=== PATIENT | male | born 1950 | race Caucasian/White ===

== ENCOUNTER 2017-03-22 15:28 | Emergency (ER) | payer OTHER ==
[~2017-03-22] VITALS: Ht 175.3 cm; Wt 140.0 kg
[~2017-03-22 15:28] MED LIST: ACET-1487 PO; ASPCH81X PO; ASPITAB71 PO; CLC100 PO; CRG125 PO; FAMO1TAB47 PO; GLC/500 PO; GLYB2.5T7 PO; INSUINJ14 SC; INSUINJ4 SQ; LPT10 PO; LSN5 PO; LSX40 PO; MECL1TAB42 PO; OXYC-643 PO; SALI0.6510 NAE; TRAM-10 PO; WARF-246 PO; WARF5TAB90 PO
[2017-03-22 15:32] VITALS: TEMP 37.1; Ht 175.3 cm; Wt 140.0 kg
--- NOTE | 2017-03-22 15:47 | EMERGENCY ROOM VISIT NOTE ---
History Report prepared by Jocelyn: Joesph Queen Under the Supervision of: Dr. Daniel Suazo D.O. First contact with patient: 15:36 Chief Complaint: FLANK PAIN Stated Complaint: PAIN ON RIGHT SIDE History of Present Illness The patient is a 67 year old male who presents to the Emergency Room with complaints of persistent right-sided back pain that started 2 weeks ago. He states that he currently has blood clots in his legs, and was seen at [facility] today, and was told to come here to get a CT scan. The patient says that laying down makes the pain better, and nothing makes it worse. He adds that he has been nauseous. He says that the pain is not worsened with eating or exertion. The patient denies any chest pain or abdominal pain. He notes that he is taking Warfarin, and his levels were last checked of last week, and it was 2.5. He says that he has a history of blood clots in his lungs. The patient has a noted history of hypertension and diabetes. He states that he does not smoke cigarettes or drink alcohol. Source of History: patient Onset: 2 weeks ago Position: back (right sided) Quality: other (told to get CT scan here) Timing: other (persistent) Modifying Factors (Relieving): other (laying down) Associated Symptoms: + nausea, No chest pain, No abdominal pain Review of Systems See HPI for pertinent positives & negatives. A total of 10 systems reviewed and were otherwise negative. Past Medical & Surgical Medical Problems: (1) Amputation Thumb (2) Cardiomegaly (3) Heartburn (4) Osteoarthros Nos-Unspec Family History Cancer Diabetes mellitus Heart disease Hypertension Social History Smoking Status: Former Smoker Alcohol Use: none Marital Status: Housing Status: lives with significant other Occupation Status: employed Current/Historical Medications Scheduled Aspirin (Aspirin Chewable), 81 MG PO DAILY Atorvastatin (Atorvastatin Calcium), 10 MG PO DAILY Carvedilol (Carvedilol), 25 MG PO BID Famotidine (Famotidine), 20 MG PO BID Furosemide (Furosemide), 40 MG PO DAILY Glyburide (Diabeta), 2.5 MG PO BID Insulin Isophan/Regular (Novolin 70/30), 40 UNITS SC BID Lisinopril (Lisinopril), 2.5 MG PO DAILY Metformin Hcl (Glucophage), 500 MG PO BIDM Warfarin Sodium (Warfarin Sodium), 2.5 MG PO MWF Warfarin Sodium (Coumadin), 5 MG PO 4XWK Scheduled PRN Aspirin Effervescent (Rita-Living[place]), 2 TABS PO for GI Upset Docusate Sodium (Docusate Sodium), 1 CAP PO BID PRN for Constipation Meclizine Hcl (Meclizine Hcl), 25 MG PO TID PRN for Dizziness Oxycodone/Acetaminophen 5MG/325MG (Oxycodone/Acetaminophen 5MG/325MG), 1-2 TABS PO Q4-6HRS PRN for Pain Saline ([place] Nasal [place]), 2 SPRAYS SHANNAN DAILY PRN for Nasal Congestion Tramadol (Ultram), 50-100 MG PO Q4H PRN for Pain Allergies Coded Allergies: Simvastatin (Verified Allergy, Mild, 03/22/17) Rosuvastatin (Unverified Allergy, Unknown, Pt unsure, 03/22/17) Physical Exam Vital Signs Date Time Temp Pulse Resp B/P (MAP) Pulse Ox O2 Delivery O2 Flow Rate FiO2 03/22/17 17:34 77 20 138/88 97 03/22/17 16:28 85 03/22/17 15:32 37.1 88 22 131/73 93 Room Air Physical Exam GENERAL: Patient is awake, alert, and in no acute distress. Patient is resting comfortably and showing no signs of anxiety EYES: The conjunctivae are clear. The pupils are round and reactive. EARS, NOSE, MOUTH AND THROAT: The nose is without any evidence of any deformity. Mucous membranes are moist tongue is midline NECK: The neck is nontender and supple. RESPIRATORY: Normal respiratory effort is noted there is no evidence of wheezing rhonchi or rales CARDIOVASCULAR: Regular rate and rhythm noted there no murmurs rubs or gallops normal S1 normal S2 GASTROINTESTINAL: The abdomen is mildly distended but soft. No tenderness, guarding, or rigidity appreciated. BACK: Right CVA tenderness to percussion and tenderness over the lower right posterior rib cage. No midline tenderness. Range of motion intact. MUSCULOSKELETAL/EXTREMITIES: There is no evidence of gross deformity full range of motion is noted in the hips and shoulders SKIN: Pedal edema bilaterally. NEUROLOGIC: Patient is awake alert and oriented x3. Medical Decision & Procedures ER Provider Diagnostic Interpretation: Radiology results as stated below per my review and radiologist interpretation: CHEST ONE VIEW PORTABLE CLINICAL HISTORY: Abdominal pain. COMPARISON STUDY: Chest CT August 30, 2014. FINDINGS: There are median sternotomy wires. Moderate cardiomegaly is unchanged. There is no evidence of pulmonary edema. No consolidation is identified. No pneumothorax or pleural effusion is noted. No lucency is identified under the hemidiaphragms to suggest pneumoperitoneum on this exam. IMPRESSION: No acute cardiopulmonary findings. Electronically signed by: Lance Trujillo M.D. 03/22/2017 4:05 PM Dictated Date/Time: 03/22/2017 4:[address] ANGIOGRAPHY OF THE CHEST, PULMONARY EMBOLUS PROTOCOL CLINICAL HISTORY: Right sided chest pain. COMPARISON STUDY: Chest CT August 30, 2014 and chest radiograph performed earlier today. TECHNIQUE: Following IV administration of 89 mL of Optiray-320, helical axial images of the chest were obtained utilizing the pulmonary embolus protocol. Maximal intensity projections and sagittal and coronal reformats were viewed on an independent 3D workstation. IV contrast was administered without complication. A dose lowering technique was utilized adhering to the principles of ALARA. CT DOSE: 725.27 mGy.cm FINDINGS: No central or lobar pulmonary emboli are identified. The segmental and subsegmental pulmonary arteries within the lower lobes are suboptimally assessed due to respiratory motion. The heart is moderately enlarged. There is no pericardial effusion. Median sternotomy wires are noted. Mild dilatation of the ascending aorta, measuring approximately 4.5 x 4 cm at the level the main pulmonary artery is unchanged. There is no thoracic aortic dissection. No consolidation to suggest pneumonia is present. Lungs are suboptimally assessed due to respiratory motion. There is no pneumothorax or pleural effusion. Central airways are patent. No suspicious osseous lesions are present. Probable fatty infiltration of the liver is noted. There is a small hiatal hernia. IMPRESSION: 1. No pulmonary emboli identified although segmental and subsegmental pulmonary arteries within the lower lobes suboptimally assessed due to respiratory motion. 2. No acute intrathoracic findings. 3. Stable cardiomegaly and mild dilatation of the ascending aorta. No thoracic aortic dissection. Electronically signed by: Lance Trujillo M.D. 03/22/2017 5:11 PM Dictated Date/Time: 03/22/2017 5:02 PM Laboratory Results 03/22/17 16:09 Red Blood Count 5.19, Mean Corpuscular Volume 87.7, Mean Corpuscular Hemoglobin 30.3, Mean Corpuscular Hemoglobin Concent 34.5, Mean Platelet Volume 10.2, Neutrophils (%) (Auto) 63.4, Lymphocytes (%) (Auto) 24.4, Monocytes (%) (Auto) 9.4, Eosinophils (%) (Auto) 1.6, Basophils (%) (Auto) 0.4, Neutrophils # (Auto) 6.99, Lymphocytes # (Auto) 2.69, Monocytes # (Auto) 1.04, Eosinophils # (Auto) 0.18, Basophils # (Auto) 0.04 03/22/17 16:09 Test 03/22/17 15:52 03/22/17 16:09 03/22/17 16:14 03/22/17 16:18 Urine Color YELLOW Urine Appearance CLEAR (CLEAR) Urine pH 6.0 (4.5-7.5) Urine Specific [place] 1.018 (1.000-1.030) Urine Protein NEG (NEG) Urine Glucose (UA) NEG (NEG) Urine Ketones NEG (NEG) Urine Occult Blood 1+ (NEG) Urine Nitrite NEG (NEG) Urine Bilirubin NEG (NEG) Urine Urobilinogen NEG (NEG) Urine Leukocyte Esterase NEG (NEG) Urine WBC (Auto) 0 /hpf (0-5) Urine RBC (Auto) 5-10 /hpf (0-4) Urine Hyaline Casts (Auto) 0 /lpf (0-5) Urine Epithelial Cells (Auto) 5-10 /lpf (0-5) Urine Bacteria (Auto) NEG (NEG) White Blood Count 11.03 K/uL (4.8-10.8) Red Blood Count 5.19 M/uL (4.7-6.1) Hemoglobin 15.7 g/dL (14.0-18.0) Hematocrit 45.5 % (42-52) Mean Corpuscular Volume 87.7 fL (80-100) Mean Corpuscular Hemoglobin 30.3 pg (25-34) Mean Corpuscular Hemoglobin Concent 34.5 g/dl (32-36) Platelet Count 309 K/uL (130-400) Mean Platelet Volume 10.2 fL (7.4-10.4) Neutrophils (%) (Auto) 63.4 % Lymphocytes (%) (Auto) 24.4 % Monocytes (%) (Auto) 9.4 % Eosinophils (%) (Auto) 1.6 % Basophils (%) (Auto) 0.4 % Neutrophils # (Auto) 6.99 K/uL (1.4-6.5) Lymphocytes # (Auto) 2.69 K/uL (1.2-3.4) Monocytes # (Auto) 1.04 K/uL (0.11-0.59) Eosinophils # (Auto) 0.18 K/uL (0-0.5) Basophils # (Auto) 0.04 K/uL (0-0.2) RDW Standard Deviation 42.3 fL (36.4-46.3) RDW Coefficient of Variation 13.2 % (11.5-14.5) Immature Granulocyte % (Auto) 0.8 % Immature Granulocyte # (Auto) 0.09 K/uL (0.00-0.02) Prothrombin Time 26.3 SECONDS (9.0-12.0) Prothromb Time International Ratio 2.6 (0.9-1.1) Activated Partial Thromboplast Time 37.4 SECONDS (21.0-31.0) Partial Thromboplastin Ratio 1.4 Est Creatinine Clear Calc Drug Dose 99.6 ml/min Estimated GFR () 87.9 Estimated GFR (Non- 75.9 BUN/Creatinine Ratio 17.0 (10-20) Calcium Level 8.8 mg/dl (8.5-10.1) Total Bilirubin 0.4 mg/dl (0.2-1) Direct Bilirubin < 0.1 mg/dl (0-0.2) Aspartate Amino Transf (AST/SGOT) 32 U/L (15-37) Alanine Aminotransferase (ALT/SGPT) 43 U/L (12-78) Alkaline Phosphatase 114 U/L (45-117) Total Creatine Kinase 270 U/L (39-308) Creatine Kinase MB 5.0 ng/ml (0.5-3.6) Creatine Kinase MB Ratio 1.9 (0-3.0) Troponin I < 0.015 ng/ml (0-0.045) Total Protein 7.1 gm/dl (6.4-8.2) Albumin 3.7 gm/dl (3.4-5.0) Lipase 121 U/L (73-393) Bedside D-Dimer 129 ng/mlFEU (0-450) Bedside Troponin I < 0.030 ng/ml (0-0.045) Bedside Hemoglobin 14.6 g/dl (14.0-18.0) Bedside Hematocrit 43 % (42-52) Bedside Sodium 140 mEq/L (135-144) Bedside Potassium 3.9 mEq/L (3.3-5.0) Bedside Chloride 96 mEq/L (101-112) Bedside Total CO2 32 mEq/l (24-31) Anion Gap 17.0 mmol/L (16-25) Bedside Blood Urea Nitrogen 18 mg/dl (7-18) Bedside Creatinine 1.1 mg/dl (0.6-1.3) Bedside Glucose (other) 157 mg/dl (70-99) Bedside Ionized Calcium (Missy) 1.14 mmol/l (1.12-1.32) Laboratory results per my review. ECG Indication: nausea Rate (beats per minute): 83 Rhythm: normal sinus Findings: Q waves (Inferior), T-wave inversion (high lateral) Change: no significant change (from 09/01/14) ED Course 1541: The patient was evaluated in room A9B. A complete history and physical examination were performed. 1718: Upon reevaluation, the patient is resting comfortably. I discussed the results and treatment plan with him. He verbalized agreement of the treatment plan. He was discharged home. Medical Decision Differential diagnosis: Etiologies such as musculoskeletal, disc herniation, fracture, aortic disease, metastatic disease, cord compression, discitis, infection, renal colic, gastrointestinal, acute exacerbation of chronic back pain, sciatica, cauda equina, as well as others were entertained. Nursing notes reviewed. The patient is a 67-year-old male who presented to the emergency department for right flank pain. The patient had reproducible right flank pain is also over the lower rib cage. He has a history for his Coumadin. His primary emergency department for CT chest shortness of pulmonary embolism the patient did not as follows other problems such as the stone patient only wanted a CT the chest. I obtain other laboratory radiographic studies as well as a cardiac workup. I discussed his laboratory radiographic studies with him. He did not wish to have any medication for pain while he was in the emergency department. Encouraged to rest and avoid any strenuous activity. He was encouraged to follow-up with his family doctor for reevaluation but return to the emergency department immediately if symptoms change worsen Medication Reconcilliation Current Medication List: was personally reviewed by me Blood Pressure Screening Patient's blood pressure: Elevated blood pressure Blood pressure disposition: Elevated BP felt to be situational Impression Primary Impression: Right-sided back pain Scribe Attestation The scribe's documentation has been prepared under my direction and personally reviewed by me in its entirety. I confirm that the note above accurately reflects all work, treatment, procedures, and medical decision making performed by me. Departure Information Dispostion Home / Self-Care Referrals Jennie Mckoy D.O. (PCP) Forms HOME CARE DOCUMENTATION FORM, IMPORTANT VISIT INFORMATION Patient Instructions Lumbar Pain Causes, [facility] Additional Instructions Continue all medications as prescribed. Rest and avoid any strenuous activity. Return the emergency department immediately if symptoms change worsen that he arises. Follow-up with your family doctor soon as possible. Problem Qualifiers Primary Impression: Right-sided back pain Back pain location: low back pain Chronicity: acute Sciatica presence: unspecified whether sciatica present Qualified Codes: M54.5 - Low back pain
--- NOTE | 2017-03-22 16:06 | DIAGNOSTIC IMAGING REPORT ---
CHEST ONE VIEW PORTABLE CLINICAL HISTORY: Abdominal pain. COMPARISON STUDY: Chest CT August 30, 2014. FINDINGS: There are median sternotomy wires. Moderate cardiomegaly is unchanged. There is no evidence of pulmonary edema. No consolidation is identified. No pneumothorax or pleural effusion is noted. No lucency is identified under the hemidiaphragms to suggest pneumoperitoneum on this exam. IMPRESSION: No acute cardiopulmonary findings. Electronically signed by: Lance Trujillo M.D. 03/22/2017 4:05 PM Dictated Date/Time: 03/22/2017 4:04 PM
[2017-03-22 16:10] LABS: URINE APPEARANCE CLEAR (CLEAR); URINE BILIRUBIN NEG (NEG); URINE COLOR YELLOW; URINE NITRITE NEG (NEG); URINE SPECIFIC GRAVITY 1.018 (1.000-1.030); UROBILINOGEN NEG (NEG)
[2017-03-22 16:14] LABS: MANUAL MICROSCOPIC REQUIRED? NO; REVIEW REQ? NO
[2017-03-22 16:19] LABS: BASO % 0.4 %; BASO ABS # 0.04 K/uL (0-0.2); COMPLETE YES; EOS % 1.6 %; HEMATOCRIT 45.5 % (42-52); IG% 0.8 %; LYMPH % 24.4 %; LYMPH ABS # 2.69 K/uL (1.2-3.4); MEAN CELL VOLUME 87.7 fL (80-100); MEAN CORPUSCULAR HEMOGLOBIN 30.3 pg (25-34); MEAN CORPUSCULAR HGB CONC 34.5 g/dl (32-36); MEAN PLATELET VOLUME 10.2 fL (7.4-10.4); MONO % 9.4 %; NEUT % 63.4 %; PLATELET COUNT 309 K/uL (130-400); RED BLOOD COUNT 5.19 M/uL (4.7-6.1); WHITE BLOOD COUNT 11.03 K/uL (4.8-10.8)
[2017-03-22 16:28] LABS: INR 2.6 (0.9-1.1); PARTIAL THROMBOPLASTIN RATIO 1.4; PROTHROMBIN TIME (PATIENT) 26.3 SECONDS (9.0-12.0)
[2017-03-22 16:34] LABS: POINT OF CARE TROPONIN I < 0.030 ng/ml (0-0.045)
[2017-03-22 16:35] LABS: ISTAT CREATININE 1.1 mg/dl (0.6-1.3); ISTAT HEMOGLOBIN 14.6 g/dl (14.0-18.0); ISTAT IONIZED CALCIUM 1.14 mmol/l (1.12-1.32)
[2017-03-22 16:49] LABS: ALT/SGPT 43 U/L (12-78); BLOOD UREA NITROGEN 18 mg/dl (7-18); CALCIUM 8.8 mg/dl (8.5-10.1); CARBON DIOXIDE 32 mmol/L (21-32); CHLORIDE 99 mmol/L (98-107); CREATININE 1.03 mg/dl (0.60-1.40); GLUCOSE 152 mg/dl (70-99); SODIUM 138 mmol/L (136-145)
[2017-03-22] MEDS ORDERED: INSU70IN2 SC (16:51)
[2017-03-22 16:54] LABS: ALKALINE PHOSPHATASE 114 U/L (45-117); AST/SGOT 32 U/L (15-37); CKMB/CK RATIO 1.9 (0-3.0)
[2017-03-22] MEDS ORDERED: OPTIRAY 320 IV PRN (17:00)
--- NOTE | 2017-03-22 17:12 | DIAGNOSTIC IMAGING REPORT ---
CT ANGIOGRAPHY OF THE CHEST, PULMONARY EMBOLUS PROTOCOL CLINICAL HISTORY: Right sided chest pain. COMPARISON STUDY: Chest CT August 30, 2014 and chest radiograph performed earlier today. TECHNIQUE: Following IV administration of 89 mL of Optiray-320, helical axial images of the chest were obtained utilizing the pulmonary embolus protocol. Maximal intensity projections and sagittal and coronal reformats were viewed on an independent 3D workstation. IV contrast was administered without complication. A dose lowering technique was utilized adhering to the principles of ALARA. CT DOSE: 725.27 mGy.cm FINDINGS: No central or lobar pulmonary emboli are identified. The segmental and subsegmental pulmonary arteries within the lower lobes are suboptimally assessed due to respiratory motion. The heart is moderately enlarged. There is no pericardial effusion. Median sternotomy wires are noted. Mild dilatation of the ascending aorta, measuring approximately 4.5 x 4 cm at the level the main pulmonary artery is unchanged. There is no thoracic aortic dissection. No consolidation to suggest pneumonia is present. Lungs are suboptimally assessed due to respiratory motion. There is no pneumothorax or pleural effusion. Central airways are patent. No suspicious osseous lesions are present. Probable fatty infiltration of the liver is noted. There is a small hiatal hernia. IMPRESSION: 1. No pulmonary emboli identified although segmental and subsegmental pulmonary arteries within the lower lobes suboptimally assessed due to respiratory motion. 2. No acute intrathoracic findings. 3. Stable cardiomegaly and mild dilatation of the ascending aorta. No thoracic aortic dissection. Electronically signed by: Lance Trujillo M.D. 03/22/2017 5:11 PM Dictated Date/Time: 03/22/2017 5:02 PM
[2017-03-22 17:34] VITALS: BP 138/88; PULSE 77; O2SAT 97
== END 2017-03-22 17:20 | disposition home or self-care (01) ==
LOC: C.EDB 15:28 → C.EDA 17:20
DX: M54.5 Low back pain (principal); I10 Essential (primary) hypertension; E11.9 Type 2 diabetes mellitus without complications; M19.90 Unspecified osteoarthritis, unspecified site; Z86.711 Personal history of pulmonary embolism; Z87.891 Personal history of nicotine dependence; Z83.3 Family history of diabetes mellitus; Z82.49 Family history of ischemic heart disease and other diseases of the circulatory system; Z79.01 Long term (current) use of anticoagulants; Z79.4 Long term (current) use of insulin; Z79.82 Long term (current) use of aspirin; Z79.84 Long term (current) use of oral hypoglycemic drugs; Z79.899 Other long term (current) drug therapy

== ENCOUNTER 2023-08-03 15:18 | Inpatient (IN) ==
--- NOTE | 2023-08-03 15:30 | ED Triage Note ---
Date of Service August 03, 2023 Provider in Triage Author: Bree Freeman History of Present Illness This patient was briefly evaluated while in triage. An abbreviated physical exam was performed. This patient is a 73-year-old Male who presents to the ED for evaluation of chest pain and mid back pain. Reports had CT done and stated his gallbladder is infected and needed to come here for evaluation. Physical Exam CONSTITUTIONAL: in no acute pain or distress, resting comfortably SKIN: pink, warm, dry CARDIAC: regular rate and rhythm RESPIRATORY: in no respiratory distress, lungs clear to auscultation ABDOMEN: epigastric TTP MSK: 5/5 strength throughout NEURO: no neuro deficits, alert and oriented x 3 Initial orders for labs and / or imaging were placed and patient was placed in the waiting area until a bed is available. Please see further documentation for the full ED course.
[2023-08-03 16:18] LABS: Basophils # (auto) 0.05 K/uL (0.00-0.20); Basophils % (auto) 0.3 %; Eosinophils # (auto) 0.04 K/uL (0.00-0.50); Eosinophils % (auto) 0.2 %; Hematocrit (blood only) 44.8 % (42.0-52.0); Immature Granulocytes # (auto) 0.14 K/uL (0.01-0.20); Immature Granulocytes % (auto) 0.8 %; Lymphocytes # (auto) 1.91 K/uL (1.20-3.40); Lymphocytes % (auto) 10.8 %; Mean Corpuscular Hgb Conc 33.5 g/dL (32.0-36.0); Mean Corpuscular Volume 86.7 fL (80.0-100.0); Mean Platelet Volume 10.7 fL (9.4-12.4); Monocytes # (auto) 1.67 K/uL (0.11-0.59); Monocytes % (auto) 9.4 %; Neutrophils # (auto) 13.93 K/uL (1.40-6.50); Neutrophils % (auto) 78.5 %; Platelet Count 305 K/uL (130-400); RDW Standard Deviation 41.1 fL (36.4-46.3); Red Blood Count 5.17 M/uL (4.70-6.10); White Blood Count 17.74 K/ul (4.8-10.8)
[2023-08-03 16:23] LABS: Albumin Level 3.6 gm/dl (3.4-5.0); BUN Creatinine Ratio 11.1 (10-20); Bilirubin,Total 1.1 mg/dl (0.2-1.0); Calcium 9.2 mg/dl (8.6-10.3); Est GFR (African American) 108.8 ml/min; Est GFR (Non-African American) 93.9 ml/min; Globulin 3.5 gm/dl (2.5-4.0); Potassium 3.7 mmol/L (3.5-5.1); Total Protein 7.1 gm/dl (6.0-8.3)
[2023-08-03 16:29] LABS: Troponin I High Sensitivity 13.6 pg/ml (0-20)
--- NOTE | 2023-08-03 16:59 | Emergency Department Note ---
ED Provider Note History of Present Illness Chief Complaint: Referred by Doctor Stated Complaint: GALL STONES Time Seen by Provider: 08/03/23 16:44 This patient is a 73-year-old male who presents to the emergency department for evaluation of an abnormal CT scan. Patient reports that he developed some pains in his lower chest/upper abdomen 3 days ago. The pain was pretty severe the next day but yesterday felt a bit better. He noticed his pain was worse after eating. Pain did radiate into the back. He woke up today feeling much better and denies any pain at this time. He had an appointment with his PCP today, they ordered a CT and then called him and told him to come to the ER. Outside records reviewed, patient was seen through [facility] and had a CT scan which showed acute calculus cholecystitis and choledocholithiasis with mild dilation of the CBD. Home Medications Medication Instructions Recorded Confirmed Type acetaminophen 325 mg tablet 650 mg PO Q6H PRN Pain 10/20/18 08/03/23 History apixaban 5 mg tablet (Eliquis) 5 mg PO BID 10/20/18 08/03/23 History aspirin-sod bicarb-citric acid 325 1 tab PO DAILY PRN Abdominal 10/20/18 08/03/23 History mg-1,916 mg-1,000 mg efferves tab Discomfort (Rita-Mira Original) atorvastatin 80 mg tablet 80 mg PO QAM 10/20/18 08/03/23 History docusate sodium 100 mg capsule 100 mg PO BID PRN Constipation 10/20/18 08/03/23 History insulin NPH-regular 70-30 U-100 75 unit subcut BID 10/20/18 08/03/23 History insulin 100 unit/mL subcutaneous pen (Novolin 70-30 FlexPen U-100 Insulin) tramadol 50 mg tablet 50 mg PO Q8H PRN Pain 10/20/18 08/03/23 History aspirin 81 mg tablet,delayed 81 mg PO QAM 04/09/20 08/03/23 History release ezetimibe 10 mg tablet 10 mg PO QAM 03/20/22 08/03/23 History fluticasone furoate 100 1 inh inhalation QAM PRN Wheezing 03/20/22 08/03/23 History mcg/actuation blister powder for inhalation (Arnuity Ellipta) furosemide 40 mg tablet 40 mg PO QAM 03/20/22 08/03/23 History isosorbide mononitrate 30 mg 30 mg PO QAM 03/20/22 08/03/23 History tablet,extended release 24 hr metformin 500 mg tablet,extended 500 mg PO BID 03/20/22 08/03/23 History release 24 hr metoprolol succinate 50 mg 75 mg PO QPM 03/20/22 08/03/23 History tablet,extended release 24 hr metoprolol succinate 50 mg 100 mg PO QAM 03/20/22 08/03/23 History tablet,extended release 24 hr nitroglycerin 0.4 mg sublingual 0.4 mg sublingual UD PRN Chest Pain 03/20/22 08/03/23 History tablet semaglutide 2 mg/dose (8 mg/3 mL) 2 mg subcut WK 08/03/23 08/03/23 History subcutaneous pen injector (Ozempic) Allergies Allergy/AdvReac Type Severity Reaction Status Date / Time rosuvastatin Allergy Mild Cramping Verified 08/03/23 18:23 of the Muscles simvastatin Allergy Mild Cramping Verified 08/03/23 18:23 of the Muscles Past Med/Surg History Medical History (Updated 08/04/23 @ 13:17 by NICOLÁS Heaton) CAD (coronary artery disease) Pulmonary hypertension Ischemic cardiomyopathy Per cardio records. EF 50-54% on 11/01/19 echo. Pain of left leg LLE. Per cardiology, 07/2018 duplex showed chronic-appearing nonocclusive thrombus in L popliteal vein. SOB (shortness of breath) on exertion Irregular heartbeat HX-F/U GAL GRACIE Osteoarthritis Kidney stones Diabetes mellitus, type 2 Vertigo Depression Anxiety Transient ischemic attack (TIA) 15 YRS AGO Migraine Pulmonary embolism Post-op s/p CABG with DVT in 2014, then again 08/2018 despite warfarin therapy. Myocardial Infarction NSTEMI 2014. Cath --> CABG x 3 (GREGORY-LAD, SVG-Dx, SVG-OM) 08/16/14. Deep vein thrombosis "still have it"?? started 5+ years ago-> is currently on blood thinners. has no problems Hyperlipidemia Hypertension Sleep apnea CPAP HS and PRN with naps Surgical History History of ERCP History of amputation partial right thumb amputation S/P hardware removal left leg (unable to remove screws) History of open reduction and internal fixation (ORIF) procedure Left leg (1999 & 2003) d/t a trauma Nausea and vomiting after administration of anesthetic agent hx Hx of cataract surgery bilateral History of shoulder surgery right History of arthroscopy KNEES History of colonoscopy Hx of heart bypass surgery 2015 CABG x 3. History of cardiac cath NO STENTS, 2015. Family History Mother Diabetes mellitus, type 2 Mother Cancer Father Cancer Other No family history of adverse response to anesthesia Social History Smoking Status: Never smoker Second Hand Exposure: No; Do You Dip or Chew Tobacco: No; Hx Alcohol Use: No Hx Substance Use: No Preferred Language: Occitan Communication Ability: Effective Certified Welding Inspector Required: No Beliefs That Will Affect Care: None Current Living Situation: Spouse Feels Safe at Home: Yes Assistive Devices: Cane, CPAP and Scooter/Electric Scooter Physical Exam Vital Signs Vital Signs - 24 hr 08/03/23 15:18 08/03/23 17:17 08/03/23 17:17 Temperature 37.0 C Temperature Source Temporal Artery Scan Pulse Rate 100 H 86 Pulse Rate [Apical] 96 H Pulse Rate from SpO2 Sensor Pulse Rhythm Regular Pulse Rhythm [Apical] Regular Pulse Strength [Apical] Respiratory Rate 18 20 20 Respiratory Effort / Characteristics Non-Labored Spontaneous Respiratory Depth Normal Respiratory Pattern Regular Blood Pressure 156/79 H Blood Pressure [Right Arm] 168/99 H Blood Pressure Mean 104 Blood Pressure Mean [Right Arm] 122 Pulse Oximetry 94 93 93 Oxygen Delivery Method Nasal Cannula Room Air Room Air Sepsis Recent Fever Within 48 Hours No Sepsis New/Unexplained Change in Mental Status N/A Sepsis Action Taken by Nursing No Action Required 08/03/23 17:18 08/03/23 17:20 08/03/23 17:24 Temperature Temperature Source Pulse Rate 96 H 91 H 96 H Pulse Rate [Apical] Pulse Rate from SpO2 Sensor 87 92 H Pulse Rhythm Pulse Rhythm [Apical] Pulse Strength [Apical] Respiratory Rate 26 H 16 Respiratory Effort / Characteristics Respiratory Depth Respiratory Pattern Blood Pressure Blood Pressure [Right Arm] Blood Pressure Mean Blood Pressure Mean [Right Arm] Pulse Oximetry 93 92 Oxygen Delivery Method Sepsis Recent Fever Within 48 Hours Sepsis New/Unexplained Change in Mental Status Sepsis Action Taken by Nursing 08/03/23 17:30 08/03/23 17:32 08/03/23 17:32 Temperature Temperature Source Pulse Rate 99 H 88 Pulse Rate [Apical] Pulse Rate from SpO2 Sensor 102 H 90 Pulse Rhythm Pulse Rhythm [Apical] Pulse Strength [Apical] Respiratory Rate 26 H 12 Respiratory Effort / Characteristics Respiratory Depth Respiratory Pattern Blood Pressure 157/83 H Blood Pressure [Right Arm] Blood Pressure Mean 99 Blood Pressure Mean [Right Arm] Pulse Oximetry 92 94 Oxygen Delivery Method Sepsis Recent Fever Within 48 Hours Sepsis New/Unexplained Change in Mental Status Sepsis Action Taken by Nursing 08/03/23 17:40 08/03/23 17:50 08/03/23 18:00 Temperature Temperature Source Pulse Rate 91 H 92 H 90 Pulse Rate [Apical] Pulse Rate from SpO2 Sensor 91 H 85 89 Pulse Rhythm Pulse Rhythm [Apical] Pulse Strength [Apical] Respiratory Rate 15 11 L 24 Respiratory Effort / Characteristics Respiratory Depth Respiratory Pattern Blood Pressure Blood Pressure [Right Arm] Blood Pressure Mean Blood Pressure Mean [Right Arm] Pulse Oximetry 93 93 91 Oxygen Delivery Method Sepsis Recent Fever Within 48 Hours Sepsis New/Unexplained Change in Mental Status Sepsis Action Taken by Nursing 08/03/23 18:01 08/03/23 18:01 08/03/23 18:10 Temperature Temperature Source Pulse Rate 91 H 90 Pulse Rate [Apical] Pulse Rate from SpO2 Sensor 91 H 88 Pulse Rhythm Pulse Rhythm [Apical] Pulse Strength [Apical] Respiratory Rate 28 H 23 Respiratory Effort / Characteristics Respiratory Depth Respiratory Pattern Blood Pressure 148/83 H Blood Pressure [Right Arm] Blood Pressure Mean 100 Blood Pressure Mean [Right Arm] Pulse Oximetry 93 92 Oxygen Delivery Method Sepsis Recent Fever Within 48 Hours Sepsis New/Unexplained Change in Mental Status Sepsis Action Taken by Nursing 08/03/23 18:20 08/03/23 18:30 08/03/23 18:40 Temperature Temperature Source Pulse Rate 92 H 94 H 86 Pulse Rate [Apical] Pulse Rate from SpO2 Sensor 90 89 Pulse Rhythm Pulse Rhythm [Apical] Pulse Strength [Apical] Respiratory Rate 30 H 18 17 Respiratory Effort / Characteristics Respiratory Depth Respiratory Pattern Blood Pressure Blood Pressure [Right Arm] Blood Pressure Mean Blood Pressure Mean [Right Arm] Pulse Oximetry 92 94 Oxygen Delivery Method Sepsis Recent Fever Within 48 Hours Sepsis New/Unexplained Change in Mental Status Sepsis Action Taken by Nursing 08/03/23 18:58 04/23/24 19:00 08/03/23 19:00 Temperature Temperature Source Pulse Rate 96 H 83 Pulse Rate [Apical] 87 Pulse Rate from SpO2 Sensor Pulse Rhythm Pulse Rhythm [Apical] Regular Pulse Strength [Apical] Normal Respiratory Rate 14 20 22 Respiratory Effort / Characteristics Non-Labored Spontaneous Respiratory Depth Normal Respiratory Pattern Regular Blood Pressure Blood Pressure [Right Arm] Blood Pressure Mean Blood Pressure Mean [Right Arm] Pulse Oximetry 98 Oxygen Delivery Method Room Air Sepsis Recent Fever Within 48 Hours Sepsis New/Unexplained Change in Mental Status Sepsis Action Taken by Nursing 08/03/23 19:10 08/03/23 19:20 Temperature Temperature Source Pulse Rate 92 H 91 H Pulse Rate [Apical] Pulse Rate from SpO2 Sensor Pulse Rhythm Pulse Rhythm [Apical] Pulse Strength [Apical] Respiratory Rate 34 H 12 Respiratory Effort / Characteristics Respiratory Depth Respiratory Pattern Blood Pressure Blood Pressure [Right Arm] Blood Pressure Mean Blood Pressure Mean [Right Arm] Pulse Oximetry Oxygen Delivery Method Sepsis Recent Fever Within 48 Hours Sepsis New/Unexplained Change in Mental Status Sepsis Action Taken by Nursing VITALS: Vitals are noted on the nurse's note and reviewed by myself. GENERAL: This is a 73-year-old male, in no acute distress, well-developed well- nourished. SKIN: The skin was without rashes. EYES: Pupils equal round and reactive to light and accommodation. No scleral icterus. MOUTH: Mucous membranes moist. HEART: Regular rate and rhythm without murmurs gallops or rubs. LUNGS: Clear to auscultation bilaterally without wheezes, rales or rhonchi. ABDOMEN: Positive bowel sounds x 4. Soft, nontender to palpation. No guarding or rebound tenderness. NEURO: Patient was alert and oriented to person place and time. Course Administered Medications Hydromorphone HCl (Hydromorphone Inj 0.5 Mg/0.5 Ml Syr) 0.25 mg IV Q6H PRN PRN Reason: Severe Pain (Scale 7, 8, 9,10) Stop: 08/17/23 20:45 Last Admin: 08/04/23 11:54 Dose: 0.25 mg Documented By: LRB Heparin Sodium/Dextrose (Heparin Sodium/Dextrose) 25,000 units in 500 mls @ 32 mls/hr IV .[id number] [facility]; Protocol Stop: 09/02/23 19:44 Last Titration: 08/04/23 19:00 Dose: 1,600 units/hr, 32 mls/hr Documented By: TAWNY Co-signed By: ELLIOTT Titration: 08/04/23 12:23 Dose: 1,600 units/hr, 32 mls/hr Documented By: ELLIOTT Co-signed By: ROMI Admin: 08/04/23 11:54 Dose: 1,600 units/hr, 32 mls/hr Documented By: ELLIOTT Co-signed By: ROMI Titration: 08/04/23 11:54 Dose: Infused Documented By: ELLIOTT Co-signed By: ROMI Titration: 08/04/23 05:13 Dose: 1,600 units/hr, 32 mls/hr Documented By: JAZMYNE Co-signed By: JORGE A Titration: 08/04/23 04:11 Dose: 0 units/hr, 0 mls/hr Documented By: JAZMYNE Co-signed By: JORGE A Admin: 08/03/23 19:56 Dose: 1,800 units/hr, 36 mls/hr Documented By: ALFREDA Co-signed By: KATHERINE Piperacillin Sod/Tazobactam (Sod 4.5 gm/ Dextrose) 100 mls @ 25 mls/hr IV Q8H JOHNIE; Protocol Stop: 08/13/23 22:59 Last Infusion: 08/04/23 19:37 Dose: Infused Documented By: Admin: 08/04/23 15:37 Dose: 25 mls/hr Documented By: Infusion: 08/04/23 11:44 Dose: Infused Documented By: Admin: 08/04/23 08:11 Dose: 25 mls/hr Documented By: Infusion: 08/04/23 02:56 Dose: Infused Documented By: Admin: 08/03/23 22:36 Dose: 25 mls/hr Documented By: ALFREDA Acetaminophen (Ofirmev) 1,000 mg in 100 mls @ 400 mls/hr IV Q8H PRN PRN Reason: Pain or Fever Stop: 08/06/23 20:45 Last Infusion: 08/04/23 16:23 Dose: Infused Documented By: Admin: 08/04/23 15:37 Dose: 400 mls/hr Documented By: Infusion: 08/04/23 08:05 Dose: Infused Documented By: Admin: 08/04/23 07:50 Dose: 400 mls/hr Documented By: Infusion: 08/03/23 21:52 Dose: Infused Documented By: Admin: 08/03/23 21:31 Dose: 400 mls/hr Documented By: ALFREDA Insulin Aspart (Insulin Aspart Per Unit Charge) 0 units SC Q6 JOHNIE Stop: 09/03/23 00:00 Last Admin: 08/04/23 17:11 Dose: Not Given Documented By: Admin: 08/04/23 12:52 Dose: 2 units Documented By: ELLIOTT Co-signed By: ROMI Admin: 08/04/23 06:06 Dose: 4 units Documented By: JAZMYNE Co-signed By: JORGE A Admin: 08/04/23 00:10 Dose: Not Given Documented By: JASKARAN Insulin Glargine (Lantus Per Unit Charge) 0 units SC HS JOHNIE; Protocol Stop: 09/03/23 20:59 Last Admin: 08/04/23 21:03 Dose: 10 units Documented By: TAWNY Co-signed By: [id number] Metoprolol Succinate (Metoprolol Succ 50mg Ext Rel Tab) 100 mg PO QAM JOHNIE Stop: 09/03/23 08:59 Last Admin: 08/04/23 08:12 Dose: 100 mg Documented By: RICHARD Metoprolol Succinate (Metoprolol Succ 25mg Ext Rel Tab) 75 mg PO QPM [facility] Stop: 09/02/23 20:59 Last Admin: 08/04/23 21:01 Dose: 75 mg Documented By: Admin: 08/03/23 21:20 Dose: 75 mg Documented By: ALFREDA Discontinued Medications Bisacodyl (Bisacodyl 5 Mg Tabec) 5 mg PO NOW ONE Stop: 08/03/23 19:29 Last Admin: 08/03/23 19:55 Dose: 5 mg Documented By: ALFREDA Furosemide (Furosemide Inj 20 Mg/2 Ml Vial) 20 mg IV ONE ONE Stop: 08/04/23 11:18 Last Admin: 08/04/23 11:57 Dose: 20 mg Documented By: ELLIOTT Piperacillin Sod/Tazobactam Sod (Zosyn) 4.5 gm in 100 mls @ 200 mls/hr IV NOW ONE Stop: 08/03/23 17:58 Last Infusion: 08/03/23 18:16 Dose: Infused Documented By: Admin: 08/03/23 17:44 Dose: 200 mls/hr Documented By: ALFREDA Sodium Chloride (Nss) 500 mls @ 80 mls/hr IV .[id number] JOHNIE Stop: 08/04/23 05:14 Last Admin: 08/04/23 00:02 Dose: Not Given Documented By: JASKARAN Potassium Chloride/Sodium Chloride (Normal Saline W/20 Meq Kcl) 20 meq in 1,000 mls @ 80 mls/hr IV .[id number] ONE; Protocol Stop: 08/04/23 12:27 Last Infusion: 08/04/23 12:39 Dose: Infused Documented By: Admin: 08/04/23 00:08 Dose: 80 mls/hr Documented By: JASKARAN Insulin Glargine (Lantus Per Unit Charge) 20 units SC DAILY JOHNIE Stop: 09/03/23 08:59 Last Admin: 08/04/23 10:18 Dose: Not Given Documented By: RICHARD Morphine Sulfate (Morphine Sulfate 2 Mg/Ml Carp) Confirm Administered Dose 2 mg .ROUTE .STK-MED ONE Stop: 08/04/23 14:34 Last Admin: 08/04/23 14:40 Dose: 2 mg Documented By: MILTON Potassium Chloride (Potassium Chloride Crtab 20 Meq Tabcr) 40 meq PO NOW STA Stop: 08/03/23 23:40 Last Admin: 08/04/23 00:07 Dose: 40 meq Documented By: JASKARAN Medical Decision Making Differential Diagnosis Appendicitis, testicular torsion, infections, diverticulitis, UTI, obstruction, mesenteric ischemia, aortic pathology, inflammatory bowel disease, renal colic, PUD, pancreatitis, biliary pathology, hernia, volvulus, constipation, as well as other pathologies. Laboratory Data Attestation: I reviewed the patient's lab results. 08/04/23 02:05 08/04/23 02:05 Lab Results 08/03/23 08/03/23 08/03/23 Range/Units 15:34 15:39 17:15 WBC 17.74 H (4.8-10.8) K/ul RBC 5.17 (4.70-6.10) M/uL Hgb 15.0 (14.0-18.0) g/dl Hct 44.8 (42.0-52.0) % MCV 86.7 (80.0-100.0) fL MCH 29.0 (25.0-34.0) pg MCHC 33.5 (32.0-36.0) g/dL RDW Std Deviation 41.1 (36.4-46.3) fL RDW Coeff of Sara 13.0 (11.5-14.5) % Plt Count 305 (130-400) K/uL MPV 10.7 (9.4-12.4) fL Immature Gran % (Auto) 0.8 % Neut % (Auto) 78.5 % Lymph % (Auto) 10.8 % [place] % (Auto) 9.4 % Eos % (Auto) 0.2 % Baso % (Auto) 0.3 % Neut # (Auto) 13.93 H (1.40-6.50) K/uL Lymph # (Auto) 1.91 (1.20-3.40) K/uL [place] # (Auto) 1.67 H (0.11-0.59) K/uL Eos # (Auto) 0.04 (0.00-0.50) K/uL Baso # (Auto) 0.05 (0.00-0.20) K/uL Immature Gran # (Auto) 0.14 (0.01-0.20) K/uL APTT 34 H (21-31) Seconds PTT Ratio 1.2 Sodium 133 L (136-145) mmol/L Potassium 3.7 (3.5-5.1) mmol/L Chloride 97 L (98-107) mmol/L Carbon Dioxide 29 (21-32) mmol/L Anion Gap 7 (3-11) BUN 8 (6-23) mg/dl Creatinine 0.72 (0.6-1.4) mg/dl Est Cr Clr Drug Dosing 132.0 ml/min Est GFR ( Amer) 108.8 ml/min Est GFR (Non-Af Amer) 93.9 ml/min BUN/Creatinine Ratio 11.1 (10-20) Glucose 159 H (70-99(Fasting)) mg/dl Calcium 9.2 (8.6-10.3) mg/dl Magnesium 1.5 L (1.7-2.4) mg/dl Total Bilirubin 1.1 H (0.2-1.0) mg/dl Direct Bilirubin 0.2 (0-0.2) mg/dl AST 11 L (13-39) U/L ALT 17 (7-52) U/L Alkaline Phosphatase 75 (34-104) U/L Troponin I High Sens 13.6 (0-20) pg/ml Total Protein 7.1 (6.0-8.3) gm/dl Albumin 3.6 (3.4-5.0) gm/dl Globulin 3.5 (2.5-4.0) gm/dl Albumin/Globulin Ratio 1.0 (0.9-2) Lipase 5 L (11-82) U/L TSH 0.732 (0.300-4.500) uIu/ml Urine Color Yellow Urine Appearance Clear (Clear) Urine pH 8.0 H (4.5-7.5) Ur Specific [place] 1.008 (1.000-1.030) Urine Protein 1+ H (Negative) Urine Glucose (UA) Negative (Negative) Urine Ketones Negative (Negative) Urine Blood Trace H (Negative) Urine Nitrite Negative (Negative) Urine Bilirubin Negative (Negative) Urine Urobilinogen Negative (Negative) Ur Leukocyte Esterase Negative (Negative) Urine WBC (Auto) 0-5 (0-5) /hpf Urine RBC (Auto) 0-2 (0-2) /hpf U Hyaline Cast (Auto) 0-2 (0-2) /lpf U Epithel Cells (Auto) 0-2 (0-2) /hpf Urine Bacteria (Auto) None Seen (None Seen) Imaging Data Attestation: I personally reviewed and interpreted this imaging study as follows: Radiologist's Impression: Gallbladder Ultrasound 08/03/23 15:30 ABDOMINAL ULTRASOUND, RIGHT UPPER QUADRANT HISTORY: Acute right upper quadrant abdominal pain r/o cholecystitis. COMPARISON: 08/13/2014 FINDINGS: Exam secondary to patient body habitus. Pancreas: The pancreas is obscured by bowel gas. Liver: Increased echogenicity measuring 20 cm in length. No hepatic mass or marginal nodularity. Gallbladder: Cholelithiasis with gallbladder sludge. The gallbladder wall is thickened at 7 mm. Trace pericholecystic fluid. Sonographic Monreal's sign was reported as positive. CBD: 7 mm Right kidney: No hydronephrosis. 4.9 cm complex septated cyst in the mid inferior pole right kidney, previously 3.7 cm. IMPRESSION: 1. Cholelithiasis with findings of acute cholecystitis. 2. Borderline dilation of the common bile duct. Correlate with serum bilirubin. 3. Hepatomegaly with hepatic steatosis. 4. Mildly increased size of the complex right renal cyst now measuring 4.9 cm. ACT 112: Negative or not required by law. Electronically signed by: Duglas Rodriguez M.D. 08/03/2023 5:02 PM ECG Data Attestation: I personally reviewed and interpreted this ECG as follows: Indication: + abdominal pain Rate (beats per minute): 95 Rhythm: + sinus rhythm ECG Intervals/blocks: + First degree AV block MDM Narrative This patient is a 73-year-old male who presents to the emergency department for evaluation of an abnormal CT scan. Patient had abdominal pain which has now resolved but was found to have cholecystitis on outpatient CT. He has no complaints at this time. Denies any fevers. He does have a leukocytosis of 17,000. Right upper quadrant ultrasound shows cholelithiasis and acute cholecystitis. There is borderline dilatation of the common bile duct, however bilirubin is not elevated at 1.1 and remainder of LFTs are within normal limits. Patient was given a dose of Zosyn. Initially discussed the case with Dr. Lees from GI, who did not feel that the patient needed an emergent ERCP and it would be reasonable to keep him here. Case was then discussed with Dr. Richey from general surgery who agreed it was reasonable to keep the patient here and will consult for cholecystectomy. He did recommend medical admission due to patient's complex medical history and use of anticoagulants. [facility], who agreed to evaluate the patient for further care. Impression Cholecystitis Discharge Plan Visit Data Chief Complaint: Referred by Doctor Stated Complaint: GALL STONES ED Provider: kAi Ordaz ED Midlevel Provider: Maddison Cardenas Discharge Problem: Cholecystitis Patient Disposition: Admitted As Inpatient Discharge Instructions Interventions: ED Discharge Assessment Last Done: 08/03/23 20:47 Addendum August 04, 2023 22:11 HPI: The patient is a 73-year-old gentleman who presents to the emergency department for evaluation of abdominal pain with outpatient [facility] CT today describing evidence of cholecystitis as well as choledocholithiasis subsequently referred to the emergency department by his PCP office. Patient reports that his upper abdominal pain began several days ago and was worse after eating. He reports pain did radiate to his back. Patient reports his pain improved today and denies any pain upon presentation. A/P: WBC 17.7 K with neutrophil predominance though no left shift, nonspecific. H/H and platelets within normal limits. Chemistry without metabolic acidosis. Total bilirubin 1.1 with direct bilirubin 0.2, within normal limits. AST, ALT and alk phos are nonelevated. High-sensitivity troponin 13.6 within normal limits. Lipase is not elevated. TSH within normal limits. UA without evidence of infection. Gallbladder ultrasound was obtained and demonstrates cholelithiasis with findings suggestive of cholecystitis with thickened gallbladder wall and trace pericholecystic fluid with sonographic Monreal sign reported. Borderline dilation of the CBD is described measuring 7 mm. IV Zosyn administered. TAYA Cardenas reviewed case with GI on-call, Dr. Lees as well as general surgery on-call, Dr. Richey. Appreciate consultation and recommendations. It was felt that the patient did not require emergent ERCP at this time and patient could be admitted to our facility for further management. [facility] management and specialty consultation. Further management per admitting team. I was consulted by the Advanced Practice Provider and was substantively involved in the patient's visit.This includes aspects of the HPI, MDM, diagnostic interpretations, and disposition/plan. I discussed the case with the TAYA and agree with the findings and plan as documented in TAYA Cardenas's note.
--- NOTE | 2023-08-03 17:03 | Ultrasound Report ---
ABDOMINAL ULTRASOUND, RIGHT UPPER QUADRANT HISTORY: Acute right upper quadrant abdominal pain r/o cholecystitis. COMPARISON: 08/13/2014 FINDINGS: Exam secondary to patient body habitus. Pancreas: The pancreas is obscured by bowel gas. Liver: Increased echogenicity measuring 20 cm in length. No hepatic mass or marginal nodularity. Gallbladder: Cholelithiasis with gallbladder sludge. The gallbladder wall is thickened at 7 mm. Trace pericholecystic fluid. Sonographic Monreal's sign was reported as positive. CBD: 7 mm Right kidney: No hydronephrosis. 4.9 cm complex septated cyst in the mid inferior pole right kidney, previously 3.7 cm. IMPRESSION: 1. Cholelithiasis with findings of acute cholecystitis. 2. Borderline dilation of the common bile duct. Correlate with serum bilirubin. 3. Hepatomegaly with hepatic steatosis. 4. Mildly increased size of the complex right renal cyst now measuring 4.9 cm. ACT 112: Negative or not required by law. Electronically signed by: Duglas Rodriguez M.D. 08/03/2023 5:02 PM
[2023-08-03 17:07] LABS: Bilirubin Direct 0.2 mg/dl (0-0.2)
[2023-08-03] MEDS: PIPERACILLIN/TAZOBACTAM 4.5 GM/100 ML BAG IV ONE (17:44)
[2023-08-03 18:35] LABS: Appearance Urine Clear (Clear); Bacteria Urine Automated None Seen (None Seen); Bilirubin Urine Negative (Negative); Blood Urine Trace (Negative); Cast Urine Automated 0-2 /lpf (0-2); Color Urine Yellow; Epithelial Cell Urine Auto 0-2 /hpf (0-2); Glucose Urine UA Negative (Negative); Ketones Urine Negative (Negative); Leukocyte Esterase Urine Negative (Negative); Nitrite Urine Negative (Negative); Protein Urine 1+ (Negative); RBC Urine Automated 0-2 /hpf (0-2); Specific Gravity Urine 1.008 (1.000-1.030); Urobilinogen Urine Negative (Negative); WBC Urine Automated 0-5 /hpf (0-5)
--- NOTE | 2023-08-03 18:41 | History & Physical Report ---
Date of Service August 03, 2023 Assessment & Plan (1) Cholecystitis: Plan: This is a 73yo M with a PMH of DM II, CAD s/p CABG, history of ischemic cardiomyopathy, COPD, GABY on CPAP, history of restrictive lung disease, history of PE and DVT on Eliquis, dyslipidemia, hypertension, CESAR, mood disorder and other medical problems listed below who presents from home with worsening abdominal pain x 3 days and was found to have cholecystitis. VSS WBC 17k Gallbladder ux with cholelithiasis with findings of acute cholecystitis, borderline dilation of the common bile duct. Correlate with serum bilirubin, hepatomegaly with hepatic steatosis ED provider discussed with Dr. Richey of gen surg and Dr. Lees of GI who feel patient is appropriate to stay in house as appears stable, non-toxic, tbili 1.1 so emergent need for ERCP unlikely Continue Zosyn started in ED NPO except for necessary meds for now Repeat CMP in AM, surgery to re-eval and further discuss possible OR with patient Multiple comorbidities of morbid obesity, CAD, h/o PE on anticoag and general deconditioning noted when considering patient for surgery Routine cards consult for clearance Echo October 2022 with LV EF 55-59%, moderate sized apical, septal, and anteroseptal wall motion abnormality with mild hypokinesis to hypokinesis of the segments, grade 1 diastolic dysfunction, the aortic root and proximal ascending aorta are mildly enlarged (4.3/4.4 cm) but no significant change from previous (2) Deep vein thrombosis: (3) Pulmonary embolism: Plan: Recurrent, indefinite anticoagulation recommended by heme/onc, per outpatient notes Hold Eliquis as a possible surgical candidate and continue anticoagulation with IV heparin for now (4) Diabetes mellitus, type 2: Plan: A1c 8.2 in July 2023 Hold home agents Basal/bolus insulin while in-patient Glycemic consult placed given NPO status BSG Q6H (5) CAD (coronary artery disease): (6) Hypertension: Plan: CABG at [facility] approx 5 years ago Continue Toprol with hold parameters (7) Hyperlipidemia: Plan: Resume Zetia, statin as diet advanced (8) Morbid obesity with BMI of 45.0-49.9, adult: Plan: Continue counseling on lifestyle modifications during admission (9) Sleep apnea: Plan: CPAP HS DVT Ppx: SCDs in setting of possible OR Code status: FULL PCP: Ean Dispo: Admitted to [facility] tele Patient seen in collaboration with Dr. Roblero. Please see addendum. I spent a total of 75 minutes coordinating, documenting, and providing care for this patient excluding time spent in the performance of separately billed services. History of Present Illness Chief Complaint: abd pain Primary Care Provider: Jennie Mckoy DO This is a 73yo M with a PMH of DM II, CAD s/p CABG, history of ischemic cardiomyopathy, COPD, GABY on CPAP, history of restrictive lung disease, history of PE and DVT on Eliquis, dyslipidemia, hypertension, CESAR, mood disorder and other medical problems listed below who presents from home with worsening abdominal pain x 3 days. Developed pain in upper abdomen on Wednesday evening and continued in Wednesday, felt worse since eating some chicken. Describes as sharp and radiating from RUQ to right back. + Nausea but no vomiting. Decreased appetite since then as well as constipation when he typically goes 2-3x/day. Saw PCP this morning and they did a CT which showed findings consistent with acute cholecystitis with presence of gall stones. Also notes dilatation of CBD 1.8cm. No fever, chills, lightheadedness, CP, has chronic SOB, dysuria. Allergies Allergy/AdvReac Type Severity Reaction Status Date / Time rosuvastatin Allergy Mild Cramping Verified 08/03/23 18:23 of the Muscles simvastatin Allergy Mild Cramping Verified 08/03/23 18:23 of the Muscles Home Medications Medication Instructions Recorded Confirmed Type acetaminophen 325 mg tablet 650 mg PO Q6H PRN Pain 10/20/18 08/03/23 History apixaban 5 mg tablet (Eliquis) 5 mg PO BID 10/20/18 08/03/23 History aspirin-sod bicarb-citric acid 325 1 tab PO DAILY PRN Abdominal 10/20/18 08/03/23 History mg-1,916 mg-1,000 mg efferves tab Discomfort (Rita-[place] Original) atorvastatin 80 mg tablet 80 mg PO QAM 10/20/18 08/03/23 History docusate sodium 100 mg capsule 100 mg PO BID PRN Constipation 10/20/18 08/03/23 History insulin NPH-regular 70-30 U-100 75 unit subcut BID 10/20/18 08/03/23 History insulin 100 unit/mL subcutaneous pen (Novolin 70-30 FlexPen U-100 Insulin) tramadol 50 mg tablet 50 mg PO Q8H PRN Pain 10/20/18 08/03/23 History aspirin 81 mg tablet,delayed 81 mg PO QAM 04/09/20 08/03/23 History release ezetimibe 10 mg tablet 10 mg PO QAM 03/20/22 08/03/23 History fluticasone furoate 100 1 inh inhalation QAM PRN Wheezing 03/20/22 08/03/23 History mcg/actuation blister powder for inhalation (Arnuity Ellipta) furosemide 40 mg tablet 40 mg PO QAM 03/20/22 08/03/23 History isosorbide mononitrate 30 mg 30 mg PO QAM 03/20/22 08/03/23 History tablet,extended release 24 hr metformin 500 mg tablet,extended 500 mg PO BID 03/20/22 08/03/23 History release 24 hr metoprolol succinate 50 mg 75 mg PO QPM 03/20/22 08/03/23 History tablet,extended release 24 hr metoprolol succinate 50 mg 100 mg PO QAM 03/20/22 08/03/23 History tablet,extended release 24 hr nitroglycerin 0.4 mg sublingual 0.4 mg sublingual UD PRN Chest Pain 03/20/22 08/03/23 History tablet semaglutide 2 mg/dose (8 mg/3 mL) 2 mg subcut WK 08/03/23 08/03/23 History subcutaneous pen injector (Ozempic) Past Med/Surg History Medical History CAD (coronary artery disease) Pulmonary hypertension Ischemic cardiomyopathy Per cardio records. EF 50-54% on 11/01/19 echo. Pain of left leg LLE. Per cardiology, 07/2018 duplex showed chronic-appearing nonocclusive thrombus in L popliteal vein. SOB (shortness of breath) on exertion Irregular heartbeat HX-F/U GAL GRACIE Osteoarthritis Kidney stones Diabetes mellitus, type 2 On insulin and PO meds. A1C 9.7% 01/2020. Vertigo Depression Anxiety Transient ischemic attack (TIA) 15 YRS AGO Migraine Pulmonary embolism Post-op s/p CABG with DVT in 2014, then again 08/2018 despite warfarin therapy. Myocardial Infarction NSTEMI 2015. Cath --> CABG x 3 (GREGORY-LAD, SVG-Dx, SVG-OM) 08/16/14. Deep vein thrombosis "still have it"?? started 5+ years ago-> is currently on blood thinners. has no problems Hyperlipidemia Hypertension Sleep apnea CPAP HS and PRN with naps Surgical History History of ERCP History of amputation partial right thumb amputation S/P hardware removal left leg (unable to remove screws) History of open reduction and internal fixation (ORIF) procedure Left leg (1999 & 2003) d/t a trauma Nausea and vomiting after administration of anesthetic agent hx Hx of cataract surgery bilateral History of shoulder surgery right History of arthroscopy KNEES History of colonoscopy Hx of heart bypass surgery 2015 CABG x 3. History of cardiac cath NO STENTS, 2014. 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 Physical Exam Physical Exam: Please see Dr. Roblero' addendum for physical exam. Results & Data Results & Data Vital Signs (Past 12 Hours) Vital Signs Temp Pulse Pulse Resp BP BP Pulse Ox 08/03/23 17:40 91 H 15 93 08/03/23 17:32 88 12 94 08/03/23 17:32 157/83 H 08/03/23 17:30 99 H 26 H 92 08/03/23 17:24 96 H 08/03/23 17:20 91 H 16 92 08/03/23 17:18 96 H 26 H 93 08/03/23 17:17 86 20 93 08/03/23 17:17 96 H 20 168/99 H 93 08/03/23 15:18 37.0 C 100 H 18 156/79 H 94 O2 Del Method 08/03/23 17:40 08/03/23 17:32 08/03/23 17:32 08/03/23 17:30 08/03/23 17:24 08/03/23 17:20 08/03/23 17:18 08/03/23 17:17 Room Air 08/03/23 17:17 Room Air 08/03/23 15:18 Nasal Cannula Laboratory Results Short CBC 08/03/23 Range/Units 15:34 WBC 17.74 H (4.8-10.8) K/ul Hgb 15.0 (14.0-18.0) g/dl Hct 44.8 (42.0-52.0) % Plt Count 305 (130-400) K/uL BMP 08/03/23 15:34 Sodium 133 L Potassium 3.7 Chloride 97 L Carbon Dioxide 29 BUN 8 Creatinine 0.72 Glucose 159 H Calcium 9.2 Liver Function 08/03/23 Range/Units 15:34 Total Bilirubin 1.1 H (0.2-1.0) mg/dl Direct Bilirubin 0.2 (0-0.2) mg/dl AST 11 L (13-39) U/L ALT 17 (7-52) U/L Alkaline Phosphatase 75 (34-104) U/L Albumin 3.6 (3.4-5.0) gm/dl Diagnostic Findings Gallbladder Ultrasound 08/03/23 15:30 ABDOMINAL ULTRASOUND, RIGHT UPPER QUADRANT HISTORY: Acute right upper quadrant abdominal pain r/o cholecystitis. COMPARISON: 08/13/2014 FINDINGS: Exam secondary to patient body habitus. Pancreas: The pancreas is obscured by bowel gas. Liver: Increased echogenicity measuring 20 cm in length. No hepatic mass or marginal nodularity. Gallbladder: Cholelithiasis with gallbladder sludge. The gallbladder wall is thickened at 7 mm. Trace pericholecystic fluid. Sonographic Monreal's sign was reported as positive. CBD: 7 mm Right kidney: No hydronephrosis. 4.9 cm complex septated cyst in the mid inferior pole right kidney, previously 3.7 cm. IMPRESSION: 1. Cholelithiasis with findings of acute cholecystitis. 2. Borderline dilation of the common bile duct. Correlate with serum bilirubin. 3. Hepatomegaly with hepatic steatosis. 4. Mildly increased size of the complex right renal cyst now measuring 4.9 cm. ACT 112: Negative or not required by law. Electronically signed by: Duglas Rodriguez M.D. 08/03/2023 5:02 PM ECG Additional Comments: EKG reviewed- SR with first degree block Supervising Physician Co-Signing Physician Notes I have seen and discussed the case with the collaborating advanced practitioner. I agree with the above H&P. I have reviewed and confirmed the patients medical history, the findings on physical examination, and the patients diagnosis and treatment plan with Camacho NESBITT and agree with the information documented. In short, Mr. Pérez is a 73 year old gentleman with history of DM, DVT/PT on eliquis, CAD s/p CABG, GABY and morbid obesity who is admitted for management of cholecystitis. Patient on eliquis for recurrent left DVT and PE. Patient reviewed by surgery who felt he did not require transfer. GENERAL APPEARANCE: AxOx4, generally well-appearing male, no acute distress. HEENT: NC, AT. MMM. EOMI, clear conjunctiva, oropharynx clear. NECK: Supple without lymphadenopathy. No stiffness or restricted ROM. HEART: tachycardic LUNGS: CTAB, difficult to appreciate 2/2 habitus ABDOMEN: Soft, nontender, nondistended with good bowel sounds heard. BACK: No CVAT, no obvious deformity. EXTREMITIES: Without cyanosis, clubbing or edema. NEUROLOGICAL: Grossly nonfocal. Alert and oriented, moving all 4 extremities. CN not formally tested but appear grossly intact. Skin: Warm and dry without any rash. : #Cholecystitis -Hold eliquis, start heparin at this time given recurrent dvt/pe -IVF -Zosyn, NPO Cards clearance Rest of plan as above I have reviewed the advanced practitioner's documentation, and I agree with, and take responsibility for the plan of care I spent a total of 35 minutes coordinating, documenting, and providing care for this patient excluding time spent in the performance of separately billed services. All of the aforementioned completed outside of collaborating with the assigned advanced practitioner for a full treatment plan.
[2023-08-03] MEDS ORDERED: PHARMACY GLYCEMIC MGMT CONSULT PRN (19:21)
[2023-08-03] MEDS ORDERED: DEXTROSE 50% 50 ML SYRINGE IV PRN (19:21)
[2023-08-03] MEDS ORDERED: GLUCAGON FOR INJ 1 MG VIAL SQ PRN (19:21)
[2023-08-03] MEDS ORDERED: GLUCOSE 40% GEL 15 GM TUBE PO PRN (19:21)
[2023-08-03] MEDS ORDERED: CARBOHYDRATES FOR HYPOGLYCEMIA PO PRN (19:21)
[2023-08-03] MEDS ORDERED: GLUCOSE 10 TAB/TUBE PO PRN (19:21)
[2023-08-03] MEDS ORDERED: Heparin IV Adult Wt-Based Standard *NO* INITIAL Bolus Protocol IV STA (19:22)
--- NOTE | 2023-08-03 19:31 | Surgery Consultation ---
Date of Consultation August 03, 2023 Assessment & Plan (1) Cholecystitis: The patient is being admitted on the hospitalist service. From a surgery perspective we recommend proceeding as follows: Provide analgesics Provide antiemetics Provide IV fluid for hydration Initiate antibioticshe has had Zosyn initiated in the emergency department which should continue The patient is noted to have slightly elevated bilirubin and a borderline dilatation of his common bile duct. Would therefore recommend repeating LFTs in the morning. If there is any worsening of his LFTs consideration may be given to performing an MRCP. Patient does take Eliquis for history of DVT. Would recommend holding this me dication if clinically feasible. He did take his most recent dose this morning which was 08/03/2023. Prior to entertaining any surgical intervention would be preferable for the patient to be off this medication for 2 to 3 days. The medical service has consulted cardiology for preoperative evaluation in light of the patient's significant cardiac history. We will wait their recommendations. Would recommend making the patient n.p.o. after midnight empirically but if no surgery is planned consideration be given to allowing him to have a diet. At the present time the patient is afebrile and hemodynamically stable and nontoxic-appearing. Additional recommendations to be forthcoming based on repeat labs performed in the morning as well as patient's clinical course as it unfolds History of Present Illness Reason for Consultation: Cholecystitis History of Present Illness This a 73-year-old male who presented to the emergency department secondary to abdominal pain. Patient says that his abdominal pain began approximately 3 days ago and was primarily located in a bandlike fashion across his upper abdomen. He notes that since his pain is mostly in the right upper quadrant with some radiation to his right back. He did have nausea without vomiting but denies any fevers, shakes, or chills. He does not report any modifying factors to the pain but does note that the pain seemed to have been precipitated by eating a Posta meal with hot peppers. I did ask the patient if he has been experiencing any postprandial pain over the past several months which he denies. He notes that he has never had any abdominal surgeries in the past. It is noteworthy to mention that the patient does have a history of diabetes for which he takes insulin and oral agents. He also notes he has had a history of coronary artery bypass grafting approximately 5 years ago at [facility] in [place], [place]. He follows locally with Gal Nunez of [facility] cardiology. Patient says that he did have a stress test approximately 1 year ago and to the best of his knowledge there were no concerning findings on this study. I did ask the patient's if he is able to negotiate steps and inclines but he does admit he is not very active but reports that this is secondary to arthritis of his knees. He therefore does not do steps, inclines, or hills. He does note some edema of his left lower extremity but feels that this is related to a previous DVT. He does note some worsening shortness of breath since his presenting symptomatology as noted above began. He denies any weight gain. He denies any chest pain. The patient's most recent echocardiogram available for my review was from 12/16/2021. The study showed the patient had an ejection fraction of 55 to 59%. There is no significant aortic stenosis aortic regurgitation. There is no significant mitral regurgitation or mitral stenosis. As noted above the patient does have a history of a DVT for which he takes Eliquis. He took his most recent dose the morning of 08/03/2023. Since arrival to the emergency department the patient has had labs and imaging which I independent reviewed. He did have a gallbladder ultrasound which showed the patient had cholelithiasis with gallbladder sludge. The gallbladder wall was thickened to 7 mm and there was trace pericholecystic fluid noted. These findings were felt to represent acute cholecystitis. There is borderline dilatation of the common bile duct. Labs include a CBC her white blood cell count was elevated 17.7. Hemoglobin and hematocrit as well as platelet count were normal. Chemistry profile showed sodium is 133 with a normal potassium. BUN and creatinine were both within normal range. LFTs included total bilirubin which was slightly elevated at 1.1. His direct bilirubin was normal. There is no elevation of his transaminases or alkaline phosphatase. His lipase was also not elevated. Urinalysis was not indicative of infection. An EKG showed sinus rhythm. There did not appear to be any changes indicative of acute ischemia. At the time of my interview he was resting comfortably in bed and he was in no distress. Allergies Allergy/AdvReac Type Severity Reaction Status Date / Time rosuvastatin Allergy Mild Cramping Verified 08/03/23 18:23 of the Muscles simvastatin Allergy Mild Cramping Verified 08/03/23 18:23 of the Muscles Home Medications Medication Instructions Recorded Confirmed Type acetaminophen 325 mg tablet 650 mg PO Q6H PRN Pain 10/20/18 08/03/23 History apixaban 5 mg tablet (Eliquis) 5 mg PO BID 10/20/18 08/03/23 History aspirin-sod bicarb-citric acid 325 1 tab PO DAILY PRN Abdominal 10/20/18 08/03/23 History mg-1,916 mg-1,000 mg efferves tab Discomfort (Rita-[place] Original) atorvastatin 80 mg tablet 80 mg PO QAM 10/20/18 08/03/23 History docusate sodium 100 mg capsule 100 mg PO BID PRN Constipation 10/20/18 08/03/23 History insulin NPH-regular 70-30 U-100 75 unit subcut BID 10/20/18 08/03/23 History insulin 100 unit/mL subcutaneous pen (Novolin 70-30 FlexPen U-100 Insulin) tramadol 50 mg tablet 50 mg PO Q8H PRN Pain 10/20/18 08/03/23 History aspirin 81 mg tablet,delayed 81 mg PO QAM 04/09/20 08/03/23 History release ezetimibe 10 mg tablet 10 mg PO QAM 03/20/22 08/03/23 History fluticasone furoate 100 1 inh inhalation QAM PRN Wheezing 03/20/22 08/03/23 History mcg/actuation blister powder for inhalation (Arnuity Ellipta) furosemide 40 mg tablet 40 mg PO QAM 03/20/22 08/03/23 History isosorbide mononitrate 30 mg 30 mg PO QAM 03/20/22 08/03/23 History tablet,extended release 24 hr metformin 500 mg tablet,extended 500 mg PO BID 03/20/22 08/03/23 History release 24 hr metoprolol succinate 50 mg 75 mg PO QPM 03/20/22 08/03/23 History tablet,extended release 24 hr metoprolol succinate 50 mg 100 mg PO QAM 03/20/22 08/03/23 History tablet,extended release 24 hr nitroglycerin 0.4 mg sublingual 0.4 mg sublingual UD PRN Chest Pain 03/20/22 08/03/23 History tablet semaglutide 2 mg/dose (8 mg/3 mL) 2 mg subcut WK 08/03/23 08/03/23 History subcutaneous pen injector (Ozempic) Patient History Medical History (Updated 08/04/23 @ 07:[address]) CAD (coronary artery disease) Pulmonary hypertension Ischemic cardiomyopathy Per cardio records. EF 50-54% on 11/01/19 echo. Pain of left leg LLE. Per cardiology, 07/2018 duplex showed chronic-appearing nonocclusive thrombus in L popliteal vein. SOB (shortness of breath) on exertion Irregular heartbeat HX-F/U GAL GRACIE Osteoarthritis Kidney stones Diabetes mellitus, type 2 Vertigo Depression Anxiety Transient ischemic attack (TIA) 15 YRS AGO Migraine Pulmonary embolism Post-op s/p CABG with DVT in 2014, then again 08/2018 despite warfarin therapy. Myocardial Infarction NSTEMI 2014. Cath --> CABG x 3 (GREGORY-LAD, SVG-Dx, SVG-OM) 08/16/14. Deep vein thrombosis "still have it"?? started 5+ years ago-> is currently on blood thinners. has no problems Hyperlipidemia Hypertension Sleep apnea CPAP HS and PRN with naps Surgical History History of ERCP History of amputation partial right thumb amputation S/P hardware removal left leg (unable to remove screws) History of open reduction and internal fixation (ORIF) procedure Left leg (1999 & 2003) d/t a trauma Nausea and vomiting after administration of anesthetic agent hx Hx of cataract surgery bilateral History of shoulder surgery right History of arthroscopy KNEES History of colonoscopy Hx of heart bypass surgery 2015 CABG x 3. History of cardiac cath NO STENTS, 2014. 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 Required: No Beliefs That Will Affect Care: None Current Living Situation: Spouse Feels Safe at Home: Yes Safety Concerns: Feels Safe At This Time Assistive Devices: BiPap Review of Systems Constitutional: no fever and no chills Ear, Nose, Mouth, Throat: no hearing loss Respiratory: + dyspnea Cardiovascular: no chest pain Gastrointestinal: as per Subjective / HPI Genitourinary: no dysuria Musculoskeletal: + back pain (Radiating from his abdomen) Integumentary: no rash Neurologic: no localized weakness Physical Exam 2 Constitutional: WD/WN, vitals as above Eyes: + anicteric sclerae ENMT: Ears: no hearing impairment and no external ear abnormality Mouth: no oropharynx abnormality Neck: trachea midline Respiratory: normal respiratory effort; no respiratory distress and no labored breathing Cardiovascular: Rate/Rhythm: regular rate and regular rhythm Gastrointestinal (Abdomen): Abdomen is rotund and soft. It is nondistended. There is no rebound tenderness or guarding or other signs of peritonitis. Patient did have minor pain with palpation in the right upper quadrant. Musculoskeletal: No calf tenderness. There are no nonhealing foot wounds. His feet are warm and nonmottled. Skin: no rashes Neurologic: moves all extremities; not confused Psychiatric: A+Ox3, euthymic affect Results & Data Vital Signs (Past 12 Hours) Vital Signs Temp Pulse Pulse Resp BP BP Pulse Ox 08/03/23 19:00 87 20 98 08/03/23 17:40 91 H 15 93 08/03/23 17:32 88 12 94 08/03/23 17:32 157/83 H 08/03/23 17:30 99 H 26 H 92 08/03/23 17:24 96 H 08/03/23 17:20 91 H 16 92 08/03/23 17:18 96 H 26 H 93 08/03/23 17:17 86 20 93 08/03/23 17:17 96 H 20 168/99 H 93 08/03/23 15:18 37.0 C 100 H 18 156/79 H 94 O2 Del Method 08/03/23 19:00 Room Air 08/03/23 17:40 08/03/23 17:32 08/03/23 17:32 08/03/23 17:30 08/03/23 17:24 08/03/23 17:20 08/03/23 17:18 08/03/23 17:17 Room Air 08/03/23 17:17 Room Air 08/03/23 15:18 Nasal Cannula PG Care Time/CCT Total # of Minutes Spent Total Time Spent with Patient: Total time spent is greater than 50% in coordination of care (as documented) at patient's floor/unit and/or counseling patient: Coding Level of Care Code 57710 INT INP/OBS CARE MIN Diagnoses Cholecystitis K81.9
[2023-08-03] MEDS: bisacodyL 5 MG TABEC PO ONE (19:55)
[2023-08-03] MEDS: HEPARIN SODIUM/DEXTROSE 25,000 UNITS/500 ML BAG IV SCH (19:56)
[2023-08-03] MEDS ORDERED: FLUTICASONE FUROATE 100MCG 14 PUFFS/INHALER INH PRN (20:46)
[2023-08-03 21:05] LABS: Partial Thromboplastin Ratio 1.2; Partial Thromboplastin Time 34 Seconds (21-31)
[2023-08-03] MEDS: METOPROLOL SUCC 25MG EXT REL TAB PO SCH (21:20)
[2023-08-03] MEDS: ACETAMINOPHEN 1,000 MG/100 ML VIAL IV PRN (21:31)
[2023-08-03] MEDS: PIPERACILLIN/TAZOBACTAM 4.5 GM in DEXTROSE 5% MINI-B 100 ML IV SCH (22:36)
[2023-08-03] MEDS ORDERED: SODIUM CHLORIDE 0.9% 1,000 ML IV SCH (23:00)
--- NOTE | 2023-08-03 23:39 | Communication Note ---
Date of Service: August 03, 2023 Notified by monitoring tech of A-fib on the monitor. AP A-fib New onset on review of records. TTE in a.m.
[2023-08-04] MEDS: SODIUM CHLORIDE 0.9% 500 ML IV SCH (00:02)
[2023-08-04 00:07] LABS: Magnesium 1.5 mg/dl (1.7-2.4)
[2023-08-04] MEDS: POTASSIUM CHLORIDE CRTAB 20 MEQ TABCR PO STA (00:07)
[2023-08-04] MEDS: NSS + 20MEQ KCL 20 MEQ/1,000 ML BAG IV ONE (00:08)
[2023-08-04] MEDS: INSULIN ASPART PER UNIT CHARGE SC SCH (00:10)
[2023-08-04 00:23] LABS: Thyroid Stimulating Hormone 0.732 uIu/ml (0.300-4.500)
[2023-08-04 02:28] LABS: Hematocrit (blood only) 45.7 % (42.0-52.0); Hemoglobin 15.6 g/dl (14.0-18.0); Mean Corpuscular Hemoglobin 29.7 pg (25.0-34.0); Mean Corpuscular Hgb Conc 34.1 g/dL (32.0-36.0); Mean Corpuscular Volume 86.9 fL (80.0-100.0); Mean Platelet Volume 10.2 fL (9.4-12.4); Platelet Count 298 K/uL (130-400); RDW Coefficient of Variation 13.2 % (11.5-14.5); RDW Standard Deviation 42.5 fL (36.4-46.3); Red Blood Count 5.26 M/uL (4.70-6.10); White Blood Count 13.63 K/ul (4.8-10.8)
[2023-08-04 02:39] LABS: Albumin Level 3.4 gm/dl (3.4-5.0); BUN Creatinine Ratio 11.3 (10-20); Bilirubin,Total 0.9 mg/dl (0.2-1.0); Calcium 8.9 mg/dl (8.6-10.3); Creatinine Clr Calc Pharmacy 118.8 ml/min; Est GFR (African American) 104.2 ml/min; Est GFR (Non-African American) 89.9 ml/min; Globulin 3.3 gm/dl (2.5-4.0); Potassium 3.7 mmol/L (3.5-5.1); Total Protein 6.7 gm/dl (6.0-8.3)
[2023-08-04 04:07] LABS: ANTI-Xa, UFH(UnfractionatedHep 0.82 IU/ml (0.3-0.7)
[2023-08-04 07:06] LABS: Estimated Average Glucose 192 mg/dl; Hemoglobin A1C 8.3 % (4.5-5.6)
[2023-08-04] MEDS: METOPROLOL SUCC 50MG EXT REL TAB PO SCH (08:12)
--- OUTSIDE RECORDS SUMMARY | 2023-08-04 09:15 | External Medical Summary ---
Author Name Unknown Address Unknown Organization K01:[facility] [place] - [address] [place] [id number] Laboratory Report Ordering Provider Test Date Status DEIRDRE RAO 08/03/2023 09:26:04 Final Normal: <30 mg/g creatinine< br/>High: 30-300 mg/g creatinine
Very High: >300 mg/g creatinine
Nephrotic: >2200 mg/g creatinine Observation Date Value Abnormality Reference (Units ) Status Albumin, Urine 08/03/2023 09:26:04 2.91 (mg/dL) Final Creatinine, Urine 08/03/2023 09:26:04 31 (mg/dL) Final Albumin/Creatinine [Mass Ratio] in Urine 08/03/2023 09:26:04 94 Above high normal <30 (mg/g Creat) Final Performing Location [facility] [place] - [address] [place] [id number]
--- OUTSIDE RECORDS SUMMARY | 2023-08-04 09:15 | External Medical Summary | Summary of Care ---
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 1 Tablet by mouth every 8 hours as needed for Pain, Moderate. 60 Tablet 0 Isosorbide Mononitrate ER 30 MG Oral Tablet Extended Release 24 Hour (Imdur) Take 1 Tablet by mouthin the morning. Indications: Angina Pectoris, heart/blood pressure. 90 Tablet 3 Respiratory Therapy Supplies Device Use as directed. AutoPAP 10-15 cm at bedtime daily [facility] Reflect w/Device Kit Use as directed . Test Blood sugar up to 3 times daily 1 Kit 0 FreeStyle Renetta 2 [place] Device Use as directed. Supplied by [facility] 1 Each 0 FreeStyle Renetta 2 Sensor Use as directed. Change every 14 days. Supplied by [facility] Delica Lancets 33G Use 2 times a day 200 Each 1 [facility] In Vitro Strip (Glucose Blood) Use 2 times a day 200 Strip 1 Insulin Pen Needle 31G X 8 MM Use as directed. Use three times a day with insulin pen 300 Each 3 Silver sulfADIAZINE 1 % External Cream (Silvadene) Apply topically to affected area daily. Apply toleft forearm twice a marvel (Patient not taking: Reported on 04/28/2023) 50 g 1 Insulin Syringe-Needle U-100 30G X 1/2" 1 ML Use as directed. Inject 70 units with Breakfast and 70units with Evening Meals. E11.9 200 Each 3 No current facility-administered medications for this visit. Past Medical History: Diagnosis Date Benign neoplasm of colon 02/25/09 adenomatous/repeat colonoscopyi n 5 yrs Chronic pharyngitis DM type 2, goal A1c below 7 10/23/2011 Dyslipidemia, goal to be determined 1996 Esophageal reflux Hemorrhoids History of pulmonary embolism 2017 HTN, goal below 140/80 1989 Major depressive disorder, single episode, unspecified 06/18/2020 Obesity, BMI not known OBSTRUCTIVE SLEEP APNEA 03/12/2011 Osteoarthrosis bhavna, left knee, left shoulder Pulmonary arterial hypertension (HCC) Pulmonary embolism (HCC) S/P CABG x 3 08/22/2014 Sleep apnea, obstructive Past Surgical History: Procedure Laterality Date CABG, ARTERIAL, SINGLE N/A 08/16/2014 08/16/2014CORONARY ARTERY BYPASS GRAFT USING ARTERY 1 GRAFT performed by Matt Saavdera MD at [facility] CABG, ARTERY-VEIN, TWO 08/16/2014 08/16/2014 CORONARY ARTERY BYPASS GRAFT ARTERIAL AND VENOUS 2 GRAFTS performed by Matt Saavedra MD at [facility] COLONOSCOPY THRU STOMA, W/BIOPSY 02/25/2009 adenomatous/repeat colonoscopyi n 5 yrs COLONOSCOPY, DIAGNOSTIC (RECTUM) N/A 12/13/2015 adeno polyp, 5 yr recall, COLONOSCOPY FLEXIBLE PROXIMAL DIAGNOSTIC performed by Makayla Wilkinson OR [facility] COLONOSCOPY, DIAGNOSTIC (RECTUM) N/A 03/26/2022 moderate diverticulosis/hemorrhoids/recall 5 years/Colonoscopy/[place] EGD, FLEXIBLE,W/ENDOSCOPIC US 04/26/2020 gallstones, gastritis, hiatal hernia / [facility] EGD, W/ENDOSCOPIC US N/A 03/25/2020 ESOPHAGOGASTRODUODENOSCOPY (EGD), FLEXIBLE, TRANSORAL, ENDOSCOPIC ULTRASOUND performed by Samina Nix DO at ENDOSCOPY [facility] ENDO,VIDEO ASSIST HARVEST LINDA Right 08/16/2014 ENDOSCOPY VIDEO ASSISTED HARVEST VEIN performed by Matt Saavedra MD at [facility] ERCP, DIAGNOSTIC, SPECIMEN COLLECTION N/A 03/25/2020 ENDOSCOPIC RETROGRADE CHOLANGIOPANCREATOGRAPHY (ERCP) DIAGNOSTIC performed by Samina Nix DO at ENDOSCOPY [facility] FRACTURE NOS Left 04/12/1999 left lower leg- fx both bones INFORMATION Left 04/12/2001 replace plate, left fibula- roeshot KNEE ARTHROSCOPY, DIAGNOSTIC 04/12/1996 Knee Arthroscopy SHOULDER SUBQ TUMOR REMOVAL, UNDER 3 CM Left 12/11/2015 EXCISION SOFT TISSUE TUMOR SHOULDER SUBCUTANEOUS performed by Aram Pedroza MD at OR [facility] TMT FEM FX PROSTH REPL Right 04/12/1969 Femur FX Open Fixatn Prox End/Neck Review of patient's allergies indicates: Allergen Reactions Crestor [Rosuvastatin Calcium] Lisinopril Hyperkalemia Simvastatin zocor (muscle cramps) Family History Problem Relation Age of Onset Cancer Mother uterine Diabetes Mother Depression Mother Coronary Artery disease Father CABG age 65 Cancer Father throat and lung Heart attack Father 65 No Known Problems Sister Other (PVD) Sister Arthritis Brother pain pump Hypertension Other Mental Disorder Grandmother (Maternal) depression Stroke Other Heart attack Brother 50 No Known Problems Brother (Half) Family Status Relation Status Mo at age 62 CA ovary Fa [place], CABG, smoker, cancer throat Sis Alive Sis Alive Bro Alive DM, [place] Jarek Alive Jarek Alive Son Alive Other (Not Specified) MGMA (Not Specified) Other (Not Specified) Bro HBRO Alive Social History Tobacco Use Smoking status: Former Current packs/day: 0.00 Average packs/day: 1 pack/day for 20.0 years (20.0 ttl pk-yrs) Types: Cigarettes Start date: 04/12/1956 Quit date: 04/12/1976 Years since quittin.3 Passive exposure: Past Smokeless tobacco: Never Substance Use Topics Alcohol use: No Alcohol/week: 0.0 standard drinks of alcohol Vaping/E-Cigarette Use Vaping/E-Cigarette Use Never User Vaping/E-Cigarette Substances Vaping/E-Cigarette Devices REVIEW OF SYSTEMS: Review of Systems Constitutional: Negative for chills, fatigue, fever and unexpected weight change. Respiratory: Positive for shortness of breath. Negative for cough, chest tightness and wheezing. Cardiovascular: Negative for chest pain, palpitations and leg swelling. Gastrointestinal: Positive for abdominal pain and constipation. Negative for diarrhea, nausea and vomiting. Musculoskeletal: Negative for arthralgias, gait problem and joint swelling. Skin: Negative for color change, pallor and rash. OBJECTIVE: BP 130/68 (BP Site: Left Arm, BP Position: Sitting, BP Cuff Size: Large) | Pulse 87 | Temp 37.6 C(99.7 F) (Tympanic) | Resp 16 | Ht 1.753 m (5' 9.02") | Wt (!) 143.7 kg (316 lb 12.8 oz) | SpO2 93% | BMI 46.76 kg/m | BSA 2.65 m PHYSICAL EXAM: Physical Exam Constitutional: General: He is not in acute distress. Appearance: He is well-developed. Cardiovascular: Rate and Rhythm: Normal rate and regular rhythm. Heart sounds: Normal heart sounds. No murmur heard. No friction rub. No gallop. Pulmonary: Effort: Pulmonary effort is normal. No respiratory distress. Breath sounds: Normal breath sounds. No wheezing or rales. Abdominal: General: Bowel sounds are normal. There is distension. Palpations: Abdomen is soft. Tenderness: There is abdominal tenderness (along upper abdomen). There is no guarding. Musculoskeletal: General: No tenderness or deformity. Normal range of motion. Skin: General: Skin is warm and dry. Coloration: Skin is not pale. Findings: No erythema or rash. Neurological: Mental Status: He is alert and oriented to person, place, and time. ASSESSMENT/PLAN: (R10.13) Abdominal pain, epigastric (primary encounter diagnosis) (R14.0) Abdominal distension Plan: COMPREHENSIVE METABOLIC PANEL, CBC WITH WBC DIFFERENTIAL, CT ABD/PELVIS WO IV/ORAL CONTRAST Pt with history of gallstones. Abdomen very distended. No BM in 4 days. He is diffusely tender. Labstudies now. Stat CT. Had some hematuria on POC. (R30.0) Dysuria Plan: URINALYSIS, POINT OF CARE (ENTER/EDIT), CULTURE, URINE, QUANTITATIVE UA with blood and protein. Check culture. (I50.32) Chronic diastolic CHF (congestive heart failure) ([facility]) (Z95.1) S/P CABG x 3 Plan: Isosorbide Mononitrate ER 30 MG Oral Tablet Extended Release 24 Hour (Imdur) Refill sent. Pt strongly advised to be compliant with his medications. (E11.9) Type 2 diabetes mellitus with hemoglobin A1c goal of less than 7.0% ([facility]) Plan: HEMOGLOBIN A1C Pt will complete A1C. (E11.42) Diabetic polyneuropathy associated with type 2 diabetes mellitus ([facility]) Plan: DIABETES FOOT EXAM, ALBUMIN / CREATININE RATIO, URINE See nursing note. Follow-up: as scheduled, await results Total time today including reviewing chart before the visit, pertinent labs, imaging reports, face to face time, and documentation time was 30 minutes. Jennie Mckoy DO documented in this encounter Nursing Notes * Yuni Rodriguez LPN - 08/03/2023 9:07 AM EDT Patient here for acute visit. Reports starting Wednesday night, he ate spaghetti, developed acid reflux. Started with pain in lower chest and radiating to lower back. Taking tramadol and tylenol. States also constipated. States he is not urinating like he used to. States it thomas when he urinates. States lower chest/upper abdominal pain has calmed down some today. States he knows he has gallstones. Drinking peppermint tea with some relief. States some shortness of breath. States he doesn't thinkit is his heart. States he is bloated, reports tenderness when touching upper abdomen. States he issweating a lot. States it started as acid reflux and has gotten worse. States pain in right side ofback. Did home COVID test which was negative. Temp today 99.7. Requesting refill on isosorbide - has been out of it for a couple of weeks. documented in this encounter Plan of Treatment Upcoming Encounters Date Type Department Care Team (Late st Contact Info) Description 08/03/2023 12:00 PM EDT Imaging Radiology [facility] [address] [facility] [place] [address] 10/29/2023 11:00 AM EDT Nurse Only Ancillary [address] [facility] [address] [facility], [place] [address] College, Nurse Annual Wellness Visit 65 [facility] [address] [facility] [address] 11/02/2023 9:00 AM EDT Office Visit Podiatry [address] [place] [address] Deven Weiner, DPM [address] [place], [place] [id number] Pending Results Name Type Priority Associated Diagnoses Date /Time HEMOGLOBIN A1C Lab Routine Type 2 diabetes mellitus with hemoglobin A1c goal of less than 7.0% (HCC) 08/03/2023 9:56 AM EDT COMPREHENSIVE METABOLIC PANEL Lab STAT Abdominal pain, epigastric Abdominal distension 08/03/2023 9:56 AM EDT CBC WITH WBC DIFFERENTIAL Lab Routine Abdominal pain, epigastric Abdominal distension 08/03/2023 9:56 AM EDT ALBUMIN / CREATININE RATIO, URINE Lab Routine Diabetic polyneuropathy associated with type 2 diabetes mellitus (HCC) 08/03/2023 9:26 AM EDT CULTURE, URINE, QUANTITATIVE Lab Routine Dysuria 08/03/2023 9:35 AM EDT CBC Lab Routine Abdominal pain, epigastric Abdominal distension 08/03/2023 9:56 AM EDT DIFFERENTIAL, AUTOMATED Lab Routine Abdominal pain, epigastric Abdominal distension 08/03/2023 9:56 AM EDT Scheduled Orders Name Type Priority Associated Diagnoses Order Schedule URINALYSIS, POINT OF CARE (ENTER/EDIT) Point of Care Testing Routine Dysuria Ordered: 08/03/2023 HEMOGLOBIN A1C Lab Routine Type 2 diabetes mellitus with hemoglobin A1c goal of less than 7.0% (HCC) Expected: 08/03/2023 (Approximate), Expires: 08/02/2024 COMPREHENSIVE METABOLIC PANEL Lab STAT Abdominal pain, epigastric Abdominal distension Expected: 08/03/2023 (Approximate), Expires: 08/02/2024 CBC WITH WBC DIFFERENTIAL Lab Routine Abdominal pain, epigastric Abdominal distension Expected: 08/03/2023 (Approximate), Expires: 08/02/2024 CT ABD/PELVIS WO IV/ORAL CONTRAST Medical Imaging STAT Abdominal pain, epigastric Abdominal distension Ordered: 08/03/2023 Scheduled Procedures Name Priority Associated Diagnoses Date/Ti me COLONOSCOPY FLEXIBLE PROXIMAL DIAGNOSTIC Recall History of colon polyps Health Maintenance Due Date Last Done Comments Alpha-1 Antitrypsin 01/25/1970 Albumin/Creatinine Ratio 05/04/2023 023, 07/10/2021, 05/02/2018, Additional history exists COVID-19 Vaccine (#1) 08/04/2023 Postpo roscoe from 01/25/1955 (Patient Declined After Education) HbA1c 08/12/2023 02/11/2023, 10/10, 05/04/2022, Additional history exists GFR 02/12/2024 02/11/2023, 10/0 06/2022, 10/26/2022, Additional history exists Diabetic Eye Exam 04/26/2024 04/26/2023, , 04/09/2021, Additional history exists Diabetic Foot Exam 08/02/2024 08/03/2023, 0 08/03/2022, 10/28/2021, Additional history exists O2 ASSESSMENT COMPLETED IN PAST YEAR FOR COPD 08/02/2024 08/03/2023 COLONOSCOPY-EVERY 5 YRS AGES 18-100 03/26/2027 03/26/2022, 03/26/2022, 12/13/2015, Additional history exists DTaP,Tdap,and Td Vaccines (4 - Td or Tdap) 08/22/2028 08/22/2018, 11/18/2014, 07/17/2008, Additional history exists AAA Screening Completed 03/01/2017 Pneumococcal Vaccine: 65+ Years Completed 05/02/2018, 2017, 12/25/2011 Zoster Vaccines Completed 01/20/2022, 10/28/2021 Influenza Vaccine (FLU shot) Completed 01/11/2023, 01/20/2022, 03/05/2021, Additional history exists GARDASIL-HPV IMMUNIZATION SERIES Aged Out No longer eligible based on patient's age to complete this topic Hepatitis B Aged Out No longer eligi ble based on patient's age to complete this topic MENINGOCOCCAL (MENACTRA/MENVEO) Aged Out No longer eligible based on patient's age to complete this topic documented as of this encounter Medical Devices Implanted Type Area Bank Consultant Device Identifier Shelf Expiration Date Model / Serial / Lot Sut Steel 6 [id number] - [id number] Implanted:Qty: 6 on 08/16/2014 by Matt Saavedra MD at OR [facility] N/A: Chest JNJ : [employer] 11/09/2018 [id number] / / [id number] Marker Coronary [facility] - [id number] Implanted:Qty: 1 on 08/16/2014 by Matt Saavedra MD at [facility] N/A: Aorta [employer] 06/09/2017 [facility] / / [id number] documented as of this encounter Procedures Procedure Name Priority Date/Time Associated Diagnosis Comments URINALYSIS, POINT OF CARE FRANCISCA 08/03/2023 9:27 AM EDT documented in this encounter Results * (ABNORMAL) URINALYSIS, POINT OF CARE (08/03/2023 9:27 AM EDT) Color, Urine Yellow Light Yellow, Yellow 08/03/2023 9:30 AM EDT [place] [address] Clarity, Urine Clear Clear 08/03/2023 9:30 AM EDT [place] [address] Glucose, Urine Negative Negative mg/dL 08/03/2023 9:30 AM EDT [place] [address] Bilirubin, Urine Negative Negative 08/03/2023 9:30 AM EDT [place] [address] Ketone, Urine Negative Negative mg/dL 08/03/2023 9:30 AM EDT [place] [address] Specific [place], Urine 1.015 1.003 - 1.030 08/03/2023 9:30 AM EDT [place] [address] Blood, Urine Trace-intact (A) Negative 08/03/2023 9:30 AM EDT [place] [address] pH, Urine 8.5(A) 5.0, 5.5, 6.0, 6.5, 7.0, 7.5 units 08/03/2023 9:30 AM EDT [place] [address] Protein, Urine Trace(A) Negative mg/dL 08/03/2023 9:30 AM EDT [place] [address] Urobilinogen, Urine 0.2 0.2, 1.0 mg/dL 08/03/2023 9:30 AM EDT [place] [address] Nitrite, Urine Negative Negative 08/03/2023 9:30 AM EDT [place] [address] Esterase, Urine Negative Negative 08/03/2023 9:30 AM EDT [place] [address] Urine 08/03/2023 9:27 AM EDT 08/03/2023 9:30 AM EDT Jennie Mckoy DO LAB POINT OF CARE TE ST DOCKED DEVICE UNSOLICITED RESULTS [facility] [address] [place] [address], [facility] documented in this encounter Visit Diagnoses Diagnosis Abdominal pain, epigastric- Primary Abdominal distension Flatulence, eructation, and gas pain Dysuria Chronic diastolic CHF (congestive heart failure) (HCC) Chronic diastolic heart failure S/P CABG x 3 Postsurgical aortocoronary bypass status Type 2 diabetes mellitus with hemoglobin A1c goal of less than 7.0% (HCC) Diabetic polyneuropathy associated with type 2 diabetes mellitus (HCC) documented in this encounter Advance Directives Latest Code Status on File Code Status Date Activated Date Inactivated Comments Full Code 08/16/2014 12:02 PM 08/22/2014 6:30 PM This order reflects the patients wishes and were consensually agreed upon. Code Status History Code Status Date Activated Date Inactivated Comments Full Code 08/14/2014 5:33 PM 08/16/2014 6:39 AM This or edwar reflects the patients wishes and were consensually agreed upon. Question Answer Comments Discussion of Advance Directives occurred with: Patient Does the patient have a Living Will? No Does the patient have Health Care Power of Keypunch Operator? No Care Teams Rat Poisoner Relationship Specialty Start Date End Date Jennie Mckoy DO [address] [facility] [address] P[facility] - General Family Medicine 01/11/23 documented as of this encounter
--- OUTSIDE RECORDS SUMMARY | 2023-08-04 09:15 | External Medical Summary ---
Author Name Unknown Address Unknown Organization : Laboratory Report Ordering Provider Test Date Status DEIRDRE RAO 08/03/2023 09:27:00 Final Observation Date Value Abnormality Reference (Units ) Status Color of Urine by Auto 08/03/2023 09:27:00 Yellow Light Yellow, Yellow Final Clarity, Urine 08/03/2023 09:27:00 Clear Clear Final Glucose [Mass/volume] in Urine by Automated test strip 08/03/2023 09:27:00 Negative Negative (mg/dL) Final Bilirubin.total [Presence] in Urine by Automated test strip 08/03/2023 09:27:00 Negative Negative Final Ketones [Mass/volume] in Urine by Automated test strip 08/03/2023 09:27:00 Negative Negative (mg/dL) Final Specific gravity, Urine 08/03/2023 09:27:00 1.015 1.003-1.030 Final Hemoglobin [Presence] in Urine by Automated test strip 08/03/2023 09:27:00 Trace-intact Abnormal Negative Final pH, Urine 08/03/2023 09:27:00 8.5 Abnormal 5.0, 5.5, 6.0, 6.5, 7.0, 7.5 (units) Final Protein [Mass/volume] in Urine by Automated test strip 08/03/2023 09:27:00 Trace Abnormal Negative (mg/dL) Final Urobilinogen, Urine 08/03/2023 09:27:00 0.2 0.2, 1.0 (mg/dL) Final Nitrite [Presence] in Urine by Automated test strip 08/03/2023 09:27:00 Negative Negative Final Leukocyte esterase [Presence] in Urine by Automated test strip 08/03/2023 09:27:00 Negative Negative Final Performing Location
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
--- OUTSIDE RECORDS SUMMARY | 2023-08-04 09:15 | External Medical Summary | Summary of Care ---
Author Name Unknown Organization [facility] Address [address] [place] [address] Phone [phone] Care Team Providers Care Examiner Rating Clerk Name Role Phone Jennie Gilmore DO Primary Care Provider Reason for Visit * Reason Onset Date Comments Medication Refill 06/23/2023 Encounter Details Date Type Department Care Team (Late st Contact Info) Description 06/23/2023 Refill Family Practice [address] [place] [address] [place] [phone] Jennie Gilmore DO [address] [place] [address] Primary osteoarthritis of both knees Allergies Active Allergy Reactions Criticality Noted Date Comments Rosuvastatin Calcium 09/13/2009 Lisinopril 05/07/2022 Hyperkalemia Simvastatin 01/08/2000 zocor (muscle cramps) documented as of this encounter (statuses as of 06/23/2023) Medications Medication Sig Dispensed Refills Start Date [...] 15 MINUTES 25 Tab 0 01/31/2020 Active Rita-[place] Heartburn 3401-5158 MG Oral Tablet Effervescent (Sodium Bicarbonate-Citric Acid)Indications:he artburn Take by mouth once . 0 Active CPAP every night at bedtime. 0 Active Respiratory Therapy Supplies Device Use as directed. AutoPAP 10-15 cm at bedtime daily 0 Active KonaWareTouch Verio Reflect w/Device Kit Use as directed [...] Hour (toPROL XL)Indications:Ariella nary artery disease involving [place] coronary artery of [place] heart with angina pectoris (HCC),Ischemic cardiomyopathy TAKE TWO TABLETS BY MOUTH EVERY MORNING AND TAKE ONE AND ONE-HALF TABLETS BY MOUTH EVERY EVENING 315 Tablet 4 09/01/2022 09/01/19 24 Active Furosemide 40 MG Oral Tablet [...] g 1 11/06/2022 Active FreeStyle Renetta 2 [place] Device Use as directed. Supplied by Epos 1 Each 0 12/22/2022 Active FreeStyle Renetta 2 Sensor Use as directed. Change every 14 days. Supplied by Epos 0 12/22/2022 Active OneTouch Delica Lancets 33G [...] :COPD, group B, by GOLD 2017 classification ([facility]) Inhale 1 Puff by mouth daily. 90 [...] with morning and evening meals. - from electro mechanical engineer 0 05/27/2023 Active Ozempic (2 MG/DOSE) 8 MG/3ML Subcutaneous Solution Pen-injector (Semaglutide (2 MG/DOSE)) Inject 2 mg once weekly under the skin - from electro mechanical engineer 0 05/27/2023 Active Atorvastatin Calcium 80 MG Oral Tablet (Lipitor)Indication s:Coronary artery disease involving [place] coronary artery of [place] heart without angina pectoris TAKE ONE TABLET [...] Pain, Moderate. 60 Tablet 0 06/23/2023 Active traMADol HCl 50 MG Oral Tablet (Ultram)Indications :Primary osteoarthritis of both knees Take 1 Tablet by mouth every 8 hours as needed for Pain, Moderate. 60 Tablet 0 11/02/2022 06/23/19 24 Discontinu ed(Refill) documented as of this encounter (statuses as of 06/23/2023) Active Problems Problem Noted Date Diagnosed Date COPD, group B, by GOLD 2017 classification 06/22 Overview: Per COPD GOLD Classification Diabetic polyneuropathy asso ciated with type 2 diabetes mellitus 05/04/2022 Aneurysm of ascending aorta without rupture 04/13 Atherosclerosis of coronary artery of [place] heart with stable angina pectoris 05/04/2022 Current [...] disorder) 06/27/2018 Coronary artery disease invo lving [place] coronary artery of [place] heart with angina pectoris 07/26/2017 Chronic deep [...] as of this encounter (statuses as of 06/23/2023) Resolved Problems Problem Noted Date Diagnosed Date Resolved Date Other pulmonary embolism wit hout acute cor pulmonale 05/04/2022 04/28/2023 Chronic obstructive pulmonary disease 05/04/2022 06/24/2022 Overview: Per COPD GOLD Classification Status post amputation of right thumb 05/02/2018 06/27/2018 Morbid obesity with body mas s index (BMI) of 50.0 to 59.9 in adult 07/26/2017 05/02/2018 Coronary artery disease invo lving [place] coronary artery of [place] heart without angina pectoris 07/26/2017 05/02/2018 Amputation [...] cuff syndrome 09/05/20102016 Obstructive sleep apnea 11/25/2009 12/0 04/2010 Overview: ICD-10 update of inactive term Obesity, [...] as of this encounter (statuses as of 06/23/2023) Immunizations Name Administration Dates Next Due Pneumococcal [...] on file documented as of this encounter Miscellaneous Notes * Telephone Encounter - Jennie Gilmore DO - 06/23/2023 12:25 PM EDTSigned Prescriptions: Disp Refills traMADol HCl 50 MG Oral Tablet (Ultram) 60 Tab*0 Sig: Take 1 Tablet by mouth every 8 hours as needed for Pain, Moderate. Authorizing Provider: JENNIE GILMORE * Telephone Encounter - Duglas Portillo [facility] - 06/23/2023 11:27 AM EDT Pending Prescriptions: Disp Refills traMADol HCl 50 MG Oral Tablet (Ultram) 60 Tab*0 Sig: Take 1 Tablet by mouth every 8 hours as needed for Pain, Moderate. * Telephone Encounter - Duglas Portillo [facility] - 06/23/2023 11:25 AM EDT I have reviewed the patients controlled substance dispensing history in the Prescription Drug Monitoring Program in compliance with the [facility] regulations before prescribing a controlled substance. PDMP checked on 06/23/2023. Pending Prescriptions: Disp Refills traMADol HCl 50 MG Oral Tablet (Ultram) 60 Tab*0 Sig: Take 1 Tablet by mouth every 8 hours as needed for Pain, Moderate. Last Visit: 04/28/2023 (in office), 04/29/2023 (telemedicine) Next Visit: 07/13/2023 Date medication was last filled: 02/04/2023 Date medication is due for refill: 02/23/2023 Pharmacy: [facility]-[address] Is this request for a controlled substance? Yes and Urine Drug Screen Not completed Toxicology results: No results found. However, due to the size of the patient record, not all encounters were searched.Please check Results Review for a complete set of results. Please approve if appropriate. Thanks, Duglas Portillo Pharm.D. Clinical Pharmacist [facility] ([facility])(Formerly Telepharmacy) [phone] 06/23/2023, 11:25 AM * Telephone Encounter - Giselle Angeles PHARM Tech - 06/23/2023 11:23 AM EDT Pt is out of rx. Did you pend patient's preferred pharmacy and medication before forwarding?yes Pharmacy[facility] [id number] [place] Pending Prescriptions: Disp Refills traMADol HCl 50 MG Oral Tablet (Ultram) 60 Tab*0 Sig: Take 1 Tablet by mouth every 8 hours as needed for Pain, Moderate. Last Visit: 04/28/2023 (in office), 04/29/2023 (telemedicine) Next Visit: 07/13/2023 If no future appointments scheduled, and last appointment is greater than a year ago, please schedule patient for a follow-up appointment Last date the medication was ordered: 11/02/2022 Is this request for a controlled substance?Yes, What was the last refill date 11/02/2022 w/ [id number] and dosage 50mg and Urine Drug Screen Not completed Urine Drug Screen:No results found. However, due to the size of the patient record, not all encounters were searched. Please check Results Review for a complete set of results. Patient Phone Numbers Labs: Lab Results Component Value Date/Time CREAT 0.8 02/11/2023 08:51 AM CREAT 1.0 03/22/2020 10:17 AM POTASSIUM 5.2 (H) 02/11/2023 08:51 AM POTASSIUM 4.9 03/22/2020 10:17 AM TSH 1.80 05/04/2022 09:41 AM TSH 1.06 12/06/2017 08:42 AM LDLCALC UNINTERPRETABLE RESULT 11/23/2018 08:27 AM LDLDIRECT 52 10/26/2022 11:42 AM LDLDIRECT 62 01/30/2020 08:31 AM LDLDIRECT 95 10/11/2019 09:10 AM ALT 37 10/26/2022 11:42 AM ALT 23 03/22/2020 10:17 AM HGBA1C 9.2 (H) 02/11/2023 08:51 AM HGBA1C 9.7 (H) 01/30/2020 08:31 AM documented in this encounter Plan of Treatment Upcoming Encounters Date Type Department Care Team (Late st Contact Info) Description 07/13/2023 11:00 AM EDT Office Visit Family Practice 65 [facility] [address] [place] [address] Jennie Gilmore, DO [address] [place] [address] 07/20/2023 2:30 PM EDT [facility] [address] [facility] [place] [phone] Nayeli Lorenz CRNP [address] [place] [address] 10/29/2023 11:00 AM EDT Nurse Only Ancillary [address] [address] College, Nurse Annual Wellness Visit [address] [address] 11/02/2023 9:00 AM EDT Office Visit Podiatry [address] [place] [address] Deven Weiner, DP [address] [place] [address] Scheduled Procedures Name Priority Associated Diagnoses Date/Ti me COLONOSCOPY FLEXIBLE PROXIMAL DIAGNOSTIC Recall History of colon polyps Health Maintenance Due Date Last Done Comments COVID-19 Vaccine (#1) 01/25/1955 Alpha-1 Antitrypsin 01/25/1970 Albumin/Creatinine Ratio 05/04/2023 023, 07/10/2021, 05/02/2018, Additional history exists Diabetic Foot Exam 08/04/2023 08/03/2022, 0 10/28/2021, 08/21/2020, Additional history exists HbA1c 08/12/2023 02/11/2023, 07/10/2022, 05/04/2022, Additional history exists GFR 02/12/2024 02/11/2023, 1006/2022, 10/26/2022, Additional history exists Diabetic Eye Exam [...] this encounter Medical Devices Implanted Type Area Corporate Tutor Device Identifier Shelf Expiration Date Model / Serial / Lot Sut Steel 6 [id number] - [id number] Implanted:Qty: 6 on 08/16/2014 by Matt Saavedra MD at OR [facility] N/A: Chest JNJ : [employer] 11/09/2018 M654G / / [id number] Marker Coronary [facility] - [id number] Implanted:Qty: 1 on 08/16/2014 by Matt Saavedra MD at OR [facility] N/A: Aorta [employer] 06/09/2017 [facility] / / [id number] documented as of this encounter Visit Diagnoses Diagnosis Primary osteoarthritis of both knees Primary localized osteoarthrosis, lower leg documented in [...] the patient have Health Care Power of Color Finisher? No Care Teams Examiner Rating Clerk Relationship Specialty Start Date End Date Jennie Gilmore DO [address] [place] [address] PCP - General Family Medicine 01/11/23 documented as of this encounter
--- OUTSIDE RECORDS SUMMARY | 2023-08-04 09:15 | External Medical Summary | Summary of Care ---
Author Name Unknown Organization [facility] Address [address] [place] [address] Phone [phone] Care Team Providers Care Laborer Stores Name Role Phone Jennie Mckoy DO Primary Care Provider [phone] Reason for Referral * Precert (Within 24 hrs (call dept; emergent)) - Pending Review Specialty Diagnoses / Procedures Referred By Breann t Referred To Contact Radiology Diagnoses Abdominal pain, epigastric Abdominal distension Procedures CT ABD/PELVIS WO IV/ORAL CONTRAST CT ABD/PELVIS WO IV/ORAL CONTRAST Jennie Mckoy DO [address] [place] [address] Referral ID Status Reason Start Date Expiration Date V isits Requested Visits Authorized [id number] Pending Review 08/03/2023 999 999 Reason for Visit * Reason Comments Acute Encounter Details Date Type Department Care Team (Latest Contact Info) Description 08/03/2023 9:00 AM EDT Office Visit Family Practice [address] [place] [address], [place] [address] [place] [address] Jennie Mckoy DO [address] [place] [address] Abdominal pain, epigastric*; Abdominal distension; Dysuria; Chronic [...] 15 MINUTES 25 Tab 0 01/31/2020 Active Rita-[place] Heartburn 3780-6897 MG Oral Tablet Effervescent (Sodium Bicarbonate-Citric Acid)Indications:he [...] Hour (toPROL XL)Indications:Ariella nary artery disease involving [place] coronary artery of [place] heart with angina pectoris (HCC),Ischemic cardiomyopathy TAKE [...] g 1 11/06/2022 Active FreeStyle Renetta 2 [place] Device Use as directed. Supplied by [employer] 1 Each 0 12/22/2022 Active FreeStyle Renetta 2 Sensor Use as directed. Change every 14 days. Supplied by [employer] 0 12/22/2022 Active OneTouch Delica Lancets 33G [...] with morning and evening meals. - from gang rider. Taking 75 units twice a day 0 05/27/2023 Active Ozempic (2 MG/DOSE) 8 MG/3ML Subcutaneous Solution Pen-injector (Semaglutide (2 MG/DOSE)) Inject 2 mg once weekly under the skin - from gang rider 0 05/27/2023 Active Atorvastatin Calcium 80 MG Oral Tablet (Lipitor)Indication s:Coronary artery disease involving [place] coronary artery of [place] heart without angina pectoris TAKE ONE TABLET [...] rupture 04/13 Atherosclerosis of coronary artery of [place] heart with stable angina pectoris 05/04/2022 Current [...] disorder) 06/27/2018 Coronary artery disease invo lving [place] coronary artery of [place] heart with angina pectoris 07/26/2017 Chronic deep [...] 07/26/2017 05/02/2018 Coronary artery disease invo lving [place] coronary artery of [place] heart without angina pectoris 07/26/2017 05/02/2018 Amputation [...] calluses yourself. Talk to your doctor or blueprinting machine operator (a doctor who specializes in foot care) [...] the area doesnt appear to be healing. [phone] [employer], [address] [place] [id number]. All rights reserved. This information is not [...] Chief Complaint Patient presents with Acute HPI: Brijesh Pérez Jr. is a 73 year old [...] [facility]) I82.532 Coronary artery disease involving [place] coronary artery of [place] heart with angina pectoris ([facility])I25.119 [...] HOSPITAL) I71.21 Atherosclerosis of coronary artery of [place] heart with stable angina pectoris ([facility] [...] DOSES IN 15 MINUTES 25 Tab 0 Rita-[place] Heartburn 3981-5449 MG Oral Tablet Effervescent (Sodium Bicarbonate-Citric Acid) [...] with morning and evening meals. - from gang rider. Taking 75 units twice a day Ozempic (2 MG/DOSE) 8 MG/3ML Subcutaneous Solution Pen-injector (Semaglutide (2 MG/DOSE)) Inject 2 mg once weekly under the skin - from gang rider Atorvastatin Calcium 80 MG Oral Tablet (Lipitor) [...] directed. AutoPAP 10-15 cm at bedtime daily [employer] Reflect w/Device Kit Use as directed . Test Blood sugar up to 3 times daily 1 Kit 0 FreeStyle Renetta 2 [place] Device Use as directed. Supplied by [employer] 1 Each 0 FreeStyle Renetta 2 Sensor Use as directed. Change every 14 days. Supplied by [employer] Delica Lancets 33G Use 2 times a day 200 Each 1 [employer] In Vitro Strip (Glucose Blood) Use 2 [...] USING ARTERY 1 GRAFT performed by Matt Saavedra MD at [facility] CABG, ARTERY-VEIN, TWO 08/16/2014 08/16/2014 CORONARY ARTERY BYPASS GRAFT ARTERIAL AND VENOUS 2 GRAFTS performed by Matt Saavedra MD at [facility] COLONOSCOPY THRU STOMA, W/BIOPSY 02/25/2009 adenomatous/repeat colonoscopyi n 5 yrs COLONOSCOPY, DIAGNOSTIC (RECTUM) N/A 12/13/2015 adeno polyp, 5 yr recall, COLONOSCOPY FLEXIBLE PROXIMAL DIAGNOSTIC performed by Makayla Wilkinson OR [facility] COLONOSCOPY, DIAGNOSTIC (RECTUM) N/A 03/26/2022 moderate diverticulosis/hemorrhoids/recall 5 years/Colonoscopy/CT EGD, FLEXIBLE,W/ENDOSCOPIC US 04/26/2020 gallstones, gastritis, hiatal hernia / [facility] EGD, W/ENDOSCOPIC US N/A 03/25/2020 ESOPHAGOGASTRODUODENOSCOPY (EGD), FLEXIBLE, TRANSORAL, ENDOSCOPIC ULTRASOUND performed by Samina Nix DO at ENDOSCOPY [facility] ENDO,VIDEO ASSIST HARVEST LINDA Right 08/16/2014 ENDOSCOPY VIDEO ASSISTED HARVEST VEIN performed by Matt Saavedra MD at [facility] ERCP, DIAGNOSTIC, SPECIMEN COLLECTION N/A 03/25/2020 ENDOSCOPIC RETROGRADE CHOLANGIOPANCREATOGRAPHY (ERCP) DIAGNOSTIC performed by Samina Nix DO at ENDOSCOPY [facility] FRACTURE NOS Left 04/12/1999 left lower leg- fx both bones INFORMATION Left 04/12/2001 replace plate, left fibula- roeshot KNEE ARTHROSCOPY, DIAGNOSTIC 04/12/1996 Knee Arthroscopy SHOULDER SUBQ TUMOR REMOVAL, UNDER 3 CM Left 12/11/2015 EXCISION SOFT TISSUE TUMOR SHOULDER SUBCUTANEOUS performed by Aram Pedroza MD at OR [facility] TMT FEM FX PROSTH REPL Right 04/12/1969 [...] Mo at age 64 CA ovary Fa PA, CABG, smoker, cancer throat Sis Alive Sis Alive Bro Alive DM, [place] Jarek Alive Jarek Alive Son Alive Other [...] Care Team (Late st Contact Info) Description 10/29/2023 11:00 AM EDT Nurse Only Ancillary 65 [facility] [address] [place] [address] College, Nurse Annual Wellness Visit 65 [facility] [address] [place] [address] 11/02/2023 9:00 AM EDT Office Visit Podiatry [address] [place] [phone] Deven Weiner, KIRSTIN [facility] [place] [address] Pending Results Name Type Priority Associated Diagnoses [...] of less than 7.0% ([facility]) Expected: 08/03/2023 (Approximate), Expires: 08/02/2024 COMPREHENSIVE METABOLIC [...] 05/04/2022, Additional history exists GFR 02/12/2024 02/11/2023, 06/2022, 10/26/2022, Additional history exists Diabetic Eye [...] this encounter Medical Devices Implanted Type Area Spudder Device Identifier Shelf Expiration Date Model / Serial / Lot Sut Steel 6 M654g - [id number] Implanted:Qty: 6 on 08/16/2014 by Matt Saavedra MD [place] [facility] N/A: Chest JNJ : [employer] 11/09/2018 M654G / / [id number] Marker Coronary [facility] - [id number] Implanted:Qty: 1 on 08/16/2014 by Matt Saavedra MD [place] [facility] N/A: Aorta [employer] 06/09/2017 [facility] / / [id number] documented as of this encounter Procedures Procedure Name Priority Date/Time Associated Diagnosis Comments URINALYSIS, POINT OF CARE FRANCISCA 08/03/2023 9:27 AM EDT documented in this encounter Results * (ABNORMAL) URINALYSIS, POINT OF CARE (08/03/2023 9:27 AM EDT) Color, Urine Yellow Light Yellow, Yellow 08/03/2023 9:30 AM EDT [place] [address] Clarity, Urine Clear Clear 08/03/2023 9:30 AM EDT [place] [address] Glucose, Urine Negative Negative mg/dL 08/03/2023 9:30 AM EDT [place] [address] Bilirubin, Urine Negative Negative 08/03/2023 9:30 AM EDT [place] [address] Ketone, Urine Negative Negative mg/dL 08/03/2023 9:30 AM EDT [place] [address] Specific [place], Urine 1.015 1.003 - 1.030 08/03/2023 9:30 AM EDT [place] [address] Blood, Urine Trace-intact (A) Negative 08/03/2023 9:30 AM EDT [place] [address] pH, Urine 8.5(A) 5.0, 5.5, 6.0, 6.5, 7.0, 7.5 units 08/03/2023 9:30 AM EDT [place] [address] Protein, Urine Trace(A) Negative mg/dL 08/03/2023 9:30 AM EDT [place] [address] Urobilinogen, Urine 0.2 0.2, 1.0 mg/dL 08/03/2023 9:30 AM EDT [place] [address] Nitrite, Urine Negative Negative 08/03/2023 9:30 AM EDT [place] [address] Esterase, Urine Negative Negative 08/03/2023 9:30 AM EDT [place] [address] Urine 08/03/2023 9:27 AM EDT 08/03/2023 9:30 AM EDT Jennie Mckoy DO LAB POINT OF CARE TE ST DOCKED DEVICE UNSOLICITED RESULTS [facility] [phone] [facility] [place] [address], [facility] documented in this encounter Visit Diagnoses [...] the patient have Health Care Power of Senior Actuarial Analyst? No Care Teams Laborer Stores Relationship Specialty Start Date End Date Jennie Mckoy DO [address] [facility] [address] PCP - General Family Medicine 01/11/23 documented as of this encounter
--- OUTSIDE RECORDS SUMMARY | 2023-08-04 09:15 | External Medical Summary ---
Author Name Unknown Address Unknown Organization [id number]:[facility] - [address] [facility] [place]. [place], [place] [address] Laboratory Report Ordering Provider Test Date Status DEIRDRE RAO 08/03/2023 09:56:58 Final Observation Date Value Abnormality Reference (Units ) Status HbA1C 08/03/2023 09:56:58 8.2 Above high normal 4. 0-5.6 (%) Final The use of HbA1c to monitor glycemic status is based on normal hemoglobin and HbA composition. This test should not be used in patients with abnormal hemoglobin that affects the half life of the red blood cell or the in vivo glycation rates. Glucose, estimated average 08/03/2023 09:56:58 189 Above high normal <126 (mg/dL) [place] Performing Location [facility] [address] [facility] [address]
--- OUTSIDE RECORDS SUMMARY | 2023-08-04 09:16 | External Medical Summary | Summary of Care ---
Author Name Unknown Organization [facility] Address [address] [place] [address] Phone [phone] Care Team Providers Care Steward/Stewardess Railroad Dining Car Name Role Phone Jennie Mckoy DO Primary Care Provider Encounter Details Date Type Department Care Team (Late st Contact Info) Description 06/10/2023 Orders Only Family Practice 65 [facility] [place] [address] [place] [phone] Jennie Mckoy DO [address] [place] [address] Allergies Active Allergy Reactions Criticality Noted Date Comments Rosuvastatin Calcium 09/13/2009 Lisinopril 05/07/2022 Hyperkalemia Simvastatin 01/08/2000 zocor (muscle cramps) documented as of this encounter (statuses as of 06/10/2023) Medications Medication Sig Dispensed Refills Start Date [...] 15 MINUTES 25 Tab 0 01/31/2020 Active Rita-[place] Heartburn 4914-2494 MG Oral Tablet Effervescent (Sodium Bicarbonate-Citric Acid)Indications:hea [...] Hour (toPROL XL)Indications:Coron [place] artery disease involving [place] coronary artery of [place] heart with angina pectoris (HCC),Ischemic cardiomyopathy TAKE [...] WEEK 135 Tablet 3 07/16/2022 4 Active traMADol HCl 50 MG Oral Tablet (Ultram)Indications: Primary osteoarthritis of both knees Take 1 Tablet by mouth every 8 hours as needed for Pain, Moderate. 60 Tablet 0 11/02/2022 Active Ipratropium-Albutero l 20-100 MCG/ACT Inhalation Aerosol Solution (Combivent Respimat) Inhale 2 Puffs by mouth every 6 hours with spacer. 4 g 1 11/06/2022 Active FreeStyle Renetta 2 [place] Device Use as directed. Supplied by [employer] 1 Each 0 12/22/2022 Active FreeStyle Renetta 2 Sensor Use as directed. Change every 14 days. Supplied by [employer] 0 12/22/2022 Active OneTouch Delica Lancets 33G [...] COPD, group B, by GOLD 2017 classification ([facility]) Inhale 1 Puff by mouth daily. 90 Each 3 02/11/2023 Active Insulin Pen Needle 31G X 8 MM Use as directed. Use three times a day with insulin pen 300 Each 3 02/23/2023 Active Ezetimibe 10 MG Oral Tablet (Zetia)Indications:D yslipidemia, goal LDL below 100 TAKE ONE TABLET BY MOUTH IN THE MORNING 90 Tablet 3 03/24/2023 4 Active Silver sulfADIAZINE 1 % External Cream [...] with morning and evening meals. - from bulk system operator 0 05/27/2023 Active Ozempic (2 MG/DOSE) 8 MG/3ML Subcutaneous Solution Pen-injector (Semaglutide (2 MG/DOSE)) Inject 2 mg once weekly under the skin - from bulk system operator 0 05/27/2023 Active Atorvastatin Calcium 80 MG Oral Tablet (Lipitor)Indications :Coronary artery disease involving [place] coronary artery of [place] heart without angina pectoris TAKE ONE TABLET [...] MEALS 200 Tablet 1 06/09/2023 5 Active documented as of this encounter (statuses as of 06/10/2023) Active Problems Problem Noted Date Diagnosed Date COPD, group B, by GOLD 2017 classification 06/22 Overview: Per COPD GOLD Classification Diabetic polyneuropathy asso ciated with type 2 diabetes mellitus 05/04/2022 Aneurysm of ascending aorta without rupture 04/13 Atherosclerosis of coronary artery of [place] heart with stable angina pectoris 05/04/2022 Current [...] disorder) 06/27/2018 Coronary artery disease invo lving [place] coronary artery of [place] heart with angina pectoris 07/26/2017 Chronic deep [...] as of this encounter (statuses as of 06/10/2023) Resolved Problems Problem Noted Date Diagnosed Date Resolved Date Other pulmonary embolism wit hout acute cor pulmonale 05/04/2022 04/28/2023 Chronic obstructive pulmonary disease 05/04/2022 06/24/2022 Overview: Per COPD GOLD Classification Status post amputation of right thumb 05/02/2018 06/27/2018 Morbid obesity with body mas s index (BMI) of 50.0 to 59.9 in adult 07/26/2017 05/02/2018 Coronary artery disease invo lving [place] coronary artery of [place] heart without angina pectoris 07/26/2017 05/02/2018 Amputation [...] Rotator cuff syndrome 09/05/20102016 Obstructive sleep apnea 11/25/200904/2010 Overview: ICD-10 update of inactive term Obesity, [...] as of this encounter (statuses as of 06/10/2023) Immunizations Name Administration Dates Next Due Pneumococcal [...] on file documented as of this encounter Plan of Treatment Upcoming Encounters Date Type Department Care Team (Late st Contact Info) Description 06/28/2023 3:40 PM EDT Office Visit Family Practice 65 [facility] [address] [place] [address] Jennie Mckoy DO [address] [place] [address] 07/20/2023 2:30 PM EDT [facility] 132 [facility] [place] [phone] Nayeli Lorenz CRNP [facility] [address] 10/29/2023 11:00 AM EDT Nurse Only Ancillary 65 [facility] 293 [place] [address] College, Nurse Annual Wellness Visit [address] [place] [address] 11/02/2023 9:00 AM EDT Office Visit Podiatry [address] [place] [address] Deven Weiner, DPM [address] [place] [address] Scheduled Procedures Name Priority Associated Diagnoses Date/Ti me COLONOSCOPY FLEXIBLE PROXIMAL DIAGNOSTIC Recall History of colon polyps Health Maintenance Due Date Last Done Comments COVID-19 Vaccine (#1) 01/25/1955 Alpha-1 Antitrypsin 01/25/1970 Albumin/Creatinine Ratio 05/04/2023 023, 07/10/2021, 05/02/2018, Additional history exists Diabetic Foot Exam 08/04/2023 08/03/2022, 0 10/28/2021, 08/21/2020, Additional history exists HbA1c 08/12/2023 02/11/2023, 071 10/2022, 05/04/2022, Additional history exists GFR 02/12/2024 02/11/2023, 10/0 06/2022, 10/26/2022, Additional history exists Depression Screening 04/28/2024 04/28/2023 O2 ASSESSMENT COMPLETED IN PAST YEAR FOR COPD 04/28/2024 04/28/2023 Diabetic Eye Exam 06/09/2024 04/26/2023, , 04/09/2021, Additional history exists COLONOSCOPY-EVERY 5 YRS AGES 18-100 03/26/2027 03/26/2022, [...] this encounter Medical Devices Implanted Type Area Container Crane Operator Device Identifier Shelf Expiration Date Model / Serial / Lot Sut Steel 6 [id number] - [id number] Implanted:Qty: 6 on 08/16/2014 by Matt Saavedra MD at OR [facility] [place] N/A: Chest JNJ : [employer] 11/09/2018 [id number] / / [id number] Marker Coronary [facility] - [id number] Implanted:Qty: 1 on 08/16/2014 by Matt Saavedra MD at OR [facility] [place] N/A: Aorta [employer] 06/09/2017 [facility] / / [id number] documented as of this encounter Procedures Procedure Name Priority Date/Time Associated Diagnosis Comments DIABETIC EYE EXAM Routine 04/26/2023 documented in this encounter Results * DIABETIC EYE EXAM (04/26/2023) 04/26/2023 History Per Patient OTHER OUTSIDE LAB (SEE SCANNED REPORT) documented in this encounter Advance Directives Latest [...] the patient have Health Care Power of Hand Iii Cutter? No Care Teams Steward/Stewardess Railroad Dining Car Relationship Specialty Start Date End Date Jennie Mckoy DO 293 [place] [address] PCP - General Family Medicine 01/11/23 documented as of this encounter
--- OUTSIDE RECORDS SUMMARY | 2023-08-04 09:16 | External Medical Summary | Summary of Care ---
Author Name Unknown Organization [facility] Address [address] [place] [address] Phone [phone] Care Team Providers Care Treasury Assistant Name Role Phone Jennie Gilmore DO Primary Care Provider [phone] Reason for Visit * Reason Comments Medication Refill Encounter Details Date Type Department Care Team (Late st Contact Info) Description 06/09/2023 Refill Family Practice 65 [facility] [place] [address] [place] [address] Jennie Gilmore DO [address] [place] [address] Type 2 diabetes mellitus with hyperglycemia, with long-term current use of insulin ([facility]); Type 2 diabetes mellitus with hemoglobin A1c goal of less than 7.0% ([facility]) Allergies Active Allergy Reactions Criticality Noted Date Comments Rosuvastatin Calcium 09/13/2009 Lisinopril 05/07/2022 Hyperkalemia Simvastatin 01/08/2000 zocor (muscle cramps) documented as of this encounter (statuses as of 06/09/2023) Medications Medication Sig Dispensed Refills Start Date [...] 15 MINUTES 25 Tab 0 01/31/2020 Active Rita-[place] Heartburn 4398-8912 MG Oral Tablet Effervescent (Sodium Bicarbonate-Citric Acid)Indications:he [...] Hour (toPROL XL)Indications:Ariella nary artery disease involving [place] coronary artery of [place] heart with angina pectoris (HCC),Ischemic cardiomyopathy TAKE [...] 135 Tablet 3 07/16/2022 08/15/19 24 Active traMADol HCl 50 MG Oral Tablet (Ultram)Indications :Primary osteoarthritis of both knees Take 1 Tablet by mouth every 8 hours as needed for Pain, Moderate. 60 Tablet 0 11/02/2022 Active Ipratropium-Albuter ol 20-100 MCG/ACT Inhalation Aerosol Solution (Combivent Respimat) Inhale 2 Puffs by mouth every 6 hours with spacer. 4 g 1 11/06/2022 Active FreeStyle Renetta 2 [place] Device Use as directed. Supplied by [employer] 1 Each 0 12/22/2022 Active FreeStyle Renetta 2 Sensor Use as directed. Change every 14 days. Supplied by [employer] 0 12/22/2022 Active OneTouch Delica Lancets 33G Use 2 times a day 200 Each 1 12/22/2022 Active OneTouch Verio In Vitro Strip (Glucose Blood) Use 2 times a day 200 Strip 1 12/22/2022 Active Apixaban 5 MG Oral Tablet (Eliquis)Indication s:Chronic deep vein thrombosis (DVT) of popliteal vein of left lower extremity ([facility]) Take 1 Tablet by mouth in the morning and 1 Tablet before bedtime. 200 Tablet 3 01/12/2023 Active Fluticasone Furoate 100 MCG/ACT Inhalation Aerosol Powder Breath Activated (ARNUITY ellipta)Indications :COPD, group B, by GOLD 2017 classification ([facility]) Inhale 1 Puff by mouth daily. 90 [...] with morning and evening meals. - from industrial electrician journeyman 0 05/27/2023 Active Ozempic (2 MG/DOSE) 8 MG/3ML Subcutaneous Solution Pen-injector (Semaglutide (2 MG/DOSE)) Inject 2 mg once weekly under the skin - from industrial electrician journeyman 0 05/27/2023 Active Atorvastatin Calcium 80 MG Oral Tablet (Lipitor)Indication s:Coronary artery disease involving [place] coronary artery of [place] heart without angina pectoris TAKE ONE TABLET [...] 200 Tablet 1 06/09/2023 06/08/19 25 Active metFORMIN HCl ER 500 MG Oral Tablet Extended Release 24 Hour (Glucophage XR)Indications:Type 2 diabetes mellitus with hyperglycemia, with long-term current use of insulin (HCC),Type 2 diabetes mellitus with hemoglobin A1c goal of less than 7.0% (HCC) TAKE ONE TABLET BY MOUTH TWICE A DAY WITH MORNING AND EVENING MEALS 200 Tablet 1 10/20/2022 06/09/19 24 Discontinu ed(Refill) documented as of this encounter (statuses as of 06/09/2023) Active Problems Problem Noted Date Diagnosed Date COPD, group B, by GOLD 2017 classification 06/22 Overview: Per COPD GOLD Classification Diabetic polyneuropathy asso ciated with type 2 diabetes mellitus 05/04/2022 Aneurysm of ascending aorta without rupture 04/13 Atherosclerosis of coronary artery of [place] heart with stable angina pectoris 05/04/2022 Current [...] disorder) 06/27/2018 Coronary artery disease invo lving [place] coronary artery of [place] heart with angina pectoris 07/26/2017 Chronic deep [...] as of this encounter (statuses as of 06/09/2023) Resolved Problems Problem Noted Date Diagnosed Date Resolved Date Other pulmonary embolism wit hout acute cor pulmonale 05/04/2022 04/28/2023 Chronic obstructive pulmonary disease 05/04/2022 06/24/2022 Overview: Per COPD GOLD Classification Status post amputation of right thumb 05/02/2018 06/27/2018 Morbid obesity with body mas s index (BMI) of 50.0 to 59.9 in adult 07/26/2017 05/02/2018 Coronary artery disease invo lving [place] coronary artery of [place] heart without angina pectoris 07/26/2017 05/02/2018 Amputation [...] as of this encounter (statuses as of 06/09/2023) Immunizations Name Administration Dates Next Due Pneumococcal [...] encounter Miscellaneous Notes * Telephone Encounter - Chantel Carrington [facility] - 06/09/2023 11:43 AM EST Signed Prescriptions: Disp Refills metFORMIN HCl ER 500 MG Oral Tablet Extend*200 Ta*1 Sig: TAKE ONE TABLET BY MOUTH TWICE A DAY WITH MORNING AND EVENING MEALSAuthorizing Provider: JENNIE GILMORE User: CHANTEL CARRINGTON documented in this encounter Plan of Treatment Upcoming Encounters Date Type Department Care Team (Late st Contact Info) Description 06/28/2023 3:40 PM EDT Office Visit Family Practice 65 [facility] [address] [place] [address] Jennie Gilmore DO [address] [place] [address] 07/20/2023 2:30 PM EDT Office Visit Sleep Disorders Ctr [facility] 132 [place] [phone] Nayeli Lorenz CRNP [address] [place] [address] 10/29/2023 11:00 AM EDT Nurse Only Ancillary [address] [address] College, Nurse Annual Wellness Visit [address] [address] 11/02/2023 9:00 AM EDT Office Visit Podiatry [address] [place] [address] Deven Weiner, DPM [address] [place], [place] [phone] Scheduled Procedures Name Priority Associated Diagnoses Date/Ti me COLONOSCOPY FLEXIBLE PROXIMAL DIAGNOSTIC Recall History of colon polyps Health Maintenance Due Date Last Done Comments COVID-19 Vaccine (#1) 01/25/1955 Alpha-1 Antitrypsin 01/25/1970 Albumin/Creatinine Ratio 05/04/2023 023, 07/10/2021, 05/02/2018, Additional history exists Diabetic Foot Exam 08/04/2023 08/03/2022, 0 10/28/2021, 08/21/2020, Additional history exists HbA1c 08/12/2023 02/11/2023, 10/10, 05/04/2022, Additional history exists GFR 02/12/2024 02/11/2023, 100 06/2022, 10/26/2022, Additional history exists Diabetic Eye Exam 04/26/2024 04/26/2023, , 02/20/2020, Additional history exists Depression Screening 04/28/2024 04/28/2023 [...] this encounter Medical Devices Implanted Type Area Repair Specialist Device Identifier Shelf Expiration Date Model / Serial / Lot Sut Steel 6 M654g - [id number] Implanted:Qty: 6 on 08/16/2014 by Matt Saavedra MD at OR [facility] [place] N/A: Chest JNJ : [employer] 11/09/2018 M654G / / [id number] Marker Coronary [facility] - [id number] Implanted:Qty: 1 on 08/16/2014 by Matt Saavedra MD at OR [facility] [place] N/A: Michael [employer] 06/09/2017 [facility] / / [id number] documented as of this encounter Visit Diagnoses Diagnosis Type 2 diabetes mellitus with hyperglycemia, with long-term current use of insulin (HCC) Type 2 diabetes mellitus with hemoglobin A1c goal of less than 7.0% (HCC) documented in this encounter Advance Directives [...] the patient have Health Care Power of Framing Machine Tender? No Care Teams Treasury Assistant Relationship Specialty Start Date End Date Jennie Gilmore DO 293 [facility] [place] [address] PCP - General Family Medicine 01/11/23 documented as of this encounter
--- OUTSIDE RECORDS SUMMARY | 2023-08-04 09:16 | External Medical Summary | Summary of Care ---
Author Name Unknown Organization [facility] Address [address] [place] [address] Phone [phone] Care Team Providers Care Inseam Leveler Name Role Phone Jennie Gilmore DO Primary Care Provider [phone] Reason for Visit * Reason Comments Medication Refill Encounter Details Date Type Department Care Team (Late st Contact Info) Description 05/28/2023 Refill Family Practice 65 [facility] [place] [address] [place] [address] Jennie Gilmore DO [address] [place] [address] Coronary artery disease involving [place] coronary artery of [place] heart without angina pectoris Allergies Active Allergy Reactions Criticality Noted Date Comments Rosuvastatin Calcium 09/13/2009 Lisinopril 05/07/2022 Hyperkalemia Simvastatin 01/08/2000 zocor (muscle cramps) documented as of this encounter (statuses as of 05/28/2023) Medications Medication Sig Dispensed Refills Start Date [...] 15 MINUTES 25 Tab 0 01/31/2020 Active Rita-[place] Heartburn 7106-6740 MG Oral Tablet Effervescent (Sodium Bicarbonate-Citric Acid)Indications:he [...] Hour (toPROL XL)Indications:Ariella nary artery disease involving [place] coronary artery of [place] heart with angina pectoris (HCC),Ischemic cardiomyopathy TAKE [...] 135 Tablet 3 07/16/2022 08/15/19 24 Active metFORMIN HCl ER 500 MG Oral Tablet Extended Release 24 Hour (Glucophage XR)Indications:Type 2 diabetes mellitus with hyperglycemia, with long-term current use of insulin (HCC),Type 2 diabetes mellitus with hemoglobin A1c goal of less than 7.0% (HCC) TAKE ONE TABLET BY MOUTH TWICE A DAY WITH MORNING AND EVENING MEALS 200 Tablet 1 10/20/2022 10/20/19 24 Active traMADol HCl 50 MG Oral Tablet (Ultram)Indications :Primary osteoarthritis of both knees Take 1 Tablet by mouth every 8 hours as needed for Pain, Moderate. 60 Tablet 0 11/02/2022 Active Ipratropium-Albuter ol 20-100 MCG/ACT Inhalation Aerosol Solution (Combivent Respimat) Inhale 2 Puffs by mouth every 6 hours with spacer. 4 g 1 11/06/2022 Active FreeStyle Renetta 2 [place] Device Use as directed. Supplied by [employer] 1 Each 0 12/22/2022 Active FreeStyle Renetta 2 Sensor Use as directed. Change every 14 days. Supplied by [employer] 0 12/22/2022 Active OneTouch Delica Lancets 33G [...] :COPD, group B, by GOLD 2017 classification ([facility]) Inhale 1 Puff by mouth daily. [...] with morning and evening meals. - from brake rider 0 05/27/2023 Active Ozempic (2 MG/DOSE) 8 MG/3ML Subcutaneous Solution Pen-injector (Semaglutide (2 MG/DOSE)) Inject 2 mg once weekly under the skin - from brake rider 0 05/27/2023 Active Atorvastatin Calcium 80 MG Oral Tablet (Lipitor)Indication s:Coronary artery disease involving [place] coronary artery of [place] heart without angina pectoris TAKE ONE TABLET BY MOUTH IN THE MORNING 90 Tablet 1 05/28/2023 05/27/19 25 Active Atorvastatin Calcium 80 MG Oral Tablet (Lipitor)Indication s:Coronary artery disease involving [place] coronary artery of [place] heart without angina pectoris TAKE ONE TABLET BY MOUTH IN THE MORNING 90 Tablet 1 10/20/2022 05/28/19 24 Discontinu ed(Refill) documented as of this encounter (statuses as of 05/28/2023) Active Problems Problem Noted Date Diagnosed Date COPD, group B, by GOLD 2017 classification 06/22 Overview: Per COPD GOLD Classification Diabetic polyneuropathy asso ciated with type 2 diabetes mellitus 05/04/2022 Aneurysm of ascending aorta without rupture 04/13 Atherosclerosis of coronary artery of [place] heart with stable angina pectoris 05/04/2022 Current [...] disorder) 06/27/2018 Coronary artery disease invo lving [place] coronary artery of [place] heart with angina pectoris 07/26/2017 Chronic deep [...] as of this encounter (statuses as of 05/28/2023) Resolved Problems Problem Noted Date Diagnosed Date Resolved Date Other pulmonary embolism wit hout acute cor pulmonale 05/04/2022 04/28/2023 Chronic obstructive pulmonary disease 05/04/2022 06/24/2022 Overview: Per COPD GOLD Classification Status post amputation of right thumb 05/02/2018 06/27/2018 Morbid obesity with body mas s index (BMI) of 50.0 to 59.9 in adult 07/26/2017 05/02/2018 Coronary artery disease invo lving [place] coronary artery of [place] heart without angina pectoris 07/26/2017 05/02/2018 Amputation [...] as of this encounter (statuses as of 05/28/2023) Immunizations Name Administration Dates Next Due Pneumococcal [...] Date Smoking Tobacco: Former Cigarettes 1 20 Q uit: 04/12/1976 Passive Smoke Exposure: Past Smokeless Tobacco: [...] encounter Miscellaneous Notes * Telephone Encounter - Jose Rafael Goodson RPh - 05/28/2023 9:37 AM ESTSigned Prescriptions: Disp Refills Atorvastatin Calcium 80 MG Oral Tablet (Li*90 Tab*1 Sig: TAKE ONE TABLET BY MOUTH IN THE MORNINGAuthorizing Provider: JENNIE GILMORE User: JOSE RAFAEL GOODSON NN documented in this encounter Plan of Treatment Upcoming Encounters Date Type Department Care Team (Late st Contact Info) Description 06/28/2023 3:40 PM EDT Office Visit Family Practice 65 [facility] [address] [place] [address] Jennie Gilmore, DO 293 [place] [address] 07/20/2023 2:30 PM EDT Office Visit Sleep Disorders Ctr [facility] 132 [facility] [place] [phone] Nayeli Lorenz CRNP 132 [place] [address] 10/29/2023 11:00 AM EDT Nurse Only Ancillary [address] [address] [place], Nurse Annual Wellness Visit [address] [address] 11/02/2023 9:00 AM EDT Office Visit Podiatry [address] [place] [address] Deven Weiner, [facility] [address] [place], [place] [id number] Scheduled Procedures Name Priority Associated Diagnoses Date/Ti [...] this encounter Medical Devices Implanted Type Area Signal Processing Engineer Device Identifier Shelf Expiration Date Model / Serial / Lot Sut Steel 6 M654g - [id number] Implanted:Qty: 6 on 08/16/2014 by Matt Saavedra MD at [place] [facility] [place] N/A: Chest JNJ : [employer] 11/09/2018 M654G / / [id number] Marker Coronary [facility] - [id number] Implanted:Qty: 1 on 08/16/2014 by Matt Saavedra MD at [place] [facility] [place] N/A: Aorta [employer] 06/09/2017 [facility] / / [id number] documented as of this encounter Visit Diagnoses Diagnosis Coronary artery disease involving [place] coronary artery of [place] heart without angina pectoris documented in this encounter Advance Directives Latest [...] the patient have Health Care Power of Superintendent Maintenance Airports? No Care Teams Inseam Leveler Relationship Specialty Start Date End Date Jennie Gilmore DO [address] [place] [address] PCP - General Family Medicine 01/11/23 documented as of this encounter
--- OUTSIDE RECORDS SUMMARY | 2023-08-04 09:17 | External Medical Summary | Summary of Care ---
Author Name Unknown Organization [facility] Address [address] [place] [address] Phone [phone] Care Team Providers Care Needle Leader Name Role Phone EanWaleskabilly Linda DO Primary Care Provider [phone] Reason for Visit * Reason Comments Dosage Adjustment Via Phone (anticoag Cl inic) Diabetes Follow-Up Encounter Details Date Type Department Care Team (Late st Contact Info) Description 04/29/2023 11:30 AM EST Telemedicine Family Practice [address] [address] College, Pharmacist [address] [address] Type 2 diabetes mellitus with hemoglobin A1c goal of less than 7.0% ([facility])* Allergies Active Allergy Reactions Criticality Noted Date Comments Rosuvastatin Calcium 09/13/2009 Lisinopril 05/07/2022 Hyperkalemia Simvastatin 01/08/2000 zocor (muscle cramps) documented as of this encounter (statuses as of 04/30/2023) Medications Medication Sig Dispensed Refills Start Date [...] 15 MINUTES 25 Tab 0 01/31/2020 Active Rita-[place] Heartburn 4477-2529 MG Oral Tablet Effervescent (Sodium Bicarbonate-Citric Acid)Indications:hea [...] Hour (toPROL XL)Indications:Coron george artery disease involving akiak coronary artery of [place]kiak heart with angina pectoris (HCC),Ischemic cardiomyopathy TAKE [...] WEEK 135 Tablet 3 07/16/2022 4 Active Atorvastatin Calcium 80 MG Oral Tablet (Lipitor)Indications :Coronary artery disease involving akiak coronary artery of akiak heart without angina pectoris TAKE ONE TABLET BY MOUTH IN THE MORNING 90 Tablet 1 10/20/2022 4 Active metFORMIN HCl ER 500 MG Oral Tablet Extended Release 24 Hour (Glucophage XR)Indications:Type 2 diabetes mellitus with hyperglycemia, with long-term current use of insulin (HCC),Type 2 diabetes mellitus with hemoglobin A1c goal of less than 7.0% ([facility]) TAKE ONE TABLET BY MOUTH TWICE A DAY WITH MORNING AND EVENING MEALS 200 Tablet 1 10/20/2022 4 Active traMADol HCl 50 MG Oral Tablet (Ultram)Indications: Primary osteoarthritis of both knees Take 1 Tablet by mouth every 8 hours as needed for Pain, Moderate. 60 Tablet 0 11/02/2022 Active Ipratropium-Albutero l 20-100 MCG/ACT Inhalation Aerosol Solution (Combivent Respimat) Inhale 2 Puffs by mouth every 6 hours with spacer. 4 g 1 11/06/2022 Active FreeStyle Renetta 2 [place] Device Use as directed. Supplied by [employer] 1 Each 0 12/22/2022 Active FreeStyle Renetta 2 Sensor Use as directed. Change every 14 days. Supplied by [employer] 0 12/22/2022 Active OneTouch Delica Lancets 33G Use 2 times a day 200 Each 1 12/22/2022 Active OneTouch Verio In Vitro Strip (Glucose Blood) Use 2 times a day 200 Strip 1 12/22/2022 Active Apixaban 5 MG Oral Tablet (Eliquis)Indications :Chronic deep vein thrombosis (DVT) of popliteal vein of left lower extremity ([facility]) Take 1 Tablet by mouth in the morning and 1 Tablet before bedtime. 200 Tablet 3 01/12/2023 Active Fluticasone Furoate 100 MCG/ACT Inhalation Aerosol Powder Breath Activated (ARNUITY ellipta)Indications: COPD, group B, by GOLD 2017 classification ([facility]) Inhale 1 Puff by mouth daily. 90 Each 3 02/11/2023 Active Ozempic (2 MG/DOSE) 8 MG/3ML Subcutaneous Solution Pen-injector (Semaglutide (2 MG/DOSE)) Inject 2 mg once weekly under the skin 9 mL 3 02/12/2023 Active Insulin Pen Needle 31G X 8 [...] Additional Information Patient not taking.Reported on 04/28/2023 NovoLIN 70/30 (70-30) 100 UNIT/ML Subcutaneous Suspension (Insulin NPH Isophane & Regular) Inject 70 Units under the skin 2 times a day with morning and evening meals. E11.9 140 mL 3 04/28/2023 Active Insulin Syringe-Needle U-100 30G X 1/2" 1 ML Use as directed. Inject 70 units with Breakfast and 70 units with Evening Meals. 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 05/04/2022 Current [...] disorder) 06/27/2018 Coronary artery disease invo lving akiak coronary artery of akiak heart with angina pectoris 07/26/2017 Chronic deep [...] as of this encounter (statuses as of 04/30/2023) Resolved Problems Problem Noted Date Diagnosed Date Resolved Date Other pulmonary embolism wit hout acute cor pulmonale 05/04/2022 04/28/2023 Chronic obstructive pulmonary disease 05/04/2022 06/24/2022 Overview: Per COPD GOLD Classification Status post amputation of right thumb 05/02/2018 06/27/2018 Morbid obesity with body mas s index (BMI) of 50.0 to 59.9 in adult 07/26/2017 05/02/2018 Coronary artery disease invo lving akiak coronary artery of akiak heart without angina pectoris 07/26/2017 05/02/2018 Amputation [...] cuff syndrome 09/05/20102016 Obstructive sleep apnea 11/25/2009 1204/2010 Overview: ICD-10 update of inactive term Obesity, [...] as of this encounter (statuses as of 04/30/2023) Immunizations Name Administration Dates Next Due Pneumococcal [...] on file documented as of this encounter Progress Notes * Narda Prescott RPh - 04/29/2023 11:27 AM EST Diabetes telephone follow - up 04/29/2023 Patient Phone Numbers [facility] [phone] - Reason for contacting patient: Following up on PCP visit yesterday. He didn't download his CGM and didn't answer when I called. Patient reported to PCP that he didn't think he's getting full dose of insulin w/ the pens bc it comes out of the pen afterward. Vials sent in yesterday to replace pens. Narda Blue RPh, Pharm D Clinical Pharmacist [facility] 04/29/2023, 11:28 AM documented in this encounter Plan of Treatment Upcoming Encounters Date Type Department Care Team (Late st Contact Info) Description 05/04/2023 1:15 PM EST Office Visit Podiatry [address] [place] [phone] Deven Weiner, DPM [address] [place] [address] 06/28/2023 3:40 PM EDT Office Visit Family Practice 65 [facility] [address] [place] [address] Jennie Mckoy DO [address] [place] [address] 07/20/2023 2:30 PM EDT Office Visit Sleep Disorders Ctr [facility] [address] [place] [phone] Nayeli Lorenz CRNP [address] [place] [address] 10/29/2023 11:00 AM EDT Nurse Only Ancillary [address] [address] College, Nurse Annual Wellness Visit [address] [address] Scheduled Procedures Name Priority Associated Diagnoses Date/Ti me COLONOSCOPY FLEXIBLE PROXIMAL DIAGNOSTIC Recall History of colon polyps Health Maintenance Due Date Last Done Comments COVID-19 Vaccine (#1) 01/25/1955 Alpha-1 Antitrypsin 01/25/1970 Hepatitis B (1 of 3 - Risk 3-dose series) 2012 Albumin/Creatinine Ratio 05/04/2023 023, 07/10/2021, 05/02/2018, Additional [...] COLONOSCOPY-EVERY 5 YRS AGES 18-100 03/26/2027 03/26/2022, 12/13/2015, 12/13/2015, Additional history exists DTaP,Tdap,and Td Vaccines [...] this encounter Medical Devices Implanted Type Area Medical Bill Processor Device Identifier Shelf Expiration Date Model / Serial / Lot Marker [id number] Implanted:Qty: 1 on 08/16/2014 by Matt Saavedra MD at OR [facility] N/A: Aorta [employer] 06/09/2017 [facility] / / [id number] documented as of this encounter Visit Diagnoses Diagnosis Type 2 diabetes mellitus with hemoglobin A1c goal of less than 7.0% ([facility])- Primary documented in this encounter Advance Directives Latest [...] the patient have Health Care Power of Immigration Paralegal? No Care Teams Needle Leader Relationship Specialty Start Date End Date Jennie Mckoy DO [address] [place] [address] PCP - General Family Medicine 01/11/23 documented as of this encounter
--- OUTSIDE RECORDS SUMMARY | 2023-08-04 09:17 | External Medical Summary | Summary of Care ---
Author Name Unknown Organization [facility] Address [address] [place] [address] Phone [phone] Care Team Providers Care Shredding Machine Operator Name Role Phone Jennie Mckoy DO Primary Care Provider Reason for Visit * Reason Onset Date Comments Appointment 04/28/2023 Pcp f/u - podiat ry - sleep med f/u Encounter Details Date Type Department Care Team (Late st Contact Info) Description 04/28/2023 Telephone Family Practice 65 [facility] [place] [address] [place] [address] Jennie Mckoy DO [address] [place] [address] Appointment (Pcp f/u - podiatry - sleep me... Allergies Active Allergy Reactions Criticality Noted Date Comments Rosuvastatin Calcium 09/13/2009 Lisinopril 05/07/2022 Hyperkalemia Simvastatin 01/08/2000 zocor (muscle cramps) documented as of this encounter (statuses as of 04/28/2023) Medications Medication Sig Dispensed Refills Start Date [...] 15 MINUTES 25 Tab 0 01/31/2020 Active Rita-[place] Heartburn 5696-2058 MG Oral Tablet Effervescent (Sodium Bicarbonate-Citric Acid)Indications:hea [...] Hour (toPROL XL)Indications:Coron george artery disease involving atka coronary artery of atka heart with angina pectoris (HCC),Ischemic cardiomyopathy TAKE [...] Oral Tablet (Lipitor)Indications :Coronary artery disease involving atka coronary artery of atka heart without angina pectoris TAKE ONE TABLET BY MOUTH IN THE MORNING 90 Tablet 1 10/20/2022 4 Active metFORMIN HCl ER 500 MG Oral Tablet Extended Release 24 Hour (Glucophage XR)Indications:Type 2 diabetes mellitus with hyperglycemia, with long-term current use of insulin ([facility]),Type 2 diabetes mellitus with hemoglobin A1c goal of less than 7.0% ([facility]) TAKE ONE TABLET BY MOUTH TWICE A [...] g 1 11/06/2022 Active FreeStyle Renetta 2 [place] Device Use as directed. Supplied by [employer] 1 Each 0 12/22/2022 Active FreeStyle Renetta 2 Sensor Use as directed. Change every 14 days. Supplied by [employer] 0 12/22/2022 Active OneTouch Delica Lancets 33G Use 2 times a day 200 Each 1 12/22/2022 Active OneTouch Verio In Vitro Strip (Glucose Blood) Use 2 times a day 200 Strip 1 12/22/2022 Active Apixaban 5 MG Oral Tablet (Eliquis)Indications :Chronic deep vein thrombosis (DVT) of popliteal vein of left lower extremity ([facility]) Take 1 Tablet by mouth in the morning and 1 Tablet before bedtime. 200 Tablet 3 01/12/2023 Active Fluticasone Furoate 100 MCG/ACT Inhalation Aerosol Powder Breath Activated (ARNUITY ellipta)Indications: COPD, group B, by GOLD 2017 classification ([facility]) Inhale 1 Puff by mouth daily. 90 [...] as of this encounter (statuses as of 04/28/2023) Active Problems Problem Noted Date Diagnosed Date COPD, group B, by GOLD 2017 classification 06/22 Overview: Per COPD GOLD Classification Diabetic polyneuropathy asso ciated with type 2 diabetes mellitus 05/04/2022 Aneurysm of ascending aorta without rupture 04/13 Atherosclerosis of coronary artery of atka heart with stable angina pectoris 05/04/2022 Current [...] disorder) 06/27/2018 Coronary artery disease invo lving atka coronary artery of atka heart with angina pectoris 07/26/2017 Chronic deep [...] as of this encounter (statuses as of 04/28/2023) Resolved Problems Problem Noted Date Diagnosed Date Resolved Date Other pulmonary embolism wit hout acute cor pulmonale 05/04/2022 04/28/2023 Chronic obstructive pulmonary disease 05/04/2022 06/24/2022 Overview: Per COPD GOLD Classification Status post amputation of right thumb 05/02/2018 06/27/2018 Morbid obesity with body mas s index (BMI) of 50.0 to 59.9 in adult 07/26/2017 05/02/2018 Coronary artery disease invo lving atka coronary artery of atka heart without angina pectoris 07/26/2017 05/02/2018 Amputation [...] as of this encounter (statuses as of 04/28/2023) Immunizations Name Administration Dates Next Due Pneumococcal [...] encounter Miscellaneous Notes * Telephone Encounter - Maria Dolores Morrissey OSA - 04/28/2023 12:54 PM EST Pt asked that we call him regarding his follow up appts LMOM to advise of below appts Podiatry - 1.23.24 arriving at 1:00 in [place] PCP f/u - 3.18.24 at 3:40 Sleep med - 4.9.24 at 2:15 at . If pt calls, please confirm appts are ok. documented in this encounter Plan of Treatment Upcoming Encounters Date Type Department Care Team (Late st Contact Info) Description 04/29/2023 11:30 AM EST Telemedicine Family Practice [address] [facility] [place] 293 [place] [address] College, Pharmacist [address] [address] 05/04/2023 1:15 PM EST Office Visit Podiatry [address] [place] [phone] Deven Weiner, DPAlexei [address] [place] [address] 06/28/2023 3:40 PM EDT Office Visit Family Practice [address] [phone] Jennie Mckoy DO [address] [place] [address] 07/20/2023 2:30 PM EDT Office Visit Sleep Disorders Ctr [facility] 132 [facility] [place] [phone] Nayeli Lorenz CRNP [address] [place] [address] 10/29/2023 11:00 AM EDT Nurse Only Ancillary [address] [address] College, Nurse Annual Wellness Visit [address] [address] Scheduled Procedures Name Priority Associated Diagnoses Date/Ti me COLONOSCOPY FLEXIBLE PROXIMAL DIAGNOSTIC Recall History of colon polyps Health Maintenance Due Date Last Done Comments Alpha-1 Antitrypsin 01/25/1970 Hepatitis B (1 of 3 - Risk 3-dose series) 2012 Diabetic Eye Exam 04/09/2022 04/09/2021, , 09/21/2018, Additional history exists COVID-19 Vaccine (#1) 04/29/2023 Postpo roscoe from [birth year]25/1957 (Patient Declined After Education) Albumin/Creatinine Ratio 05/04/2023 023, 07/10/2021, 05/02/2018, Additional [...] this encounter Medical Devices Implanted Type Area Mds Manager Device Identifier Shelf Expiration Date Model / Serial / Lot Marker Coronary [facility] - [id number] Implanted:Qty: 1 on 08/16/2014 by Matt Saavedra MD at [place] [facility] N/A: Aorta [employer] 06/09/2017 [facility] / / [id number] documented as of this encounter Advance Directives Latest Code Status [...] the patient have Health Care Power of Digital Imaging Technician? No Care Teams Shredding Machine Operator Relationship Specialty Start Date End Date Jennie Mckoy DO [address] [place] [address] PCP - General Family Medicine 01/11/23 documented as of this encounter
--- OUTSIDE RECORDS SUMMARY | 2023-08-04 09:17 | External Medical Summary | Summary of Care ---
Author Name Unknown Organization [facility] Address [address] [place] [address] Phone [phone] Care Team Providers Care Equipment Operation Instructor Name Role Phone EuniceJennie werner Primary Care Provider [phone] Reason for Visit * Reason Onset Date Comments Patient Assistance Program 05/27/2023 Encounter Details Date Type Department Care Team (Late st Contact Info) Description 05/27/2023 Telephone Family Practice 65 [facility] [address] [place] [phone] [employer], Pharmacist [address] [address] Patient Assistance Program Allergies Active Allergy Reactions Criticality Noted Date Comments Rosuvastatin Calcium 09/13/2009 Lisinopril 05/07/2022 Hyperkalemia Simvastatin 01/08/2000 zocor (muscle cramps) documented as of this encounter (statuses as of 05/27/2023) Medications Medication Sig Dispensed Refills Start Date [...] 15 MINUTES 25 Tab 0 01/31/2020 Active Rita-[place] Heartburn 9027-6517 MG Oral Tablet Effervescent (Sodium Bicarbonate-Citric Acid)Indications:he [...] Hour (toPROL XL)Indications:Ariella nary artery disease involving chicken [place] coronary artery of [place] heart with angina pectoris (HCC),Ischemic cardiomyopathy TAKE [...] 135 Tablet 3 07/16/2022 08/15/19 24 Active Atorvastatin Calcium 80 MG Oral Tablet (Lipitor)Indication s:Coronary artery disease involving chicken [place] coronary artery of [place] heart without angina pectoris TAKE ONE TABLET BY MOUTH IN THE MORNING 90 Tablet 1 10/20/2022 10/20/19 24 Active metFORMIN HCl ER 500 MG [...] g 1 11/06/2022 Active FreeStyle Renetta 2 [place] Device Use as directed. Supplied by [employer] 1 Each 0 12/22/2022 Active FreeStyle Renetta 2 Sensor Use as directed. Change every 14 days. Supplied by [employer] 0 12/22/2022 Active OneTouch Delica Lancets 33G Use 2 times a day 200 Each 1 12/22/2022 Active OneTouch Verio In Vitro Strip (Glucose Blood) Use 2 times a day 200 Strip 1 12/22/2022 Active Apixaban 5 MG Oral Tablet (Eliquis)Indication s:Chronic deep vein thrombosis (DVT) of popliteal vein of left lower extremity ([facility]) Take 1 Tablet by mouth in the morning and 1 Tablet before bedtime. 200 Tablet 3 01/12/2023 Active Fluticasone Furoate 100 MCG/ACT Inhalation Aerosol Powder Breath Activated (ARNUITY ellipta)Indications :COPD, group B, by GOLD 2017 classification ([facility]) Inhale 1 Puff by mouth daily. 90 [...] with morning and evening meals. - from commercial account officer 0 05/27/2023 Active Ozempic (2 MG/DOSE) 8 MG/3ML Subcutaneous Solution Pen-injector (Semaglutide (2 MG/DOSE)) Inject 2 mg once weekly under the skin - from commercial account officer 0 05/27/2023 Active Ozempic (2 MG/DOSE) 8 MG/3ML Subcutaneous Solution Pen-injector (Semaglutide (2 MG/DOSE)) Inject 2 mg once weekly under the skin 9 mL 3 02/12/2023 05/27/19 24 Discontinu ed(Refill) NovoLIN 70/30 (70-30) 100 UNIT/ML Subcutaneous Suspension (Insulin NPH Isophane & Regular) Inject 70 Units under the skin 2 times a day with morning and evening meals. E11.9 140 mL 3 04/28/2023 05/27/19 24 Discontinu ed(Refill) documented as of this encounter (statuses as of 05/27/2023) Active Problems Problem Noted Date Diagnosed Date COPD, group B, by GOLD 2017 classification 06/22 Overview: Per COPD GOLD Classification Diabetic polyneuropathy asso ciated with type 2 diabetes mellitus 05/04/2022 Aneurysm of ascending aorta without rupture 04/13 Atherosclerosis of coronary artery of [place] heart with stable angina pectoris 05/04/2022 Current [...] disorder) 06/27/2018 Coronary artery disease invo lving chicken [place] coronary artery of [place] heart with angina pectoris 07/26/2017 Chronic deep [...] as of this encounter (statuses as of 05/27/2023) Resolved Problems Problem Noted Date Diagnosed Date Resolved Date Other pulmonary embolism wit hout acute cor pulmonale 05/04/2022 04/28/2023 Chronic obstructive pulmonary disease 05/04/2022 06/24/2022 Overview: Per COPD GOLD Classification Status post amputation of right thumb 05/02/2018 06/27/2018 Morbid obesity with body mas s index (BMI) of 50.0 to 59.9 in adult 07/26/2017 05/02/2018 Coronary artery disease invo lving chicken [place] coronary artery of chicken [place] heart without angina pectoris 07/26/2017 05/02/2018 Amputation [...] as of this encounter (statuses as of 05/27/2023) Immunizations Name Administration Dates Next Due Pneumococcal [...] Notes * Telephone Encounter - Maria Dolores Norris OSA - 05/27/2023 2:43 PM EST Patient in the area, stopped and picked up his meds * Telephone Encounter - Narda Prescott, [facility] - 05/27/2023 1:49 PM EST Called and let patient know that his Novolin 70/30 and Ozempic are here in the clinic to pick pack worker. He reports he plans to come tomorrow to pick it up. Narda Akins, Pharm D, BCACP Clinical Pharmacist 65 [facility] - Medication Therapy Disease Management Clinic 05/27/2023, 1:52 PM Ph. [phone] Electronically signed by Narda Prescott [facility] at 05/27/2023 1:52 PM EST documented in this encounter Plan of Treatment Upcoming Encounters Date Type Department Care Team (Late st Contact Info) Description 06/28/2023 3:40 PM EDT Office Visit Family Practice [address] [phone] Jennie Mckoy, [address] [place] [address] 07/20/2023 2:30 PM EDT Office Visit Sleep Disorders Ctr [facility] [address] [place] [phone] Nayeli Lorenz CRNP [address] [place] [address] 10/29/2023 11:00 AM EDT Nurse Only Ancillary [address] [address] [employer], Nurse Annual Wellness Visit [address] [address] 11/02/2023 9:00 AM EDT Office Visit Podiatry [address] [place] [address] Deven Weiner, KIRSTIN [address] [place] [address] Scheduled Procedures Name Priority Associated [...] this encounter Medical Devices Implanted Type Area Sales And Merchandising Associate Device Identifier Shelf Expiration Date Model / Serial / Lot Marker Coronary [facility] - [id number] Implanted:Qty: 1 on 08/16/2014 by Matt Saavedra MD at OR [facility] N/A: Aorta [employer] 06/09/2017 [facility] / / [id number] documented as of this encounter Visit Diagnoses Diagnosis Type 2 diabetes mellitus with hemoglobin A1c goal of less than 7.0% ([facility])- Primary documented in this encounter Advance Directives [...] the patient have Health Care Power of Assistant Professor Of Criminal Justice? No Care Teams Equipment Operation Instructor Relationship Specialty Start Date End Date Jennie Mckoy DO [address] [place] [address] PCP - General Family Medicine 01/11/23 documented as of this encounter
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
--- OUTSIDE RECORDS SUMMARY | 2023-08-04 09:17 | External Medical Summary | Summary of Care ---
Author Name Unknown Organization [facility] Address [address] [place] [address] Phone [phone] Care Team Providers Care Final Cleaner Name Role Phone Jennie Mckoy DO Primary Care Provider Encounter Details Date Type Department Care Team (Late st Contact Info) Description 04/29/2023 Orders Only Family Practice 65 [facility] [place] [address] [place] [phone] Jennie Mckoy DO [address] [place] [address] Allergies Active Allergy Reactions Criticality Noted Date Comments Rosuvastatin Calcium 09/13/2009 Lisinopril 05/07/2022 Hyperkalemia Simvastatin 01/08/2000 zocor (muscle cramps) documented as of this encounter (statuses as of 04/29/2023) Medications Medication Sig Dispensed Refills Start Date [...] 15 MINUTES 25 Tab 0 01/31/2020 Active Rita-[place] Heartburn 7457-7433 MG Oral Tablet Effervescent (Sodium Bicarbonate-Citric Acid)Indications:hea [...] Hour (toPROL XL)Indications:Coron george artery disease involving chevak coronary artery of chevak heart with angina pectoris (HCC),Ischemic cardiomyopathy TAKE [...] Oral Tablet (Lipitor)Indications :Coronary artery disease involving chevak coronary artery of chevak heart without angina pectoris TAKE ONE TABLET [...] g 1 11/06/2022 Active FreeStyle Renetta 2 Centuria Device Use as directed. Supplied by Pivto 1 Each 0 12/22/2022 Active FreeStyle Renetta 2 Sensor Use as directed. Change every 14 days. Supplied by Pivto 0 12/22/2022 Active OneTouch Delica Lancets 33G [...] COPD, group B, by GOLD 2017 classification ([facility]) Inhale 1 Puff by mouth daily. [...] as of this encounter (statuses as of 04/29/2023) Active Problems Problem Noted Date Diagnosed Date COPD, group B, by GOLD 2017 classification 06/22 Overview: Per COPD GOLD Classification Diabetic polyneuropathy asso ciated with type 2 diabetes mellitus 05/04/2022 Aneurysm of ascending aorta without rupture 04/13 Atherosclerosis of coronary artery of chevak heart with stable angina pectoris 05/04/2022 Current [...] disorder) 06/27/2018 Coronary artery disease invo lving chevak coronary artery of chevak heart with angina pectoris 07/26/2017 Chronic deep [...] as of this encounter (statuses as of 04/29/2023) Resolved Problems Problem Noted Date Diagnosed Date Resolved Date Other pulmonary embolism wit hout acute cor pulmonale 05/04/2022 04/28/2023 Chronic obstructive pulmonary disease 05/04/2022 06/24/2022 Overview: Per COPD GOLD Classification Status post amputation of right thumb 05/02/2018 06/27/2018 Morbid obesity with body mas s index (BMI) of 50.0 to 59.9 in adult 07/26/2017 05/02/2018 Coronary artery disease invo lving chevak coronary artery of chevak heart without angina pectoris 07/26/2017 05/02/2018 Amputation [...] leg pain 08/30/2014 09/18/2016 NSTEMI (non-ST elevation nfaisa cardial infarction) 08/22/2014 2017 CAD (coronary artery [...] as of this encounter (statuses as of 04/29/2023) Immunizations Name Administration Dates Next Due Pneumococcal [...] 04/29/2023 11:30 AM EST Telemedicine Family Practice [address] [place] [phone] College, Pharmacist [address] [address] Arrived 05/04/2023 1:15 PM EST Office Visit Podiatry [address] [place] [phone] Deven Weiner, KIRSTIN [address] [place] [address] 06/28/2023 3:40 PM EDT Office Visit Family Practice [address] [place] [phone] Jennie Mckoy DO [address] [place] [address] 07/20/2023 2:30 PM EDT Office Visit [facility] Re[facility] Alejo [place] [address] [facility] [place] [phone] Nayeli Lorenz CRNP 132 [facility] [place] [address] 10/29/2023 11:00 AM EDT Nurse Only Ancillary 65 [facility] [place] [facility] [address] [facility], Nurse Annual Wellness Visit 65 [facility] 293 [place] [address] Scheduled Procedures Name Priority Associated Diagnoses Date/Ti me COLONOSCOPY FLEXIBLE PROXIMAL DIAGNOSTIC Recall History of colon polyps Health Maintenance Due Date Last Done Comments Alpha-1 Antitrypsin 01/25/1970 Hepatitis B (1 of 3 - Risk 3-dose series) 2012 COVID-19 Vaccine (#1) 04/29/2023 Postpo roscoe from 01/25/1957 (Patient Declined After Education) Albumin/Creatinine Ratio 05/04/2023 023, 07/10/2021, 05/02/2018, Additional history exists Diabetic Foot Exam 08/04/2023 08/03/2022, 0 10/28/2021, 08/21/2020, Additional history exists HbA1c 08/12/2023 02/11/2023, 10/10, 05/04/2022, Additional history exists GFR 02/12/2024 02/11/2023, 100 06/2022, 10/26/2022, Additional history exists Depression Screening 04/28/2024 04/28/2023 O2 ASSESSMENT COMPLETED IN PAST YEAR FOR COPD 04/28/2024 04/28/2023 Diabetic Eye Exam 04/29/2024 04/26/2023, , 02/20/2020, Additional history exists COLONOSCOPY-EVERY 5 YRS AGES [...] this encounter Medical Devices Implanted Type Area Mold Maker Plastic Molds Device Identifier Shelf Expiration Date Model / Serial / Lot Marker Coronary [facility] - [id number] Implanted:Qty: 1 on 08/16/2014 by Matt Saavedra MD [place] [facility] [place]/A: Aorta [employer] 06/09/[facility] / [id number] documented as of this encounter Procedures Procedure [...] the patient have Health Care Power of Analytical Laboratory Technician? No Care Teams Final Cleaner Relationship Specialty Start Date End Date Holencik, Jennie M, DO [address] [place] [facility] [place] [address] PCP - General Family Medicine 01/11/23 documented as of this encounter
--- OUTSIDE RECORDS SUMMARY | 2023-08-04 09:17 | External Medical Summary | Summary of Care ---
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 Name Role Phone Jennie Mckoy DO Primary Care Provider [phone] Reason for Referral * Evaluate & Treat - Unlimited Visits (Within 30 days (routine)) - Authorized Specialty Diagnoses / Procedures Referred By Breann garcia Referred To Contact Podiatry Diagnoses Diabetic polyneuropathy associated with type 2 diabetes mellitus (HCC) Type 2 diabetes mellitus with hemoglobin A1c goal of less than 7.0% (HCC) Toenail deformity Jennie Mckoy DO [address] [place] [address] Referral ID Status Reason Start Date Expiration Date Visits Requested Visits Authorized [id number] Authorized Specialty Services Required 04/28/[phone] Question Answer Referral Priority Within 30 days (routine) Where should this appointment be scheduled? [facility] Which condition are you referring this patient for? Diabetic foot care/pain Specific condition? Diabetic Nail trimming Medicare Patient? Yes Can Patient perform routine footcare without assistance? No Does patient have a chronic condition? Yes Has patient been seen in the past 6 months? Yes Date last seen for chronic condition: 04/28/2023 Who saw patient for chronic condition? Ean Reason for Visit * Reason Comments Follow Up Encounter Details Date Type Department Care Team (Latest Contact Info) Description 04/28/2023 9:00 AM EST Office Visit Family Practice [address], [place] [address] [place] [id number] Jennie Mckoy DO [address] [place] [address] COPD, group B, by GOLD 2017 classification ([facility])*; Type 2 diabetes mellitus with hemoglobin A1c goal of less than 7.0% ([facility]); Diabetic polyneuropathy associated with type 2 diabetes mellitus ([facility]); Toenail deformity; CESAR (generalized anxiety disorder); Current moderate episode of major depressive disorder without prior episode ([facility]); History of pulmonary embolus (PE); Chronic deep vein thrombosis (DVT) of popliteal vein of left lower extremity ([facility]); Coronary artery disease involving [place] coronary artery of [place] heart with angina pectoris ([facility]); Chronic diastolic CHF (congestive heart failure) ([facility]); Morbid obesity with body mass index (BMI) of 45.0 to 49.9 in adult ([facility]) Allergies Active Allergy Reactions Criticality Noted Date [...] 15 MINUTES 25 Tab 0 01/31/2020 Active Rita-[place] Heartburn 0845-2206 MG Oral Tablet Effervescent (Sodium Bicarbonate-Citric Acid)Indications:hea [...] Hour (toPROL XL)Indications:Coron [place] artery disease involving [place] coronary artery of [place] heart with angina pectoris (HCC),Ischemic cardiomyopathy TAKE [...] Oral Tablet (Lipitor)Indications :Coronary artery disease involving [place] coronary artery of [place] heart without angina pectoris TAKE ONE TABLET [...] g 1 11/06/2022 Active FreeStyle Renetta 2 Landers Device Use as directed. Supplied by [employer] 1 Each 0 12/22/2022 Active FreeStyle Renetta 2 Sensor Use as directed. Change every 14 days. Supplied by [employer] 0 12/22/2022 Active OneTouch Delica Lancets 33G Use 2 times a day 200 Each 1 12/22/2022 Active OneTouch Verio In Vitro Strip (Glucose Blood) Use 2 times a day 200 Strip 1 12/22/2022 Active Apixaban 5 MG Oral Tablet (Eliquis)Indications :Chronic deep vein thrombosis (DVT) of popliteal vein of left lower extremity ([facility]) Take 1 Tablet by mouth in the morning and 1 Tablet before bedtime. 200 Tablet 3 01/12/2023 Active Fluticasone Furoate 100 MCG/ACT Inhalation Aerosol Powder Breath Activated (ARNUITY ellipta)Indications: COPD, group B, by GOLD 2017 classification ([facility]) Inhale 1 Puff by mouth daily. 90 Each 3 02/11/2023 Active NovoLIN 70/30 FlexPen Relion (70-30) 100 UNIT/ML Suspension Pen-injector (Insulin NPH Isophane & Regular)Indications: Type 2 diabetes mellitus with hemoglobin A1c goal of less than 7.0% ([facility]) Inject 70 Units under the skin 2 times a day. 150 mL 3 02/11/2023 Active Ozempic (2 MG/DOSE) 8 [...] Additional Information Patient not taking.Reported on 04/28/2023 documented as of this encounter (statuses as of 04/28/2023) Active Problems Problem Noted Date Diagnosed Date COPD, group B, by GOLD 2017 classification 06/22 Overview: Per COPD GOLD Classification Diabetic polyneuropathy asso ciated with type 2 diabetes mellitus 05/04/2022 Aneurysm of ascending aorta without rupture 04/13 Atherosclerosis of coronary artery of [place] heart with stable angina pectoris 05/04/2022 Current [...] disorder) 06/27/2018 Coronary artery disease invo lving sel[place] coronary artery of [place] heart with angina pectoris 07/26/2017 Chronic deep [...] 07/26/2017 05/02/2018 Coronary artery disease invo lving [place] coronary artery of [place] heart without angina pectoris 07/26/2017 05/02/2018 Amputation [...] Passive Smoke Exposure: Past Smokeless Tobacco: Never Tobacco Cessation:Counseling Given: Yes Alcohol Use Standard Drinks/Week Comments No 0 [...] Sign Reading Time Taken Comments Blood Pressure 128/76 04/28/2023 9:10 AM EST Pulse 77 04/28/2023 9:10 AM EST Temperature 36.4 C (97.6 F) 04/28/2023 9:10 AM ES T Respiratory Rate 16 04/28/2023 9:10 AM EST Oxygen Saturation 92% 04/28/2023 9:10 AM EST Inhaled Oxygen Concentration - - Weight 145.1 kg (319 lb 14.4 oz) 04/28/2023 9:10 AM EST Height 175.3 cm (5' 9") 04/28/2023 9:10 AM EST Body Mass Index 47.24 04/28/2023 9:10 AM EST documented in this encounter Patient Instructions * Patient Instructions* Jennie Mckoy DO - 04/28/2023 9:33 AM EST -Fluticasone nasal spray documented in this encounter Progress Notes * Jennie Mckoy DO - 04/28/2023 9:02 AM EST SUBJECTIVE: Chief Complaint Patient presents with Follow Up HPI: Brijesh Pérez Jr. is a 73 year old male who presents today for regular return. Pt notes that he has not had filters with his CPAP. He states that he did not seem to have enough air coming through it. He states that this seemed to make it easier. He uses [facility]. Pt had cancelled appt with sleep medicine. Pt notes that he has been followed by podiatry previously. He notes that his nail on his toenail will grow out and irritate his other toes. He had seen Dr. Weiner previously. Referral placed. Pt states that he does not feel that the pens are working well for him. He states that he still hasinsulin dripping off the end when he is injecting it. He thinks that he did better with the vial. He notes that he does not like the pens. He notes that his sugars are in the 180-200 range. Pt notes that he sometimes has his shortness of breath. He is on lasix. He will use an extra when this occurs and feels that it is helpful. Pt notes that he has some congestion. He states that his had COVID. He was negative. He has some green mucous in the morning. It is thick. He notes he will cough some out. PHM: Patient Active Problem List Diagnosis Code HTN, goal below 140/90 I10 Gastroesophageal reflux disease without esophagitis K21.9 Dyslipidemia, goal LDL below 100 E78.5 Obstructive sleep apnea G47.33 Type 2 diabetes mellitus with hemoglobin A1c goal of less than 7.0% ([facility]) E11.9 S/P CABG x 3 Z95.1 History of myocardial infarction I25.2 Type 2 diabetes mellitus with hyperglycemia, with long-term current use of insulin ([facility]) E11.65, Z79.4 Chronic deep vein thrombosis (DVT) of popliteal vein of left lower extremity ([facility]) I82.532 Coronary artery disease involving [place] coronary artery of [place] heart with angina pectoris ([facility])I25.119 Morbid obesity with body mass index (BMI) of 45.0 to 49.9 in adult ([facility]) E66.01, Z68.42 History of amputation of right thumb Z89.011 Ischemic cardiomyopathy I25.5 CESAR (generalized anxiety disorder) F41.1 History of pulmonary embolus (PE) Z86.711 Aortic root dilatation ([facility]) I77.810 Hypertensive heart disease without congestive heart failure I11.9 Major depressive disorder, single episode, unspecified F32.9 Claustrophobia F40.240 Chronic diastolic CHF (congestive heart failure) ([facility]) I50.32 Restrictive lung disease J98.4 Current moderate episode of major depressive disorder without prior episode ([facility]) F32.1 Diabetic polyneuropathy associated with type 2 diabetes mellitus ([facility]) E11.42 Aneurysm of ascending aorta without rupture ([facility]) I71.21 Atherosclerosis of coronary artery of [place] heart with stable angina pectoris ([facility]) I25.118 COPD, group B, by GOLD 2017 classification ([facility]) J44.9 Current Outpatient Medications Medication Sig Dispense Refill aspirin 81 MG chewable tablet Take 1 Tablet by mouth in the morning. 60 Tab 0 Nitroglycerin 0.4 MG Sublingual Tablet Sublingual (NITROSTAT) DISSOLVE ONE TABLET UNDER THE TONGUE EVERY 5 MINUTES NEEDED FOR CHEST PAIN. DO NOT EXCEED A TOTAL OF 3 DOSES IN 15 MINUTES 25 Tab 0 Rita-[place] Heartburn 5663-5741 MG Oral Tablet Effervescent (Sodium Bicarbonate-Citric Acid) [...] ventolin based on formulary. 18 g 0 Isosorbide Mononitrate ER 30 MG Oral Tablet Extended Release 24 Hour (Imdur) Take 1 Tablet by mouthin the morning. Indications: Angina Pectoris, heart/blood pressure. 90 Tablet 3 Metoprolol Succinate ER 50 MG Oral Tablet Extended Release 24 Hour (toPROL XL) TAKE TWO TABLETS BY MOUTH EVERY MORNING AND TAKE ONE AND ONE-HALF TABLETS BY MOUTH EVERY EVENING 315 Tablet 4 Furosemide 40 MG Oral Tablet (Lasix) TAKE ONE TABLET BY MOUTH EVERY DAY PLUS AN ADDITIONAL TABLET TWO TO THREE DAYS PER WEEK 135 Tablet 3 Atorvastatin Calcium 80 MG Oral Tablet (Lipitor) TAKE ONE TABLET BY MOUTH IN THE MORNING 90 Tablet 1 metFORMIN HCl ER 500 MG Oral Tablet Extended Release 24 Hour (Glucophage XR) TAKE ONE TABLET BY MOUTH TWICE A DAY WITH MORNING AND EVENING MEALS 200 Tablet 1 Ipratropium-Albuterol 20-100 MCG/ACT Inhalation Aerosol Solution (Combivent Respimat) Inhale 2 Puffs by mouth every 6 hours with spacer. 4 g 1 Apixaban 5 MG Oral Tablet (Eliquis) Take 1 Tablet by mouth in the morning and 1 Tablet before bedtime. 200 Tablet 3 Fluticasone Furoate 100 MCG/ACT Inhalation Aerosol Powder Breath Activated (ARNUITY ellipta) Inhale1 Puff by mouth daily. 90 Each 3 NovoLIN 70/30 FlexPen Relion (70-30) 100 UNIT/ML Suspension Pen-injector (Insulin NPH Isophane & Regular) Inject 70 Units under the skin 2 times a day. 150 mL 3 Ozempic (2 MG/DOSE) 8 MG/3ML Subcutaneous Solution Pen-injector (Semaglutide (2 MG/DOSE)) Inject 2 mg once weekly under the skin 9 mL 3 Ezetimibe 10 MG Oral Tablet (Zetia) TAKE ONE TABLET BY MOUTH IN THE MORNING 90 Tablet 3 Respiratory Therapy Supplies Device Use as directed. AutoPAP 10-15 cm at bedtime daily [employer] Reflect w/Device Kit Use as directed . Test Blood sugar up to 3 times daily 1 Kit 0 traMADol HCl 50 MG Oral Tablet (Ultram) Take 1 Tablet by mouth every 8 hours as needed for Pain, Moderate. 60 Tablet 0 FreeStyle Renetta 2 Landers Device Use as directed. Supplied by [employer] 1 Each 0 FreeStyle Renetta 2 Sensor Use as directed. Change every 14 days. Supplied by [employer] Delica Lancets 33G Use 2 times a day 200 Each 1 [employer] In Vitro Strip (Glucose Blood) Use 2 times a day 200 Strip 1 Insulin Pen Needle 31G X 8 MM Use as directed. Use three times a day with insulin pen 300 Each 3 Silver sulfADIAZINE 1 % External Cream (Silvadene) Apply topically to affected area daily. Apply toleft forearm twice a marvel (Patient not taking: Reported on 04/28/2023) 50 g 1 No current facility-administered medications for this visit. [...] GRAFT performed by Matt Saavedra MD at [facility] CABG, ARTERY-VEIN, TWO 08/16/2014 08/16/2014 CORONARY ARTERY BYPASS GRAFT ARTERIAL AND VENOUS 2 GRAFTS performed by Matt Saavedra MD at OR [facility] COLONOSCOPY THRU STOMA, W/BIOPSY 02/25/2009 adenomatous/repeat colonoscopyi n 5 yrs COLONOSCOPY, DIAGNOSTIC (RECTUM) N/A 12/13/2015 adeno polyp, 5 yr recall, COLONOSCOPY FLEXIBLE PROXIMAL DIAGNOSTIC performed by Makayla Wilkinson OR [facility] COLONOSCOPY, DIAGNOSTIC (RECTUM) N/A 03/26/2022 moderate diverticulosis/hemorrhoids/recall 5 years/Colonoscopy/[place] EGD, FLEXIBLE,W/ENDOSCOPIC US 04/26/2020 gallstones, gastritis, hiatal hernia / [facility] EGD, W/ENDOSCOPIC US N/A 03/25/2020 ESOPHAGOGASTRODUODENOSCOPY (EGD), FLEXIBLE, TRANSORAL, ENDOSCOPIC ULTRASOUND performed by Samina Nix DO at ENDOSCOPY [facility] ENDO,VIDEO ASSIST HARVEST LINDA Right 08/16/2014 ENDOSCOPY VIDEO ASSISTED HARVEST VEIN performed by Matt Saavedra MD at [facility] ERCP, DIAGNOSTIC, SPECIMEN COLLECTION N/A 03/25/2020 ENDOSCOPIC RETROGRADE CHOLANGIOPANCREATOGRAPHY (ERCP) DIAGNOSTIC performed by Samina Nix DO at ENDOSCOPY [facility] FRACTURE NOS Left 04/12/1999 left lower leg- fx both bones INFORMATION Left 04/12/2001 replace plate, left fibula- roeshot KNEE ARTHROSCOPY, DIAGNOSTIC 04/12/1996 Knee Arthroscopy SHOULDER SUBQ TUMOR REMOVAL, UNDER 3 CM Left 12/11/2015 EXCISION SOFT TISSUE TUMOR SHOULDER SUBCUTANEOUS performed by Aram Pedroza MD at OR [facility] TMT FEM FX PROSTH REPL Right 04/12/1969 [...] Mo at age 64 CA ovary Fa AR, CABG, smoker, cancer throat Sis Alive Sis Alive Bro Alive DM, AR Jarek Alive Jarek Alive Son Alive Other (Not Specified) MGMA (Not Specified) Other (Not Specified) Bro HBRO Alive Social History Tobacco Use Smoking status: Former Packs/day: 1.00 Years: 20.00 Additional pack years: 0.00 Total pack years: 20.00 Types: Cigarettes Quit date: 04/12/1976 Years since quittin.0 Passive exposure: Past Smokeless tobacco: Never Substance Use Topics Alcohol use: No Alcohol/week: 0.0 standard drinks of alcohol Vaping/E-Cigarette Use Vaping/E-Cigarette Use Never User Vaping/E-Cigarette Substances Vaping/E-Cigarette Devices REVIEW OF SYSTEMS: Review of Systems Constitutional: Negative for chills, fatigue, fever and unexpected weight change. HENT: Positive for congestion. Respiratory: Negative for cough, chest tightness, shortness of breath and wheezing. Cardiovascular: Negative for chest pain, palpitations and leg swelling. Gastrointestinal: Negative for abdominal pain, constipation, diarrhea, nausea and vomiting. Musculoskeletal: Negative for arthralgias, gait problem and joint swelling. Skin: Negative for color change, pallor and rash. OBJECTIVE: BP 128/76 (BP Site: Left Arm, BP Position: Sitting, BP Cuff Size: Regular) | Pulse 77 | Temp 36.4 C (97.6 F) (Tympanic) | Resp 16 | Ht 1.753 m (5' 9") | Wt (!) 145.1 kg (319 lb 14.4 oz) | SpO2 92% | BMI 47.24 kg/m | BSA 2.66 m PHYSICAL EXAM: Physical Exam Constitutional: General: He is not in acute distress. Appearance: He is well-developed. HENT: Nose: Congestion present. No rhinorrhea. Cardiovascular: Rate and Rhythm: Normal rate and regular rhythm. Heart sounds: Normal heart sounds. No murmur heard. No friction rub. No gallop. Pulmonary: Effort: Pulmonary effort is normal. No respiratory distress. Breath sounds: Normal breath sounds. No wheezing or rales. Abdominal: General: Bowel sounds are normal. There is no distension. Palpations: Abdomen is soft. Tenderness: There is no abdominal tenderness. There is no guarding. Musculoskeletal: General: No tenderness or deformity. Normal range of motion. Skin: General: Skin is warm and dry. Coloration: Skin is not pale. Findings: No erythema or rash. Neurological: Mental Status: He is alert and oriented to person, place, and time. ASSESSMENT/PLAN: (J44.9) COPD, group B, by GOLD 2017 classification ([facility]) (primary encounter diagnosis) Plan: Pt feels that breathing is generally well controlled. Not always compliant with his medications. Extra lasix seems to help (E11.9) Type 2 diabetes mellitus with hemoglobin A1c goal of less than 7.0% ([facility]) (E11.42) Diabetic polyneuropathy associated with type 2 diabetes mellitus ([facility]) Plan: PODIATRY REFERRAL OP Pt would like to switch to vials again. He does not feel that he is doing well with the pens. He notes that sugars are elevated. Will discuss with Narda. (L60.8) Toenail deformity Plan: PODIATRY REFERRAL OP Pt will see podiatry for further evaluation. (F41.1) CESAR (generalized anxiety disorder) (F32.1) Current moderate episode of major depressive disorder without prior episode ([facility]) Plan: Not currently on medication. Feels that he can control things. Will continue to monitor. (Z86.711) History of pulmonary embolus (PE) (I82.532) Chronic deep vein thrombosis (DVT) of popliteal vein of left lower extremity ([facility]) Plan: pt on Eliquis. No recent issues. (I25.119) Coronary artery disease involving [place] coronary artery of [place] heart with angina pectoris ([facility]) (I50.32) Chronic diastolic CHF (congestive heart failure) ([facility]) Plan: Pt following with cardiology. Euvolemic today. Continue on furosemide with extra prn. (E66.01, Z68.42) Morbid obesity with body mass index (BMI) of 45.0 to 49.9 in adult ([facility]) Plan: Weight loss encouraged. Follow-up: 2 months Total time today including reviewing chart before the visit, pertinent labs, imaging reports, face to face time, and documentation time was 34 minutes. Jennie Mckoy DO documented in this encounter Nursing Notes * Yuni Rodriguez LPN - 04/28/2023 9:02 AM EST Patient here for routine follow up exam. Patent would like Novolin 70/30 script for vials. He will also need syringes. Had sleep study and hasn't heard results. States having problems with CPAP. Pt had eye exam at [facility] on 04/26/23. Reports issue with second toe on left foot. States he follows with podiatry Mikel Rutherford. States he will need another appointment and a referral. documented in this encounter Plan of Treatment Upcoming Encounters Date Type Department Care Team (Late st Contact Info) Description 04/29/2023 11:30 AM EST Telemedicine Family Practice [address] [phone] [place], Pharmacist [address] [address] 10/29/2023 11:00 AM EDT Nurse Only Ancillary [address] [address] [place], Nurse Annual Wellness Visit [address] [phone] Scheduled Procedures Name Priority Associated Diagnoses Date/Ti me COLONOSCOPY FLEXIBLE PROXIMAL DIAGNOSTIC Recall History of colon polyps Scheduled Referrals Name Type Priority Associated Diagnoses Orde r Schedule PODIATRY REFERRAL OP Referral Within 30 days (routine) Diabetic polyneuropathy associated with type 2 diabetes mellitus (HCC) Type 2 diabetes mellitus with hemoglobin A1c goal of less than 7.0% (HCC) Toenail deformity Ordered: 04/28/2023 Health Maintenance Due Date Last Done Comments [...] this encounter Medical Devices Implanted Type Area Yard Jockey Device Identifier Shelf Expiration Date Model / Serial / Lot Marker [facility] - [id number] Implanted:Qty: 1 on 08/16/2014 by Matt Saavedra MD at OR [facility] N/A: Aorta [employer] 06/09/2017 [facility] / / [id number] documented as of this encounter Visit Diagnoses Diagnosis COPD, group B, by GOLD 2017 classification ([facility])- Primary Type 2 diabetes mellitus with hemoglobin A1c goal of less than 7.0% ([facility]) Diabetic polyneuropathy associated with type 2 diabetes mellitus ([facility]) Toenail deformity Unspecified disease of nail CESAR (generalized anxiety disorder) Generalized anxiety disorder Current moderate episode of major depressive disorder without prior episode ([facility]) History of pulmonary embolus (PE) Personal history of pulmonary embolism Chronic deep vein thrombosis (DVT) of popliteal vein of left lower extremity ([facility]) Coronary artery disease involving [place] coronary artery of [place] heart with angina pectoris ([facility]) Chronic diastolic CHF (congestive heart failure) ([facility]) Chronic diastolic heart failure Morbid obesity with body mass index (BMI) of 45.0 to 49.9 in adult ([facility]) documented in this encounter Advance Directives Latest [...] the patient have Health Care Power of Grocery Clerk Selling? No Care Teams Wood Processing Worker Relationship Specialty Start Date End Date Jennie Mckoy DO [address] [place] [address] PCP - General Family Medicine 01/11/23 documented as of this encounter
--- OUTSIDE RECORDS SUMMARY | 2023-08-04 09:17 | External Medical Summary | Summary of Care ---
Author Name Unknown Organization [facility] Address [address] [place] [address] Phone [phone] Care Team Providers Care Electronics Assembler And Tester Name Role Phone Jennie Mckoy DO Primary Care Provider [phone] Reason for Visit * Reason Comments Nail problem trim * Evaluate & Treat - Unlimited Visits (Within 30 days (routine)) - Authorized Specialty Diagnoses / Procedures Referred By Contac t Referred To Contact Podiatry Diagnoses Diabetic polyneuropathy associated with type 2 diabetes mellitus (HCC) Type 2 diabetes mellitus with hemoglobin A1c goal of less than 7.0% (HCC) Toenail deformity Jennie Mckoy DO [address] [place] [address] Referral ID Status Reason Start Date Expiration Date Visits Requested Visits Authorized [id number] Authorized Specialty Services Required 04/28/2023 [id number] Encounter Details Date Type Department Care Team ([facility] st Contact Info) Description 05/04/2023 1:15 PM EST Office Visit Podiatry [address] [place] [address] Deven Weiner DPM [address] [place] [address] Diabetic polyneuropathy associated with type 2 diabetes mellitus (HCC)*; Onychomycosis; Hypertrophy of nail; Toenail deformity [L60.8] Allergies Active Allergy Reactions Criticality Noted Date Comments Rosuvastatin Calcium 09/13/2009 Lisinopril 05/07/2022 Hyperkalemia Simvastatin 01/08/2000 zocor (muscle cramps) documented as of this encounter (statuses as of 05/04/2023) Medications Medication Sig Dispensed Refills Start Date [...] 15 MINUTES 25 Tab 0 01/31/2020 Active Rita-Marianna Heartburn 6717-3005 MG Oral Tablet Effervescent (Sodium Bicarbonate-Citric Acid)Indications:hea [...] Hour (toPROL XL)Indications:Coron george artery disease involving nez perce coronary artery of nez perce heart with angina pectoris (HCC),Ischemic cardiomyopathy TAKE TWO TABLETS BY MOUTH EVERY MORNING AND TAKE ONE AND ONE-HALF TABLETS BY MOUTH EVERY EVENING 315 Tablet 4 09/01/2022 05/22/202 4 Active Furosemide 40 MG Oral Tablet (Lasix)Indications:C hest pain, unspecified type,HTN, goal below 140/90 TAKE ONE TABLET BY MOUTH EVERY DAY PLUS AN ADDITIONAL TABLET TWO TO THREE DAYS PER WEEK 135 Tablet 3 07/16/2022 4 Active Atorvastatin Calcium 80 MG Oral Tablet (Lipitor)Indications :Coronary artery disease involving nez perce coronary artery of nez perce heart without angina pectoris TAKE ONE TABLET BY MOUTH IN THE MORNING 90 Tablet 1 10/20/2022 4 Active metFORMIN HCl ER 500 MG Oral Tablet Extended Release 24 Hour (Glucophage XR)Indications:Type 2 diabetes mellitus with hyperglycemia, with long-term current use of insulin ([facility]),Type 2 diabetes mellitus with hemoglobin A1c goal of less than 7.0% ([facility]) TAKE ONE TABLET BY MOUTH TWICE A [...] g 1 11/06/2022 Active FreeStyle Renetta 2 Baring Device Use as directed. Supplied by [employer] 1 Each 0 12/22/2022 Active FreeStyle Renetta 2 Sensor Use as directed. Change every 14 days. Supplied by [employer] 0 12/22/2022 Active OneTouch Delica Lancets 33G Use 2 times a day 200 Each 1 12/22/2022 Active OneTouch Verio In Vitro Strip (Glucose Blood) Use 2 times a day 200 Strip 1 12/22/2022 Active Apixaban 5 MG Oral Tablet (Eliquis)Indications :Chronic deep vein thrombosis (DVT) of popliteal vein of left lower extremity ([facility]) Take 1 Tablet by mouth in the morning and 1 Tablet before bedtime. 200 Tablet 3 01/12/2023 Active Fluticasone Furoate 100 MCG/ACT Inhalation Aerosol Powder Breath Activated (ARNUITY ellipta)Indications: COPD, group B, by GOLD 2017 classification ([facility]) Inhale 1 Puff by mouth daily. [...] as of this encounter (statuses as of 05/04/2023) Active Problems Problem Noted Date Diagnosed Date COPD, group B, by GOLD 2017 classification 06/22 Overview: Per COPD GOLD Classification Diabetic polyneuropathy asso ciated with type 2 diabetes mellitus 05/04/2022 Aneurysm of ascending aorta without rupture 04/13 Atherosclerosis of coronary artery of nez perce heart with stable angina pectoris 05/04/2022 Current [...] disorder) 06/27/2018 Coronary artery disease invo lving nez perce coronary artery of nez perce heart with angina pectoris 07/26/2017 Chronic deep [...] as of this encounter (statuses as of 05/04/2023) Resolved Problems Problem Noted Date Diagnosed Date Resolved Date Other pulmonary embolism wit hout acute cor pulmonale 05/04/2022 04/28/2023 Chronic obstructive pulmonary disease 05/04/2022 06/24/2022 Overview: Per COPD GOLD Classification Status post amputation of right thumb 05/02/2018 06/27/2018 Morbid obesity with body mas s index (BMI) of 50.0 to 59.9 in adult 07/26/2017 05/02/2018 Coronary artery disease invo lving nez perce coronary artery of nez perce heart without angina pectoris 07/26/2017 05/02/2018 Amputation [...] as of this encounter (statuses as of 05/04/2023) Immunizations Name Administration Dates Next Due Pneumococcal [...] as of this encounter Progress Notes * Deven Weiner, KIRSTIN - 05/04/2023 1:03 PM EST Subjective: Patient presents in office today for diabetic nail care. HISTORY Past Medical History: Diagnosis Date Benign neoplasm [...] GRAFT performed by Matt Saavedra MD at [facility] CABG, ARTERY-VEIN, TWO 08/16/2014 08/16/2014 CORONARY ARTERY BYPASS GRAFT ARTERIAL AND VENOUS 2 GRAFTS performed by Matt Saavedra MD at [facility] COLONOSCOPY THRU STOMA, W/BIOPSY 02/25/2009 adenomatous/repeat colonoscopyi n 5 yrs COLONOSCOPY, DIAGNOSTIC (RECTUM) N/A 12/13/2015 adeno polyp, 5 yr recall, COLONOSCOPY FLEXIBLE PROXIMAL DIAGNOSTIC performed by Makayla Wilkinson OR [facility] COLONOSCOPY, DIAGNOSTIC (RECTUM) N/A 03/26/2022 moderate diverticulosis/hemorrhoids/recall 5 years/Colonoscopy/SC EGD, FLEXIBLE,W/ENDOSCOPIC US 04/26/2020 gallstones, gastritis, hiatal hernia / [facility] EGD, W/ENDOSCOPIC US N/A 03/25/2020 ESOPHAGOGASTRODUODENOSCOPY (EGD), FLEXIBLE, TRANSORAL, ENDOSCOPIC ULTRASOUND performed by Samina Nix DO at ENDOSCOPY [facility] ENDO,VIDEO ASSIST HARVEST LINDA Right 08/16/2014 ENDOSCOPY VIDEO ASSISTED HARVEST VEIN performed by Matt Saavedra MD at [facility] ERCP, DIAGNOSTIC, SPECIMEN COLLECTION N/A 03/25/2020 ENDOSCOPIC RETROGRADE CHOLANGIOPANCREATOGRAPHY (ERCP) DIAGNOSTIC performed by Samina Nix DO at ENDOSCOPY [facility] FRACTURE NOS Left 04/12/1999 left lower leg- fx both bones INFORMATION Left 04/12/2001 replace plate, left fibula- roeshot KNEE ARTHROSCOPY, DIAGNOSTIC 04/12/1996 Knee Arthroscopy SHOULDER SUBQ TUMOR REMOVAL, UNDER 3 CM Left 12/11/2015 EXCISION SOFT TISSUE TUMOR SHOULDER SUBCUTANEOUS performed by Aram Pedroza MD at OR [facility] TMT FEM FX PROSTH REPL Right 04/12/1969 Femur FX Open Fixatn Prox End/Neck Family History Problem Relation Age of Onset Cancer Mother uterine Diabetes Mother Depression Mother Coronary Artery disease Father CABG age 65 Cancer Father throat and lung Heart attack Father 65 No Known Problems Sister Other (PVD) Sister Arthritis Brother pain pump Hypertension Other Mental Disorder Grandmother (Maternal) depression Stroke Other Heart attack Brother 50 No Known Problems Brother (Half) Social History Socioeconomic History Marital status: Spouse name: Not on file Number of children: Not on file Years of education: Not on file Highest education level: Not on file Occupational History Occupation: disability 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 Tobacco Use Smoking status: Former Packs/day: 1.00 Years: 20.00 Additional pack years: 0.00 Total pack years: 20.00 Types: Cigarettes Quit date: 04/12/1976 Years since quittin.0 Passive exposure: Past Smokeless tobacco: Never Vaping Use Vaping Use: Never used Substance and Sexual Activity Alcohol use: No Alcohol/week: 0.0 standard drinks of alcohol Drug use: No Comment: lots of coffee Sexual activity: Yes Partners: Female control/protection: Surgical Comment: problems with erections Other Topics Concern Not on file Social History Narrative 1 dog and 1 cat No mold 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 brick dust Disabled due to back injury, shoulder injuries and mild CVAs camping, hunting, fishing - 1970 3 children 5 gc 0 ggc trying to get into walking-- gained alot of weight with broken leg Social Determinants of Health Financial Resource Strain: Not on file Food Insecurity: No Food Insecurity (04/28/2023) Hunger Vital Sign Worried About Running Out of Food in the Last Year: Never true Ran Out of Food in the Last Year: Never true Transportation Needs: Not on file Physical Activity: Not on file Stress: Not on file Social Connections: Not on file Intimate Partner Violence: Not on file Housing Stability: Not on file Current Outpatient Medications Medication Sig Dispense Refill aspirin 81 MG chewable tablet Take 1 Tablet by mouth in the morning. 60 Tab 0 Nitroglycerin 0.4 MG Sublingual Tablet Sublingual (NITROSTAT) DISSOLVE ONE TABLET UNDER THE TONGUE EVERY 5 MINUTES NEEDED FOR CHEST PAIN. DO NOT EXCEED A TOTAL OF 3 DOSES IN 15 MINUTES 25 Tab 0 Rita-Marianna Heartburn 5806-0173 MG Oral Tablet Effervescent (Sodium Bicarbonate-Citric Acid) Take by mouth once . CPAP every night at bedtime. Respiratory Therapy Supplies Device Use as directed. AutoPAP 10-15 cm at bedtime daily [employer] Verio Reflect w/Device Kit Use as directed . Test Blood sugar up to 3 times daily 1 Kit 0 Acetaminophen ER 650 MG Oral Tablet Extended [...] needed for Pain, Moderate. 60 Tablet 0 Ipratropium-Albuterol 20-100 MCG/ACT Inhalation Aerosol Solution (Combivent Respimat) Inhale 2 Puffs by mouth every 6 hours with spacer. 4 g 1 [employer] Renetta 2 Baring Device Use as directed. Supplied by [employer] 1 Each 0 [employer] Renetta 2 Sensor Use as directed. Change every 14 days. Supplied by [employer] Delica Lancets 33G Use 2 times a day 200 Each 1 [employer] In Vitro Strip (Glucose Blood) Use 2 times a day 200 Strip 1 Apixaban 5 MG Oral Tablet (Eliquis) Take 1 Tablet by mouth in the morning and 1 Tablet before bedtime. 200 Tablet 3 Fluticasone Furoate 100 MCG/ACT Inhalation Aerosol Powder Breath Activated (ARNUITY ellipta) Inhale1 Puff by mouth daily. 90 Each 3 Ozempic (2 MG/DOSE) 8 MG/3ML Subcutaneous Solution Pen-injector (Semaglutide (2 MG/DOSE)) Inject 2 mg once weekly under the skin 9 mL 3 Insulin Pen Needle 31G X 8 MM Use as directed. Use three times a day with insulin pen 300 Each 3 Ezetimibe 10 MG Oral Tablet (Zetia) TAKE ONE TABLET BY MOUTH IN THE MORNING 90 Tablet 3 Silver sulfADIAZINE 1 % External Cream (Silvadene) Apply topically to affected area daily. Apply toleft forearm twice a marvel (Patient not taking: Reported on 04/28/2023) 50 g 1 NovoLIN 70/30 (70-30) 100 UNIT/ML Subcutaneous Suspension (Insulin NPH Isophane & Regular) Inject 70 Units under the skin 2 times a day with morning and evening meals. E11.9 140 mL 3 Insulin Syringe-Needle U-100 30G X 1/2" 1 ML Use as directed. Inject 70 units with Breakfast and 70units with Evening Meals. E11.9 200 Each 3 No current facility-administered medications for this visit. ROS EXAM: CONSTITUTIONAL: No change in weight, No weakness, No fatigue and No fevers, sweats, or chills EXTREMITIES: No pain, redness or swelling on the joints SKIN/INTEGUMENTARY: No edema, No rash and No itching NEUROLOGIC: Normal balance, No headaches, No seizures and No weakness Objective: Vascular examination: DP 2/4 bilateral PT 1/4 right 0/4 left SPVFT 3sec Dermatological examination: Mycotic 2nd toenail left remainder of nails appear dystrophic and thickened Orthopedic examination: unremarkable Neurological examination: Epicritic sensation diminished +parasthesia +burning Assessment: The primary encounter diagnosis was Diabetic polyneuropathy associated with type 2 diabetes mellitus (HCC). Diagnoses of Onychomycosis and Hypertrophy of nail were also pertinent to this visit. Plan: 1. Debridement of mycotic left 2nd toenail 2. Trimmed remainder of dystrophic nails documented in this encounter Nursing Notes * Yandy Andersen LPN - 05/04/2023 12:53 PM EST trim documented in this encounter Plan of Treatment Upcoming Encounters Date Type Department Care Team (Late st Contact Info) Description 06/28/2023 3:40 PM EDT Office Visit Family Practice 65 [facility] [address] [place] [address] Jennie Mckoy DO [address] [place] [address] 07/20/2023 2:30 PM EDT Office Visit [facility] [address] [place] [address] Nayeli Lorenz CRNP [address] [place] [address] 10/29/2023 11:00 AM EDT Nurse Only Ancillary [address] [address] College, Nurse Annual Wellness Visit [address] [address] 11/02/2023 9:00 AM EDT Office Visit Podiatry [address] [place] [phone] Deven Weiner, KIRSTIN [facility] [place] [address] Scheduled Orders Name Type Priority Associated Diagnoses Orde r Schedule TRIM DYSTROPHIC NAILS, ANY # Procedures Routine Diabetic polyneuropathy associated with type 2 diabetes mellitus (HCC) Hypertrophy of nail Ordered: 05/04/2023 DEBRIDEMENT OF NAIL(S) 1-5 Procedures Routine Diabetic polyneuropathy associated with type 2 diabetes mellitus (HCC) Onychomycosis Ordered: 05/04/2023 Scheduled Procedures Name Priority Associated Diagnoses Date/Ti [...] this encounter Medical Devices Implanted Type Area Structural Steel Erector Device Identifier Shelf Expiration Date Model / Serial / Lot Marker Coronary Amgm-Sd - [id number] Implanted:Qty: 1 on 08/16/2014 [place] Saavedra [place] [facility] [place]A: Michael [employer] 06/09/2017 [facility] / / [id number] documented as of this encounter Visit Diagnoses Diagnosis Diabetic polyneuropathy associated with type 2 diabetes mellitus (HCC)- Primary Onychomycosis Dermatophytosis of nail Hypertrophy of nail Other specified disease of nail Toenail deformity [L60.8] Unspecified disease of nail documented in this encounter Advance Directives Latest [...] the patient have Health Care Power of Licensed Occupational Therapy Assistant? No Care Teams Electronics Assembler And Tester Relationship Specialty Start Date End Date Jennie Mckoy DO [address] [place] [address] PCP - General Family Medicine 01/11/23 documented as of this encounter
--- OUTSIDE RECORDS SUMMARY | 2023-08-04 09:18 | External Medical Summary | Summary of Care ---
Author Name Unknown Organization [facility] Address [address] [facility] [place] [address] Phone [phone] Care Team Providers Care U.S. Revenue Officer Name Role Phone YamilexkenyettaJennie werner Primary Care Provider [phone] Reason for Visit * Reason Comments Medication Refill Encounter Details Date Type Department Care Team (Late st Contact Info) Description 03/24/2023 Refill Cardiology, [facility] [address] [place] [address] Gal Bowman, PA-C [address] [place] [phone] Dyslipidemia, goal LDL below 100* Allergies Active Allergy Reactions Criticality Noted Date Comments Rosuvastatin Calcium 09/13/2009 Lisinopril 05/07/2022 Hyperkalemia Simvastatin 01/08/2000 zocor (muscle cramps) documented as of this encounter (statuses as of 03/24/2023) Medications Medication Sig Dispensed Refills Start Date [...] 15 MINUTES 25 Tab 0 01/31/2020 Active Rita-[place] Heartburn 7504-2812 MG Oral Tablet Effervescent (Sodium Bicarbonate-Citric Acid)Indications:he [...] Hour (toPROL XL)Indications:Ariella nary artery disease involving kaguyuk coronary artery of kaguyuk heart with angina pectoris (HCC),Ischemic cardiomyopathy TAKE TWO TABLETS BY MOUTH EVERY MORNING AND TAKE ONE AND ONE-HALF TABLETS BY MOUTH EVERY EVENING 315 Tablet 4 09/01/2022 4 Active Furosemide 40 MG Oral Tablet (Lasix)Indications: Chest pain, unspecified type,HTN, goal below 140/90 TAKE ONE TABLET BY MOUTH EVERY DAY PLUS AN ADDITIONAL TABLET TWO TO THREE DAYS PER WEEK 135 Tablet 3 07/16/2022 4 Active Atorvastatin Calcium 80 MG Oral Tablet (Lipitor)Indication s:Coronary artery disease involving kaguyuk coronary artery of kaguyuk heart without angina pectoris TAKE ONE TABLET [...] g 1 11/06/2022 Active FreeStyle Renetta 2 [place] Device Use as directed. Supplied by [employer] 1 Each 0 12/22/2022 Active FreeStyle Renetta 2 Sensor Use as directed. Change every 14 days. Supplied by [employer] 0 12/22/2022 Active OneTouch Delica Lancets 33G Use 2 times a day 200 Each 1 12/22/2022 Active OneTouch Verio In Vitro Strip (Glucose Blood) Use 2 times a day 200 Strip 1 12/22/2022 Active Apixaban 5 MG Oral Tablet (Eliquis)Indication s:Chronic deep vein thrombosis (DVT) of popliteal vein of left lower extremity ([facility]) Take 1 Tablet by mouth in the morning and 1 Tablet before bedtime. 200 Tablet 3 01/12/2023 Active Fluticasone Furoate 100 MCG/ACT Inhalation Aerosol Powder Breath Activated (ARNUITY ellipta)Indications :COPD, group B, by GOLD 2017 classification ([facility]) Inhale 1 Puff by mouth daily. 90 Each 3 02/11/2023 Active NovoLIN 70/30 FlexPen Relion (70-30) 100 UNIT/ML Suspension Pen-injector (Insulin NPH Isophane & Regular)Indications :Type 2 diabetes mellitus with hemoglobin A1c goal of less than 7.0% ([facility]) Inject 70 Units under the [...] MORNING 90 Tablet 3 03/24/2023 4 Active Ezetimibe 10 MG Oral Tablet (Zetia) TAKE ONE TABLET BY MOUTH IN THE MORNING 100 Tablet 3 02/17/2022 3 Discontinue d(Refill) documented as of this encounter (statuses as of 03/24/2023) Active Problems Problem Noted Date Diagnosed Date COPD, group B, by GOLD 2017 classification 06/22 Overview: Per COPD GOLD Classification Other pulmonary embolism without acute cor pulmo nale 05/04/2022 Diabetic polyneuropathy asso ciated with type 2 diabetes mellitus 05/04/2022 Aneurysm of ascending aorta without rupture 04/13 Atherosclerosis of coronary artery of kaguyuk heart with stable angina pectoris 05/04/2022 Current [...] disorder) 06/27/2018 Coronary artery disease invo lving kaguyuk coronary artery of kaguyuk heart with angina pectoris 07/26/2017 Chronic deep [...] as of this encounter (statuses as of 03/24/2023) Resolved Problems Problem Noted Date Diagnosed Date Resolved Date Chronic obstructive pulmonary disease 05/04/2022 06/24/2022 Overview: Per COPD GOLD Classification Status post amputation of right thumb 05/02/2018 06/27/2018 Morbid obesity with body mas s index (BMI) of 50.0 to 59.9 in adult 07/26/2017 05/02/2018 Coronary artery disease invo lving kaguyuk coronary artery of kaguyuk heart without angina pectoris 07/26/2017 05/02/2018 Amputation [...] as of this encounter (statuses as of 03/24/2023) Immunizations Name Administration Dates Next Due Pneumococcal [...] encounter Miscellaneous Notes * Telephone Encounter - Gal Bowman PA-C - 03/24/2023 10:02 AM ESTSigned Prescriptions: Disp Refills Ezetimibe 10 MG Oral Tablet (Zetia) 90 Tab*3 Sig: TAKE ONE TABLET BY MOUTH IN THE MORNING Authorizing Provider: GAL BOWMAN * Telephone Encounter - Carol Small COT - 03/24/2023 8:14 AM ESTPending Prescriptions: Disp Refills Ezetimibe 10 MG Oral Tablet (Zetia) 90 Tab*3 Sig: TAKE ONE TABLET BY MOUTH IN THE MORNING * Telephone Encounter - Carol Small COT - 03/24/2023 8:13 AM EST Did you pend patient's preferred pharmacy and medication before forwarding?yes Pharmacy: [facility] Pending Prescriptions: Disp Refills Ezetimibe 10 MG Oral Tablet (Zetia) 90 Tab*3 Sig: TAKE ONE TABLET BY MOUTH IN THE MORNING Last Visit: 01/25/2023 (in office), 12/28/2019 (telemedicine) Next Visit: 04/19/2023 If no future appointments scheduled, and last appointment is greater than a year ago, please schedule patient for a follow-up appointment Last date the medication was ordered: 02-17-2022 Is this request for a controlled substance?No Urine Drug Screen:No results found. However, due [...] Care Team (Late st Contact Info) Description 04/14/2023 8:00 AM EST Office Visit Family Practice 65 [facility] [address] [place] [address] Jennie Mckoy DO [address] [facility] [address] 04/19/2023 8:00 AM EST Office Visit Cardiology, [facility] [address] [facility] [place] [address] Gal Bowman PA-C [address] [facility] [address] 10/29/2023 11:00 AM EDT Nurse Only Ancillary 65 [facility] [address] [place] [address] College, Nurse Annual Wellness Visit [address] [place] [address] Scheduled Procedures Name Priority Associated Diagnoses Date/Ti me COLONOSCOPY FLEXIBLE PROXIMAL DIAGNOSTIC Recall History of colon polyps Health Maintenance Due Date Last Done Comments COVID-19 Vaccine (#1) 01/25/1955 Alpha-1 Antitrypsin 01/25/1970 Hepatitis B (1 of 3 - Risk 3-dose series) 2012 Diabetic Eye Exam 04/09/2022 04/09/2021, , 09/21/2018, Additional history exists Depression, Most Recent Score >= 10 (will fire each visit until score < 10) 02/12/2023 02/11/2023 Albumin/Creatinine Ratio 05/04/2023 023, 07/10/2021, 05/02/2018, Additional history exists Diabetic Foot Exam 08/04/2023 08/03/2022, 0 10/28/2021, 08/21/2020, Additional history exists HbA1c 08/12/2023 02/11/2023, 10/10, 05/04/2022, Additional history exists GFR 02/12/2024 02/11/2023, 100 06/2022, 10/26/2022, Additional history exists O2 ASSESSMENT COMPLETED IN PAST YEAR FOR COPD 02/12/2024 02/11/2023 COLONOSCOPY-EVERY 5 YRS AGES 18-100 03/26/2027 03/26/2022, [...] this encounter Medical Devices Implanted Type Area Crabbing Machine Operator Device Identifier Shelf Expiration Date Model / Serial / Lot Marker [facility] [id number] Implanted:Qty: 1 on 08/16/2014 by Matt Saavedra MD at OR [place] N/A: A[employer] 06/09/2017 [facility] [id number] documented as of this encounter Visit Diagnoses Diagnosis Dyslipidemia, goal LDL below 100- Primary Other and unspecified hyperlipidemia documented in this encounter Advance Directives Latest [...] the patient have Health Care Power of Dealer Card Room? No Care Teams U.S. Revenue Officer Relationship Specialty Start Date End Date Jennie Mckoy DO [address] [place] [address], [place] [address] PCP - General Family Medicine 01/11/23 documented as of this encounter
--- OUTSIDE RECORDS SUMMARY | 2023-08-04 09:18 | External Medical Summary | Summary of Care ---
Author Name Unknown Organization [facility] Address [address] [place] [address] Phone [phone] Care Team Providers Care Childcare Attendant Name Role Phone Jennie Mckoy DO Primary Care Provider Reason for Visit * Reason Onset Date Comments Medication Question 02/22/2023 [place] not working Encounter Details Date Type Department Care Team (Late st Contact Info) Description 02/22/2023 Telephone Family Practice [address] [facility], [place] [address] [place] [address] Jennie Mckoy DO [address] [place] [address] Medication Question ([place] not working) Allergies Active Allergy Reactions Criticality Noted Date Comments Rosuvastatin Calcium 09/13/2009 Lisinopril 05/07/2022 Hyperkalemia Simvastatin 01/08/2000 zocor (muscle cramps) documented as of this encounter (statuses as of 04/20/2023) Medications Medication Sig Dispensed Refills Start Date [...] 15 MINUTES 25 Tab 0 01/31/2020 Active [place] Heartburn 9877-0251 MG Oral Tablet Effervescent (Sodium Bicarbonate-Citric Acid)Indications:hea [...] Hour (toPROL XL)Indications:Coron [place] artery disease involving [place] coronary artery of [place] heart with angina pectoris (HCC),Ischemic cardiomyopathy TAKE TWO TABLETS BY MOUTH EVERY MORNING AND TAKE ONE AND ONE-HALF TABLETS BY MOUTH EVERY EVENING 315 Tablet 4 09/01/2022 09/01/2023 Active Furosemide 40 MG Oral Tablet (Lasix)Indications:C hest pain, unspecified type,HTN, goal below 140/90 TAKE ONE TABLET BY MOUTH EVERY DAY PLUS AN ADDITIONAL TABLET TWO TO THREE DAYS PER WEEK 135 Tablet 3 07/16/2022 07/16/2023 Active Atorvastatin Calcium 80 MG Oral Tablet (Lipitor)Indications :Coronary artery disease involving [place] coronary artery of [place] heart without angina pectoris TAKE ONE TABLET BY MOUTH IN THE MORNING 90 Tablet 1 10/20/2022 10/20/2023 Active metFORMIN HCl ER 500 MG Oral Tablet Extended Release 24 Hour (Glucophage XR)Indications:Type 2 diabetes mellitus with hyperglycemia, with long-term current use of insulin (HCC),Type 2 diabetes mellitus with hemoglobin A1c goal of less than 7.0% ([facility]) TAKE ONE TABLET BY MOUTH TWICE A DAY WITH MORNING AND EVENING MEALS 200 Tablet 1 10/20/2022 10/20/2023 Active traMADol HCl 50 MG Oral Tablet (Ultram)Indications: Primary osteoarthritis of both knees Take 1 Tablet by mouth every 8 hours as needed for Pain, Moderate. 60 Tablet 0 11/02/2022 Active Ipratropium-Albutero l 20-100 MCG/ACT Inhalation Aerosol Solution (Combivent Respimat) Inhale 2 Puffs by mouth every 6 hours with spacer. 4 g 1 11/06/2022 Active FreeStyle Renetta 2 Pruden Device Use as directed. Supplied by [employer] 1 Each 0 12/22/2022 Active FreeStyle Renetta 2 Sensor Use as directed. Change every 14 days. Supplied by [employer] 0 12/22/2022 Active OneTouch Delica Lancets 33G Use 2 times a day 200 Each 1 12/22/2022 Active OneTouch Verio In Vitro Strip (Glucose Blood) Use 2 times a day 200 Strip 1 12/22/2022 Active Apixaban 5 MG Oral Tablet (Eliquis)Indications :Chronic deep vein thrombosis (DVT) of popliteal vein of left lower extremity ([facility]) Take 1 Tablet by mouth in the morning and 1 Tablet before bedtime. 200 Tablet 3 01/12/2023 Active Fluticasone Furoate 100 MCG/ACT Inhalation Aerosol Powder Breath Activated (ARNUITY ellipta)Indications: COPD, group B, by GOLD 2017 classification ([facility]) Inhale 1 Puff by mouth daily. 90 Each 3 02/11/2023 Active NovoLIN 70/30 FlexPen Relion (70-30) 100 UNIT/ML Suspension Pen-injector (Insulin NPH Isophane & Regular)Indications: Type 2 diabetes mellitus with hemoglobin A1c goal of less than 7.0% ([facility]) Inject 70 Units under the skin 2 times a day. 150 mL 3 02/11/2023 Active Ozempic (2 MG/DOSE) 8 MG/3ML Subcutaneous Solution Pen-injector (Semaglutide (2 MG/DOSE)) Inject 2 mg once weekly under the skin 9 mL 3 02/12/2023 Active documented as of this encounter (statuses as of 04/20/2023) Active Problems Problem Noted Date Diagnosed Date COPD, group B, by GOLD 2017 classification 06/22 Overview: Per COPD GOLD Classification Other pulmonary embolism without acute cor pulmo nale 05/04/2022 Diabetic polyneuropathy asso ciated with type 2 diabetes mellitus 05/04/2022 Aneurysm of ascending aorta without rupture 04/13 Atherosclerosis of coronary artery of [place] heart with stable angina pectoris 05/04/2022 Current [...] disorder) 06/27/2018 Coronary artery disease invo lving [place] coronary artery of [place] heart with angina pectoris 07/26/2017 Chronic deep [...] as of this encounter (statuses as of 04/20/2023) Resolved Problems Problem Noted Date Diagnosed Date Resolved Date Chronic obstructive pulmonary disease 05/04/2022 06/24/2022 Overview: Per COPD GOLD Classification Status post amputation of right thumb 05/02/2018 06/27/2018 Morbid obesity with body mas s index (BMI) of 50.0 to 59.9 in adult 07/26/2017 05/02/2018 Coronary artery disease invo lving [place] coronary artery of [place] heart without angina pectoris 07/26/2017 05/02/2018 Amputation [...] as of this encounter (statuses as of 04/20/2023) Immunizations Name Administration Dates Next Due Pneumococcal [...] encounter Miscellaneous Notes * Telephone Encounter - Narda Prescott RPh - 02/23/2023 11:14 AM EST Noted - see MTM note for details. Narda Akins, Pharm D, BCACP Clinical Pharmacist [address] [facility] 02/23/2023, 11:14 AM Ph. [phone] * Telephone Encounter - Jennifer Jeffers LPN - 02/22/2023 3:26 PM EST Advised to keep list of blood sugars will send to Narda. Thank you * Telephone Encounter - Maria Dolores Norris OSA - 02/22/2023 9:56 AM EST 70/30 insulin doesn't seem to be working [place] long enough? Using the ozempic needles and he doesn't think that it is working BS[employer] climbing He is using a pen, he even increased his novolog and that didn't work Please call to advise documented in this encounter Plan of Treatment Upcoming Encounters Date Type Department Care Team (Late st Contact Info) Description 04/28/2023 9:00 AM EST Office Visit Family Practice [address] [facility], [place] [address] [facility] [place] [address] Jennie Mckoy DO [address] [facility], [place] [address] 10/29/2023 11:00 AM EDT Nurse Only Ancillary [address] [place] [address] [facility] [place] [place] [address] College, Nurse Annual Wellness Visit [address], [place] [address] Scheduled Procedures Name Priority Associated Diagnoses Date/Ti [...] this encounter Medical Devices Implanted Type Area Wildfire Prevention Specialist Device Identifier Shelf Expiration Date Model / Serial / Lot Marker Coronary [facility] - [id number] Implanted:Qty: 1 on 08/16/2014 by Matt Saavedra MD at OR [facility] [place] N/A: A[employer] 06/09/2017 [facility] [id number] documented as of this encounter Visit Diagnoses Diagnosis Type 2 diabetes mellitus with hemoglobin A1c goal of less than 7.0% ([facility])- Primary documented in this encounter Advance Directives [...] the patient have Health Care Power of Hydraulic Hammer Operator? No Care Teams Childcare Attendant Relationship Specialty Start Date End Date Jennie Mckoy DO [address] [place] [address] PCP - General Family Medicine 01/11/23 documented as of this encounter
--- OUTSIDE RECORDS SUMMARY | 2023-08-04 09:18 | External Medical Summary | Summary of Care ---
Author Name Unknown Organization [facility] Address [address] [place] [address] Phone [phone] Care Team Providers Care Outbound Sales Representative Name Role Phone EuniceJennie werner Primary Care Provider + [phone] Reason for Visit * Reason Comments Follow Up Encounter Details Date Type Department Care Team (Late st Contact Info) Description 04/19/2023 8:00 AM EST Office Visit Cardiology, [facility] [address] [place] [address] Kermit Nunez PA-C [address] [place] [address] Dyslipidemia, goal LDL below 100*; Coronary artery disease involving anvik 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 ([facility]); S/P CABG x 3; Aortic root dilatation ([facility]); HTN, goal below 140/90; Aneurysm of ascending aorta without rupture ([facility]); Chronic diastolic CHF (congestive heart failure) ([facility]); Burn of left forearm, unspecified burn degree, initial encounter Allergies Active Allergy Reactions Criticality Noted Date Comments Rosuvastatin Calcium 09/13/2009 Lisinopril 05/07/2022 Hyperkalemia Simvastatin 01/08/2000 zocor (muscle cramps) documented as of this encounter (statuses as of 04/19/2023) Medications Medication Sig Dispensed Refills Start Date [...] 15 MINUTES 25 Tab 0 01/31/2020 Active Rita-Higganum Heartburn 2919-0547 MG Oral Tablet Effervescent (Sodium Bicarbonate-Citric Acid)Indications:hea rtburn Take by mouth once . 0 Active CPAP every night at bedtime. 0 Active Respiratory Therapy Supplies Device Use as directed. AutoPAP 10-15 cm at bedtime daily 0 Active orat.io Verio Reflect w/Device Kit Use as directed [...] Hour (toPROL XL)Indications:Coron george artery disease involving anvik 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 (HCC),Ischemic cardiomyopathy TAKE [...] Oral Tablet (Lipitor)Indications :Coronary artery disease involving anvik coronary artery of anvik heart without angina pectoris TAKE ONE TABLET BY MOUTH IN THE MORNING 90 Tablet 1 10/20/2022 10/20/2023 Active metFORMIN HCl ER 500 MG Oral Tablet Extended Release 24 Hour (Glucophage XR)Indications:Type 2 diabetes mellitus with hyperglycemia, with long-term current use of insulin ([facility]),Type 2 diabetes mellitus with hemoglobin A1c goal [...] with spacer. 4 g 1 11/06/2022 Active Vicampo Renetta 2 Ellsworth Device Use as directed. Supplied by [employer] 1 Each 0 12/22/2022 Active Sword.comyle Renetta 2 Sensor Use as directed. Change every 14 days. Supplied by [employer] 0 12/22/2022 Active OneTouch Delica Lancets 33G [...] IN THE MORNING 90 Tablet 3 03/24/2023 03/23/2024 Active Silver sulfADIAZINE 1 % External Cream (Silvadene)Indicatio ns:Burn of left forearm, unspecified burn degree, initial encounter Apply topically to affected area daily. Apply to left forearm twice a marvel 50 g 1 04/19/2023 Active documented as of this encounter (statuses as of 04/19/2023) Active Problems Problem Noted Date Diagnosed Date COPD, group B, by GOLD 2017 classification 06/22 Overview: Per COPD GOLD Classification Other pulmonary embolism without acute cor pulmo nale 05/04/2022 Diabetic polyneuropathy asso ciated with type 2 diabetes mellitus 05/04/2022 Aneurysm of ascending aorta without rupture 04/13 Atherosclerosis of coronary artery of anvik heart with stable angina pectoris 05/04/2022 Current [...] disorder) 06/27/2018 Coronary artery disease invo lving anvik 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 07/26/2017 Chronic deep [...] as of this encounter (statuses as of 04/19/2023) Resolved Problems Problem Noted Date Diagnosed Date Resolved Date Chronic obstructive pulmonary disease 05/04/2022 06/24/2022 Overview: Per COPD GOLD Classification Status post amputation of right thumb 05/02/2018 06/27/2018 Morbid obesity with body mas s index (BMI) of 50.0 to 59.9 in adult 07/26/2017 05/02/2018 Coronary artery disease invo lving anvik coronary artery of anvik heart without angina pectoris 07/26/2017 05/02/2018 Amputation [...] as of this encounter (statuses as of 04/19/2023) Immunizations Name Administration Dates Next Due Pneumococcal [...] Sign Reading Time Taken Comments Blood Pressure 142/76 04/19/2023 7:51 AM EST Pulse 84 04/19/2023 7:51 AM EST Temperature - - Respiratory Rate 20 04/19/2023 7:51 AM EST Oxygen Saturation - - Inhaled Oxygen Concentration - - Weight 144.2 kg (318 lb) 04/19/2023 7:51 AM EST Height - - Body Mass Index 46.96 02/11/2023 8:18 AM EDT documented in this encounter Progress Notes * Kermit Nunez PA-C - 04/19/2023 8:00 AM EST History of Present Illness: Brijesh Pérez Jr. Is 73 year old male who returns today for routine cardiology follow-up evaluation. [facility] worsening dyspnea, then to the ER. Received two or three doses of IV furosemide via PCP ([facility]) with improvement. Notes feeling better, less fluid. Notes taking furosemide regularly now, except for missing this past weekend. No chest pain. No significant tachypalpitations. Weight is down 4 pounds from last evaluation in this office by Ms. Verma in January 2023. He does not think his CPAP is working correctly, currently using it without the filter, still needing to call. No syncope. No fevers or chills. No epistaxis. No hemoptysis. No melena or hematochezia. No hematuria. 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 had Covid circa three weeks ago, still "coughing around." Problem List: Admission to [facility] with progressive chest discomfort and exertional dyspnea, NSTEMI. Cardiac catheterization with multivessel coronary artery disease Status post August 16, 2014 off pump CABG x [address] Saavedra with a GREGORY to the LAD, SVG to the diagonal, and obtuse marginal. Ischemic cardiomyopathy Postoperative CABG course complicated by left lower extremity deep venous thrombosis and pulmonary embolus involving the distal right main pulmonary artery and its branches. ? Acute DVT in February 2017. July 2018 duplex with persistent chronic appearing nonocclusive thrombus within the left poplitealvein. Warfarin failure; August 2018 CT with suspicion for an embolus in 1st proximal branch of the left mainpulmonary artery Enlarged aortic root and proximal ascending thoracic aorta Hypertension, hypertensive heart disease History of hyperkalemia with use of ACEI therapy x 2 Dyslipidemia. Type II diabetes mellitus B12 deficiency Obesity Hepatic steatosis GABY on CPAP therapy. GERD Status post amputation of the right thumb Generalized anxiety disorder Patient Active Problem List Diagnosis Code HTN, goal below 140/90 I10 Gastroesophageal reflux disease without esophagitis K21.9 Dyslipidemia, goal LDL below 100 E78.5 Obstructive sleep apnea G47.33 Type 2 diabetes mellitus with hemoglobin A1c goal of less than 7.0% ([facility]) E11.9 S/P CABG x 3 Z95.1 History of myocardial infarction I25.2 Type 2 diabetes mellitus with hyperglycemia, with long-term current use of insulin ([facility]) E11.65, Z79.4 Chronic deep vein thrombosis (DVT) of popliteal vein of left lower extremity ([facility]) I82.532 Coronary artery disease involving anvik 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 ([facility])I25.119 Morbid obesity with body mass index (BMI) of 45.0 to 49.9 in adult ([facility]) E66.01, Z68.42 History of amputation of right thumb Z89.011 Ischemic cardiomyopathy I25.5 CESAR (generalized anxiety disorder) F41.1 History of pulmonary embolus (PE) Z86.711 Aortic root dilatation ([facility]) I77.810 Hypertensive heart disease without congestive heart failure I11.9 Major depressive disorder, single episode, unspecified F32.9 Claustrophobia F40.240 Chronic diastolic CHF (congestive heart failure) ([facility]) I50.32 Restrictive lung disease J98.4 Current moderate episode of major depressive disorder without prior episode ([facility]) F32.1 Other pulmonary embolism without acute cor pulmonale ([facility]) I26.99 Diabetic polyneuropathy associated with type 2 diabetes mellitus ([facility]) E11.42 Aneurysm of ascending aorta without rupture ([facility]) I71.21 Atherosclerosis of coronary artery of anvik heart with stable angina pectoris ([facility]) I25.118 COPD, group B, by GOLD 2017 classification ([facility]) J44.9 Past Medical History: Diagnosis Date Benign neoplasm of colon 02/25/09 adenomatous/repeat colonoscopyi n 5 yrs Chronic pharyngitis DM type 2, goal A1c below 7 10/23/2011 Dyslipidemia, goal to be determined 1997 Esophageal reflux Hemorrhoids History of pulmonary embolism 2017 HTN, goal below 140/80 1989 Major depressive disorder, single episode, unspecified 06/18/2020 Obesity, BMI not known OBSTRUCTIVE SLEEP APNEA 03/12/2011 Osteoarthrosis bhavna, left knee, left shoulder Pulmonary arterial hypertension (HCC) Pulmonary embolism ([facility]) S/P CABG x 3 08/22/2014 Sleep apnea, obstructive Past Surgical History: Procedure Laterality Date CABG, ARTERIAL, SINGLE N/A 08/16/2014 08/16/2014CORONARY ARTERY BYPASS GRAFT USING ARTERY 1 GRAFT performed by Matt Saavedra MD at [facility] CABG, ARTERY-VEIN, TWO 08/16/2014 08/16/2014 CORONARY ARTERY BYPASS GRAFT ARTERIAL AND VENOUS 2 GRAFTS performed by Matt Saavedra MD at [facility] COLONOSCOPY THRU STOMA, W/BIOPSY 02/25/2009 adenomatous/repeat colonoscopyi n 5 yrs COLONOSCOPY, DIAGNOSTIC (RECTUM) N/A 12/13/2015 adeno polyp, 5 yr recall, COLONOSCOPY FLEXIBLE PROXIMAL DIAGNOSTIC performed by Aniceto Christine, [facility] OR [facility] COLONOSCOPY, DIAGNOSTIC (RECTUM) N/A 03/26/2022 moderate diverticulosis/hemorrhoids/recall 5 years/Colonoscopy/[facility] EGD, FLEXIBLE,W/ENDOSCOPIC US 04/26/2020 gallstones, gastritis, hiatal hernia / [facility] EGD, W/ENDOSCOPIC US N/A 03/25/2020 ESOPHAGOGASTRODUODENOSCOPY (EGD), FLEXIBLE, TRANSORAL, ENDOSCOPIC ULTRASOUND performed by Samina Nix DO at ENDOSCOPY [facility] ENDO,VIDEO ASSIST HARVEST LINDA Right 08/16/2014 ENDOSCOPY VIDEO ASSISTED HARVEST VEIN performed by Matt Saavedra MD at [place] [facility] ERCP, DIAGNOSTIC, SPECIMEN COLLECTION N/A 03/25/2020 ENDOSCOPIC RETROGRADE CHOLANGIOPANCREATOGRAPHY (ERCP) DIAGNOSTIC performed by Samina Nix DO at ENDOSCOPY [facility] FRACTURE NOS Left 04/12/1999 left lower leg- fx both bones INFORMATION Left 04/12/2001 replace plate, left fibula- roeshot KNEE ARTHROSCOPY, DIAGNOSTIC 04/12/1996 Knee Arthroscopy SHOULDER SUBQ TUMOR REMOVAL, UNDER 3 CM Left 12/11/2015 EXCISION SOFT TISSUE TUMOR SHOULDER SUBCUTANEOUS performed by Aram Pedroza MD at OR [facility] TMT FEM FX PROSTH REPL [...] Problems Brother (Half) Family Status Relation Status Age Mother 62 [place] ovary Father Alive 79 [place], CABG, smoker, cancer throat Sister Alive Sister Alive Brother Alive Brother Alive abt 55 [place], [place] Daughter Alive Daughter Alive Son Alive Social History Socioeconomic History Marital status: Spouse name: Not on file Number of children: Not on file Years of education: Not on file Highest education level: Not on file Occupational History Occupation: disability Social Needs Financial resource strain: Not on file Tobacco Use Smoking status: Former Smoker Packs/day: 1.00 Years: 20.00 Pack years: 20.00 Types: Cigarettes Last attempt to quit: 04/12/1976 Years since quittin.7 Smokeless tobacco: Never Used Substance and Sexual Activity Alcohol use: No Alcohol/week: 0.0 oz Drug use: No Comment: lots of coffee Sexual activity: Yes Partners: Female control/protection: Surgical Comment: problems with erections Complete Review of Systems is as stated above, negative, or noncontributory Review of patient's allergies indicates: Allergen Reactions Crestor [Rosuvastatin Calcium] Lisinopril Hyperkalemia Simvastatin zocor (muscle cramps) Current Outpatient Medications Medication Sig Dispense Refill aspirin 81 MG chewable tablet Take 1 Tablet by mouth in the morning. 60 Tab 0 Nitroglycerin 0.4 MG Sublingual Tablet Sublingual (NITROSTAT) DISSOLVE ONE TABLET UNDER THE TONGUE EVERY 5 MINUTES NEEDED FOR CHEST PAIN. DO NOT EXCEED A TOTAL OF 3 DOSES IN 15 MINUTES 25 Tab 0 CPAP every night at bedtime. Respiratory Therapy Supplies Device Use as directed. AutoPAP 10-15 cm at bedtime daily Acetaminophen ER 650 MG Oral Tablet Extended [...] 6 hours with spacer. 4 g 1 FreeStyle Renetta 2 Ellsworth Device Use as directed. Supplied by [employer] 1 Each 0 FreeStyle Renetta 2 Sensor Use as directed. Change every 14 days. Supplied by [employer] Apixaban 5 MG Oral Tablet (Eliquis) Take [...] MOUTH IN THE MORNING 90 Tablet 3 Rita-Higganum Heartburn 0619-2504 MG Oral Tablet Effervescent (Sodium Bicarbonate-Citric Acid) Take by mouth once . orat.io Verio Reflect w/Device Kit Use as directed . Test Blood sugar up to 3 times daily 1 Kit 0 Xerosuch Delica Lancets 33G Use 2 times a day 200 Each 1 orat.io VerEyeona In Vitro Strip (Glucose Blood) Use 2 times a day 200 Strip 1 Insulin Pen Needle 31G X 8 MM Use as directed. Use three times a day with insulin pen 300 Each 3 No current facility-administered medications for this visit. OBJECTIVE/PHYSICAL EXAMINATION: BP 142/76 | Pulse 84 | Resp 20 | Wt (!) 144.2 kg (318 lb) | BMI 46.96 kg/m | BSA 2.65 m General: A&Ox3. NAD. Elevated BMI. HENT: Normocephalic. Atraumatic. Eyes: PER. Conjunctiva pink, sclera clear. Neck: No carotid bruits. No JVD. No HJR. Heart: Irregular with ectopy. No murmur. No rub. PMI is nondisplaced. Lungs: Diminished. Decreased. Clear to auscultation. Abdomen: Obese. +BS. Soft. Nontender. No masses or organomegaly. Extremities: Mild peripheral edema, nonpitting. No clubbing. No cyanosis. Limited neurological examination is without focal deficits. Pulses: radial=2/4, posterior tibial=2/4. Data: November 01, 2019 Lexiscan Interpretation Summary (as per Dr. Gonzales): Gated SPECT imaging reveals normal myocardial thickening and wall motion. The left ventricular ejection fraction was calculated to be69%. Lexiscan nuclear cardiac stress test negative for ischemia. March 2022 Zio Monitor: Patient had a min HR of 26 bpm, max HR of 111 bpm, and avg HR of 75 bpm.Predominant underlying rhythm was Sinus Rhythm. First Degree AV Block was present. Second Degree AVBlock-Mobitz I (Wenckebach) was present. Isolated SVEs were rare (<1.0%), SVE Couplets were rare (<1.0%), and SVE Triplets were rare (<1.0%). Isolated VEs were frequent (20.8%, 98881), VE Couplets were rare (<1.0%, 1205), and VE Triplets were rare (<1.0%, 165). Ventricular Bigeminy and Trigeminy were present. IMPRESSION: The patient had frequent unifocal PVC's, including Bigemny. The patient's triggered events and diary entries correlated mostly to sensed PVC's. October 14, 2022 TTE Interpretation Summary (as per Dr. Vides): The left ventricular cavity size is normal. The LV wall thickness is moderatel to severely increased (concentric). There is a moderate sized apical, septal, and anteroseptal wall motion abnormality with mild hypokinesis to hypokinesis of the segments. The qualitative LV ejection fraction is 55-59% (normal). The left ventricular diastolicfunction is mildly abnormal (grade I). Mild aortic valve sclerosis is present. The aortic root and proximal ascending aorta are mildly enlarged. (4.3/4.4 cm) Compared to prior study of December 16, 2021, there is no significant change. January 10, 2023 Chest CTA at [facility] reported "no thoracic aortic aneurysm." I personally measured up to 4.4 cm ASSESSMENT AND RECOMMENDATIONS/PLAN: Multivessel coronary artery disease Status post CABG. Nonischemic nuclear stress testing on November 01, 2019. Stable [place] Cardiovascular [employer] Grade II angina. Continue appropriate medical management. Systolic (resolved) and diastolic congestive heart failure Volume status: Compensated Recommend taking furosemide every day, doubling furosemide x 2-3 days if weight is up 2 pounds overnight or 5 pounds in 1 week Hypertension. BP acceptably controlled. Continue the current antihypertensive regimen. Enlarged aortic root and ascending thoracic aorta. Continue routine surveillance monitoring. Palpitations Zio monitoring in October 2020 revealed symptoms in association with sensed atrial and ventricular ectopy and 1 episode of supraventricular tachycardia. The 11 beat run of VT was asymptomatic as were multiple other episodes of SVT, longest of which lasted 18.8 seconds. Zio monitoring in March 2022 with frequent (20.8%) ventricular ectopy Continue metoprolol Periodic echoes to assess function Dyslipidemia LDL goal less than 70 mg/dL LDL cholesterol 52 mg/dL on October 26, 2022 Continue atorvastatin 80 mg/day and ezetimibe 20 mg/day History of recurrent DVT and PE. Indefinite anticoagulation advised by Hematology. On Eliquis, without bleeding issues. Compliance with Eliquis discussed H&H normal at [facility] on 01/10/2023, 15.2 g/dL and 46.3%. Plt Count normal at 259 K. Hyperkalemia, has prohibiting ACEI/ARB Heartburn, reflux. Taking Rita-Higganum as needed, risks explained. Sleep apnea. On CPAP, followed by [facility]. Generalized anxiety. Left forearm burn. General measures advised. Silver sulfadiazine 1 % ex crea sent to [facility] electronically. Routine cardiology follow-up. ER with emergencies. Kermit Nunez PA-C Department of Cardiology I spent a total of 30-39 minutes (exact time 36 mins) on the date of service in preparation, delivery, and documentation of the care provided to Brijesh Pérez Jr. excluding any time spent in the performance of separately billed services. This chart was completed in part utilizing blogfoster Speech Voice Recognition Software. Grammatical errors, random word insertions, prounoun errors, and incompletesentences are an occasional consequence of this system due to software limitations, ambient noise, and hardware issues. Any formal questions or concerns about the content, text, or information contained within the body of this dictation should be directly addressed to the provider for clarification. documented in this encounter Nursing Notes * Adenike Reaves LPN - 04/19/2023 7:50 AM EST Examination Room: 2 Name: Brijesh Pérez Jr. Date of : 1950 Reason for Visit: Follow up Problems/Concerns: SOB - feels it is about the same Interim Hosp(s): Fall 2022 CHF Chest Pain/SOB: Denies CP MyChart Discussed: ALREADY ACTIVE Patient was instructed to not get up on the exam table until directed and assisted by their provider; patient is to remain seated in the chair/ wheelchair/ exam table for fall prevention and safety reasons. Patient is aware staff will assist stepping down off exam table with personnel. l documented in this encounter Plan of Treatment Upcoming Encounters Date Type Department Care Team (Late st Contact Info) Description 04/28/2023 9:00 AM EST Office Visit Family Practice [address] [phone] Jennie Mckoy DO [address] [facility] [place] [address] 10/29/2023 11:00 AM EDT Nurse Only Ancillary [address] [place] [address] [place], Nurse Annual Wellness Visit [address] [place] [address] Scheduled Procedures Name Priority Associated Diagnoses Date/Ti [...] this encounter Medical Devices Implanted Type Area Spout Worker Device Identifier Shelf Expiration Date Model / Serial / Lot Marker [facility] [id number] Implanted:Qty: 1 on 08/16/2014 by Matt Saavedra MD at [place] [facility] N/A: Aorta [employer] 06/09/2017 [facility] / / [id number] documented as of this encounter Visit Diagnoses Diagnosis Dyslipidemia, goal LDL below 100- Primary Other and unspecified hyperlipidemia Coronary artery disease involving anvik 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 (HCC) S/P CABG x 3 Postsurgical aortocoronary bypass status Aortic root dilatation (HCC) Thoracic aortic ectasia HTN, goal below 140/90 Unspecified essential hypertension Aneurysm of ascending aorta without rupture (HCC) Chronic diastolic CHF (congestive heart failure) (HCC) Chronic diastolic heart failure Burn of left forearm, unspecified burn degree, initial encounter documented in this encounter Advance Directives Latest [...] the patient have Health Care Power of General Labor? No Care Teams Outbound Sales Representative Relationship Specialty Start Date End Date Jennie Mckoy DO [address] [place] [address] PCP - General Family Medicine 01/11/23 documented as of this encounter
--- OUTSIDE RECORDS SUMMARY | 2023-08-04 09:18 | External Medical Summary | Summary of Care ---
Author Name Unknown Organization [facility] Address [address] [place] [address] Phone [phone] Care Team Providers Care Engine Cleaner Name Role Phone Jennie Mckoy DO Primary Care Provider Encounter Details Date Type Department Care Team (Late st Contact Info) Description 03/03/2023 Population Health External Data Unspecified Department Allergies Active Allergy Reactions Criticality Noted Date Comments Rosuvastatin Calcium 09/13/2009 Lisinopril 05/07/2022 Hyperkalemia Simvastatin 01/08/2000 zocor (muscle cramps) documented as of this encounter (statuses as of 03/03/2023) Medications Medication Sig Dispensed Refills Start Date [...] 15 MINUTES 25 Tab 0 01/31/2020 Active Rita-[place]ild[place] Heartburn 4923-9257 MG Oral Tablet Effervescent (Sodium Bicarbonate-Citric Acid)Indications:hea rtburn Take by mouth once . 0 Active CPAP every night at bedtime. 0 Active Respiratory Therapy Supplies Device Use as directed. AutoPAP 10-15 cm at bedtime daily 0 Active SodaHeadTouch Verio Reflect w/Device Kit Use as directed [...] Hour (toPROL XL)Indications:Coron george artery disease involving osage coronary artery of osage heart with angina pectoris (HCC),Ischemic cardiomyopathy TAKE [...] WEEK 135 Tablet 3 07/16/2022 07/16/2023 Active Ezetimibe 10 MG Oral Tablet (Zetia) TAKE ONE TABLET BY MOUTH IN THE MORNING 100 Tablet 3 02/17/2022 04/01/2023 Active Atorvastatin Calcium 80 MG Oral Tablet (Lipitor)Indications :Coronary artery disease involving osage coronary artery of osage heart without angina pectoris TAKE ONE TABLET [...] g 1 11/06/2022 Active FreeStyle Renetta 2 Gideon Device Use as directed. Supplied by [employer] 1 Each 0 12/22/2022 Active FreeStyle Renetta 2 Sensor Use as directed. Change every 14 days. Supplied by Medical 0 12/22/2022 Active OneTouch Delica Lancets 33G Use 2 times a day 200 Each 1 12/22/2022 Active OneTouch Verio In Vitro Strip (Glucose Blood) Use 2 times a day 200 Strip 1 12/22/2022 Active Apixaban 5 MG Oral Tablet (Eliquis)Indications :Chronic deep vein thrombosis (DVT) of popliteal vein of left lower extremity ([facility]) Take 1 Tablet by mouth in the morning and 1 Tablet before bedtime. 200 Tablet 3 01/12/2023 Active Fluticasone Furoate 100 MCG/ACT Inhalation Aerosol Powder Breath Activated (ARNUITY ellipta)Indications: COPD, group B, by GOLD 2017 classification ([facility]) Inhale 1 Puff by mouth daily. 90 Each 3 02/11/2023 Active NovoLIN 70/30 FlexPen Relion (70-30) 100 UNIT/ML Suspension Pen-injector (Insulin NPH Isophane & Regular)Indications: Type 2 diabetes mellitus with hemoglobin A1c goal of less than 7.0% ([facility]) Inject 70 Units under the [...] insulin pen 300 Each 3 02/23/2023 Active documented as of this encounter (statuses as of 03/03/2023) Active Problems Problem Noted Date Diagnosed Date COPD, group B, by GOLD 2017 classification 06/22 Overview: Per COPD GOLD Classification Other pulmonary embolism without acute cor pulmo nale 05/04/2022 Diabetic polyneuropathy asso ciated with type 2 diabetes mellitus 05/04/2022 Aneurysm of ascending aorta without rupture 04/13 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 05/04/2022 Current [...] disorder) 06/27/2018 Coronary artery disease invo lving osage coronary artery of osage heart with angina pectoris 07/26/2017 Chronic deep [...] as of this encounter (statuses as of 03/03/2023) Resolved Problems Problem Noted Date Diagnosed Date Resolved Date Chronic obstructive pulmonary disease 05/04/2022 06/24/2022 Overview: Per COPD GOLD Classification Status post amputation of right thumb 05/02/2018 06/27/2018 Morbid obesity with body mas s index (BMI) of 50.0 to 59.9 in adult 07/26/2017 05/02/2018 Coronary artery disease invo lving osage coronary artery of osage heart without angina pectoris 07/26/2017 05/02/2018 Amputation [...] as of this encounter (statuses as of 03/03/2023) Immunizations Name Administration Dates Next Due Pneumococcal Conjugate Vacc, 13 Valent (Prevnar) 2017 Pneumococcal Polysaccharide PPV23 (Pneumovax) 05/02/2018,12/25/2011 SEASONAL INFLUENZA, PF, 6 M & Above, IM , (FLULAVAL or FLUZONE) 12/30/2019,02/08/2019,02/17/2018,01/1002/09/2020 Seasonal Influenza, Quadriva lent Hd (Fluzone [...] AM EST Office Visit Family Practice [address] [facility] [address] [place] [address] Jennie Mckoy DO [address] [place] [address] 04/19/2023 8:00 AM EST [facility] [place] [address] Kermit Nunez PA-C [address] [facility] [place] [address] 10/29/2023 11:00 AM EDT Nurse Only Ancillary 65 [facility] [address] [place] [address] Amasa, Nurse Annual Wellness Visit [address] [place] [address] Scheduled Procedures Name Priority Associated Diagnoses Date/Ti [...] 02/12/2024 02/11/2023, 1006/2022, 10/26/2022, Additional history exists O2 ASSESSMENT COMPLETED [...] this encounter Medical Devices Implanted Type Area Program Support Clerk Device Identifier Shelf Expiration Date Model / Serial / Lot Marker [id number] Implanted:Qty: 1 on 08/16/2014 by Matt Saavedra MD at OR [facility] N/A: Aorta [employer] 06/09/2017 [facility] / / [id number] documented as of this encounter Advance Directives [...] the patient have Health Care Power of Tank Tester? No Care Teams Engine Cleaner Relationship Specialty Start Date End Date Jennie Mckoy DO [address] [place] [address] PCP - General Family Medicine 01/11/23 documented as of this encounter
--- OUTSIDE RECORDS SUMMARY | 2023-08-04 09:18 | External Medical Summary | Summary of Care ---
Author Name Unknown Organization [facility] Address [address] [place] [address] Phone [phone] Care Team Providers Care Dry Kiln Operator Name Role Phone Jennie Mckoy DO Primary Care Provider Encounter Details Date Type Department Care Team (Late st Contact Info) Description 12/01/2022 Telephone Family Practice [address] [facility] [address] [place] [phone] Jennie Mckoy DO [address] [place] [address] Allergies Active Allergy Reactions Criticality Noted Date Comments Rosuvastatin Calcium 09/13/2009 Lisinopril 05/07/2022 Hyperkalemia Simvastatin 01/08/2000 zocor (muscle cramps) documented as of this encounter (statuses as of 03/02/2023) Medications Medication Sig Dispensed Refills Start Date [...] 15 MINUTES 25 Tab 0 01/31/2020 Active Rita-[place] Heartburn 5176-3356 MG Oral Tablet Effervescent (Sodium Bicarbonate-Citric Acid)Indications:he [...] Hour (toPROL XL)Indications:Ariella nary artery disease involving [place] coronary artery of [place] heart with angina pectoris (HCC),Ischemic cardiomyopathy TAKE [...] WEEK 135 Tablet 3 07/16/2022 4 Active Ezetimibe 10 MG Oral Tablet (Zetia) TAKE ONE TABLET BY MOUTH IN THE MORNING 100 Tablet 3 02/17/2022 3 Active Atorvastatin Calcium 80 MG Oral Tablet (Lipitor)Indication s:Coronary artery disease involving [place] coronary artery of or[place]armiut heart without angina pectoris TAKE ONE TABLET BY MOUTH IN THE MORNING 90 Tablet 1 10/20/2022 4 Active metFORMIN HCl ER 500 MG Oral Tablet Extended Release 24 Hour (Glucophage XR)Indications:Type 2 diabetes mellitus with hyperglycemia, with long-term current use of insulin (HCC),Type 2 diabetes mellitus with hemoglobin A1c goal of less than 7.0% ([facility]) TAKE ONE TABLET BY MOUTH TWICE A [...] g 1 11/06/2022 Active FreeStyle Renetta 2 Sensor Use as directed . Change every 14 days. Supplied by [employer] ([phone]) 0 3 Discontinue d(Refill) NovoLIN 70/30 FlexPen Relion (70-30) 100 UNIT/ML Suspension Pen-injector (Insulin NPH Isophane & Regular) Inject 60 units in the morning and 70 units in the evening before meals (getting through sign painter helper) 150 mL 3 05/04/2022 3 Discontinue d(Refill) Ozempic (2 MG/DOSE) 8 MG/3ML Subcutaneous Solution Pen-injector (Semaglutide (2 MG/DOSE)) Inject 2 mg once weekly under the skin (getting from sign painter helper) 12 mL 3 05/04/2022 3 Discontinue d(Refill) FreeStyle Renetta 2 [place] Device Use as directed. Supplied by [employer] ([phone]) 1 Each 0 06/01/2022 3 Discontinue d(Refill) Fluticasone Furoate 100 MCG/ACT Inhalation Aerosol Powder Breath Activated (ARNUITY ellipta) INHALE 1 PUFF BY MOUTH EVERY MORNING 90 Each 3 03/12/2022 3 Discontinue d(Refill) Hydrocortisone (Perianal) 2.5 % External CreamIndications:He morrhoids, external without complications ADMINISTER RECTALLY TWO TIMES A DAY DIRECTED 30 g 5 01/20/2022 3 Apixaban 5 MG Oral Tablet (Eliquis)Indication s:Chronic deep vein thrombosis (DVT) of popliteal vein of left lower extremity ([facility]) TAKE ONE TABLET BY MOUTH EVERY MORNING AND ONE TABLET BEFORE BEDTIME 180 Tablet 3 10/21/2022 Discontinue d(Refill) Hospital, Clinic, or Other Facility Administered Medication Ordered Dose Route Frequency Start Date End Date Status Albuterol Sulfate (Proventil) (2.5 MG/3ML) 0.083% inhalation solution 2.5 mgIndications:SOB (shortness of breath),Restrictive lung disease 2.5 mg NEBULIZER PRN 12/17/2021 12/17/2022 Ended Albuterol Sulfate (Proventil) (5 MG/ML) 0.5% *conc* inhalation solution 2.5 mgIndications:SOB (shortness of breath),Restrictive lung disease 2.5 mg NEBULIZER PRN 12/17/2021 12/17/2022 Ended documented as of this encounter (statuses as of 03/02/2023) Active Problems Problem Noted Date Diagnosed Date COPD, group B, by GOLD 2017 classification 06/22 Overview: Per COPD GOLD Classification Other pulmonary embolism without acute cor pulmo nale 05/04/2022 Diabetic polyneuropathy asso ciated with type 2 diabetes mellitus 05/04/2022 Aneurysm of ascending aorta without rupture 04/13 Atherosclerosis of coronary artery of [place]armiut heart with stable angina pectoris 05/04/2022 Current [...] disorder) 06/27/2018 Coronary artery disease invo lving [place]iut coronary artery of or[place]armiut heart with angina pectoris 07/26/2017 Chronic deep [...] as of this encounter (statuses as of 03/02/2023) Resolved Problems Problem Noted Date Diagnosed Date Resolved Date Chronic obstructive pulmonary disease 05/04/2022 06/24/2022 Overview: Per COPD GOLD Classification Status post amputation of right thumb 05/02/2018 06/27/2018 Morbid obesity with body mas s index (BMI) of 50.0 to 59.9 in adult 07/26/2017 05/02/2018 Coronary artery disease invo lving [place]armi[place] coronary artery of or[place]armiut heart without angina pectoris 07/26/2017 05/02/2018 Amputation [...] as of this encounter (statuses as of 03/02/2023) Immunizations Name Administration Dates Next Due Pneumococcal Conjugate Vacc, 13 Valent (Prevnar) 2017 Pneumococcal Polysaccharide PPV23 (Pneumovax) 05/02/2018,12/25/2011 SEASONAL INFLUENZA, PF, 6 M & Above, IM , (FLULAVAL or FLUZONE) 12/30/2019,02/08/2019,02/17/2018,01/1002/09/2020 Seasonal Influenza, Quadriva lent Hd (Fluzone Hd) 01/20/2022,03/05/2021 Seasonal Influenza, Quadriva lent, No Preserve, IM [...] encounter Miscellaneous Notes * Telephone Encounter - Jennifer Black RN - 12/02/2022 8:54 AM EDT Received fax from [employer]. Paperwork given to pharmacy. * Telephone Encounter - Jennifer Black RN - 12/01/2022 4:50 PM EDT Call received from Geoff from [employer] for pt's diabetic supplies. States there was a question about a frequency of testing his blood sugars-not clearly noted in the office notes. States they faxed over a paper for clarification-we did not receive-it was faxed to [facility]. Told to fax at [phone] and will have clarified. documented in this encounter Plan of Treatment Upcoming Encounters Date Type Department Care Team (Late st Contact Info) Description 04/14/2023 8:00 AM EST Office Visit Family Practice 65 [facility] 293 [place] [address] Jennie Mckoy DO 293 [place] [address] 04/19/2023 8:00 AM EST Office Visit Cardiology, [facility] [address] [facility] [place] [address] Kermit Nunez PA-C [facility] [place] [address] 10/29/2023 11:00 AM EDT Nurse Only Ancillary 65 [facility] 293 [place] [address] College, Nurse Annual Wellness Visit [address] [place] [address] Scheduled Procedures Name Priority Associated Diagnoses Date/Ti [...] 02/12/2024 02/11/2023, 06/2022, 10/26/2022, Additional history exists O2 ASSESSMENT [...] this encounter Medical Devices Implanted Type Area Material Flow Analyst Device Identifier Shelf Expiration Date Model / Serial / Lot Marker Coronary [facility] - [id number] Implanted:Qty: 1 on 08/16/2014 by Matt Saavedra MD at OR [facility] N/A: Aorta [employer] 06/09/2017 [facility] / / [id number] documented as of this encounter Advance Directives [...] the patient have Health Care Power of Er Nurse? No Care Teams Dry Kiln Operator Relationship Specialty Start Date End Date Jennie Mckoy DO [address] [place] [address] PCP - General Family Medicine 01/11/23 documented as of this encounter
--- OUTSIDE RECORDS SUMMARY | 2023-08-04 09:19 | External Medical Summary | Summary of Care ---
Author Name Unknown Organization [facility] Address [address] [place] [address] Phone [phone] Care Team Providers Care Certified Alcohol Counselor Name Role Phone EuniceJennie werner Primary Care Provider Reason for Visit * Reason Comments Diabetes Follow-Up Dosage Adjustment In Person (Anticoag Cl inic) Encounter Details Date Type Department Care Team (Late st Contact Info) Description 02/11/2023 8:40 AM EDT Office Visit Family Practice 65 [facility] [address] [place] [address] College, Pharmacist [address] [address] Type 2 diabetes mellitus with hemoglobin A1c goal of less than 7.0% ([facility])* Allergies Active Allergy Reactions Criticality Noted Date Comments Rosuvastatin Calcium 09/13/2009 Lisinopril 05/07/2022 Hyperkalemia Simvastatin 01/08/2000 zocor (muscle cramps) documented as of this encounter (statuses as of 02/17/2023) Medications Medication Sig Dispensed Refills Start Date [...] 15 MINUTES 25 Tab 0 01/31/2020 Active Rita-[place]aug[place] Heartburn 6024-3817 MG Oral Tablet Effervescent (Sodium Bicarbonate-Citric Acid)Indications:he [...] Hour (toPROL XL)Indications:Ariella nary artery disease involving kob[place] coronary artery of kob[place] heart with angina pectoris (HCC),Ischemic cardiomyopathy TAKE [...] Oral Tablet (Lipitor)Indication s:Coronary artery disease involving kob[place] coronary artery of [place]ob[place] heart without angina pectoris TAKE ONE TABLET BY MOUTH IN THE MORNING 90 Tablet 1 10/20/2022 4 Active metFORMIN HCl ER 500 MG Oral Tablet Extended Release 24 Hour (Glucophage XR)Indications:Type 2 diabetes mellitus with hyperglycemia, with long-term current use of insulin ([facility]),Type 2 diabetes mellitus with hemoglobin A1c goal of less than 7.0% ([facility]) TAKE ONE TABLET BY MOUTH TWICE A [...] g 1 11/06/2022 Active FreeStyle Renetta 2 [place] Device Use as directed. Supplied by [employer] 1 Each 0 12/22/2022 Active FreeStyle Renetta 2 Sensor Use as directed. Change every 14 days. Supplied by [employer] 0 12/22/2022 Active OneTouch Delica Lancets 33G Use 2 times a day 200 Each 1 12/22/2022 Active OneTouch Verio In Vitro Strip (Glucose Blood) Use 2 times a day 200 Strip 1 12/22/2022 Active Apixaban 5 MG Oral Tablet (Eliquis)Indication s:Chronic deep vein thrombosis (DVT) of popliteal vein of left lower extremity ([facility]) Take 1 Tablet by mouth in the morning and 1 Tablet before bedtime. 200 Tablet 3 01/12/2023 Active NovoLIN 70/30 FlexPen Relion (70-30) 100 UNIT/ML Suspension Pen-injector (Insulin NPH Isophane & Regular)Indications :Type 2 diabetes mellitus with hemoglobin A1c goal of less than 7.0% ([facility]) Inject 70 Units under the skin 2 times a day. 150 mL 3 02/11/2023 Active NovoLIN 70/30 FlexPen Relion (70-30) 100 UNIT/ML Suspension Pen-injector (Insulin NPH Isophane & Regular) Inject 60 units in the morning and 70 units in the evening before meals (getting through reading intervention teacher) 150 mL 3 05/04/2022 3 Discontinue d(Refill) Ozempic (2 MG/DOSE) 8 MG/3ML Subcutaneous Solution Pen-injector (Semaglutide (2 MG/DOSE)) Inject 2 mg once weekly under the skin (getting from reading intervention teacher) 12 mL 3 05/04/2022 3 Discontinue d(Refill) Fluticasone Furoate 100 MCG/ACT Inhalation Aerosol Powder Breath Activated (ARNUITY ellipta) INHALE 1 PUFF BY MOUTH EVERY MORNING 90 Each 3 03/12/2022 3 Discontinue d(Refill) documented as of this encounter (statuses as of 02/17/2023) Active Problems Problem Noted Date Diagnosed Date COPD, group B, by GOLD 2017 classification 06/22 Overview: Per COPD GOLD Classification Other pulmonary embolism without acute cor pulmo nale 05/04/2022 Diabetic polyneuropathy asso ciated with type 2 diabetes mellitus 05/04/2022 Aneurysm of ascending aorta without rupture 04/13 Atherosclerosis of coronary artery of kobuk heart with stable angina pectoris 05/04/2022 Current [...] disorder) 06/27/2018 Coronary artery disease invo lving kobuk coronary artery of kobuk heart with angina pectoris 07/26/2017 Chronic deep [...] as of this encounter (statuses as of 02/17/2023) Resolved Problems Problem Noted Date Diagnosed Date Resolved Date Chronic obstructive pulmonary disease 05/04/2022 06/24/2022 Overview: Per COPD GOLD Classification Status post amputation of right thumb 05/02/2018 06/27/2018 Morbid obesity with body mas s index (BMI) of 50.0 to 59.9 in adult 07/26/2017 05/02/2018 Coronary artery disease invo lving kobuk coronary artery of kobuk heart without angina pectoris 07/26/2017 05/02/2018 Amputation [...] 09/18/2016 Otalgia of left ear 05/24/2014 09/19/19 Chronic rhinitis 05/24/2014 09/18/2016 Obesity, morbid (more [...] as of this encounter (statuses as of 02/17/2023) Immunizations Name Administration Dates Next Due Pneumococcal [...] this encounter Progress Notes * Narda Prescott [facility] - 02/11/2023 4:44 PM EDT Medication Therapy Disease Management [facility] - [facility] Pharmacogenomics Project 2022 Brijesh Pérez is an 73 year old being seen to discuss enrollment in the [facility] pharmacogenomics project. Control: If [facility] offered a pharmacogenomics test at no cost in the future, would you be interested? No Narda Blue [facility] Clinical Pharmacist - Special Duty Nurse Medication Therapy Management Clinic 02/11/2023, 4:44 PM * Narda Prescott [facility] - 02/11/2023 8:14 AM EDT Medication Therapy Disease Management Clinic - Diabetes Management Progress Note Brijesh Pérez Jr., identified by name and date of , is a 73 year old male being seen for diabetes management/education. Patient presents for return diabetic visit. DIABETES: Current diabetic medications: Metformin ER 500 mg twice daily Ozempic, Inject 2 mg under the skin once weekly (getting from PAP) Novolin 70/30 - 70 units in the morning and 70 units before dinner (switch from Novolin vial to Novolog pen due to tremor) Medication Injection Site: Abdomen Lifestyle: Diet: usually 1-2 meals a day, but moreso snacks. [employer] and PB crackers. Can't do raw veggies Glucose Review/SMBG: Readings per patient memory/recall: Patient is currently testing 1-2 times a week since sensors haven't come in. Reports 150-200. Sit down supper about 3 times a week - usually spaghetti or fried potatoes. Hypoglycemia: Does your blood sugar go below 70 mg/dL? No Hyperglycemia symptoms present: none Recent Labs Units 02/11/23 0851 10/26/22 1142 05/04/22 0941 HEMOGLOBIN A1C - [facility] % 9.2* 7.7* 7.2* Recent Labs Units 02/11/23 0851 01/12/23 1120 10/26/22 1142 ESTIMATED GLOMERULAR FILTRATION RATE - [facility] mL/min >90 72 >90 CREATININE - [facility] mg/dL 0.8 1.1 0.8 HYPERTENSION: Patient on ACEi/ARB: no, hyperkalemia BP Readings from Last 3 Encounters: 02/11/23 126/72 01/25/23 156/78 01/12/23 120/66 Blood pressure at goal: yes until today - potential med noncompliance? HYPERLIPIDEMIA: Patient is taking moderate or high intensity statin: yes HEALTH MAINTENANCE REVIEW: Health Maintenance Due Topic Date Due COVID-19 Vaccine (1) Never done Alpha-1 Antitrypsin Never done Hepatitis B (1 of 3 - Risk 3-dose series) Never done Diabetic Eye Exam 04/09/2022 Albumin/Creatinine Ratio 05/04/2023 ASSESSMENT & PLAN: ICD-10-CM 1. Type 2 diabetes mellitus with hemoglobin A1c goal of less than 7.0% (HCC) E11.9 BG Readings - Blood sugars not available. Patient hasn't been testing sugars due to not having sensors. Submitted supplier request change form. Medications - Reviewed current regimen, patient is not adherent to regimen. Hasn't had ozempic, also running low on 70/30 now. Advised patient to call [employer] to ask about application status. Diet, Exercise, Lifestyle - No significant lifestyle changes since last visit. Discussed with patient trying to eat better. Patient is agreeable to SMBG 2 time(s) daily. Patient aware to contact clinic if any hypoglycemia before next visit. MEDICATION CHANGES: no change Diabetic Medications: Metformin ER 500 mg twice daily Ozempic - Inject 2 mg under the skin once weekly (getting from PAP) - patient to fill and titrate back on 0.25mg for 2 weeks, 0.5mg for 2 weeks, 1mg for 2 weeks, then 2mg thereafter (clicks given to patient) Novolin 70/30 - 70 units in the morning and 70 units before dinner (switch from Novolin vial to Novolog pen due to tremor) HEALTH MAINTENANCE INTERVENTIONS: Labs: Ordered & Scheduled: HgA1c and BMP/CMP Immunizations: declines Foot Exam: Up to Date Eye Exam: Up to Date Annual Wellness Visit: Up to Date FOLLOW UP: Return to clinic in 4 weeks 04/14/2023 Narda Blue [facility] Clinical Pharmacist - Special Duty Nurse Medication Therapy Management Clinic 02/11/2023, 8:14 AM documented in this encounter Plan of Treatment Upcoming Encounters Date Type Department Care Team (Late st Contact Info) Description 04/14/2023 8:00 AM EST Office Visit Family Practice [address] [facility] [place] [address] [place] [address] Jennie Mckoy DO 293 [place] [address] 04/19/2023 8:00 AM EST Office Visit Cardiology, [facility] [address] [place] [address] Kermit Nunez, PA-C [address] [place] [address] 10/29/2023 11:00 AM EDT Nurse Only Ancillary 65 [facility] 293 [place] [address] College, Nurse Annual Wellness Visit [address] [facility] [address] [facility], [place] [address] Scheduled Procedures Name Priority Associated Diagnoses Date/Ti [...] encounter Medical Devices Implanted Type Area Sales Executive Insurance Device Identifier Shelf Expiration Date Model / Serial / Lot Marker Coronary [facility] - [id number] Implanted:Qty: 1 on 08/16/2014 by Matt Saavedra [place] [facility] [place]A: Aorta [employer] 06/09/2017 [facility] / [id number] documented as of this encounter Visit Diagnoses Diagnosis Type 2 diabetes mellitus with hemoglobin A1c goal of less than 7.0% ([facility])- Primary documented in this encounter Advance Directives [...] the patient have Health Care Power of Sagger Maker? No Care Teams Certified Alcohol Counselor Relationship Specialty Start Date End Date Jennie Mckoy DO [address] [place] [address] PCP - General Family Medicine 01/11/23 documented as of this encounter
--- OUTSIDE RECORDS SUMMARY | 2023-08-04 09:19 | External Medical Summary | Summary of Care ---
Author Name Unknown Organization [facility] Address [address] [place] [address] Phone [phone] Care Team Providers Care Insurance Processor Name Role Phone Jennie Mckoy DO Primary Care Provider [phone] Reason for Visit * Reason Onset Date Comments Medication Refill 02/12/2023 Encounter Details Date Type Department Care Team (Late st Contact Info) Description 02/12/2023 Refill Family Practice [address] [place] [address] [place] [id number] Jennie Mckoy DO [address] [place] [address] Allergies Active Allergy Reactions Criticality Noted Date Comments Rosuvastatin Calcium 09/13/2009 Lisinopril 05/07/2022 Hyperkalemia Simvastatin 01/08/2000 zocor (muscle cramps) documented as of this encounter (statuses as of 02/12/2023) Medications Medication Sig Dispensed Refills Start Date [...] 15 MINUTES 25 Tab 0 01/31/2020 Active [place] Heartburn [id number] MG Oral Tablet Effervescent (Sodium Bicarbonate-Citric Acid)Indications:hea [...] Hour (toPROL XL)Indications:Coron george artery disease involving assiniboine and sioux coronary artery of assiniboine and sioux heart with angina pectoris (HCC),Ischemic cardiomyopathy TAKE [...] Oral Tablet (Lipitor)Indications :Coronary artery disease involving assiniboine and sioux coronary artery of assiniboine and sioux heart without angina pectoris TAKE ONE TABLET BY MOUTH IN THE MORNING 90 Tablet 1 10/20/2022 10/20/2023 Active metFORMIN HCl ER 500 MG Oral Tablet Extended Release 24 Hour (Glucophage XR)Indications:Type 2 diabetes mellitus with hyperglycemia, with long-term current use of insulin ([facility]),Type 2 diabetes mellitus with hemoglobin A1c goal of less than 7.0% ([facility]) TAKE ONE TABLET BY MOUTH TWICE A [...] g 1 11/06/2022 Active FreeStyle Renetta 2 [place] Device Use as directed. Supplied by [employer] 1 Each 0 12/22/2022 Active FreeStyle Renetta 2 Sensor Use as directed. Change every 14 days. Supplied by [employer] 0 12/22/2022 Active OneTouch Delica Lancets 33G Use 2 times a day 200 Each 1 12/22/2022 Active OneTouch Verio In Vitro Strip (Glucose Blood) Use 2 times a day 200 Strip 1 12/22/2022 Active Apixaban 5 MG Oral Tablet (Eliquis)Indications :Chronic deep vein thrombosis (DVT) of popliteal vein of left lower extremity ([facility]) Take 1 Tablet by mouth in the morning and 1 Tablet before bedtime. 200 Tablet 3 01/12/2023 Active Fluticasone Furoate 100 MCG/ACT Inhalation Aerosol Powder Breath Activated (ARNUITY ellipta)Indications: COPD, group B, by GOLD 2017 classification ([facility]) Inhale 1 Puff by mouth daily. 90 Each 3 02/11/2023 Active NovoLIN 70/30 FlexPen Relion (70-30) 100 UNIT/ML Suspension Pen-injector (Insulin NPH Isophane & Regular)Indications: Type 2 diabetes mellitus with hemoglobin A1c goal of less than 7.0% ([facility]) Inject 70 Units under the skin 2 times a day. 150 mL 3 02/11/2023 Active Ozempic (2 MG/DOSE) 8 MG/3ML Subcutaneous Solution Pen-injector (Semaglutide (2 MG/DOSE)) Inject 2 mg once weekly under the skin 9 mL 3 02/12/2023 Active documented as of this encounter (statuses as of 02/12/2023) Active Problems Problem Noted Date Diagnosed Date COPD, group B, by GOLD 2017 classification 06/22 Overview: Per COPD GOLD Classification Other pulmonary embolism without acute cor pulmo nale 05/04/2022 Diabetic polyneuropathy asso ciated with type 2 diabetes mellitus 05/04/2022 Aneurysm of ascending aorta without rupture 04/13 Atherosclerosis of coronary artery of assiniboine and sioux heart with stable angina pectoris 05/04/2022 Current [...] disorder) 06/27/2018 Coronary artery disease invo lving assiniboine and sioux coronary artery of assiniboine and sioux heart with angina pectoris 07/26/2017 Chronic deep [...] as of this encounter (statuses as of 02/12/2023) Resolved Problems Problem Noted Date Diagnosed Date Resolved Date Chronic obstructive pulmonary disease 05/04/2022 06/24/2022 Overview: Per COPD GOLD Classification Status post amputation of right thumb 05/02/2018 06/27/2018 Morbid obesity with body mas s index (BMI) of 50.0 to 59.9 in adult 07/26/2017 05/02/2018 Coronary artery disease invo lving assiniboine and sioux coronary artery of assiniboine and sioux heart without angina pectoris 07/26/2017 05/02/2018 Amputation [...] as of this encounter (statuses as of 02/12/2023) Immunizations Name Administration Dates Next Due Pneumococcal [...] Notes * Telephone Encounter - Narda Prescott [facility] - 02/12/2023 5:02 PM EDT See other encounter. Patient asking about jardiance to see if it would be cheaper, but unlikely. Narda Akins, Pharm D, BCACP Clinical Pharmacist [address] - [facility] 02/12/2023, 5:02 PM Ph. [phone] * Telephone Encounter - Narda Prescott [facility] - 02/12/2023 2:47 PM EDTPending Prescriptions: Disp Refills Ozempic (2 MG/DOSE) 8 MG/3ML Subcutaneous *12 mL 3 Sig: Inject 2 mg once weekly under the skin (getting from stamp press operator) * Telephone Encounter - Maria Dolores Norris OSA - 02/12/2023 2:30 PM EDT Has many questions Please call... he needs And Jardiance? Pending Prescriptions: Disp Refills Ozempic (2 MG/DOSE) 8 MG/3ML Subcutaneous*12 mL 3 Sig: Inject 2 mg once weekly under the skin (getting from stamp press operator) Last Visit: 02/11/2023 (in office), Visit date not found (telemedicine) Next Visit: 04/14/2023 Last date the medication was ordered: Patient Active Problem List Diagnosis Code HTN, goal below 140/90 I10 Gastroesophageal reflux disease without esophagitis K21.9 Dyslipidemia, goal LDL below 100 E78.5 Obstructive sleep apnea G47.33 Type 2 diabetes mellitus with hemoglobin A1c goal of less than 7.0% ([facility]) E11.9 S/P CABG x 3 Z95.1 History of myocardial infarction I25.2 Type 2 diabetes mellitus with hyperglycemia, with long-term current use of insulin ([facility]) E11.65, Z79.4 Chronic deep vein thrombosis (DVT) of popliteal vein of left lower extremity ([facility]) I82.532 Coronary artery disease involving assiniboine and sioux coronary artery of assiniboine and sioux heart with angina pectoris ([facility])I25.119 Morbid obesity with body mass index (BMI) of 45.0 to 49.9 in adult ([facility]) E66.01, Z68.42 History of amputation of right thumb Z89.011 Ischemic cardiomyopathy I25.5 CESAR (generalized anxiety disorder) F41.1 History of pulmonary embolus (PE) Z86.711 Aortic root dilatation ([facility]) I77.810 Hypertensive heart disease without congestive heart failure I11.9 Major depressive disorder, single episode, unspecified F32.9 Claustrophobia F40.240 Chronic diastolic CHF (congestive heart failure) ([facility]) I50.32 Restrictive lung disease J98.4 Current moderate episode of major depressive disorder without prior episode ([facility]) F32.1 Other pulmonary embolism without acute cor pulmonale ([facility]) I26.99 Diabetic polyneuropathy associated with type 2 diabetes mellitus ([facility]) E11.42 Aneurysm of ascending aorta without rupture ([facility]) I71.21 Atherosclerosis of coronary artery of assiniboine and sioux heart with stable angina pectoris ([facility]) I25.118 COPD, group B, by GOLD 2017 classification ([facility]) J44.9 Labs: Lab Results Component Value Date/Time CREATININE - [facility] 0.8 02/11/2023 08:51 AM CREATININE - [facility] 1.0 03/22/2020 10:17 AM CREATININE ISTAT 1.0 01/02/2016 02:38 PM CREATININE, RANDOM URINE - [facility] 29 05/04/2022 09:45 AM CREATININE, RANDOM URINE - [facility] 57 05/02/2018 10:34 AM CREATININE-OUTSIDE LAB 1.03 03/22/2017 12:00 AM Lab Results Component Value Date/Time POTASSIUM - [facility] 5.2 (H) 02/11/2023 08:51 AM POTASSIUM - [facility] 4.9 03/22/2020 10:17 AM POTASSIUM POCT - [facility] 4.0 08/16/2014 12:37 PM POTASSIUM, WHOLE BLOOD - [facility] 4.1 08/17/2014 04:00 AM POTASSIUM-OUTSIDE LAB 4.0 03/22/2017 12:00 AM Lab Results Component Value Date/Time TSH - [facility] 1.80 05/04/2022 09:41 AM TSH - [facility] 1.06 12/06/2017 08:42 AM Lab Results Component Value Date/Time LDL CHOLESTEROL (CALCULATED) - [facility] UNINTERPRETABLE RESULT 11/23/2018 08:27 AM LDL CHOLESTEROL (CALCULATED) - [facility] 79 06/07/2018 08:09 AM LDL CHOLESTEROL (DIRECT MEASURE) - [facility] 52 10/26/2022 11:42 AM LDL CHOLESTEROL (DIRECT MEASURE) - [facility] 49 07/10/2021 08:44 AM LDL CHOLESTEROL (DIRECT MEASURE) - [facility] 62 01/30/2020 08:31 AM LDL CHOLESTEROL (DIRECT MEASURE) - [facility] 95 10/11/2019 09:10 AM LDL CHOLESTEROL (DIRECT MEASURE) - [facility] 63 11/23/2018 08:27 AM LDL CHOLESTEROL (DIRECT MEASURE) - [facility] 101 07/22/2015 09:11 AM Lab Results Component Value Date/Time ALT - [facility] 37 10/26/2022 11:42 AM ALT - [facility] 23 03/22/2020 10:17 AM ALT-OUTSIDE LAB 43 03/22/2017 12:00 AM Hemoglobin AIC Results: Lab Results Component Value Date/Time HEMOGLOBIN A1C - [facility] 9.2 (H) 02/11/2023 08:51 AM HEMOGLOBIN A1C - [facility] 7.7 (H) 10/26/2022 11:42 AM HEMOGLOBIN A1C - [facility] 7.2 (H) 05/04/2022 09:41 AM HEMOGLOBIN A1C - [facility] 9.7 (H) 01/30/2020 08:31 AM HEMOGLOBIN A1C - [facility] 8.6 (H) 10/11/2019 09:17 AM HEMOGLOBIN A1C - [facility] 8.2 (H) 11/23/2018 08:25 AM documented in this encounter Plan of Treatment Upcoming Encounters Date Type Department Care Team (Late st Contact Info) Description 04/14/2023 8:00 AM EST Office Visit Family Practice [address] [facility] [address] [place] [phone] Jennie Mckoy DO [address] [place] [address] 04/19/2023 8:00 AM EST Office Visit Cardiology, [facility] [address] [facility] [place] [address] Kermit Nunez [facility]-C [facility] [place] [id number] 10/29/2023 11:00 AM EDT Nurse Only Ancillary [address], [place] [address] College, Nurse Annual Wellness Visit [address] [address] Scheduled Procedures Name Priority Associated Diagnoses Date/Ti [...] this encounter Medical Devices Implanted Type Area Group Sales Representative Device Identifier Shelf Expiration Date Model / Serial / Lot Marker [facility] [id number] Implanted:Qty: 1 on 08/16/2014 [place] Saaved[place] [facility] [place] A[place] [employer] 06/09/2017 [facility] / / [id number] documented as of this encounter Advance Directives Latest Code Status on File Code Status Date Activated Date Inactivated Comments Full Code 08/16/2014 12:02 PM 08/22/2014 6:30 PM This order reflects the patients wishes and were consensually agreed upon. Code Status History Code Status Date Activated Date Inactivated Comments Full Code 08/14/2014:33 PM 08/16/2014 6:39 AM This or edwar reflects the patients wishes and were consensually agreed upon. Question Answer Comments Discussion of Advance Directives occurred with: Patient Does the patient have a Living Will? No Does the patient have Health Care Power of Soap Drier Tender? No Care Teams Insurance Processor Relationship Specialty Start Date End Date Jennie Mckoy DO [address] [place] [address] PCP - General Family Medicine 01/11/23 documented as of this encounter
--- OUTSIDE RECORDS SUMMARY | 2023-08-04 09:19 | External Medical Summary | Summary of Care ---
Author Name Unknown Organization [facility] Address [address] [place] [address] Phone [phone] Care Team Providers Care Clinical Supervisor Name Role Phone Jennie Mckoy DO Primary Care Provider [phone] Reason for Visit * Reason Comments Follow Up Encounter Details Date Type Department Care Team (Latest Contact Info) Description 02/11/2023 8:00 AM EDT Office Visit Family Practice [address] [facility], [place] [address] [place] [address] Jennie Mckoy DO [address] [place] [address] Type 2 diabetes mellitus with hemoglobin A1c goal of less than 7.0% ([facility])*; DM type 2 nursing care encounter ([facility]); Diabetic polyneuropathy associated with type 2 diabetes mellitus ([facility]); COPD, group B, by GOLD 2017 classification ([facility]); Chronic diastolic CHF (congestive heart failure) ([facility]); Coronary artery disease involving [place] coronary artery of [place] heart with angina pectoris ([facility]) Allergies Active Allergy Reactions Criticality Noted Date Comments Rosuvastatin Calcium 09/13/2009 Lisinopril 05/07/2022 Hyperkalemia Simvastatin 01/08/2000 zocor (muscle cramps) documented as of this encounter (statuses as of 02/15/2023) Medications Medication Sig Dispensed Refills Start Date [...] 15 MINUTES 25 Tab 0 01/31/2020 Active Rita-Crestwood Heartburn 2949-7765 MG Oral Tablet Effervescent (Sodium Bicarbonate-Citric Acid)Indications:he artburn Take by mouth once . 0 Active CPAP every night at bedtime. 0 Active Respiratory Therapy Supplies Device Use as directed. AutoPAP 10-15 cm at bedtime daily 0 Active Learn It Live Verio Reflect w/Device Kit Use as directed [...] Hour (toPROL XL)Indications:Ariella nary artery disease involving cedar[place] coronary artery of [place] heart with angina pectoris (HCC),Ischemic cardiomyopathy TAKE [...] Oral Tablet (Lipitor)Indication s:Coronary artery disease involving [place] coronary artery of [place]edar[place] heart without angina pectoris TAKE ONE TABLET BY MOUTH IN THE MORNING 90 Tablet 1 10/20/2022 4 Active metFORMIN HCl ER 500 MG Oral Tablet Extended Release 24 Hour (Glucophage XR)Indications:Type 2 diabetes mellitus with hyperglycemia, with long-term current use of insulin ([facility]),Type 2 diabetes mellitus with hemoglobin A1c goal of less than 7.0% ([facility]) TAKE ONE TABLET BY MOUTH TWICE A [...] g 1 11/06/2022 Active FreeStyle Renetta 2 [place] Device Use as directed. Supplied by [employer] 1 Each 0 12/22/2022 Active FreeStyle Renetta 2 Sensor Use as directed. Change every 14 days. Supplied by [employer] 0 12/22/2022 Active OneTouch Delica Lancets 33G [...] in the evening before meals (getting through media relations director) 150 mL 3 05/04/2022 3 Discontinue d(Refill) Ozempic (2 MG/DOSE) 8 MG/3ML Subcutaneous Solution Pen-injector (Semaglutide (2 MG/DOSE)) Inject 2 mg once weekly under the skin (getting from media relations director) 12 mL 3 05/04/2022 3 Discontinue d(Refill) Fluticasone Furoate 100 MCG/ACT Inhalation Aerosol Powder Breath Activated (ARNUITY ellipta) INHALE 1 PUFF BY MOUTH EVERY MORNING 90 Each 3 03/12/2022 3 Discontinue d(Refill) NovoLIN 70/30 FlexPen Relion (70-30) 100 UNIT/ML Suspension Pen-injector (Insulin NPH Isophane & Regular)Indications :Type 2 diabetes mellitus with hemoglobin A1c goal of less than 7.0% ([facility]) Inject 60 units in the morning and 70 units in the evening before meals (getting through media relations director) 150 mL 3 02/11/2023 3 Discontinue d(Transferr ed) documented as of this encounter (statuses as of 02/15/2023) Active Problems Problem Noted Date Diagnosed Date COPD, group B, by GOLD 2017 classification 06/22 Overview: Per COPD GOLD Classification Other pulmonary embolism without acute cor pulmo nale 05/04/2022 Diabetic polyneuropathy asso ciated with type 2 diabetes mellitus 05/04/2022 Aneurysm of ascending aorta without rupture 04/13 Atherosclerosis of coronary artery of cedarville heart with stable angina pectoris 05/04/2022 Current [...] disorder) 06/27/2018 Coronary artery disease invo lving cedarville coronary artery of cedar[place] heart with angina pectoris 07/26/2017 Chronic deep [...] as of this encounter (statuses as of 02/15/2023) Resolved Problems Problem Noted Date Diagnosed Date Resolved Date Chronic obstructive pulmonary disease 05/04/2022 06/24/2022 Overview: Per COPD GOLD Classification Status post amputation of right thumb 05/02/2018 06/27/2018 Morbid obesity with body mas s index (BMI) of 50.0 to 59.9 in adult 07/26/2017 05/02/2018 Coronary artery disease invo lving cedarville coronary artery of cedarville heart without angina pectoris 07/26/2017 05/02/2018 Amputation [...] as of this encounter (statuses as of 02/15/2023) Immunizations Name Administration Dates Next Due Pneumococcal [...] Sign Reading Time Taken Comments Blood Pressure 126/72 02/11/2023 8:18 AM EDT Pulse 68 02/11/2023 8:18 AM EDT Temperature 35.6 C (96.1 F) 02/11/2023 8:18 AM ED T Respiratory Rate 15 02/11/2023 8:18 AM EDT Oxygen Saturation 93% 02/11/2023 8:18 AM EDT Inhaled Oxygen Concentration - - Weight 145 kg (319 lb 9.6 oz) 02/11/2023 8:18 AM EDT Height 175.3 cm (5' 9") 02/11/2023 8:18 AM EDT Body Mass Index 47.2 02/11/2023 8:18 AM EDT documented in this encounter Patient Instructions * Patient Instructions* Jennifer Jeffers, ACID CHANGER - 02/11/2023 8:12 AM EDT Dear Brijesh Pérez Jr., The care of your Diabetes is very important to us. A yearly diabetic eye exam is important to protect your vision. If youre getting an eye exam done outside of [facility] please tell your Eye Doctor to fax or mail us the results of your Diabetic Eye Exam at your next visit. Our Address and Fax Number are listed below to help. Thank you for helping us to improve your Diabetes Care Our Office Address and Fax Number: Jennie Mckoy, Family Practice [address], [address] [address] Diabetic Retinopathy: Evaluating Your Eyes Diabetic retinopathy is a condition that happens when diabetes damages blood vessels in the rear ofthe eye. It can lead to vision loss. To help catch it early, have a complete dilated eye exam at least once a year. During the exam, the eye healthcare provider will review your medical history, examine your eyes, and check your vision. Women who are and have pre-existing type 1 or type 2 diabetes have an increased risk of retinopathy. Women with diabetes should have an eye exam before or in the first trimester. They should continue to be monitored every trimester and for 1 year after delivery, depending on the severity of the retinopathy. The retina is the light-sensitive part of the eye that allows you to see. High blood sugar can damage blood vessels of the retina and cause them to leak or bleed. This damage can lead to abnormal blood vessel growth. This condition is called diabetic retinopathy. You may not have symptoms early in the disease. Later, there may be floaters, blurred vision, or poor night vision. There may also be partial or complete vision loss. Early cases of diabetic retinopathy can be treated by carefully controlling blood sugar, blood pressure, and cholesterol. Surgery or laser treatments may help restore lost vision. Laser surgery can shrink abnormal blood vessels or close ones that are leaking. Medicines injected in the eye can help decrease swelling of the retina. Home care Take all medicines, including insulin or oral diabetic medicine, exactly as prescribed. Follow the diet advised by your healthcare provider. If you have high cholesterol, follow a low-fat, low-cholesterol diet. Monitor blood sugars as advised. Try to achieve your ideal weight. If you smoke, quit smoking. Tobacco use worsens the effect of diabetes on your blood vessels. If you have high blood pressure, consider buying an automatic blood pressure machine. These are available at most pharmacies. Use this to monitor your blood pressure. Report your blood pressure readings to your healthcare provider. Exercise regularly. Follow-up care Follow up with your healthcare provider, or as advised. You must have a complete eye exam at least once a year, more often if needed. Untreated diabetic retinopathy can lead to complete loss of vision. Occupational therapists can help you adapt to any vision loss you have, including learning techniques to safely administer insulin. When to seek medical advice Call your healthcare provider right away if any of these occur. Increasing blurriness or any sudden changes in your vision Sudden flashes of light inside your eye New floaters (small dots or strings that seem to be moving across your field of vision) Eye pain, redness, or discharge from your eyelid New dark spots appearing in your field of vision Halos around lights Dimness of vision Partial or complete loss of vision Women with diabetes should have a complete eye exam before becoming , or as soon as possible when they find out they are . Retinopathy sometimes worsens during . Your eye exam Your eye healthcare provider uses an eye chart and other tools to check your vision. Then he or sheexamines your eyes for signs of disease. You are given eye drops to widen (dilate) your pupils. Youmay have one or more of the following tests: Tonometry to measure fluid pressure inside the eye. Slit lamp exam to allow the healthcare provider to view the structures of your eye. Ultrasound to create an image of the eye using sound waves. Ultrasound may be used if blood is found in the clear gel that fills the eye (vitreous). Ocular coherence tomography (OCT) to create an image of the retina using light waves. This shows ifthere is fluid leaking into certain parts of the eye. It can also measure the thickness of the retina. Fluorescein angiography This test may be done to check the health of the inside lining of the eye (retina). It also checks the tiny blood vessels (capillaries) that carry blood to the retina. During the test: Photographs are taken of the retina. A dye is then injected into the bloodstream through the arm or hand. The dye travels to the capillaries in the eye. More photographs are taken of the retina. The dye causes the capillaries to stand out on the photographs. You may feel brief nausea during the procedure. For a few hours after the test, your skin, eyes, and urine may appear yellow. Talk with your healthcare provider for more information about this test. Date Last Reviewed: 09/11/201519993329-[address] [employer] [place] [address]. All rights reserved. This information is not intended as a substitute for professional medical care. Always follow your healthcare professional's instructions. documented in this encounter Progress Notes * Jennie Mckoy DO - 02/11/2023 8:31 AM EDT SUBJECTIVE: Chief Complaint Patient presents with Follow Up HPI: Brijesh Pérez is a 73 year old male who presents today for regular return. Pt notes that he is taking lasix once daily. He feels better. He notes that his swelling improved. Weight is down. He notes that his breathing is better. He does feel that he has to things more slowly. He notes it is worse if he is hurrying. He did have cardiology f/u. Pt states that he ran out through the media relations director with his Ozempic. He notes that he ran out afterit was doubled. He is down to his last bottle of Novolin. He is really not checking his sugars morethan 2-3 times a week because he does not have the Renetta. He states that he has not had the Ozempicin at least half a year. He has been doing ok with his Eliquis. He notes no issues with this. He states that he has been trying to be more compliant with this and his lasix. Pt did have a fall and notes some left elbow and shoulder pain. He notes that he does not feel anything needs to be done. PHM: Patient Active Problem List Diagnosis Code HTN, goal below 140/90 I10 Gastroesophageal reflux disease without esophagitis K21.9 Dyslipidemia, goal LDL below 100 E78.5 Obstructive sleep apnea G47.33 Type 2 diabetes mellitus with hemoglobin A1c goal of less than 7.0% ([facility]) E11.9 S/P CABG x 3 Z95.1 History of myocardial infarction I25.2 Type 2 diabetes mellitus with hyperglycemia, with long-term current use of insulin ([facility]) E11.65, Z79.4 Chronic deep vein thrombosis (DVT) of popliteal vein of left lower extremity ([facility]) I82.532 Coronary artery disease involving cedar[place] coronary artery of [place]edarville heart with angina pectoris ([facility])I25.119 Morbid obesity with body mass index (BMI) of 45.0 to 49.9 in adult ([facility]) E66.01, Z68.42 History of amputation of right thumb Z89.011 Ischemic cardiomyopathy I25.5 CESAR (generalized anxiety disorder) F41.1 History of pulmonary embolus (PE) Z86.711 Aortic root dilatation ([facility]) I77.810 Hypertensive heart disease without congestive heart failure I11.9 Major depressive disorder, single episode, unspecified F32.9 Claustrophobia F40.240 Chronic diastolic CHF (congestive heart failure) ([facility]) I50.32 Restrictive lung disease J98.4 Current moderate episode of major depressive disorder without prior episode ([facility]) F32.1 Other pulmonary embolism without acute cor pulmonale ([facility]) I26.99 Diabetic polyneuropathy associated with type 2 diabetes mellitus ([facility]) E11.42 Aneurysm of ascending aorta without rupture ([facility]) I71.21 Atherosclerosis of coronary artery of [place]edar[place] heart with stable angina pectoris ([facility]) I25.118 COPD, group B, by GOLD 2017 classification ([facility]) J44.9 Current Outpatient Medications Medication Sig Dispense Refill aspirin 81 MG chewable tablet Take 1 Tablet by mouth in the morning. 60 Tab 0 Nitroglycerin 0.4 MG Sublingual Tablet Sublingual (NITROSTAT) DISSOLVE ONE TABLET UNDER THE TONGUE EVERY 5 MINUTES NEEDED FOR CHEST PAIN. DO NOT EXCEED A TOTAL OF 3 DOSES IN 15 MINUTES 25 Tab 0 Rita-Crestwood Heartburn 4998-6815 MG Oral Tablet Effervescent (Sodium Bicarbonate-Citric Acid) Take by mouth once . CPAP every night at bedtime. Acetaminophen ER 650 MG Oral Tablet Extended Release Take 1 Tablet by mouth every 8 hours as needed. Ozempic (2 MG/DOSE) 8 MG/3ML Subcutaneous Solution Pen-injector (Semaglutide (2 MG/DOSE)) Inject 2 mg once weekly under the skin (getting from media relations director) 12 mL 3 ProAir HFA 108 (90 Base) MCG/ACT Inhalation [...] THREE DAYS PER WEEK 135 Tablet 3 Ezetimibe 10 MG Oral Tablet (Zetia) TAKE ONE TABLET BY MOUTH IN THE MORNING 100 Tablet 3 Atorvastatin Calcium 80 MG Oral [...] 1 Tablet before bedtime. 200 Tablet 3 NovoLIN 70/30 FlexPen Relion (70-30) 100 UNIT/ML Suspension Pen-injector (Insulin NPH Isophane & Regular) Inject 60 units in the morning and 70 units in the evening before meals (getting through media relations director) 150 mL 3 Fluticasone Furoate 100 MCG/ACT Inhalation Aerosol Powder Breath Activated (ARNUITY ellipta) Inhale1 Puff by mouth daily. 90 Each 3 Respiratory Therapy Supplies Device Use as directed. AutoPAP 10-15 cm at bedtime daily OneTouch Verio Reflect w/Device Kit Use as directed . Test Blood sugar up to 3 times daily 1 Kit 0 FreeStyle Renetta 2 [place] Device Use as directed. Supplied by [employer] 1 Each 0 FreeStyle Renetta 2 Sensor Use as directed. Change every 14 days. Supplied by [employer] Delica Lancets 33G Use 2 times a day 200 Each 1 NovImmune In Vitro Strip (Glucose Blood) Use 2 times a day 200 Strip 1 No current facility-administered medications for this [...] GRAFT performed by Matt Saavedra MD at [facility] CABG, ARTERY-VEIN, TWO 08/16/2014 08/16/2014 CORONARY ARTERY BYPASS GRAFT ARTERIAL AND VENOUS 2 GRAFTS performed by Matt Saavedra MD at [facility] COLONOSCOPY THRU STOMA, W/BIOPSY 02/25/2009 adenomatous/repeat colonoscopyi n 5 yrs COLONOSCOPY, DIAGNOSTIC (RECTUM) N/A 12/13/2015 adeno polyp, 5 yr recall, COLONOSCOPY FLEXIBLE PROXIMAL DIAGNOSTIC performed by Makayla Wilkinson OR [facility] COLONOSCOPY, DIAGNOSTIC (RECTUM) N/A 03/26/2022 moderate diverticulosis/hemorrhoids/recall 5 years/Colonoscopy/[place] EGD, FLEXIBLE,W/ENDOSCOPIC US 04/26/2020 gallstones, gastritis, hiatal hernia / [facility] EGD, W/ENDOSCOPIC US N/A 03/25/2020 ESOPHAGOGASTRODUODENOSCOPY (EGD), FLEXIBLE, TRANSORAL, ENDOSCOPIC ULTRASOUND performed by Samina Nix DO at [facility],VIDEO ASSIST HARVEST LINDA Right 08/16/2014 ENDOSCOPY VIDEO ASSISTED HARVEST VEIN performed by Matt Saavedra MD at [facility] ERCP, DIAGNOSTIC, SPECIMEN COLLECTION N/A 03/25/2020 ENDOSCOPIC RETROGRADE CHOLANGIOPANCREATOGRAPHY (ERCP) DIAGNOSTIC performed by Samina Nix DO at [facility] FRACTURE NOS Left 04/12/1999 left lower leg- fx both bones INFORMATION Left 04/12/2001 replace plate, left fibula- roeshot KNEE ARTHROSCOPY, DIAGNOSTIC 04/12/1996 Knee Arthroscopy SHOULDER SUBQ TUMOR REMOVAL, UNDER 3 CM Left 12/11/2015 EXCISION SOFT TISSUE TUMOR SHOULDER SUBCUTANEOUS performed by Aram Pedroza MD at OR [facility] TMT FEM FX PROSTH REPL Right [...] Mo at age 64 CA ovary Fa [place], CABG, smoker, cancer throat Sis Alive Sis Alive Bro Alive DM, [place] Jarek Alive Jarek Alive Son Alive Other (Not Specified) MGMA (Not Specified) Other (Not Specified) Bro HBRO Alive Social History Tobacco Use Smoking status: Former Packs/day: 1.00 Years: 20.00 Additional pack years: 0.00 Total pack years: 20.00 Types: Cigarettes Quit date: 04/12/1976 Years since quittin.8 Passive exposure: Past Smokeless tobacco: Never Substance Use Topics Alcohol use: No Alcohol/week: 0.0 standard drinks of alcohol Vaping/E-Cigarette Use Vaping/E-Cigarette Use Never User Vaping/E-Cigarette Substances Vaping/E-Cigarette Devices REVIEW OF SYSTEMS: Review of Systems Constitutional: Negative for chills, fatigue, fever and unexpected weight change. Respiratory: Negative for cough, chest tightness, shortness of breath and wheezing. Cardiovascular: Negative for chest pain, palpitations and leg swelling. Gastrointestinal: Negative for abdominal pain, constipation, diarrhea, nausea and vomiting. Musculoskeletal: Negative for arthralgias, gait problem and joint swelling. Skin: Negative for color change, pallor and rash. OBJECTIVE: BP 126/72 | Pulse 68 | Temp 35.6 C (96.1 F) | Resp 15 | Ht 1.753 m (5' 9") | Wt (!) 145 kg (319lb 9.6 oz) | SpO2 93% | BMI 47.20 kg/m | BSA 2.66 m PHYSICAL EXAM: [...] tenderness or deformity. Normal range of motion. Right lower leg: Edema (trace) present. Left lower leg: Edema (trace) present. Skin: General: Skin is warm and dry. Coloration: Skin is not pale. Findings: No erythema or rash. Neurological: Mental Status: He is alert and oriented to person, place, and time. ASSESSMENT/PLAN: (E11.9) Type 2 diabetes mellitus with hemoglobin A1c goal of less than 7.0% ([facility]) (primary encounter diagnosis) Plan: NovoLIN 70/30 FlexPen Relion (70-30) 100 UNIT/ML Suspension Pen-injector (Insulin NPH Isophane & Regular), HEMOGLOBIN A1C, BASIC METABOLIC PANEL Unclear why pt not receiving the Ozempic and Novolin. Narda aware and will meet with him today to discuss. Will check A1C as unclear what his sugars are running as he is not checking regularly. (E11.9) DM type 2 nursing care encounter ([facility]) Plan: TELEMEDICINE DIABETIC EYE, DIABETIC EYE EXAM Pt declines today. Encouraged to complete. (E11.42) Diabetic polyneuropathy associated with type 2 diabetes mellitus ([facility]) Plan: ALBUMIN / CREATININE RATIO, URINE Pt will complete urine. Will await results. (J44.9) COPD, group B, by GOLD 2017 classification ([facility]) Plan: Fluticasone Furoate 100 MCG/ACT Inhalation Aerosol Powder Breath Activated (ARNUITY ellipta) Inhaler sent. Pt encouraged to continue. (I50.32) Chronic diastolic CHF (congestive heart failure) ([facility]) I25.119) Coronary artery disease involving [place] coronary artery of [place] heart with angina pectoris ([facility]) Plan: Improved overall. Euvolemic today. Weight down. Encouraged to regularly take his lasix. Follow-up: 2 months Total time today including reviewing chart before the visit, pertinent labs, imaging reports, face to face time, and documentation time was 32 minutes. Jennie Mckoy DO * Jennifer Jeffers LPN - 02/11/2023 8:15 AM EDT Patient is not taking ozempic, ran out. Increased imdur on own from 15 to 30 mg On lasix, taking once daily--no additional. States over all feels not bad States fall about a week ago. Hurt left elbow and left shoulder. * Jennifer Jeffers LPN - 02/11/2023 8:06 AM EDT The importance of having a yearly diabetic eye exam has been discussed with patient. Order and/or Referral placed along with patient instructions. Provider made aware. Jennifer Jeffers LPN documented in this encounter Miscellaneous Notes * Addendum Note - Nimisha Nelson OSA - 02/15/2023 12:00 PM ESTAddended by: NIMISHA NELSON on: 02/15/2023 12:00 PM Modules accepted: Orders documented in this encounter Plan of Treatment Upcoming Encounters Date Type Department Care Team (Late st Contact Info) Description 04/14/2023 8:00 AM EST Office Visit Family Practice [facility] [address] [place] [address] Jennie Mckoy DO [address] [place] [address] 04/19/2023 8:00 AM EST Office Visit Cardiology, [facility] [address] [facility] [place] [address] Kermit Nunez PA-C [address] [facility] [place] [address] 10/29/2023 11:00 AM EDT Nurse Only Ancillary [address] [place] [address] College, Nurse Annual Wellness Visit [address] [address] Scheduled Orders Name Type Priority Associated Diagnoses Orde r Schedule ALBUMIN / CREATININE RATIO, URINE Lab Routine Diabetic polyneuropathy associated with type 2 diabetes mellitus (HCC) Expected: 02/11/2023 (Approximate), Expires: 02/12/2024 Scheduled Procedures Name Priority Associated Diagnoses Date/Ti [...] this encounter Medical Devices Implanted Type Area Tenter Device Identifier Shelf Expiration Date Model / Serial / Lot Marker [employer]ary [employer] [id number] Implanted:Qty: 1 on 08/16/2014 by Matt Saavedra MD at [facility] N/A: Aorta [employer] 06/09/2017 [facility] / / [id number] documented as of this encounter Procedures Procedure Name Priority Date/Time Associated Diagnosis Comments HEMOGLOBIN A1C Routine 02/11/2023 8:51 AM EDT Type 2 diabetes mellitus with hemoglobin A1c goal of less than 7.0% (HCC) BASIC METABOLIC PANEL Routine 02/11/2023 8:51 AM EDT Type 2 diabetes mellitus with hemoglobin A1c goal of less than 7.0% (HCC) documented in this encounter Results * (ABNORMAL) BASIC METABOLIC PANEL (02/11/2023 8:51 AM EDT) BUN 17 6 - 20 mg/dL 02/11/2023 2:37 PM EDT [facility] Creatinine 0.8 0.6 - 1.2 mg/dL 02/11/2023 2:37 PM EDT [facility] Estimated Glomerular Filtration Rate >90 >=60 mL/min 02/11/2023 2:37 PM EDT [facility] Comment:eGFR is calculated b ased on the CKD-EPI 2020 equation Sodium 137 135 - 146 mmol/L 02/11/2023 2:37 PM EDT [facility] Potassium 5.2(H) 3.5 - 5.1 mmol/L 02/11/2023 2:37 PM EDT [facility] Chloride 96(L) 98 - 107 mmol/L 02/11/2023 2:37 PM EDT [facility] CO2 32 22 - 32 mmol/L 02/11/2023 2:37 PM EDT [facility] Anion Gap 9 7 - 15 mmol/L 02/11/2023 2:37 PM EDT [facility] Glucose 218(H) 70 - 120 mg/dL 02/11/2023 2:37 PM EDT [facility] Calcium 9.3 8.4 - 10.2 mg/dL 02/11/2023 2:37 PM EDT [facility] Blood Venous blood specimen / Unknown Venipuncture / Unknown 02/11/2023 8:51 AM EDT 02/11/2023 8:51 AM EDT Jennie Mckoy DO LAB BLOOD ORDERABLES [facility] [address] [place] [address] * (ABNORMAL) HEMOGLOBIN A1C (02/11/2023 8:51 AM EDT) Hemoglobin A1C 9.2(H) 4.0 - 5.6 % 02/11/2023 2:39 PM EDT [facility] Comment:The use of HbA1c to monitor glycemic status is based on normal hemoglobin and HbA composition. This test should not be used in patients with abnormal hemoglobin that affects the half life of the red blood cell or the in vivo glycation rates. Estimated Average Glucose 217(H) <126 mg/dL 02/11/2023 2:39 PM EDT [facility] Blood Venous blood specimen / Unknown Venipuncture / Unknown 02/11/2023 8:51 AM EDT 02/11/2023 8:51 AM EDT Jennie Mckoy DO LAB BLOOD ORDERABLES Performing Organization Address City/State/[facility] Co de Phone Number LABORATORY [facility] [address] [place], [place] [id number] documented in this encounter Visit Diagnoses Diagnosis Type 2 diabetes mellitus with hemoglobin A1c goal of less than 7.0% (HCC)- Primary DM type 2 nursing care encounter (HCC) Type II or unspecified type diabetes mellitus without mention of complication, not stated as uncontrolled Diabetic polyneuropathy associated with type 2 diabetes mellitus (HCC) COPD, group B, by GOLD 2017 classification (HCC) Chronic diastolic CHF (congestive heart failure) (HCC) Chronic diastolic heart failure Coronary artery disease involving [place] coronary artery of [place] heart with angina pectoris (HCC) documented in this encounter Advance Directives [...] the patient have Health Care Power of [place] Boner? No Care Teams Clinical Supervisor Relationship Specialty Start Date End Date Jennie Mckoy DO [address] [place] [address] PCP - General Family Medicine 01/11/23 documented as of this encounter
--- OUTSIDE RECORDS SUMMARY | 2023-08-04 09:19 | External Medical Summary | Summary of Care ---
Author Name Unknown Organization [facility] Address [address] [place] [address] Phone [phone] Care Team Providers Care Credit Professional Name Role Phone Jennie Mckoy Primary Care Provider [phone] Reason for Visit * Reason Onset Date Comments Hyperglycemia 02/19/2023 Encounter Details Date Type Department Care Team (Late st Contact Info) Description 02/19/2023 Telephone Family Practice [address], [place] [address] [place] [address] Narda Prescott, [facility] [address] [place], [place] [id number] Hyperglycemia Allergies Active Allergy Reactions Criticality Noted Date Comments Rosuvastatin Calcium 09/13/2009 Lisinopril 05/07/2022 Hyperkalemia Simvastatin 01/08/2000 zocor (muscle cramps) documented as of this encounter (statuses as of 02/19/2023) Medications Medication Sig Dispensed Refills Start Date [...] 15 MINUTES 25 Tab 0 01/31/2020 Active Rita-Castella Heartburn 6181-6809 MG Oral Tablet Effervescent (Sodium Bicarbonate-Citric Acid)Indications:hea [...] Hour (toPROL XL)Indications:Coron george artery disease involving [place] coronary artery of campo heart with angina pectoris (HCC),Ischemic cardiomyopathy TAKE [...] Oral Tablet (Lipitor)Indications :Coronary artery disease involving campo coronary artery of campo heart without angina pectoris TAKE ONE TABLET BY MOUTH IN THE MORNING 90 Tablet 1 10/20/2022 10/20/2023 Active metFORMIN HCl ER 500 MG Oral Tablet Extended Release 24 Hour (Glucophage XR)Indications:Type 2 diabetes mellitus with hyperglycemia, with long-term current use of insulin ([facility]),Type 2 diabetes mellitus with hemoglobin A1c goal of less than 7.0% ([facility]) TAKE ONE TABLET BY MOUTH [...] g 1 11/06/2022 Active FreeStyle Renetta 2 [place] Device Use as directed. Supplied by [employer] 1 Each 0 12/22/2022 Active FreeStyle Renetta 2 Sensor Use as directed. Change every 14 days. Supplied by [employer] 0 12/22/2022 Active OneTouch Delica Lancets 33G Use 2 times a day 200 Each 1 12/22/2022 Active OneTouch Verio In Vitro Strip (Glucose Blood) Use 2 times a day 200 Strip 1 12/22/2022 Active Apixaban 5 MG Oral Tablet (Eliquis)Indications :Chronic deep vein thrombosis (DVT) of popliteal vein of left lower extremity ([facility]) Take 1 Tablet by mouth in the morning and 1 Tablet before bedtime. 200 Tablet 3 01/12/2023 Active Fluticasone Furoate 100 MCG/ACT Inhalation Aerosol Powder Breath Activated (ARNUITY ellipta)Indications: COPD, group B, by GOLD 2017 classification ([facility]) Inhale 1 Puff by mouth daily. 90 Each 3 02/11/2023 Active NovoLIN 70/30 FlexPen Relion (70-30) 100 UNIT/ML Suspension Pen-injector (Insulin NPH Isophane & Regular)Indications: Type 2 diabetes mellitus with hemoglobin A1c goal of less than 7.0% ([facility]) Inject 70 Units under the skin 2 times a day. 150 mL 3 02/11/2023 Active Ozempic (2 MG/DOSE) 8 MG/3ML Subcutaneous Solution Pen-injector (Semaglutide (2 MG/DOSE)) Inject 2 mg once weekly under the skin 9 mL 3 02/12/2023 Active Pen Lena 31G X 6 MM Use for novolin pen three times daily 300 Each 3 02/19/2023 Active documented as of this encounter (statuses as of 02/19/2023) Active Problems Problem Noted Date Diagnosed Date COPD, group B, by GOLD 2017 classification 06/22 Overview: Per COPD GOLD Classification Other pulmonary embolism without acute cor pulmo nale 05/04/2022 Diabetic polyneuropathy asso ciated with type 2 diabetes mellitus 05/04/2022 Aneurysm of ascending aorta without rupture 04/13 Atherosclerosis of coronary artery of campo heart with stable angina pectoris 05/04/2022 Current [...] disorder) 06/27/2018 Coronary artery disease invo lving campo coronary artery of campo heart with angina pectoris 07/26/2017 Chronic deep [...] as of this encounter (statuses as of 02/19/2023) Resolved Problems Problem Noted Date Diagnosed Date Resolved Date Chronic obstructive pulmonary disease 05/04/2022 06/24/2022 Overview: Per COPD GOLD Classification Status post amputation of right thumb 05/02/2018 06/27/2018 Morbid obesity with body mas s index (BMI) of 50.0 to 59.9 in adult 07/26/2017 05/02/2018 Coronary artery disease invo lving campo coronary artery of campo heart without angina pectoris 07/26/2017 05/02/2018 Amputation [...] as of this encounter (statuses as of 02/19/2023) Immunizations Name Administration Dates Next Due Pneumococcal [...] Miscellaneous Notes * Telephone Encounter - Narda Prescott, [facility] - 02/19/2023 10:09 AM EST Diabetes telephone follow - up 02/19/2023 Patient Phone Numbers - Reason for contacting patient: Patient calling in that sugars are high and novolin pens only go to 65 units. Also his sugar is 400 this morning after eating a sandwich. - Current diabetic medications: Metformin ER 500 mg twice daily Ozempic - Inject 2 mg under the skin once weekly (getting from PAP) - patient to fill and titrate back on 0.25mg for 2 weeks, 0.5mg for 2 weeks, 1mg for 2 weeks, then 2mg thereafter (clicks given to patient) - started today Novolin 70/30 - 75 units in the morning and 75 units before dinner (switch from Novolin vial to pendue to tremor) - patient reports pen only goes to 65 units Therapy Management Assessment/Plan: 1) Diabetes: Advised patient to give midday dose of 70/30 to make up for missing units and as we wait for ozempic to kick in. Also discussed with patient to avoid reusing needles. Sent in new script for mail order to have on hold. Metformin ER 500 mg twice daily Ozempic - Inject 2 mg under the skin once weekly (getting from PAP) - patient to fill and titrate back on 0.25mg for 2 weeks, 0.5mg for 2 weeks, 1mg for 2 weeks, then 2mg thereafter (clicks given to patient) - started today Novolin 70/30 - 65 units in the morning, 25 units midday, and 65 units before dinner (switch from Novolin vial to pen due to tremor) - pen only goes to 65 units Follow up in 5 days via phone to make sure sugars have come down. Narda Blue [facility], Pharm D Clinical Pharmacist Medication Therapy Management [facility] 02/19/2023, 10:12 AM documented in this encounter Plan of Treatment Upcoming Encounters Date Type Department Care Team (Late st Contact Info) Description 02/23/2023 11:10 AM EST Telemedicine Family Practice [address] [place] [address] [place], Pharmacist [address] [place] [address] 04/14/2023 8:00 AM EST Office Visit Family Practice [address] [place] [address] Jennie Mckoy DO 293 [place] [address] 04/19/2023 8:00 AM EST Office Visit Cardiology, [facility] 132 [facility] [facility] [place] [address] Kermit Nunez PA-C 132 [place] [address] 10/29/2023 11:00 AM EDT Nurse Only Ancillary [address] [place] [address] [place], Nurse Annual Wellness Visit [address] [place] [address] Scheduled Procedures Name Priority Associated Diagnoses Date/Ti [...] this encounter Medical Devices Implanted Type Area Biomedical Equipment Technician Device Identifier Shelf Expiration Date Model / Serial / Lot Marker Coronary Amgm-Sd - [id number] Implanted:Qty: 1 on 08/16/2014 by Matt Saavedra MD at OR [facility] [place] N/A: Aorta [employer] 06/09/2017 [facility] / / [id number] documented as of this encounter Visit Diagnoses Diagnosis Type 2 diabetes mellitus with hemoglobin A1c goal of less than 7.0% (HCC)- Primary documented in this encounter Advance Directives Latest Code Status on File Code Status Date Activated Date Inactivated Comments Full Code 08/16/2014 12:02 PM 08/22/2014 6:30 PM This order reflects the patients wishes and were consensually agreed upon. Code Status History Code Status Date Activated Date Inactivated Comments Full Code 08/14/2014 5:33 PM 08/16/2014 6:39 AM This o rder reflects the patients wishes and were consensually agreed upon. Question Answer Comments Discussion of Advance Directives occurred with: Patient Does the patient have a Living Will? No Does the patient have Health Care Power of Water Engineer? No Care Teams Credit Professional Relationship Specialty Start Date End Date Jennie Mckoy DO 293 [place] [address] PCP - General Family Medicine 01/11/23 documented as of this encounter
--- OUTSIDE RECORDS SUMMARY | 2023-08-04 09:19 | External Medical Summary | Summary of Care ---
Author Name Unknown Organization [facility] Address [address] [place] [address] Phone [phone] Care Team Providers Care Adaptive Physical Education Specialist Name Role Phone EanJennie Alexei CHRISTENSEN Primary Care Provider [phone] Reason for Visit * Reason Comments Dosage Adjustment Via Phone (anticoag Cl inic) Diabetes Follow-Up Encounter Details Date Type Department Care Team (Late st Contact Info) Description 02/23/2023 11:10 AM EST Telemedicine Family Practice [address] [address] College, Pharmacist [address] [address] Type 2 diabetes mellitus with hemoglobin A1c goal of less than 7.0% ([facility])* Allergies Active Allergy Reactions Criticality Noted Date Comments Rosuvastatin Calcium 09/13/2009 Lisinopril 05/07/2022 Hyperkalemia Simvastatin 01/08/2000 zocor (muscle cramps) documented as of this encounter (statuses as of 02/24/2023) Medications Medication Sig Dispensed Refills Start Date [...] MINUTES 25 Tab 0 01/31/2020 Active Rita-[place] Heartburn 3945-9560 MG Oral Tablet Effervescent (Sodium Bicarbonate-Citric Acid)Indications:he [...] Hour (toPROL XL)Indications:Ariella nary artery disease involving [place] coronary artery of [place] heart with angina pectoris (HCC),Ischemic cardiomyopathy TAKE [...] Oral Tablet (Lipitor)Indication s:Coronary artery disease involving [place] coronary artery of [place] heart without angina pectoris TAKE ONE TABLET [...] g 1 11/06/2022 Active FreeStyle Renetta 2 [place] Device Use as directed. Supplied by [employer] 1 Each 0 12/22/2022 Active FreeStyle Renetta 2 Sensor Use as directed. Change every 14 days. Supplied by [employer] 0 12/22/2022 Active OneTouch Delica Lancets [...] of less than 7.0% ([facility]) Inject 70 Units under the skin 2 times a day. 150 mL 3 02/11/2023 Active Ozempic (2 MG/DOSE) 8 MG/3ML Subcutaneous Solution Pen-injector (Semaglutide (2 MG/DOSE)) Inject 2 mg once weekly under the skin 9 mL 3 02/12/2023 Active Insulin Pen Needle 31G X 8 MM Use as directed. Use three times a day with insulin pen 300 Each 3 02/23/2023 Active Pen [place] 31G X 6 MM Use for novolin pen three times daily 300 Each 3 02/19/2023 3 Discontinue d(Medicatio n/Dose Changed) documented as of this encounter (statuses as of 02/24/2023) Active Problems Problem Noted Date Diagnosed Date COPD, group B, by GOLD 2017 classification 06/22 Overview: Per COPD GOLD Classification Other pulmonary embolism without acute cor pulmo nale 05/04/2022 Diabetic polyneuropathy asso ciated with type 2 diabetes mellitus 05/04/2022 Aneurysm of ascending aorta without rupture 04/13 Atherosclerosis of coronary artery of [place] heart with stable angina pectoris 05/04/2022 Current [...] disorder) 06/27/2018 Coronary artery disease invo lving [place] coronary artery of [place] heart with angina pectoris 07/26/2017 Chronic deep [...] as of this encounter (statuses as of 02/24/2023) Resolved Problems Problem Noted Date Diagnosed Date Resolved Date Chronic obstructive pulmonary disease 05/04/2022 06/24/2022 Overview: Per COPD GOLD Classification Status post amputation of right thumb 05/02/2018 06/27/2018 Morbid obesity with body mas s index (BMI) of 50.0 to 59.9 in adult 07/26/2017 05/02/2018 Coronary artery disease invo lving [place] coronary artery of [place] heart without angina pectoris 07/26/2017 05/02/2018 Amputation [...] as of this encounter (statuses as of 02/24/2023) Immunizations Name Administration Dates Next Due Pneumococcal [...] of this encounter Progress Notes * Narda Prescott, [facility] - 02/23/2023 11:12 AM EST Diabetes telephone follow - up 02/23/2023 Patient Phone Numbers - Reason for contacting patient: Patient calling in with continued hyperglycemia. After discussing with him, he's convinced that it is because his needles are too small. He reports he used his syringes from vials previously and isaías the insulin out of the pen and that worked better. Patient also questioning that he's getting vastly different readings depending on what finger he uses - swings of nearly 100 points different in SBMG. - Current diabetic medications: Metformin ER 500 [...] - pen only goes to 65 units Hemoglobin AIC Results: Lab Results Component Value Date/Time HEMOGLOBIN A1C - [facility] 9.2 (H) 02/11/2023 08:51 AM HEMOGLOBIN A1C - [facility] 7.7 (H) 10/26/2022 11:42 AM HEMOGLOBIN A1C - [facility] 7.2 (H) 05/04/2022 09:41 AM HEMOGLOBIN A1C - [facility] 9.7 (H) 01/30/2020 08:31 AM HEMOGLOBIN A1C - [facility] 8.6 (H) 10/11/2019 09:17 AM HEMOGLOBIN A1C - [facility] 8.2 (H) 11/23/2018 08:25 AM Therapy Management Assessment/Plan: 1) Diabetes:Discussed with patient proper testing technique as well as to avoid reusing needles which we had discussed. Also ordered new needles for patient - largest available and had them overnighted from mail order. Follow up in 2 days for dexcom placement. PAtient to have his granddaughter help him with the nickie ahead of time. Narda Blue [facility], Pharm D Clinical Pharmacist Medication Therapy Management Clinic 02/23/2023, 11:12 AM documented in this encounter Plan of Treatment Upcoming Encounters Date Type Department Care Team (Late st Contact Info) Description 02/25/2023 10:30 AM EST Office Visit Family Practice [address] [place] [address] [facility] [address] [place], Pharmacist [address] [address] 04/14/2023 8:00 AM EST Office Visit Family Practice 65 [facility] 293 [facility] [address] Jennie [facility]ckoy DO [facility] [address] 04/19/2023 8:00 AM EST Office Visit Cardiology, [facility] 132 [facility] [place] [address] Kermit Nunez PA-C [address] [place] [address] 10/29/2023 11:00 AM EDT [facility] Only [facility] 293 [place] [address] College, Nurse Annual Wellness Visit [address] [facility] 293 [facility], [place] [address] Scheduled Procedures Name Priority Associated Diagnoses Date/Ti [...] this encounter Medical Devices Implanted Type Area Transfer Coordinator Device Identifier Shelf Expiration Date Model / Serial / Lot Marker [facility]ary [facility] [id number] Implanted:Qty: 1 on 08/16/2014 by [place] Saaved[place] [facility] [place]A: Aorta [employer] 06/09/2017 [facility] / / [id number] documented as of this encounter Visit Diagnoses Diagnosis Type 2 diabetes mellitus with hemoglobin A1c goal of less than 7.0% ([facility])- Primary documented in this encounter Advance Directives [...] patient have Health Care Power of Assistant Project Manager? No Care Teams Adaptive Physical Education Specialist Relationship Specialty Start Date End Date Jennie Mckoy DO 293 [place] [address] PCP - General Family Medicine 01/11/23 documented as of this encounter
--- OUTSIDE RECORDS SUMMARY | 2023-08-04 09:19 | External Medical Summary | Summary of Care ---
Author Name Unknown Organization [facility] Address [address] [place] [address] Phone [phone] Care Team Providers Care Spiritual Counselor Name Role Phone Jennie Mckoy Primary Care Provider [phone] Reason for Visit * Reason Onset Date Comments Hyperglycemia 02/19/2023 Encounter Details Date Type Department Care Team (Late st Contact Info) Description 02/19/2023 Telephone Family Practice [address], [place] [address] [place] [address] Narda Prescott, [facility] [address] [place], [place] [id number] Hyperglycemia Allergies Active Allergy Reactions Criticality Noted [...] 15 MINUTES 25 Tab 0 01/31/2020 Active Rita-Kimper Heartburn 7343-4157 MG Oral Tablet Effervescent (Sodium Bicarbonate-Citric Acid)Indications:hea [...] Hour (toPROL XL)Indications:Coron george artery disease involving [place] coronary artery of [place] heart with angina pectoris (HCC),Ischemic cardiomyopathy [...] Oral Tablet (Lipitor)Indications :Coronary artery disease involving [place] coronary artery of [place] heart without angina pectoris TAKE ONE TABLET BY MOUTH IN THE MORNING 90 Tablet 1 10/20/2022 10/20/2023 Active metFORMIN HCl ER 500 MG Oral Tablet Extended Release 24 Hour (Glucophage XR)Indications:Type 2 diabetes mellitus with hyperglycemia, with long-term current use of insulin ([facility]),Type 2 diabetes mellitus with hemoglobin A1c goal of less than 7.0% ([facility]) TAKE ONE TABLET BY MOUTH TWICE [...] g 1 11/06/2022 Active FreeStyle Renetta 2 [place] Device Use as directed. Supplied by [employer] 1 Each 0 12/22/2022 Active FreeStyle Renetta 2 Sensor Use as directed. Change every 14 days. Supplied by [employer] 0 12/22/2022 Active OneTouch Delica Lancets 33G Use 2 times a day 200 Each 1 12/22/2022 Active OneTouch Verio In Vitro Strip (Glucose Blood) Use 2 times a day 200 Strip 1 12/22/2022 Active Apixaban 5 MG Oral Tablet (Eliquis)Indications :Chronic deep vein thrombosis (DVT) of popliteal vein of left lower extremity ([facility]) Take 1 Tablet by mouth in the morning and 1 Tablet before bedtime. 200 Tablet 3 01/12/2023 Active Fluticasone Furoate 100 MCG/ACT Inhalation Aerosol Powder Breath Activated (ARNUITY ellipta)Indications: COPD, group B, by GOLD 2017 classification ([facility]) Inhale 1 Puff by mouth daily. 90 Each 3 02/11/2023 Active NovoLIN 70/30 FlexPen Relion (70-30) 100 UNIT/ML Suspension Pen-injector (Insulin NPH Isophane & Regular)Indications: Type 2 diabetes mellitus with hemoglobin A1c goal of less than 7.0% ([facility]) Inject 70 Units under the skin 2 times a day. 150 mL 3 02/11/2023 Active Ozempic (2 MG/DOSE) 8 MG/3ML Subcutaneous Solution Pen-injector (Semaglutide (2 MG/DOSE)) Inject 2 mg once weekly under the skin 9 mL 3 02/12/2023 Active Pen [place] 31G X 6 MM Use for novolin [...] rupture 04/13 Atherosclerosis of coronary artery of [place] heart with stable angina pectoris 05/04/2022 [...] disorder) 06/27/2018 Coronary artery disease invo lving [place] coronary artery of [place] heart with angina pectoris 07/26/2017 Chronic [...] 07/26/2017 05/02/2018 Coronary artery disease invo lving [place] coronary artery of ki[place] tribe heart without angina pectoris 07/26/2017 05/02/2018 [...] Miscellaneous Notes * Telephone Encounter - Jennie Mckoy DO - 02/19/2023 10:59 AM EST Noted. * Telephone Encounter - Narda Prescott [facility] - 02/19/2023 10:09 AM EST Diabetes telephone [...] sure sugars have come down. Narda Blue [facility], Pharm D Clinical Pharmacist Medication Therapy Management Clinic 02/19/2023, 10:12 AM documented in this encounter Plan of Treatment Upcoming Encounters Date Type Department Care Team (Late st Contact Info) Description 02/23/2023 11:10 AM EST Telemedicine Family Practice 65 [facility] 293 [place] [place] [address] College, Pharmacist [address] [address] 04/14/2023 8:00 AM EST Office Visit Family Practice 65 [facility] 293 [place] [place] [address] Jennie Mckoy DO 293 [place] [address] 04/19/2023 8:00 AM EST Office Visit Cardiology, [facility] [address] [place] [place] [address] Kermit Nunez PA-C [address] [place] [address] 10/29/2023 11:00 AM EDT Nurse Only Ancillary 65 [facility] 293 [place] [address] College, Nurse Annual Wellness Visit [address] [facility] 293 [facility] [place] [address] Scheduled Procedures Name Priority Associated Diagnoses Date/Ti [...] this encounter Medical Devices Implanted Type Area Sifter Operator Device Identifier Shelf Expiration Date Model / Serial / Lot Marker [facility]ary [facility] [id number] Implanted:Qty: 1 on 08/16/2014 by Matt Saavedra MD at OR [facility] [place] N/A: Aorta [employer] 06/09/2017 [facility] / / [id number] documented as of this encounter Visit Diagnoses Diagnosis Type 2 diabetes mellitus with hemoglobin A1c goal of less than 7.0% ([facility])- Primary documented in this encounter Advance Directives [...] the patient have Health Care Power of Resin Shaver? No Care Teams Spiritual Counselor Relationship Specialty Start Date End Date Jennie Mckoy DO [address] [place] [address] PCP - General Family Medicine 01/11/23 documented as of this encounter
--- OUTSIDE RECORDS SUMMARY | 2023-08-04 09:20 | External Medical Summary | Summary of Care ---
Author Name Unknown Organization [facility] Address [address] [place] [address] Phone [phone] Care Team Providers Care Judo Instructor Name Role Phone Jennie Mckoy DO Primary Care Provider Reason for Visit * Reason Onset Date Comments Test Results 02/12/2023 Encounter Details Date Type Department Care Team (Late st Contact Info) Description 02/12/2023 Telephone Family Practice 65 [facility], [place] [address] [place] [id number] Jennie Mckoy DO [address] [place] [address] Test Results Allergies Active Allergy Reactions Criticality Noted Date [...] 15 MINUTES 25 Tab 0 01/31/2020 Active Rita-[place] Heartburn 0711-1854 MG Oral Tablet Effervescent (Sodium Bicarbonate-Citric Acid)Indications:he [...] Hour (toPROL XL)Indications:Ariella nary artery disease involving cabazon coronary artery of cabazon heart with angina pectoris (HCC),Ischemic cardiomyopathy TAKE [...] Oral Tablet (Lipitor)Indication s:Coronary artery disease involving cabazon coronary artery of cabazon heart without angina pectoris TAKE ONE TABLET BY MOUTH IN THE MORNING 90 Tablet 1 10/20/2022 4 Active metFORMIN HCl ER 500 MG Oral Tablet Extended Release 24 Hour (Glucophage XR)Indications:Type 2 diabetes mellitus with hyperglycemia, with long-term current use of insulin ([facility]),Type 2 diabetes mellitus with hemoglobin A1c goal of less than 7.0% ([facility]) TAKE ONE TABLET BY MOUTH [...] g 1 11/06/2022 Active FreeStyle Renetta 2 Mullin Device Use as directed. Supplied by Like[employer] 1 Each 0 12/22/2022 Active FreeStyle Renetta 2 Sensor Use as directed. Change every 14 days. Supplied by [employer] 0 12/22/2022 Active OneTouch Delica Lancets 33G Use 2 times a day 200 Each 1 12/22/2022 Active OneTouch Verio In Vitro Strip (Glucose Blood) Use 2 times a day 200 Strip 1 12/22/2022 Active Apixaban 5 MG Oral Tablet (Eliquis)Indication s:Chronic deep vein thrombosis (DVT) of popliteal vein of left lower extremity ([facility]) Take 1 Tablet by mouth in the morning and 1 Tablet before bedtime. 200 Tablet 3 01/12/2023 Active Fluticasone Furoate 100 MCG/ACT Inhalation Aerosol Powder Breath Activated (ARNUITY ellipta)Indications :COPD, group B, by GOLD 2017 classification ([facility]) Inhale 1 Puff by mouth daily. 90 Each 3 02/11/2023 Active NovoLIN 70/30 FlexPen Relion (70-30) 100 UNIT/ML Suspension Pen-injector (Insulin NPH Isophane & Regular)Indications :Type 2 diabetes mellitus with hemoglobin A1c goal of less than 7.0% ([facility]) Inject 70 Units under the skin 2 times a day. 150 mL 3 02/11/2023 Active Ozempic (2 MG/DOSE) 8 MG/3ML Subcutaneous Solution Pen-injector (Semaglutide (2 MG/DOSE)) Inject 2 mg once weekly under the skin 9 mL 3 02/12/2023 Active Ozempic (2 MG/DOSE) 8 MG/3ML Subcutaneous Solution Pen-injector (Semaglutide (2 MG/DOSE)) Inject 2 mg once weekly under the skin (getting from clay washer) 12 mL 3 05/04/2022 3 Discontinue d(Refill) documented as of this encounter (statuses as of 02/12/2023) Active Problems Problem Noted Date Diagnosed Date COPD, group B, by GOLD 2017 classification 06/22 Overview: Per COPD GOLD Classification Other pulmonary embolism without acute cor pulmo nale 05/04/2022 Diabetic polyneuropathy asso ciated with type 2 diabetes mellitus 05/04/2022 Aneurysm of ascending aorta without rupture 04/13 Atherosclerosis of coronary artery of cabazon heart with stable angina pectoris 05/04/2022 Current [...] disorder) 06/27/2018 Coronary artery disease invo lving cabazon coronary artery of cabazon heart with angina pectoris 07/26/2017 Chronic deep [...] 07/26/2017 05/02/2018 Coronary artery disease invo lving cabazon coronary artery of cabazon heart without angina pectoris 07/26/2017 05/02/2018 Amputation [...] Telephone Encounter - Narda Prescott RPh - 02/12/2023 5:00 PM EDT Ozempic will be $212. PAtient okay'd that. Will titrate back on to the medication: 0.25mg x 2 weeks (10 clicks) 0.5mg x 2 weeks (19 clicks) 1mg x 2 weeks (37 clicks) Then restart 2mg thereafter. Narda Akins, Pharm D, BCACP Clinical Pharmacist [address] [facility] 02/12/2023, 5:01 PM Ph. [phone] * Telephone Encounter - Jennie Mckoy DO - 02/12/2023 4:41 PM EDT Rx sent. * Telephone Encounter - Narda Prescott RPh - 02/12/2023 4:40 PM EDT Pended ozempic to PCP. * Telephone Encounter - Jennifer Jeffers LPN - 02/12/2023 2:19 PM EDT Patient states he has a decrease in activity, has been eating life savers. Is not using ozempic, doesn't have it. Narda do you know how much the ozempic would be thru the mail order? Thank you * Telephone Encounter - Jennie Mckoy DO - 02/12/2023 8:18 AM EDT Please let pt know: 1. His A1C has gone up significantly and is now not controlled. 2. He needs to be checking his sugars regularly. 3. He needs to be sure he is getting the Ozempic and insulin regularly. This is all very important for him to do. documented in this encounter Plan of Treatment Upcoming Encounters Date Type Department Care Team (Late st Contact Info) Description 04/14/2023 8:00 AM EST Office Visit Family Practice 65 [facility] [address] [place] [address] Jennie Mckoy DO [address] [place] [address] 04/19/2023 8:00 AM EST Office Visit Cardiology, [facility] [address] [place] [address] Kermit Nunez PA-C [address] [place] [address] 10/29/2023 11:00 AM EDT Nurse Only Ancillary 65 [facility] [address] [facility], [place] [address] College, Nurse Annual Wellness Visit [address] [facility] [place] [address] Scheduled Procedures Name Priority Associated Diagnoses Date/Ti [...] 08/21/2020, Additional history exists HbA1c 08/12/2023 02/11/2023, 07/1 10/2022, 05/04/2022, Additional history exists GFR 02/12/2024 [...] this encounter Medical Devices Implanted Type Area Breaker Machine Operator Device Identifier Shelf Expiration Date Model / Serial / Lot Marker [facility] [id number] Implanted:Qty: 1 on 08/16/2014 by Matt Saavedra MD at OR [facility] [place] [place] N/A: Aorta [employer] 06/09/2017 [facility] / / [id number] documented as of this encounter Visit Diagnoses Diagnosis Type 2 diabetes mellitus with hemoglobin A1c goal of less than 7.0% ([facility])- Primary documented in this encounter Advance [...] the patient have Health Care Power of Copy Cutter? No Care Teams Judo Instructor Relationship Specialty Start Date End Date Jennie Mckoy DO [address] [place] [address] PCP - General Family Medicine 01/11/23 documented as of this encounter
--- OUTSIDE RECORDS SUMMARY | 2023-08-04 09:20 | External Medical Summary ---
Author Name Unknown Address Unknown Organization [id number]:[facility] [place] [address] [place] [address] Laboratory Report Ordering Provider Test Date Status DEIRDRE RAO 02/11/2023 08:51:56 Final Observation Date Value Abnormality Reference (Units ) Status BUN 02/11/2023 08:51:56 17 6-20 (mg/dL) Final Creatinine 02/11/2023 08:51:56 0.8 0.6-1.2 (mg/dL) Final Glomerular filtration rate/1.73 sq M.predicted [Volume Rate/Area] in Serum, Plasma or Blood by Creatinine-based formula (CKD-EPI) 02/11/2023 08:51:56 >90 >=60 (mL/min) Final eGFR is calculated based on the CKD-EPI 2020 equation SODIUM 02/11/2023 08:51:56 137 135-146 (m mol/L) Final Potassium 02/11/2023 08:51:56 5.2 Above high normal 3. 5-5.1 (mmol/L) Final Cl 02/11/2023 08:51:56 96 Below low normal 98- 107 (mmol/L) Final CO2 02/11/2023 08:51:56 32 22-32 (mmo l/L) Final Anion gap 02/11/2023 08:51:56 9 7-15 (mmol /L) Final Glucose 02/11/2023 08:51:56 218 Above high normal 70 -120 (mg/dL) Final Calcium 02/11/2023 08:51:56 9.3 8.4-10.2 ( mg/dL) Final Performing Location [facility] [place] [address] [place] [address]
--- OUTSIDE RECORDS SUMMARY | 2023-08-04 09:20 | External Medical Summary | Summary of Care ---
Author Name Unknown Organization [facility] Address [address] [place] [address] Phone [phone] Care Team Providers Care Fusion Operator Name Role Phone Jennie Mckoy DO Primary Care Provider [phone] Reason for Visit * Reason Comments Follow Up Encounter Details Date Type Department Care Team (Latest Contact Info) Description 02/11/2023 8:00 AM EDT Office Visit Family Practice 65 [facility], [place] [address] [place] [address] Jennie Mckoy DO [address] [place] [address] Type 2 diabetes mellitus with hemoglobin A1c goal of less than 7.0% ([facility])*; DM type 2 nursing care encounter ([facility]); Diabetic polyneuropathy associated with type 2 diabetes mellitus ([facility]); COPD, group B, by GOLD 2017 classification ([facility]); Chronic diastolic CHF (congestive heart failure) ([facility]); 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 0 Active CPAP every night at bedtime. 0 Active Respiratory Therapy Supplies Device Use as directed. AutoPAP 10-15 cm at bedtime daily 0 Active Voltafield TechnologyTouch Verio Reflect w/Device Kit Use as directed . Test Blood sugar up to 3 times daily 1 Kit 0 09/04/2021 Active Acetaminophen ER 650 MG Oral Tablet Extended Release Take 1 Tablet by mouth every 8 hours as needed. 0 Active Ozempic (2 MG/DOSE) 8 MG/3ML Subcutaneous Solution Pen-injector (Semaglutide (2 MG/DOSE)) Inject 2 mg once weekly under the skin (getting from siebel administrator) 12 mL 3 05/04/2022 Active ProAir HFA 108 (90 Base) MCG/ACT [...] Hour (toPROL XL)Indications:Ariella nary artery disease involving la posta coronary artery of la posta heart with angina pectoris (HCC),Ischemic cardiomyopathy TAKE [...] Oral Tablet (Lipitor)Indication s:Coronary artery disease involving la posta coronary artery of la posta heart without angina pectoris TAKE ONE TABLET [...] g 1 11/06/2022 Active FreeStyle Renetta 2 Tyler Device Use as directed. Supplied by [employer] 1 Each 0 12/22/2022 Active FreeStyle Renetta 2 Sensor Use as directed. Change every 14 days. Supplied by [employer] 0 12/22/2022 Active OneTouch Delica Lancets 33G [...] less than 7.0% ([facility]) Inject 60 units in the morning and 70 units in the evening before meals (getting through siebel administrator) 150 mL 3 02/11/2023 Active Fluticasone Furoate 100 MCG/ACT Inhalation Aerosol [...] in the evening before meals (getting through siebel administrator) 150 mL 3 05/04/2022 3 Discontinue d(Refill) Fluticasone Furoate 100 MCG/ACT Inhalation Aerosol Powder Breath Activated (ARNUITY ellipta) INHALE 1 PUFF BY MOUTH EVERY MORNING 90 Each 3 03/12/2022 3 Discontinue d(Refill) documented as of this encounter (statuses as of 02/11/2023) Active Problems Problem Noted Date Diagnosed Date COPD, group B, by GOLD 2017 classification 06/22 Overview: Per COPD GOLD Classification Other pulmonary embolism without acute cor pulmo nale 05/04/2022 Diabetic polyneuropathy asso ciated with type 2 diabetes mellitus 05/04/2022 Aneurysm of ascending aorta without rupture 04/13 Atherosclerosis of coronary artery of la posta heart with stable angina pectoris 05/04/2022 Current [...] disorder) 06/27/2018 Coronary artery disease invo lving la posta coronary artery of la posta heart with angina pectoris 07/26/2017 Chronic deep [...] as of this encounter (statuses as of 02/11/2023) Resolved Problems Problem Noted Date Diagnosed Date Resolved Date Chronic obstructive pulmonary disease 05/04/2022 06/24/2022 Overview: Per COPD GOLD Classification Status post amputation of right thumb 05/02/2018 06/27/2018 Morbid obesity with body mas s index (BMI) of 50.0 to 59.9 in adult 07/26/2017 05/02/2018 Coronary artery disease invo lving la posta coronary artery of la posta heart without angina pectoris 07/26/2017 05/02/2018 Amputation [...] as of this encounter (statuses as of 02/11/2023) Immunizations Name Administration Dates Next Due Pneumococcal [...] Patient Instructions * Patient Instructions* Jennifer Jeffers, PELTS SKINNER - 02/11/2023 8:12 AM EDT Dear Brijesh Pérez Jr., The care of your Diabetes is very important to us. A yearly diabetic eye exam is important to protect your vision. If youre getting an eye exam done outside of [facility] please tell your Eye Doctor to fax or mail us the results of your Diabetic Eye Exam at your next visit. Our Address and Fax Number are listed below to help. Thank you for helping us to improve your Diabetes Care Our Office Address and Fax Number: Jennie Mckoy, DO Family Practice [address], [address] [address] Diabetic Retinopathy: Evaluating Your Eyes Diabetic retinopathy [...] information about this test. Date Last Reviewed: 09/11/[id number] The [employer]. [address] [place] [address]. All rights reserved. This information is not [...] states that he ran out through the siebel administrator with his Ozempic. 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 ([facility])I25.119 Morbid obesity with body mass index (BMI) of 45.0 to 49.9 in adult ([facility]) E66.01, Z68.42 History of amputation of right thumb Z89.011 Ischemic cardiomyopathy I25.5 CESAR (generalized anxiety disorder) F41.1 History of pulmonary embolus (PE) Z86.711 Aortic root dilatation ([facility]) I77.810 Hypertensive heart disease without congestive heart failure I11.9 Major depressive disorder, single episode, unspecified F32.9 Claustrophobia F40.240 Chronic diastolic CHF (congestive heart failure) ([facility]) I50.32 Restrictive lung disease J98.4 Current moderate episode of major depressive disorder without prior episode ([facility]) F32.1 Other pulmonary embolism without acute cor pulmonale ([facility]) I26.99 Diabetic polyneuropathy associated with type 2 diabetes mellitus ([facility]) E11.42 Aneurysm of ascending aorta without rupture ([facility]) I71.21 Atherosclerosis of coronary artery of la posta heart with stable angina pectoris ([facility]) I25.118 COPD, group B, by GOLD 2017 classification ([facility]) J44.9 Current Outpatient Medications Medication Sig Dispense Refill aspirin 81 MG chewable tablet Take 1 Tablet by mouth in the morning. 60 Tab 0 Nitroglycerin 0.4 MG Sublingual Tablet Sublingual (NITROSTAT) DISSOLVE ONE TABLET UNDER THE TONGUE EVERY 5 MINUTES NEEDED FOR CHEST PAIN. DO NOT EXCEED A TOTAL OF 3 DOSES IN 15 MINUTES 25 Tab 0 Rita-Brinson Heartburn 7912-7293 MG Oral Tablet Effervescent (Sodium Bicarbonate-Citric Acid) Take by mouth once . CPAP every night at bedtime. Acetaminophen ER 650 MG Oral Tablet Extended Release Take 1 Tablet by mouth every 8 hours as needed. Ozempic (2 MG/DOSE) 8 MG/3ML Subcutaneous Solution Pen-injector (Semaglutide (2 MG/DOSE)) Inject 2 mg once weekly under the skin (getting from siebel administrator) 12 mL 3 ProAir HFA 108 (90 [...] in the evening before meals (getting through siebel administrator) 150 mL 3 Fluticasone Furoate 100 MCG/ACT Inhalation Aerosol Powder Breath Activated (ARNUITY ellipta) Inhale1 Puff by mouth daily. 90 Each 3 Respiratory Therapy Supplies Device Use as directed. AutoPAP 10-15 cm at bedtime daily OneTouch Verio Reflect w/Device Kit Use as directed . Test Blood sugar up to 3 times daily 1 Kit 0 FreeStyle Renetta 2 Tyler Device Use as directed. Supplied by [employer] 1 Each 0 FreeStyle Renetta 2 Sensor Use as directed. Change every 14 days. Supplied by [employer] Delica Lancets 33G Use 2 times a day 200 Each 1 Voltafield TechnologyToLysanda Ver[employer] In Vitro Strip (Glucose Blood) Use 2 [...] GRAFT performed by Matt Saavedra MD at [facility] CABG, ARTERY-VEIN, TWO 08/16/2014 08/16/2014 CORONARY ARTERY BYPASS GRAFT ARTERIAL AND VENOUS 2 GRAFTS performed by Matt Saavedra MD at [facility] COLONOSCOPY THRU STOMA, W/BIOPSY 02/25/2009 adenomatous/repeat colonoscopyi n 5 yrs COLONOSCOPY, DIAGNOSTIC (RECTUM) N/A 12/13/2015 adeno polyp, 5 yr recall, COLONOSCOPY FLEXIBLE PROXIMAL DIAGNOSTIC performed by Makayla Wilkinson OR [facility] COLONOSCOPY, DIAGNOSTIC (RECTUM) N/A 03/26/2022 moderate diverticulosis/hemorrhoids/recall 5 years/Colonoscopy/[facility] EGD, FLEXIBLE,W/ENDOSCOPIC US 04/26/2020 gallstones, gastritis, hiatal hernia / [facility] EGD, W/ENDOSCOPIC US N/A 03/25/2020 ESOPHAGOGASTRODUODENOSCOPY (EGD), FLEXIBLE, TRANSORAL, ENDOSCOPIC ULTRASOUND performed by Samina Nix DO at ENDOSCOPY [facility],VIDEO ASSIST HARVEST LINDA Right 08/16/2014 ENDOSCOPY VIDEO ASSISTED HARVEST VEIN performed by Matt Saavedra MD at [facility] ERCP, DIAGNOSTIC, SPECIMEN COLLECTION N/A 03/25/2020 ENDOSCOPIC RETROGRADE CHOLANGIOPANCREATOGRAPHY (ERCP) DIAGNOSTIC performed by Samina Nix DO at ENDOSCOPY [facility] FRACTURE NOS Left 04/12/1999 left lower leg- fx both bones INFORMATION Left 04/12/2001 replace plate, left fibula- roeshot KNEE ARTHROSCOPY, DIAGNOSTIC 04/12/1996 Knee Arthroscopy SHOULDER SUBQ TUMOR REMOVAL, UNDER 3 CM Left 12/11/2015 EXCISION SOFT TISSUE TUMOR SHOULDER SUBCUTANEOUS performed by Aram Pedroza MD at OR [facility] TMT FEM FX PROSTH REPL Right 04/12/1969 [...] Mo at age 64 CA ovary Fa VA, CABG, smoker, cancer throat Sis Alive Sis Alive Bro Alive DM, [place] Jarek Alive Jarek Alive Son Alive Other [...] less than 7.0% ([facility]) (primary encounter diagnosis) Plan: NovoLIN 70/30 FlexPen [...] (E11.9) DM type 2 nursing care encounter ([facility]) Plan: TELEMEDICINE DIABETIC EYE, DIABETIC EYE EXAM Pt declines today. Encouraged to complete. (E11.42) Diabetic polyneuropathy associated with type 2 diabetes mellitus ([facility]) Plan: ALBUMIN / CREATININE RATIO, URINE Pt will complete urine. Will await results. (J44.9) COPD, group B, by GOLD 2017 classification ([facility]) Plan: Fluticasone Furoate 100 MCG/ACT Inhalation Aerosol Powder Breath Activated (ARNUITY ellipta) Inhaler sent. Pt encouraged to continue. 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 Euvolemic today. Weight down. [...] Jennifer Jeffers LPN documented in this encounter Plan of Treatment Upcoming Encounters Date Type Department Care Team (Late st Contact Info) Description 04/19/2023 8:00 AM EST Office Visit Cardiology, [facility] [address] [place] [address] Kermit Nunez PA-C [address] [place] [address] 10/29/2023 11:00 AM EDT Nurse Only Ancillary 65 [facility] [place] [address] [place] [address] College, Nurse Annual Wellness Visit [address], [place] [address] Pending Results Name Type Priority Associated Diagnoses Date /Time HEMOGLOBIN A1C Lab Routine Type 2 diabetes mellitus with hemoglobin A1c goal of less than 7.0% (HCC) 02/11/2023 8:51 AM EDT BASIC METABOLIC PANEL Lab Routine Type 2 diabetes mellitus with hemoglobin A1c goal of less than 7.0% (HCC) 02/11/2023 8:51 AM EDT Scheduled Orders Name Type Priority Associated Diagnoses Orde r Schedule ALBUMIN / CREATININE RATIO, URINE Lab Routine Diabetic polyneuropathy associated with type 2 diabetes mellitus (HCC) Expected: 02/11/2023 (Approximate), Expires: 02/12/2024 HEMOGLOBIN A1C Lab Routine Type 2 diabetes mellitus with hemoglobin A1c goal of less than 7.0% (HCC) Expected: 02/11/2023 (Approximate), Expires: 02/11/2024 BASIC METABOLIC PANEL Lab Routine Type 2 diabetes mellitus with hemoglobin A1c goal of less than 7.0% (HCC) Expected: 02/11/2023 (Approximate), Expires: 02/11/2024 Scheduled Procedures Name Priority Associated Diagnoses Date/Ti me COLONOSCOPY FLEXIBLE PROXIMAL DIAGNOSTIC Recall History of colon polyps Health Maintenance Due Date Last Done Comments COVID-19 Vaccine (#1) 01/25/1955 Alpha-1 Antitrypsin 01/25/1970 Hepatitis B (1 of 3 - Risk 3-dose series) 2012 Diabetic Eye Exam 04/09/2022 04/09/2021, , 09/21/2018, Additional history exists HbA1c 04/28/2023 10/26/2022, 04/13, 12/02/2021, Additional history exists Albumin/Creatinine Ratio 05/04/2023 023, 07/10/2021, 05/02/2018, Additional history exists Diabetic Foot Exam 08/04/2023 08/03/2022, 0 10/28/2021, 08/21/2020, Additional history exists Depression Screening 01/12/2024 01/11/2023 GFR 01/13/2024 01/12/2023, 10/10, 05/04/2022, Additional history exists O2 ASSESSMENT COMPLETED IN PAST YEAR FOR COPD 2024 01/25/2023 COLONOSCOPY-EVERY 5 YRS AGES 18-100 03/26/2027 03/26/2022, [...] this encounter Medical Devices Implanted Type Area Taffy Puller Device Identifier Shelf Expiration Date Model / Serial / Lot Marker Coronary [facility] - [id number] Implanted:Qty: 1 on 08/16/2014 by Matt Saavedra MD at [place] [facility] [place] N/A: Aorta [employer] 06/09/2017 [facility] / / [id number] documented as of this encounter Visit Diagnoses Diagnosis Type 2 diabetes mellitus with hemoglobin A1c goal of less than 7.0% ([facility])- Primary DM type 2 nursing care encounter (HCC) Type II or unspecified type diabetes mellitus without mention of complication, not stated as uncontrolled Diabetic polyneuropathy associated with type 2 diabetes mellitus (HCC) COPD, group B, by GOLD 2017 classification (HCC) Chronic diastolic CHF (congestive heart failure) (HCC) Chronic diastolic heart failure Coronary artery disease involving la posta coronary artery of la posta heart with angina pectoris (HCC) documented in [...] the patient have Health Care Power of Social Services Designee? No Care Teams Fusion Operator Relationship Specialty Start Date End Date Jennie Mckoy DO [address] [place] [address] PCP - General Family Medicine 01/11/23 documented as of this encounter
[2023-08-04] MEDS: LANTUS PER UNIT CHARGE SC SCH ×2 (10:18→21:03)
--- NOTE | 2023-08-04 11:37 | Surgery Progress Note ---
Date of Service August 04, 2023 Assessment & Plan (1) Gallstones: Plan: clinically doesn't appear to have acute cholecystitis. LFT's normalized wbc decreasing. afebrile pt very high surgical risk...awaiting VITA results. will obtain HIDA...if + will d/w cardiology regarding surgical risk...if HIDA negative may treat conservatively for now (2) Morbid obesity with BMI of 45.0-49.9, adult: (3) CAD (coronary artery disease): (4) Sleep apnea: (5) Hypertension: (6) Diabetes mellitus, type 2: Admission and Anticipated Discharge Date Admission Date: August 03, 2023 Subjective pt seen. his abdominal pain has resolved. no complaints currently. Physical Exam Physical Exam: alert. nad abd: soft. nt. obese Heart: irregular Lungs: clear Results & Data Vital Signs (Past 12 Hours) Vital Signs Pulse Resp BP Pulse Ox O2 Del Method 08/04/23 11:02 84 20 114/76 97 Room Air 08/04/23 09:00 BiPAP 08/04/23 07:00 115/72 08/04/23 06:00 97 08/04/23 05:30 91 08/04/23 05:00 93 08/04/23 04:30 96 H 10 L 98 08/04/23 04:00 83 19 94 08/04/23 03:30 79 19 97 08/04/23 03:00 81 17 95 08/04/23 02:30 83 15 99 08/04/23 02:17 86 16 120/64 96 08/04/23 01:05 78 18 93 CPAP PG Care Time/CCT Total # of Minutes Spent Total Time Spent with Patient: Total time spent is greater than 50% in coordination of care (as documented) at patient's floor/unit and/or counseling patient: Coding Level of Care Code 23318 SUB INP/OBS CARE 235MIN Diagnoses Gallstones K80.20 Morbid obesity with BMI of 45.0-49.9, adult E66.01; Z68.42 CAD (coronary artery disease) I25.10 Sleep apnea G47.30 Hypertension I10 Diabetes mellitus, type 2 E11.9
[2023-08-04] MEDS: HYDROmorphone INJ 0.5 MG/0.5 ML SYR IV PRN (11:54)
[2023-08-04] MEDS: FUROSEMIDE INJ 20 MG/2 ML VIAL IV ONE (11:57)
[2023-08-04 12:02] LABS: ANTI-Xa, UFH(UnfractionatedHep 0.45 IU/ml (0.3-0.7)
--- NOTE | 2023-08-04 12:50 | Cardiology Consultation ---
Date of Consultation August 04, 2023 Assessment & Plan (1) Preop cardiovascular exam: (2) Cholecystitis: (3) Gallstones: (4) New onset atrial fibrillation: (5) CAD (coronary artery disease): (6) Hypertension: (7) History of DVT (deep vein thrombosis): (8) History of pulmonary embolism: (9) Sleep apnea: Plan Assessment: 73 year old patient with complex PMHx presents with 3 days of persistent abdominal pain. Further evaluation reveals gallstones and cholecystitis. EKG on admission demonstrates atrial fibrillation, rate controlled new to patient. Given this new finding and patient's history cardiology has been asked to provide preoperative cardiac risk assessment. Plan: 1. Preoperative cardiovascular exam 2. Cholecystitis 3. Gallstones -Patient offers no new cardiac complaints at time of today's exam. -EKG demonstrates Atrial fibrillation, which per review of records and prior EKGs is new for him and suspect secondary to the acute infectious process. -Fortunately, patient is anticoagulated on Eliquis and reports compliance. He has a history of recurrent DVT and PEs. Eliquis has been placed on hold in lieu of transition to Eliquis -Most recent echocardiogram 10/14/2022 demonstrates normal LVEF 55-59%, Grade I diastolic dysfunction, and moderate sizes apical, septal and anteroseptal wall motion abnormality, unchanged from prior. -Lexiscan 2019 negative for ischemia -Obtain echocardiogram today to assess overall structure and function with co mparison to prior. -Per Luis Carlos criteria, patient is stable from a cardiac perspective. He would be considered moderate Class IV risk given his history of ischemic heart disease, CHF and DM. This calculated to a 15% risk for a sudden cardiac event including NM, cardiac arrest or sudden cardiac . He is at increased risk for a thrombo-embolic event due to hx of recurrent DVTs and now newly diagnosed A-fib. Continue with heparin gtt prior to surgery. Discussed risk vs benefit and explained that patient is optimized at this time and may proceed with the surgery as planed. He runs a greater risk of potential emergent event if gallbladder is left untreated. No further cardiac testing would lessen his risk. Patient verbalizes understanding and wishes to proceed. 4. New onset A-fib -likely in the setting of an acute infectious process with need for gallbladder surgery. -Continue to monitor on telemetry, currently rate controlled. -Agree with heparin gtt while holding Eliquis with recommendation to resume Eliquis on post op day 1 when risk for bleeding has been reduced. -Continue Toprol xl 100mg QAM and 75mg QPM 5. CAD: -Doing well from a cardiac standpoint with no angina concerns. -Continue on Toprol xl. ASA, Atorvastatin, Zetia, and Imdur on hold in preparation of GI workup and surgery. 6. HTN: -At target. -Continue Toprol xl -If BP would become elevated resume Imdur first, but should be resumed post procedure regardless 7/8. History of DVT and PE -Eliquis on hold in lieu of plan for surgery. Ok with heparin gtt. Plan to resume Eliquis post op day 1. 9. Sleep apnea -Continue with use of CPAP HS Case has been discussed with Dr. Jovel. Further recommendations regarding plan of care as per his assessment. I spent a total of 40 minutes on the date of service in preparation, delivery, documentation of the care provided to the patient excluding any time spent in the performance of separately billed services. NICOLÁS Heaton [facility] Cardiology [facility] Supervising Physician Co-Signing Physician Notes Attending attestation: Case reviewed with the advanced practitioner. I have personally performed a history and physical examination on the patient. I have reviewed the advanced practitioner's documentation on the date of service referenced in note, and I agree with, and take responsibility for the plan of care. Patient feeling improved with bowel rest without acute abdominal discomfort at the time of my assessment. Rate controlled atrial fibrillation noted. Echocardiogram revealed stable findings, low normal LVEF. New finding of atrial fibrillation noted, duration unknown, perhaps developed acutely in the setting of his intra-abdominal illness. Patient stable from a cardiac perspective to proceed with cholecystectomy if felt to be clinically indicated with estimated low risk of perioperative cardiac complication. Patient well optimized from a cardiac perspective. Continue heparin bridge. Would recommend limiting the time of heparin given history of postop DVT PE after previous cardiac surgery. Heparin tentatively s cheduled to be on hold in advance of planned cholecystectomy tomorrow. I spent a total of 20 minutes coordinating, documenting, and providing care for this patient excluding time spent in the performance of separately billed services or time spent by another provider. Barney Jovel, DO History of Present Illness Reason for Consultation: Preoperative cardiac risk evaluation. Requesting Physician: [facility] Hospitalist Attending Physician: Daly Penaloza MD History of Present Illness HPI: Patient is a 73 year old male that presented to the ED with complaints of a bdominal pain x3 days. Further work up demonstrates cholecystitis. Vital signs are stable. EKG demonstrates Atrial fibrillation with Incomplete Right BBB Rate 91bpm. A-fib is new per review of records. Patient is resting comfortably in bed at this time, family at bedside. Denies any chest pain, pressure, palpitations, shortness of breath, PND, pre-syncope, syncope or edema. Cardiac history: 1. Admission to [facility] with progressive chest discomfort and exertional dyspnea, NSTEMI. 2. Cardiac catheterization with multivessel coronary artery disease 3. Status post August 16, 2014 off pump CABG x [address] Saavedra with a GREGORY to the LAD, SVG to the diagonal, and obtuse marginal. 4. Ischemic cardiomyopathy 5. Postoperative CABG course complicated by left lower extremity deep venous thrombosis and pulmonary embolus involving the distal right main pulmonary artery and its branches. 6. ? Acute DVT in February 2017. 7. July 2018 duplex with persistent chronic appearing nonocclusive thrombus within the left popliteal vein. 8. Warfarin failure; August 2018 CT with suspicion for an embolus in 1st proximal branch of the left main pulmonary artery 9. Enlarged aortic root and proximal ascending thoracic aorta 10. Hypertension, hypertensive heart disease 11. History of hyperkalemia with use of ACEI therapy x 2 12. Dyslipidemia. 13 Type II diabetes mellitus 14. B12 deficiency 15. Obesity 16. Hepatic steatosis 17. GABY on CPAP therapy. 18. GERD 19. Status post amputation of the right thumb 20. Generalized anxiety disorder Last seen in our office 04/19/2023 by Gal Bowman PA-C Allergies Allergy/AdvReac Type Severity Reaction Status Date / Time rosuvastatin Allergy Mild Cramping Verified 08/03/23 18:23 of the Muscles simvastatin Allergy Mild Cramping Verified 08/03/23 18:23 of the Muscles Home Medications Medication Instructions Recorded Confirmed Type acetaminophen 325 mg tablet 650 mg PO Q6H PRN Pain 10/20/18 08/03/23 History apixaban 5 mg tablet (Eliquis) 5 mg PO BID 10/20/18 08/03/23 History aspirin-sod bicarb-citric acid 325 1 tab PO DAILY PRN Abdominal 10/20/18 08/03/23 History mg-1,916 mg-1,000 mg efferves tab Discomfort (Rita-Mira Original) atorvastatin 80 mg tablet 80 mg PO QAM 10/20/18 08/03/23 History docusate sodium 100 mg capsule 100 mg PO BID PRN Constipation 10/20/18 08/03/23 History insulin NPH-regular 70-30 U-100 75 unit subcut BID 10/20/18 08/03/23 History insulin 100 unit/mL subcutaneous pen (Novolin 70-30 FlexPen U-100 Insulin) tramadol 50 mg tablet 50 mg PO Q8H PRN Pain 10/20/18 08/03/23 History aspirin 81 mg tablet,delayed 81 mg PO QAM 04/09/20 08/03/23 History release ezetimibe 10 mg tablet 10 mg PO QAM 03/20/22 08/03/23 History fluticasone furoate 100 1 inh inhalation QAM PRN Wheezing 03/20/22 08/03/23 History mcg/actuation blister powder for inhalation (Arnuity Ellipta) furosemide 40 mg tablet 40 mg PO QAM 03/20/22 08/03/23 History isosorbide mononitrate 30 mg 30 mg PO QAM 03/20/22 08/03/23 History tablet,extended release 24 hr metformin 500 mg tablet,extended 500 mg PO BID 03/20/22 08/03/23 History release 24 hr metoprolol succinate 50 mg 75 mg PO QPM 03/20/22 08/03/23 History tablet,extended release 24 hr metoprolol succinate 50 mg 100 mg PO QAM 03/20/22 08/03/23 History tablet,extended release 24 hr nitroglycerin 0.4 mg sublingual 0.4 mg sublingual UD PRN Chest Pain 03/20/22 0 08/03/23 History tablet semaglutide 2 mg/dose (8 mg/3 mL) 2 mg subcut WK 08/03/23 08/03/23 History subcutaneous pen injector (Ozempic) Patient History Medical History (Updated 08/04/23 @ 13:17 by NICOLÁS Heaton) CAD (coronary artery disease) Pulmonary hypertension Ischemic cardiomyopathy Per cardio records. EF 50-54% on 7/22/20 echo. Pain of left leg LLE. Per cardiology, 07/2018 duplex showed chronic-appearing nonocclusive thrombus in L popliteal vein. 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 Myocardial Infarction NSTEMI 2014. Cath --> CABG x 3 (GREGORY-LAD, SVG-Dx, SVG-OM) 08/16/14. Deep vein thrombosis "still have it"?? started 5+ years ago-> is currently on blood thinners. has no problems Hyperlipidemia Hypertension Sleep apnea CPAP HS and PRN with naps Surgical History History of ERCP History of amputation partial right thumb amputation S/P hardware removal left leg (unable to remove screws) History of open reduction and internal fixation (ORIF) procedure Left leg (1999 & 2003) d/t a trauma Nausea and vomiting after administration of anesthetic agent hx Hx of cataract surgery bilateral History of shoulder surgery right History of arthroscopy KNEES History of colonoscopy Hx of heart bypass surgery 2015 CABG x 3. History of cardiac cath NO STENTS, 2014. Family History Mother Diabetes mellitus, type 2 Mother Cancer Father Cancer Other No family history of adverse response to anesthesia Social History Smoking Status: Never smoker Second Hand Exposure: No; Do You Dip or Chew Tobacco: No; Hx Alcohol Use: No Hx Substance Use: No Preferred Language: Tongan Communication Ability: Effective Paper Products Inspector Required: No Beliefs That Will Affect Care: None Current Living Situation: Spouse Feels Safe at Home: Yes Assistive Devices: Cane, CPAP and Scooter/Electric Scooter Review of Systems Review of Systems: All systems reviewed & are unremarkable except as noted in HPI & below Physical Exam Constitutional: + obese; no acute distress Neck: normal visual inspection and trachea midline Respiratory: normal respiratory effort Auscultation: + diminished lung sounds (bilateral bases ); no crackles, no rales, no rhonchi and no wheezes Cardiovascular: Rate/Rhythm: + irregularly irregular Heart Sounds: normal S1 and normal S2; no murmur Vessels: dorsalis pedis pulses present; no JVD Extremities: + edema (trace BLE) Skin: no rashes, warm and dry Psychiatric: A+Ox3, euthymic affect Results & Data Vital Signs (Past 12 Hours) Vital Signs Temp Pulse Pulse Resp BP BP Pulse Ox 08/04/23 11:58 36.5 C 62 22 108/74 97 08/04/23 11:02 84 20 114/76 97 08/04/23 09:00 08/04/23 07:00 115/72 08/04/23 06:00 97 08/04/23 05:30 91 08/04/23 05:00 93 08/04/23 04:30 96 H 10 L 98 08/04/23 04:00 83 19 94 08/04/23 03:30 79 19 97 08/04/23 03:00 81 17 95 08/04/23 02:30 83 15 99 08/04/23 02:17 86 16 120/64 96 08/04/23 01:05 78 18 93 O2 Del Method 08/04/23 11:58 Room Air 08/04/23 11:02 Room Air 08/04/23 09:00 BiPAP 08/04/23 07:00 08/04/23 06:00 08/04/23 05:30 08/04/23 05:00 08/04/23 04:30 08/04/23 04:00 08/04/23 03:30 08/04/23 03:00 08/04/23 02:30 08/04/23 02:17 08/04/23 01:05 CPAP Laboratory Results Cardiac Enzymes 08/03/23 08/04/23 Range/Units 15:34 02:05 AST 11 L 13 (13-39) U/L Troponin I High Sens 13.6 (0-20) pg/ml Coagulation 08/03/23 Range/Units 15:39 APTT 34 H (21-31) Seconds CBC 08/03/23 08/04/23 Range/Units 15:34 02:05 WBC 17.74 H 13.63 H (4.8-10.8) K/ul RBC 5.17 5.26 (4.70-6.10) M/uL Hgb 15.0 15.6 (14.0-18.0) g/dl Hct 44.8 45.7 (42.0-52.0) % Plt Count 305 298 (130-400) K/uL Neut # (Auto) 13.93 H (1.40-6.50) K/uL Lymph # (Auto) 1.91 (1.20-3.40) K/uL [place] # (Auto) 1.67 H (0.11-0.59) K/uL Eos # (Auto) 0.04 (0.00-0.50) K/uL Baso # (Auto) 0.05 (0.00-0.20) K/uL Comprehensive Metabolic Panel 08/03/23 08/04/23 Range/Units 15:34 02:05 Sodium 133 L 135 L (136-145) mmol/L Potassium 3.7 3.7 (3.5-5.1) mmol/L Chloride 97 L 98 (98-107) mmol/L Carbon Dioxide 29 29 (21-32) mmol/L BUN 8 9 (6-23) mg/dl Creatinine 0.72 0.80 (0.6-1.4) mg/dl Glucose 159 H 144 H (70-99(Fasting)) mg/dl Calcium 9.2 8.9 (8.6-10.3) mg/dl Direct Bilirubin 0.2 (0-0.2) mg/dl AST 11 L 13 (13-39) U/L ALT 17 15 (7-52) U/L Alkaline Phosphatase 75 74 (34-104) U/L Total Protein 7.1 6.7 (6.0-8.3) gm/dl Albumin 3.6 3.4 (3.4-5.0) gm/dl Intake and Output 08/03/23 08/04/23 08/04/23 22:59 06:59 14:59 Intake Total 200 / 300 100 / 300 1429.334 / 1429.334 Output Total 250 / 250 Balance 200 / 50 -150 / 50 1429.334 / 1429.334 Intake: IV 200 / 300 100 / 300 1429.334 / 1429.334 Acetaminophen 1,000 mg In 100 100 / 100 100 / 100 ml @ 400 mls/hr IV Q8H PRN Rx#: [id number] Heparin Sodium/Dextrose 25,000 0 / 0 229.334 / 229.334 units In 500 ml @ 1,800 UNITS/ HR 36 mls/hr IV .[id number] [facility] Rx #:[id number] Nss + 20Meq KCl 20 meq In 1,000 1000 / 1000 ml @ 80 mls/hr IV .[id number] ONE Rx#:[id number] Piperacillin/Tazobactam 4.5 gm 100 / 100 100 / 100 In Dextrose 5% Mini-B 100 ml @ 25 mls/hr IV Q8H [facility] Rx#: [id number] Piperacillin/Tazobactam 4.5 gm 100 / 100 In 100 ml @ 200 mls/hr IV NOW ONE Rx#:[id number] Output: Urine 250 / 250 Other: Weight 141.8 kg Weight Measurement Method Built in [facility] Diagnostic Findings November 01, 2019 Lexiscan Interpretation Summary (as per Dr. Gonzales): Gated SPECT imaging reveals normal myocardial thickening and wall motion. The left ventricular ejection fraction was calculated to be 69%. Lexiscan nuclear cardiac stress test negative for ischemia. March 2022 Zio Monitor: Patient had a min HR of 26 bpm, max HR of 111 bpm, and avg HR of 75 bpm. Predominant underlying rhythm was Sinus Rhythm. First Degree AV Block was present. Second Degree AV Block-Mobitz I (Wenckebach) was present. Isolated SVEs were rare (<1.0%), SVE Couplets were rare (<1.0%), and SVE Triplets were rare (<1.0%). Isolated VEs were frequent (20.8%, 28414), VE Couplets were rare (<1.0%, 1205), and VE Triplets were rare (<1.0%, 165). Ventricular Bigeminy and Trigeminy were present. IMPRESSION: The patient had frequent unifocal PVC's, including Bigemny. The patient's triggered events and diary entries correlated mostly to sensed PVC's. October 14, 2022 TTE Interpretation Summary (as per Dr. Vides): The left ventricular cavity size is normal. The LV wall thickness is moderatel to severely increased (concentric). There is a moderate sized apical, septal, and anteroseptal wall motion abnormality with mild hypokinesis to hypokinesis of the segments. The qualitative LV ejection fraction is 55-59% (normal). The left ventricular diastolic function is mildly abnormal (grade I). Mild aortic valve sclerosis is present. The aortic root and proximal ascending aorta are mildly enlarged. (4.3/4.4 cm) Compared to prior study of December 16, 2021, there is no significant change.
--- OUTSIDE RECORDS SUMMARY | 2023-08-04 13:33 | External Medical Summary ---
Author Name Unknown Address Unknown Organization [id number][place] [place] [facility] [address] [place] [place] [address] Laboratory Report Ordering Provider Test Date Status DEIRDRE RAO 08/03/2023 09:56:58 Final Observation Date Value Abnormality Reference (Units ) Status WBC, Total 08/03/2023 09:56:58 18.25 Above high normal 4.00-10.80 (K/uL) Final RBC 08/03/2023 09:56:58 5.21 4.50-5.25 (M/uL) Final Hemoglobin 08/03/2023 09:56:58 15.5 14.0-16.8 (g/dL) Final HCT 08/03/2023 09:56:58 46.2 40.0-48.4 (%) Final MCV 08/03/2023 09:56:58 88.7 82.0-99.5 (fL) Final MCH 08/03/2023 09:56:58 29.8 27.0-34.0 (pg) Final MCHC 08/03/2023 09:56:58 33.5 32.0-36.0 (g/dL) Final RDW 08/03/2023 09:56:58 13.2 11.5-15.5 (%) Final Platelets 08/03/2023 09:56:58 323 140-400 (K/uL) Final MPV 08/03/2023 09:56:58 11.5 6.6-11.1 (fL) Final Nucleated erythrocytes/100 leukocytes [Ratio] in Blood by Automated count 08/03/2023 09:56:58 0 <=0 (/100 WBCs) Final Performing Location [facility] [place] [address] [place] [address]
--- OUTSIDE RECORDS SUMMARY | 2023-08-04 13:33 | External Medical Summary ---
Author Name Unknown Address Unknown Organization [id number]:[facility] [place] - [address] [facility] [address] [address] Laboratory Report Ordering Provider Test Date Status DEIRDRE RAO 08/03/2023 09:56:58 Final Observation Date Value Abnormality Reference (Units ) Status SYNC LEUKOCYTES IN BLOOD BY AUTOMATED COUNT 08/03/2023 09:56:58 18.25 Above high normal 4.00-10.80 (K/uL) Final Segs 08/03/2023 09:56:58 79.2 Above high normal 40.0-75.0 (%) Final Lymphs % 08/03/2023 09:56:58 9.3 Below low normal 18.0-42.0 (%) Final Monos 08/03/2023 09:56:58 10.4 1.0-11.0 (%) Final Eosinophils 08/03/2023 09:56:58 0.2 0.0-6.0 (%) Final Basos 08/03/2023 09:56:58 0.2 0.0-2.0 (%) Final Immature Granulocyte, Percent 08/03/2023 09:56:58 0.7 0.0-2.0 (%) Final Absolute Segs 08/03/2023 09:56:58 14.47 Above high normal 1.80-7.70 (K/uL) Final Lymphs, absolute 08/03/2023 09:56:58 1.69 1.00-4.80 (K/ul) Final Monos, Abs 08/03/2023 09:56:58 1.89 Above high normal 0.00-1.10 (K/uL) Final Eos, Abs 08/03/2023 09:56:58 0.03 0.00-0.70 (K/uL) Final Basos, Abs 08/03/2023 09:56:58 0.04 0.00-0.20 (K/uL) Final Immature Granulocytes, Number 08/03/2023 09:56:58 0.13 0.00-0.20 (K/uL) Final Performing Location [facility] [place] - [facility] [place] [address]
[2023-08-04] MEDS: MoRPHine SULFATE 2 MG/ML CARP ONE (14:40)
--- NOTE | 2023-08-04 14:52 | Pharmacy Report ---
Pharmacy Glycemic Short Note 2 - Date of Service August 04, 2023 - Glycemic Short BSG Results (Last 24 hours): 08/03/23 08/03/23 08/03/23 15:34 20:06 22:48 Glucose 159 H POC Glucose 112 H 109 H 08/04/23 08/04/23 08/04/23 02:05 05:46 12:10 Glucose 144 H POC Glucose 198 H 168 H OUTPATIENT ANTIDIABETIC REGIMEN: * Novolin 70/30 - 75 units bidm, metformin, ozempic ASSESSMENT: * 73 year old admitted with cholecystitis. Type 2 diabetic - pharmacy consulted for glycemic management. Patient on ~150 units of insulin/day outpatient. Patient is NPO - ordered Lantus 20 units x 1 this AM, however patient refused. Anticipate BSGs to rise with no basal insulin ordered. Will add scale for basal insulin at HS time. PLAN FOR INPATIENT GLYCEMIC CONTROL: * Hold outpatient oral diabetes medications * Basal insulin * Lantus 10-30 units HS * Bolus insulin * NovoLog per scale ACHS or Q6hrs while NPO * Goal Range: Low 110 mg/dL - High 140 mg/dL * Correction Factor: 15 mg/dL/unit * Nutritional / Prandial insulin per carb ratio of 1 unit per 6 grams CHO consumed
--- NOTE | 2023-08-04 15:46 | Hospitalist Progress Note ---
Date of Service August 04, 2023 Assessment & Plan (1) New onset atrial fibrillation: Plan 73yo M with a PMH of DM II, CAD s/p CABG, history of ischemic cardiomyopathy, COPD, GABY on CPAP, history of restrictive lung disease, history of PE and DVT on Eliquis, dyslipidemia, hypertension, CESAR, mood disorder and other medical problems listed below who presents from home 08/02 with worsening abdominal pain x 3 days and was found to have cholecystitis. 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 Echo October 2022 with LV EF 55-59%, moderate sized apical, septal, and anteroseptal wall motion abnormality with mild hypokinesis to hypokinesis of the segments, grade 1 diastolic dysfunction, the aortic root and proximal ascending aorta are mildly enlarged (4.3/4.4 cm) but no significant change from previous Patient noted to have resolution of abdominal pain at presentation, RUQ tender noted 08/03 exam. Admitting GB US with cholelithiasis with findings of acute cholecystitis. Complex right renal cyst 4.9 centimeters noted. Patient and his made aware at bedside about renal cyst and need for follow-up with urology as an outpatient. Admitting WBC 17.74K, LFT fairly WNL, lipase WNL, UA negative for UTI, Continue Zosyn 08/02, patient n.p.o., reports improving abdominal pain. General surgery evaluating, HIDA scan sent, conservative versus surgical m anagement. Cardiology on board for preop clearance given significant cardiac history. Labs in a.m. including CMP. Consider IVF in AM, today sob w/ exertion, give a small dose of lasix. New onset A-fib: Noted this admission, resolved control. Patient already on Eliquis due to history of PE. Currently on heparin drip, to be held prior to surgery. pt w/ no chest pain. Other chronic medical conditions: Continue with/resume home meds as and when able. Deep vein thrombosis/Pulmonary embolism: Recurrent, indefinite anticoagulation recommended by heme/onc, per outpatient notes Hold Eliquis as a possible surgical candidate and continue anticoagulation with IV heparin for now T2DM: A1c of 8.2 in July 2023, hold home medicines, glycemic pharmacy consult, sliding scale insulin while in hospital. CAD/HTN: CABG at [facility] [place] approximately 5 years ago. Continue Toprol with hold parameters. c/w asa and imdur after Sx. HLD: Continue home Zetia and statin after Sx. Morbid obesity: Continue counseling on lifestyle modification during admission. Sleep apnea: Continue home CPAP at bedtime. DVT prophylaxis: Currently on heparin drip, to be held prior to surgery. CODE STATUS: Full code PCP: aEn Admission and Anticipated Discharge Date Admission Date: August 03, 2023 Subjective Patient was seen and examined at bedside. Patient was lying in bed, on room air, NAD, resting comfortably. Patient reports improvement in his right upper belly pain but was tender on exam. Patient reports of shortness of breath with activity, he takes Lasix at home, one-time dose of Lasix was given. Patient is n.p.o. pending surgery eval. Patient denies other new complaints or febrile illness. Patient's at bedside who was also updated on plan of care. Physical Exam Physical Exam: GENERAL APPEARANCE: AxOx4, generally well-appearing male, no acute distress. HEENT: NC, AT. MMM. EOMI, clear conjunctiva, oropharynx clear. NECK: Supple without lymphadenopathy. No stiffness or restricted ROM. HEART: RRR, no rubs or gallops. LUNGS: CTAB, difficult to appreciate 2/2 habitus ABDOMEN: Soft, RUQ tender noted, nondistended with good bowel sounds heard. BACK: No CVAT, no obvious deformity. EXTREMITIES: Without cyanosis, clubbing or edema. NEUROLOGICAL: Grossly nonfocal. Alert and oriented, moving all 4 extremities. CN not formally tested but appear grossly intact. Skin: Warm and dry without any rash. Results & Data Results & Data Vital Signs (Past 12 Hours) Vital Signs Temp Pulse Pulse Resp BP BP Pulse Ox 08/04/23 11:58 36.5 C 62 22 108/74 97 08/04/23 11:02 84 20 114/76 97 08/04/23 09:00 08/04/23 07:00 115/72 08/04/23 06:00 97 08/04/23 05:30 91 08/04/23 05:00 93 08/04/23 04:30 96 H 10 L 98 08/04/23 04:00 83 19 94 O2 Del Method 08/04/23 11:58 Room Air 08/04/23 11:02 Room Air 08/04/23 09:00 BiPAP 08/04/23 07:00 08/04/23 06:00 08/04/23 05:30 08/04/23 05:00 08/04/23 04:30 08/04/23 04:00
--- NOTE | 2023-08-04 15:49 | Nuclear Medicine Report ---
NM hepatobiliary CLINICAL HISTORY: 73 years-old Male with eval for acute marino. Acute right upper quadrant abdominal pain TECHNIQUE: Sequential anterior abdominal images were obtained through 90 minutes following the intra venous administration of 5.5 mCi of technetium-99m Choletec. A lateral image was also obtained. COMPARISON: Ultrasound 08/03/2023 FINDINGS: There is prompt, uniform accumulation of the tracer by the liver. There is normal filling of the int rahepatic ducts, common bile duct and normal excretion of the tracer into the duodenum. The gallblad edwar is not visualized at 60 minutes. Morphine was then administered and a delayed image was obtained 30 minutes later. Again, the gallbladder is still not visualized on the delayed images. Enterogastric reflux incidentally noted. IMPRESSION: Nonvisualization of the gallbladder compatible with cystic duct obstruction. ACT 112: Negative or not required by law. The above report was generated using voice recognition software. It may contain grammatical, syntax o r spelling errors. Electronically signed by: Duglas Rodriguez M.D. 08/04/2023 3:47 PM
--- NOTE | 2023-08-04 16:11 | Electrocardiogram Report ---
Test Reason : Blood Pressure : / mmHG Vent. Rate : 095 BPM Atrial Rate : 095 BPM P-R Int : 238 ms QRS Dur : 102 ms QT Int : 338 ms P-R-T Axes : 000 -20 015 degrees QTc Int : 424 ms Sinus rhythm with 1st degree A-V block Otherwise normal ECG When compared with ECG of 10-JAN-2023 01:18, Premature ventricular complexes are no longer Present T wave inversion no longer evident in Lateral leads Confirmed by Daniel Madsen ([id number]) on 08/04/2023 4:10:37 PM Referred By: Confirmed By:Daniel Madsen
--- NOTE | 2023-08-04 16:18 | Electrocardiogram Report ---
Test Reason : Blood Pressure : / mmHG Vent. Rate : 091 BPM Atrial Rate : 000 BPM P-R Int : 000 ms QRS Dur : 108 ms QT Int : 376 ms P-R-T Axes : 000 002 040 degrees QTc Int : 462 ms Atrial fibrillation Incomplete right bundle branch block Abnormal ECG When compared with ECG of 03-AUG-2023 15:43, (unconfirmed) Atrial fibrillation has replaced Sinus rhythm Confirmed by Daniel Madsen ([id number]) on 08/04/2023 4:18:51 PM Referred By: Jennie Mckoy Confirmed By:Daniel Madsen
[2023-08-05 04:40] LABS: Hematocrit (blood only) 41.1 % (42.0-52.0); Hemoglobin 14.1 g/dl (14.0-18.0); Mean Corpuscular Hemoglobin 29.4 pg (25.0-34.0); Mean Corpuscular Hgb Conc 34.3 g/dL (32.0-36.0); Mean Corpuscular Volume 85.8 fL (80.0-100.0); Mean Platelet Volume 10.4 fL (9.4-12.4); Platelet Count 335 K/uL (130-400); RDW Coefficient of Variation 13.3 % (11.5-14.5); RDW Standard Deviation 42.2 fL (36.4-46.3); Red Blood Count 4.79 M/uL (4.70-6.10); White Blood Count 12.27 K/ul (4.8-10.8)
[2023-08-05 04:47] LABS: Albumin Level 3.2 gm/dl (3.4-5.0); BUN Creatinine Ratio 18.2 (10-20); Bilirubin,Total 0.8 mg/dl (0.2-1.0); Calcium 8.6 mg/dl (8.6-10.3); Creatinine Clr Calc Pharmacy 123.4 ml/min; Est GFR (African American) 105.8 ml/min; Est GFR (Non-African American) 91.3 ml/min; Globulin 3.1 gm/dl (2.5-4.0); Magnesium 1.7 mg/dl (1.7-2.4); Phosphorus 2.9 mg/dl (2.5-4.9); Potassium 3.8 mmol/L (3.5-5.1); Total Protein 6.3 gm/dl (6.0-8.3)
[2023-08-05 04:55] LABS: ANTI-Xa, UFH(UnfractionatedHep 0.29 IU/ml (0.3-0.7)
[2023-08-05] MEDS: LANTUS PER UNIT CHARGE SC SCH (08:37)
--- NOTE | 2023-08-05 10:32 | History & Physical Bridge Note ---
Date of Service August 05, 2023 History & Physical Bridge Note I have examined the patient, reviewed the History & Physical and in the interval since the performance of the History & Physical I have noted the following changes of clinical significance: pt with HIDA + for acute cholecystitis. LFT's have normalized. per cardiology he is optimized. discussed options/risks ( bleeding/infection/blood clots/bile duct leak or injury/injury to other organs/dvt/pe/mi/cva etc...) questions answered. will proceed to lap marino today. pt agreeable.
--- NOTE | 2023-08-05 12:08 | Hospitalist Progress Note ---
Date of Service August 05, 2023 Assessment & Plan (1) New onset atrial fibrillation: Plan 73yo M with a PMH of DM II, CAD s/p CABG, history of ischemic cardiomyopathy, COPD, GABY on CPAP, history of restrictive lung disease, history of PE and DVT on Eliquis, dyslipidemia, hypertension, CESAR, mood disorder and other medical problems listed below who presents from home 08/02 with worsening abdominal pain x 3 days and was found to have cholecystitis. 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 Echo October 2022 with LV EF 55-59%, moderate sized apical, septal, and anteroseptal wall motion abnormality with mild hypokinesis to hypokinesis of the segments, grade 1 diastolic dysfunction, the aortic root and proximal ascending aorta are mildly enlarged (4.3/4.4 cm) but no significant change from previous Patient noted to have resolution of abdominal pain at presentation, RUQ tender noted 08/03 exam. Admitting GB US with cholelithiasis with findings of acute cholecystitis. Complex right renal cyst 4.9 centimeters noted. Patient and his made aware at bedside about renal cyst and need for follow-up with urology as an outpatient. Admitting WBC 17.74K, LFT fairly WNL, lipase WNL, UA negative for UTI, Continue Zosyn 08/02, patient n.p.o., reports improving abdominal pain. General surgery on board, plan for the OR today. Cardiology on board for preop clearance given significant cardiac history. Labs in a.m. including CMP. Resume diet with surgery clearance after the OR. New onset A-fib: Noted this admission, resolved control. Patient already on Eliquis due to history of PE. Currently on heparin drip, held prior to surgery. pt w/ no chest pain. Resume anticoagulation with surgical clearance after the OR. Other chronic medical conditions: Continue with/resume home meds as and when able. Deep vein thrombosis/Pulmonary embolism: Recurrent, indefinite anticoagulation recommended by heme/onc, per outpatient notes Hold Eliquis as a possible surgical candidate and continue anticoagulation with IV heparin for now T2DM: A1c of 8.2 in July 2023, hold home medicines, glycemic pharmacy consult, sliding scale insulin while in hospital. CAD/HTN: CABG at [facility] [place] approximately 5 years ago. Continue Toprol with hold parameters. c/w asa and imdur after Sx. HLD: Continue home Zetia and statin after Sx. Morbid obesity: Continue counseling on lifestyle modification during admission. Sleep apnea: Continue home CPAP at bedtime. DVT prophylaxis: Heparin drip held prior to surgery. CODE STATUS: Full code PCP: Ean Admission and Anticipated Discharge Date Admission Date: August 03, 2023 Subjective Patient was seen and examined at bedside. Patient was lying in bed, using CPAP, NAD, resting comfortably. Patient reports no right upper belly pain but was tender on exam. Patient reports of shortness of breath with activity which he reports is chronic for him and has not exacerbated. Patient is n.p.o. pending surgery later today. Patient denies other new complaints or febrile illness. Patient's family at bedside who were also updated on plan of care. Physical Exam Physical Exam: GENERAL APPEARANCE: AxOx4, generally well-appearing male, no acute distress. HEENT: NC, AT. MMM. EOMI, clear conjunctiva, oropharynx clear. NECK: Supple without lymphadenopathy. No stiffness or restricted ROM. HEART: RRR, no rubs or gallops. LUNGS: CTAB, difficult to appreciate 2/2 habitus ABDOMEN: Soft, RUQ tender noted, nondistended with good bowel sounds heard. BACK: No CVAT, no obvious deformity. EXTREMITIES: Without cyanosis, clubbing or edema. NEUROLOGICAL: Grossly nonfocal. Alert and oriented, moving all 4 extremities. CN not formally tested but appear grossly intact. Skin: Warm and dry without any rash. Results & Data Results & Data Vital Signs (Past 12 Hours) Vital Signs Temp Pulse Pulse Resp BP Pulse Ox O2 Del Method 08/05/23 11:48 36.7 C 85 20 115/72 92 Room Air 08/05/23 08:40 BiPAP 08/05/23 07:53 36.4 C L 84 18 118/76 94 Room Air 08/05/23 07:25 86 08/05/23 02:49 37.0 C 94 H 18 115/69 95 Room Air, BiPAP
[2023-08-05] MEDS ORDERED: PROPOFOL IV EMULSION 10 MG/ML 20 ML VIAL IV ONE (13:43)
[2023-08-05] MEDS ORDERED: ONDANSETRON INJ 2 MG/ML 2 ML VIAL ONE (13:43)
[2023-08-05] MEDS ORDERED: DEXAMETHASONE SOD INJ 4 MG/ML VIAL ONE (13:43)
[2023-08-05] MEDS ORDERED: LIDOCAINE 2% 2 ML VIAL/AMP(20MG/ML) INFIL ONE (13:43)
[2023-08-05] MEDS ORDERED: MIDAZOLAM HCL 1 MG/ML 2ML VIAL ONE (13:44)
[2023-08-05] MEDS ORDERED: fentaNYL citrate PF 100 MCG/2 ML VIAL ONE (13:44)
[2023-08-05] MEDS ORDERED: ROCURONIUM BROMIDE 10 MG/ML 5 ML VIAL IV ONE ×8 (13:44→16:09)
--- NOTE | 2023-08-05 14:25 | Cardiology Progress Note ---
Date of Service August 05, 2023 Assessment & Plan (1) Preop cardiovascular exam: (2) Cholecystitis: (3) Gallstones: (4) New onset atrial fibrillation: (5) CAD (coronary artery disease): (6) Hypertension: (7) History of DVT (deep vein thrombosis): (8) History of pulmonary embolism: (9) Sleep apnea: Plan Assessment: 73 year old patient with complex PMHx presents with 3 days of persistent abdominal pain. Further evaluation reveals gallstones and cholecystitis. EKG on admission demonstrates atrial fibrillation, rate controlled new to patient. Given this new finding and patient's history cardiology has been asked to provide preoperative cardiac risk assessment. Plan: 1. Preoperative cardiovascular exam 2. Cholecystitis 3. Gallstones -Patient offers no new cardiac complaints today, and no acute events overnight. -EKG demonstrates Atrial fibrillation, which per review of records and prior EKGs is new for him and suspect secondary to the acute infectious process. -Fortunately, patient is anticoagulated on Eliquis and reports compliance. He has a history of recurrent DVT and PEs. Eliquis has been placed on hold in lieu of transition to Eliquis. Heparin bridge. Goal is to minimize length of time of interruption given his history. -Most recent echocardiogram 10/14/2022 demonstrates normal LVEF 55-59%, Grade I diastolic dysfunction, and moderate sizes apical, septal and anteroseptal wall motion abnormality, unchanged from prior. -Lexiscan 2020 negative for ischemia -Echocardiogram obtained last evening technically limited, but demonstrates LVEF of 50-55% with basal septum thickening and angulated consistent with sigmoid septum (not a new finding), mild concentric hypertrophy, normal LV wall motion and no significant valve disease. -Per Luis Carlos criteria, patient is stable from a cardiac perspective. He would be considered moderate Class IV risk given his history of ischemic heart disease, CHF and DM. This calculated to a 15% risk for a sudden cardiac event including PA, cardiac arrest or sudden cardiac . He is at increased risk for a Thrombo-embolic event due to hx of recurrent DVTs and now newly diagnosed A-fib. Continue with heparin gtt prior to surgery. Discussed risk vs benefit and explained that patient is optimized at this time and may proceed with the surgery as planed. He runs a greater risk of potential emergent event if gallbladder is left untreated. No further cardiac testing would lessen his risk. Patient verbalizes understanding and wishes to proceed. 4. New onset A-fib -likely in the setting of an acute infectious process with need for gallbladder surgery. -Continue to monitor on telemetry, currently rate controlled. -Agree with heparin gtt while holding Eliquis with recommendation to resume Eliquis on post op day 1 when risk for bleeding has been reduced. -Continue Toprol xl 100mg QAM and 75mg QPM 5. CAD: -Doing well from a cardiac standpoint with no angina concerns. -Continue on Toprol xl. ASA, Atorvastatin, Zetia, and Imdur on hold in preparation of GI workup and surgery. 6. HTN: -At target. -Continue Toprol xl -If BP would become elevated resume Imdur first, but should be resumed post procedure regardless 7/8. History of DVT and PE -Eliquis on hold in lieu of plan for surgery. Ok with heparin gtt. Plan to resume Eliquis post op day 1. 9. Sleep apnea -Continue with use of CPAP HS Case has been discussed with Dr. Jovel. Further recommendations regarding plan of care as per his assessment. I spent a total of 30 minutes on the date of service in preparation, delivery, documentation of the care provided to the patient excluding any time spent in the performance of separately billed services. NICOLÁS Heaton [facility] Admission and Anticipated Discharge Date Admission Date: August 03, 2023 Supervising Physician Co-Signing Physician Notes Attending attestation: Case reviewed with the advanced practitioner. I have personally performed a history and physical examination on the patient. I have reviewed the advanced practitioner's documentation on the date of service referenced in note, and I agree with, and take responsibility for the plan of care. Patient seen in room 261-1 post laparoscopic cholecystectomy at 1836. Postoperative pain relatively well-controlled. Remains in atrial fibrillation with relatively well-controlled rates in the 80s. Continue metoprolol succinate. Heparin on hold. Will reassess her initiating postoperatively tomorrow. I spent a total of 20 minutes coordinating, documenting, and providing care for this patient excluding time spent in the performance of separately billed services or time spent by another provider. Barney Jovel, Subjective 08/05/23: Patient seen and examined in follow up. Family also at bedside. patient is resting comfortably without complaint. He is NPO in anticipation of going to the OR for a cholecystectomy this afternoon. Denies any chest pain, pressure, palpitations, pre-syncope, syncope or edema. Reports mild improvement in abdominal pain. labs, vitals, diagnostics, telemetry and documentation reviewed. Telemetry demonstrates A-fib PVC rate 80-90's. He had a short burst of tachycardia with exertion this morning, A-fib rates 150's, resolved immediately with rest and no recurrence since taking his AM meds. Patient remained asymptomatic. Review of Systems Review of Systems: All systems reviewed & are unremarkable except as noted in HPI & below Physical Exam Constitutional: + obese; no acute distress Neck: normal visual inspection and trachea midline Respiratory: normal respiratory effort Auscultation: + diminished lung sounds (bilateral bases ); no crackles, no rales, no rhonchi and no wheezes Cardiovascular: Rate/Rhythm: + irregularly irregular Heart Sounds: normal S1 and normal S2; no murmur Vessels: dorsalis pedis pulses present; no JVD Extremities: + edema (trace BLE) Skin: no rashes, warm and dry Psychiatric: A+Ox3, euthymic affect Results & Data Vital Signs (Past 12 Hours) Vital Signs Temp Pulse Pulse Resp BP BP Pulse Ox 08/05/23 14:13 36.4 C L 86 22 167/95 H 94 08/05/23 11:48 36.7 C 85 20 115/72 92 08/05/23 08:40 08/05/23 07:53 36.4 C L 84 18 118/76 94 08/05/23 07:25 86 08/05/23 02:49 37.0 C 94 H 18 115/69 95 O2 Del Method 08/05/23 14:13 Room Air, CPAP 08/05/23 11:48 Room Air 08/05/23 08:40 BiPAP 08/05/23 07:53 Room Air 08/05/23 07:25 08/05/23 02:49 Room Air, BiPAP Laboratory Results Cardiac Enzymes 08/05/23 Range/Units 04:14 AST 16 (13-39) U/L CBC 08/05/23 Range/Units 04:14 WBC 12.27 H (4.8-10.8) K/ul RBC 4.79 (4.70-6.10) M/uL Hgb 14.1 (14.0-18.0) g/dl Hct 41.1 L (42.0-52.0) % Plt Count 335 (130-400) K/uL Comprehensive Metabolic Panel 08/05/23 Range/Units 04:14 Sodium 136 (136-145) mmol/L Potassium 3.8 (3.5-5.1) mmol/L Chloride 101 (98-107) mmol/L Carbon Dioxide 27 (21-32) mmol/L BUN 14 (6-23) mg/dl Creatinine 0.77 (0.6-1.4) mg/dl Glucose 185 H (70-99(Fasting)) mg/dl Calcium 8.6 (8.6-10.3) mg/dl AST 16 (13-39) U/L ALT 19 (7-52) U/L Alkaline Phosphatase 70 (34-104) U/L Total Protein 6.3 (6.0-8.3) gm/dl Albumin 3.2 L (3.4-5.0) gm/dl Intake and Output 08/04/23 08/05/23 08/05/23 22:59 06:59 14:59 Intake Total 411.733 / 2289.334 448.267 / 2289.334 200 / 200 Output Total 151 / 151 Balance 411.733 / 2138.334 297.267 / 2138.334 200 / 200 Intake: IV 411.733 / 2289.334 448.267 / 2289.334 200 / 200 Acetaminophen 1,000 mg In 100 100 / 200 100 / 100 ml @ 400 mls/hr IV Q8H PRN Rx#: [id number] Heparin Sodium/Dextrose 25,000 211.733 / 789.334 348.267 / 789.334 units In 500 ml @ 1,600 UNITS/ HR 32 mls/hr IV .[id number] JOHNIE Rx #:[id number] Piperacillin/Tazobactam 4.5 gm 100 / 300 100 / 300 100 / 100 In Dextrose 5% Mini-B 100 ml @ 25 mls/hr IV Q8H JOHNIE Rx#: [id number] Output: Urine 150 / 150 # Bowel Movements Other: Other Intake Source npo/ice chips npo # Unmeasured Voids 2 Weight 138.3 kg 138.3 kg Weight Measurement Method Standing Scale Patient Weight 08/06/23 06:59 Weight 138.3 kg
--- NOTE | 2023-08-05 14:34 | Anesthesiology Consultation ---
Date of Service August 05, 2023 Assessment & Plan Chart Review Chart Review: Acceptable Risk for Surgery Consults Requested none History Surgery Operation Date: 08/05/23 14:05 Proposed Procedures p Laparoscopic Cholecystectomy - Joesph Richey DO Height/Weight Height: 5 ft 9 in Weight: 138.3 kg Allergies Allergy/AdvReac Type Severity Reaction Status Date / Time rosuvastatin Allergy Mild Cramping Verified 08/03/23 18:23 of the Muscles simvastatin Allergy Mild Cramping Verified 08/03/23 18:23 of the Muscles Medications Home Medications Medication Instructions Recorded Confirmed Last Taken acetaminophen 325 mg tablet 650 mg PO Q6H PRN Pain 10/20/18 08/03/23 03/24/22 apixaban 5 mg tablet (Eliquis) 5 mg PO BID 10/20/18 08/03/23 08/03/23 aspirin-sod bicarb-citric acid 325 1 tab PO DAILY PRN Abdominal 10/20/18 08/03/23 11/23/18 06:30 mg-1,916 mg-1,000 mg efferves tab Discomfort (Rita-Mira Original) atorvastatin 80 mg tablet 80 mg PO QAM 10/20/18 08/03/23 08/03/23 docusate sodium 100 mg capsule 100 mg PO BID PRN Constipation 10/20/18 08/03/23 2 Months Ago ~06/04/23 insulin NPH-regular 70-30 U-100 75 unit subcut BID 10/20/18 08/03/23 08/03/23 insulin 100 unit/mL subcutaneous pen (Novolin 70-30 FlexPen U-100 Insulin) tramadol 50 mg tablet 50 mg PO Q8H PRN Pain 10/20/18 08/03/23 03/25/22 aspirin 81 mg tablet,delayed 81 mg PO QAM 04/09/20 08/03/23 1 Week Ago release ~07/27/23 ezetimibe 10 mg tablet 10 mg PO QAM 03/20/22 08/03/23 08/03/23 fluticasone furoate 100 1 inh inhalation QAM PRN Wheezing 03/20/22 08/03/23 03/24/22 mcg/actuation blister powder for inhalation (Arnuity Ellipta) furosemide 40 mg tablet 40 mg PO QAM 03/20/22 08/03/23 08/03/23 isosorbide mononitrate 30 mg 30 mg PO QAM 03/20/22 08/03/23 1 Week Ago tablet,extended release 24 hr ~07/27/23 metformin 500 mg tablet,extended 500 mg PO BID 03/20/22 08/03/23 08/03/23 release 24 hr metoprolol succinate 50 mg 75 mg PO QPM 03/20/22 08/03/23 08/02/23 tablet,extended release 24 hr metoprolol succinate 50 mg 100 mg PO QAM 03/20/22 08/03/23 08/03/23 tablet,extended release 24 hr nitroglycerin 0.4 mg sublingual 0.4 mg sublingual UD PRN Chest Pain 03/20/22 08/03/23 Unknown tablet semaglutide 2 mg/dose (8 mg/3 mL) 2 mg subcut WK 08/03/23 08/03/23 08/02/23 subcutaneous pen injector (Ozempic) Active Medications Generic Name Dose Route Start Last Admin Trade Name Freq PRN Reason Stop Dose Admin Hydromorphone HCl 0.25 mg 08/03/23 20:46 08/04/23 11:54 Hydromorphone Inj 0.5 Mg/0.5 Ml Syr IV 08/17/23 20:45 0.25 mg Q6H PRN Administration Severe Pain (Scale 7, 8, 9,10) Heparin Sodium/Dextrose 25,000 units in 500 mls @ 0 mls/hr 08/03/23 19:45 08/05/23 07:02 Heparin Sodium/Dextrose IV 09/02/23 19:44 Not Given .Q0M JOHNIE Protocol 0 UNITS/HR Piperacillin Sod/Tazobactam 100 mls @ 25 mls/hr 08/03/23 23:00 08/05/23 09:45 Sod 4.5 gm/ Dextrose IV 08/13/23 22:59 Infused Q8H JOHNIE Infusion Protocol Acetaminophen 1,000 mg in 100 mls @ 400 mls/hr 08/03/23 20:46 08/05/23 10:08 Ofirmev IV 08/06/23 20:45 Infused Q8H PRN Infusion Pain or Fever Insulin Aspart 0 units 08/04/23 00:00 08/05/23 12:53 Insulin Aspart Per Unit Charge SC 09/03/23 00:00 2 units Q6 JOHNIE Administration Insulin Glargine 0 units 08/05/23 09:00 08/05/23 08:37 Lantus Per Unit Charge SC 09/04/23 08:59 10 units BID JOHNIE Administration Protocol Metoprolol Succinate 100 mg 08/04/23 09:00 08/05/23 08:32 Metoprolol Succ 50mg Ext Rel Tab PO 09/03/23 08:59 100 mg QAM JOHNIE Administration Metoprolol Succinate 75 mg 08/03/23 21:00 08/04/23 21:01 Metoprolol Succ 25mg Ext Rel Tab PO 09/02/23 20:59 75 mg QPM JOHNIE Administration NPO Date Last Intake of Fluids: 08/04/23 Time Last Intake of Fluids: 23:00 Date Last Intake of Solids: 08/04/23 Time Last Intake of Solids: 23:00 Past Medical History Medical History (Updated 08/04/23 @ 13:17 by NICOLÁS Heaton) CAD (coronary artery disease) Pulmonary hypertension Ischemic cardiomyopathy Per cardio records. EF 50-54% on 11/01/19 echo. Pain of left leg LLE. Per cardiology, 07/2018 duplex showed chronic-appearing nonocclusive thrombus in L popliteal vein. SOB (shortness of breath) on exertion Irregular heartbeat HX-F/U GAL GRACIE Osteoarthritis Kidney stones Diabetes mellitus, type 2 Vertigo Depression Anxiety Transient ischemic attack (TIA) 15 YRS AGO Migraine Pulmonary embolism Post-op s/p CABG with DVT in 2014, then again 08/2018 despite warfarin therapy. Myocardial Infarction NSTEMI 2014. Cath --> CABG x 3 (GREGORY-LAD, SVG-Dx, SVG-OM) 08/16/14. Deep vein thrombosis "still have it"?? started 5+ years ago-> is currently on blood thinners. has no problems Hyperlipidemia Hypertension Sleep apnea CPAP HS and PRN with naps Past Family History Family History Mother Diabetes mellitus, type 2 Mother Cancer Father Cancer Other No family history of adverse response to anesthesia Past Surgical History Surgical History History of ERCP History of amputation partial right thumb amputation S/P hardware removal left leg (unable to remove screws) History of open reduction and internal fixation (ORIF) procedure Left leg (1999 & 2003) d/t a trauma Nausea and vomiting after administration of anesthetic agent hx Hx of cataract surgery bilateral History of shoulder surgery right History of arthroscopy KNEES History of colonoscopy Hx of heart bypass surgery 2015 CABG x 3. History of cardiac cath NO STENTS, 2015. Social History Smoking Status: Never smoker tobacco type: cigarettes, pipe and cigars Do You Dip or Chew Tobacco: No Hx Alcohol Use: No Hx Substance Use: No substance use type: does not use Physical Exam Vital Signs Last Vital Signs Temp 36.4 C L 08/05/23 14:13 Pulse 86 08/05/23 14:13 Resp 22 08/05/23 14:13 BP 167/95 H 08/05/23 14:13 Pulse Ox 94 08/05/23 14:13 O2 Del Method Room Air, CPAP 08/05/23 14:13 Testing Laboratory Results 08/05/23 04:14 08/05/23 04:14 APTT 34 Seconds (21-31) H 08/03/23 15:39 Hemoglobin A1c 8.3 % (4.5-5.6) H 08/04/23 02:05 Urine Color Yellow 08/03/23 17:15 Urine Appearance Clear (Clear) 08/03/23 17:15 Urine pH 8.0 (4.5-7.5) H 08/03/23 17:15 Ur Specific [place] 1.008 (1.000-1.030) 08/03/23 17:15 Urine Protein 1+ (Negative) H 08/03/23 17:15 Urine Glucose (UA) Negative (Negative) 08/03/23 17:15 Urine Ketones Negative (Negative) 08/03/23 17:15 Urine Nitrite Negative (Negative) 08/03/23 17:15 Ur Leukocyte Esterase Negative (Negative) 08/03/23 17:15 Urine WBC (Auto) 0-5 /hpf (0-5) 08/03/23 17:15 Urine RBC (Auto) 0-2 /hpf (0-2) 08/03/23 17:15 U Hyaline Cast (Auto) 0-2 /lpf (0-2) 08/03/23 17:15 U Epithel Cells (Auto) 0-2 /hpf (0-2) 08/03/23 17:15 Urine Bacteria (Auto) None Seen (None Seen) 08/03/23 17:15 08/05/23 08/05/23 08/05/23 14:23 11:55 08:30 POC Glucose 162 H 160 H 151 H 08/05/23 05:31 POC Glucose 167 H
[2023-08-05] MEDS ORDERED: PROMETHAZINE HCL 6.25 MG in SODIUM CHLORIDE 0.9% 50 ML IV PRN (14:36)
[2023-08-05] MEDS ORDERED: ePHEDrine sulfate 50 MG/ML AMP IV PRN (14:36)
[2023-08-05] MEDS ORDERED: ONDANSETRON INJ 2 MG/ML 2 ML VIAL IV PRN (14:36)
[2023-08-05] MEDS ORDERED: HYDROmorphone INJ 2 MG/ML SYR/VIAL IV PRN (14:36)
[2023-08-05] MEDS ORDERED: ATROPINE SULFATE 0.1 MG/ML 10ML SYR IV PRN (14:36)
[2023-08-05] MEDS: LACTATED RINGER'S 1,000 ML IV SCH (14:45)
--- NOTE | 2023-08-05 14:51 | Pharmacy Report ---
Pharmacy Glycemic Short Note 2 - Date of Service August 05, 2023 - Glycemic Short BSG Results (Last 24 hours): 08/04/23 08/04/23 08/04/23 17:05 20:11 23:04 Glucose POC Glucose 152 H 152 H 138 H 08/05/23 08/05/23 08/05/23 04:14 05:31 08:30 Glucose 185 H POC Glucose 167 H 151 H 08/05/23 08/05/23 11:55 14:23 Glucose POC Glucose 160 H 162 H OUTPATIENT ANTIDIABETIC REGIMEN: * Novolin 70/30 - 75 units bidm, metformin, ozempic ASSESSMENT: 08/04 * Brijesh received 16 units of insulin yesterday with adequate glycemic control (10 units basal + 6 units bolus) * Patient is currently NPO for laparoscopic cholecystectomy today. * Fasting BSG is above goal. Will increase Lantus scale. Anticipate fasting to continue to trend up given significant reduction in basal doses thus far compared to home usage. 08/03 * 73 year old admitted with cholecystitis. Type 2 diabetic - pharmacy consulted for glycemic management. Patient on ~150 units of insulin/day outpatient. Patient is NPO - ordered Lantus 20 units x 1 this AM, however patient refused. Anticipate BSGs to rise with no basal insulin ordered. Will add scale for basal insulin at HS time. PLAN FOR INPATIENT GLYCEMIC CONTROL: * Hold outpatient oral diabetes medications * Basal insulin * Lantus 15-20-25 units BID * Bolus insulin * NovoLog per scale ACHS or Q6hrs while NPO * Goal Range: Low 110 mg/dL - High 140 mg/dL * Correction Factor: 15 mg/dL/unit * Nutritional / Prandial insulin per carb ratio of 1 unit per 6 grams CHO consumed
[2023-08-05] MEDS ORDERED: PHENYLEPHRINE HCL 10 MG/ML VIAL ONE (15:13)
[2023-08-05] MEDS ORDERED: SUGAMMADEX SODIUM 200 MG/2 ML VIAL IV ONE (15:32)
[2023-08-05] MEDS ORDERED: MoRPHine SULFATE 2 MG/ML CARP ONE (16:30)
[2023-08-05] MEDS: BUPIVACAINE/EPINEPHRINE 0.5% MPF 1:200,000 30 ML VIAL ONE (17:01)
--- NOTE | 2023-08-05 17:16 | Post Operative Brief Note ---
PG Immediate Post Op with CF Date of Surgery August 05, 2023 Pre & Post Diagnosis Operation Date: 08/05/23 14:05 Pre-Op Diagnosis: Cholecystitis Post-Op Diagnosis: Cholecystitis I identified the patient and participated in the time-out.: Yes Procedure Operation Date: 08/05/23 14:05 Actual Procedures p Laparoscopic Cholecystectomy - Joesph Richey DO Surgeon Joesph Richey DO Trekking Guide dakotah'linda santiago Estimated Blood Loss 150 Findings Consistent with Post-Op Diagnosis Specimens Specimen Description: culture#1 gallbladder fluid aerobic, anerobic, gram stains a. gallbladder and contents Drains Salvador-Mg Drain
[2023-08-05] MEDS: fentaNYL citrate PF 100 MCG/2 ML VIAL IV PRN (17:32)
--- NOTE | 2023-08-05 18:20 | Operative Report ---
PG Post Operative Report Pre & Post Diagnosis Operation Date: 08/05/23 14:05 Pre-Op Diagnosis: Cholecystitis Post-Op Diagnosis: Cholecystitis I identified the patient and participated in the time-out.: Yes Procedure Operation Date: 08/05/23 14:05 Actual Procedures p Laparoscopic Cholecystectomy - Joesph Richey DO *difficult case modifier Surgeon Joesph Richey DO Screw Down o'linda santiago Estimated Blood Loss 150 Findings Consistent with Post-Op Diagnosis Specimens gallbladder Description of Procedure After informed consent was obtained the patient was taken to the operating room and placed in the supine position. After successful intubation the abdomen was sterilely prepped and draped in usual fashion. A periumbilical incision was made with an 11 blade scalpel and carried down through the soft tissue using electrocautery. The anterior rectus fascia was opened using electrocautery and 2 #0 Vicryl stay sutures were placed. The peritoneum was elevated with hemostats and incised under direct vision using Metzenbaum scissors. A finger sweep was performed and a 12 mm Reagan trocar was placed. The abdomen was insufflated to 18 mmHg. The laparoscope was inserted and the abdomen was examined in 360. The gallbladder itself was severely inflamed otherwise, no gross abnormalities were identified. A subxiphoid 12 mm port and 2 right upper quadrant 5 mm ports were placed under direct vision. The patient was placed in a reverse Trendelenburg position and slightly airplaned to the left. The gallbladder was very acutely inflamed. I was then able to grasp it and therefore I used a gallbladder needle to drain approximately 60 cc of purulent fluid. The gallbladder was then grasped and elevated superiorly and laterally. A [place] dissector was used to take down adhesions around the neck of the gallbladder. The gallbladder was tightly adhesed to the common bile duct making dissection difficult. Eventually I was able to bluntly dissect the cystic duct away from the common bile duct. It was very enlarged with inflammatory tissue around the duct itself. Therefore I used a ADAN brown cartridge linear stapler to transect the cystic duct. In similar fashion the cystic artery was identified and skeletonized clipped and divided. There were some smaller vascular branches that were clipped and divided as well. Which adele yes the gallbladder was removed from the gallbladder fossa with electrocautery. It was placed into an Endo Catch bag. Thorough irrigation was performed. At the end o f the procedure there was adequate hemostasis and no evidence of any bile leaks. A final look around the abdomen showed no other abnormalities. The gallbladder and trochars were all removed and the abdomen was desufflated. The fascia of the camera port was closed using 0 Vicryl in a [id number] fashion. All the wounds were irrigated and closed using 4-0 Monocryl. Marcaine was injected tammie und them for postoperative analgesia and skin glue used as a dressing. The patient was awakened, extubated and transferred to recovery in stable condition. My RANGE EXAMINER medical staff assistant was present throughout the entire case... helped with prepping the patient. With exposure for trocar placement, as well as retracted the gallbladder throughout the case and also assisted with wound closure and dressing placement. I attest to the content of the Intraoperative Record and any orders documented therein. Any exceptions are noted below.
--- NOTE | 2023-08-05 18:25 | Anesthesiology Progress Note ---
Date of Service August 05, 2023 Anesthesia Post Procedure Vital Signs Vital Signs: Temp Pulse Pulse Pulse Resp BP BP 08/05/23 18:10 36.4 C L 86 22 133/70 08/05/23 18:00 91 H 24 126/68 08/05/23 17:50 88 20 148/76 H 08/05/23 17:40 84 18 140/66 08/05/23 17:30 94 H 14 132/74 08/05/23 17:24 36.4 C L 98 H 27 H 138/74 08/05/23 15:28 104 H 08/05/23 14:13 36.4 C L 86 22 167/95 H 08/05/23 11:48 36.7 C 85 20 115/72 08/05/23 08:40 08/05/23 07:53 36.4 C L 84 18 118/76 08/05/23 07:25 86 08/05/23 02:49 37.0 C 94 H 18 115/69 08/04/23 23:05 36.9 C 84 18 110/66 08/04/23 21:58 75 08/04/23 20:14 36.9 C 99 H 18 113/67 Pulse Ox O2 Del Method O2 Flow Rate 08/05/23 18:10 994 H Oxymask 4 08/05/23 18:00 91 Oxymask 4 08/05/23 17:50 95 Oxymask 4 08/05/23 17:40 96 Oxymask 4 08/05/23 17:30 94 Oxymask 6 08/05/23 17:24 94 Oxymask 6 08/05/23 15:28 08/05/23 14:13 94 Room Air, CPAP 08/05/23 11:48 92 Room Air 08/05/23 08:40 BiPAP 08/05/23 07:53 94 Room Air 08/05/23 07:25 08/05/23 02:49 95 Room Air, BiPAP 08/04/23 23:05 93 Room Air, BiPAP 08/04/23 21:58 08/04/23 20:14 93 Room Air, BiPAP Pain Intensity Leg: Pain Intensity: 2 Abdomen: Pain Intensity: 4 Transfer of Care Handoff Completed per policy Notes Mental Status: alert / awake / arousable Patient Amnestic to Procedure: Yes Nausea / Vomiting: adequately controlled Pain: adequately controlled Airway Patency, RR, SpO2: stable & adequate BP & HR: stable & adequate Hydration State: stable & adequate Anesthetic Complications: no major complications apparent
[2023-08-05] MEDS ORDERED: oxyCODONE HCL IR 5 MG TAB (IMMEDIATE RELEASE) PO PRN (18:27)
[2023-08-05] MEDS ORDERED: MoRPHine SULFATE 2 MG/ML CARP IV PRN (18:27)
[2023-08-05] MEDS: fentaNYL citrate PF 100 MCG/2 ML VIAL ONE ×2 (18:29→18:31)
[2023-08-05] MEDS: ONDANSETRON INJ 2 MG/ML 2 ML VIAL IV PRN (18:41)
[2023-08-05] MEDS: MoRPHine SULFATE 4 MG/ML 1 ML CARP\\VIAL IV PRN (18:41)
[2023-08-05] MEDS: PROMETHAZINE HCL 12.5 MG in SODIUM CHLORIDE 0.9% 50 ML IV STA (20:56)
[2023-08-05] MEDS: HYDROmorphone INJ 0.5 MG/0.5 ML SYR IV PRN (20:56)
[2023-08-05] MEDS: INSULIN ASPART PER UNIT CHARGE SC SCH (21:05)
[2023-08-05] MEDS: DICLOFENAC SOD 1% GEL 100 GM TUBE EXT PRN (22:51)
[2023-08-06] MEDS: oxyCODONE HCL IR 5 MG TAB (IMMEDIATE RELEASE) PO PRN (05:17)
[2023-08-06 08:08] LABS: Basophils # (auto) 0.03 K/uL (0.00-0.20); Basophils % (auto) 0.2 %; Hematocrit (blood only) 44.3 % (42.0-52.0); Hemoglobin 14.2 g/dl (14.0-18.0); Immature Granulocytes # (auto) 0.09 K/uL (0.01-0.20); Immature Granulocytes % (auto) 0.7 %; Lymphocytes # (auto) 0.55 K/uL (1.20-3.40); Lymphocytes % (auto) 4.3 %; Mean Corpuscular Hemoglobin 28.6 pg (25.0-34.0); Mean Corpuscular Hgb Conc 32.1 g/dL (32.0-36.0); Mean Corpuscular Volume 89.1 fL (80.0-100.0); Mean Platelet Volume 10.2 fL (9.4-12.4); Monocytes # (auto) 1.32 K/uL (0.11-0.59); Monocytes % (auto) 10.4 %; Neutrophils # (auto) 10.66 K/uL (1.40-6.50); Neutrophils % (auto) 84.4 %; Platelet Count 348 K/uL (130-400); RDW Standard Deviation 45.3 fL (36.4-46.3); Red Blood Count 4.97 M/uL (4.70-6.10); White Blood Count 12.65 K/ul (4.8-10.8)
[2023-08-06 08:43] LABS: Albumin Level 3.3 gm/dl (3.4-5.0); Bilirubin,Total 0.7 mg/dl (0.2-1.0); Calcium 8.2 mg/dl (8.6-10.3); Magnesium 1.8 mg/dl (1.7-2.4); Potassium 4.6 mmol/L (3.5-5.1)
--- NOTE | 2023-08-06 08:46 | Surgery Progress Note ---
Date of Service August 06, 2023 Assessment & Plan (1) Acute calculous cholecystitis: Plan: doing well pod 1 will advance diet ok to restart wilbur [place] covering for weekend. Admission and Anticipated Discharge Date Admission Date: August 03, 2023 Subjective pt seen. other than expected post op discomfort doing well. no n/v Physical Exam Physical Exam: alert. nad abd: soft. incisions look good. RAEANN with serous output/no bile Results & Data Vital Signs (Past 12 Hours) Vital Signs Temp Pulse Pulse Pulse Resp BP Pulse Ox 08/06/23 08:05 08/06/23 08:02 36.3 C L 100 H 16 128/79 94 08/06/23 07:16 92 H 08/06/23 03:08 83 20 132/84 97 08/05/23 22:25 36.8 C 97 H 20 143/86 H 94 08/05/23 21:51 92 H 08/05/23 21:00 36.7 C 98 H 20 118/76 92 O2 Del Method O2 Flow Rate 08/06/23 08:05 Nasal CPAP 08/06/23 08:02 BiPAP 8 08/06/23 07:16 08/06/23 03:08 BiPAP 8 08/05/23 22:25 Nasal CPAP 5 08/05/23 21:51 08/05/23 21:00 Nasal CPAP PG Care Time/CCT Total # of Minutes Spent Total Time Spent with Patient: Total time spent is greater than 50% in coordination of care (as documented) at patient's floor/unit and/or counseling patient: Coding Level of Care Code 95445 Post Operative Follow-Up Diagnoses Acute calculous cholecystitis K80.00
[2023-08-06 08:52] LABS: Albumin Globulin Ratio 0.9 (0.9-2); BUN Creatinine Ratio 22.1 (10-20); Creatinine Clr Calc Pharmacy 91.6 ml/min; Est GFR (Non-African American) 80.2 ml/min; Globulin 3.6 gm/dl (2.5-4.0); Phosphorus 4.5 mg/dl (2.5-4.9); Total Protein 6.9 gm/dl (6.0-8.3)
--- NOTE | 2023-08-06 09:05 | Cardiology Progress Note ---
Date of Service August 06, 2023 Assessment & Plan (1) Preop cardiovascular exam: (2) Cholecystitis: (3) Gallstones: (4) New onset atrial fibrillation: (5) CAD (coronary artery disease): (6) Hypertension: (7) History of DVT (deep vein thrombosis): (8) History of pulmonary embolism: (9) Sleep apnea: Plan Assessment: 73 year old patient with complex PMHx presents with 3 days of persistent abdominal pain. Further evaluation reveals gallstones and cholecystitis. EKG on admission demonstrates atrial fibrillation, rate controlled new to patient. Given this new finding and patient's history cardiology has been asked to provide preoperative cardiac risk assessment. Plan: 1. Preoperative cardiovascular exam 2. Cholecystitis 3. Gallstones -Most recent echocardiogram 10/14/2022 demonstrates normal LVEF 55-59%, Grade I diastolic dysfunction, and moderate sizes apical, septal and anteroseptal wall motion abnormality, unchanged from prior. -Lexiscan 2020 negative for ischemia -Echocardiogram obtained 08/04/23, technically limited, but demonstrates LVEF of 50-55% with basal septum thickening and angulated consistent with sigmoid septum (not a new finding), mild concentric hypertrophy, normal LV wall motion and no significant valve disease. 4. New onset A-fib -likely in the setting of an acute infectious process with need for gallbladder surgery. -Continue to monitor on telemetry, currently rate controlled. -Continue Toprol xl 100mg QAM and 75mg QPM 5. CAD: -Doing well from a cardiac standpoint with no angina concerns. -Continue on Toprol xl. ASA, Atorvastatin, Zetia. Restart Imdur prior to discharge as per home regimen 6. HTN: -At target. -Continue Toprol xl -Restart Imdur prior to discharge as per home regimen 7/8. History of DVT and PE -Recommend to restart Eliquis today if ok with general surgery. 9. Sleep apnea -Continue with use of CPAP HS Case has been discussed with Dr. Jovel. Further recommendations regarding plan of care as per his assessment. I spent a total of 30 minutes on the date of service in preparation, delivery, documentation of the care provided to the patient excluding any time spent in the performance of separately billed services. NICOLÁS Heaton [facility] Admission and Anticipated Discharge Date Admission Date: August 03, 2023 Supervising Physician Co-Signing Physician Notes Attending attestation: Case reviewed with the advanced practitioner. I have personally performed a history and physical examination on the patient. I have reviewed the advanced practitioner's documentation on the date of service referenced in note, and I agree with, and take responsibility for the plan of care. Patient doing well today, postoperative day 1. Prior to hospital treatment with oral furosemide to resume a.m. on 08/07/2023. Eliquis resumed . I spent a total of 20 minutes coordinating, documenting, and providing care for this patient excluding time spent in the performance of separately billed services or time spent by another provider. Barney Jovel, Subjective 08/06/2023: Patient seen and examined today in follow up . He is out of bed in a chair feeling quite well. he reports some mild abdominal pain post surgical, but no other complaints. No chest pain, pressure, palpitations, shortness of breath, PND, pre-syncope, syncope or edema. labs, vitals, telemetry, diagnostics, and documentation was reviewed. Telemetry demonstrates A-fib with PVC. rates 90's. Highest noted rate was 110 which was with activity. Review of Systems Review of Systems: All systems reviewed & are unremarkable except as noted in HPI & below Physical Exam Constitutional: + obese; no acute distress Neck: normal visual inspection and trachea midline Respiratory: normal respiratory effort Auscultation: + diminished lung sounds (bilateral bases ); no crackles, no rales, no rhonchi and no wheezes Cardiovascular: Rate/Rhythm: + irregularly irregular Heart Sounds: normal S1 and normal S2; no murmur Vessels: dorsalis pedis pulses present; no JVD Extremities: + edema (trace BLE) Skin: no rashes, warm and dry Psychiatric: A+Ox3, euthymic affect Results & Data Vital Signs (Past 12 Hours) Vital Signs Temp Pulse Pulse Pulse Resp BP Pulse Ox 08/06/23 08:05 08/06/23 08:02 36.3 C L 100 H 16 128/79 94 08/06/23 07:16 92 H 08/06/23 03:08 83 20 132/84 97 08/05/23 22:25 36.8 C 97 H 20 143/86 H 94 08/05/23 21:51 92 H O2 Del Method O2 Flow Rate 08/06/23 08:05 Nasal CPAP 08/06/23 08:02 BiPAP 8 08/06/23 07:16 08/06/23 03:08 BiPAP 8 08/05/23 22:25 Nasal CPAP 5 08/05/23 21:51 Laboratory Results Cardiac Enzymes 08/06/23 Range/Units 07:43 AST 43 H (13-39) U/L CBC 08/06/23 Range/Units 07:43 WBC 12.65 H (4.8-10.8) K/ul RBC 4.97 (4.70-6.10) M/uL Hgb 14.2 (14.0-18.0) g/dl Hct 44.3 (42.0-52.0) % Plt Count 348 (130-400) K/uL Neut # (Auto) 10.66 H (1.40-6.50) K/uL Lymph # (Auto) 0.55 L (1.20-3.40) K/uL [place] # (Auto) 1.32 H (0.11-0.59) K/uL Eos # (Auto) 0.00 (0.00-0.50) K/uL Baso # (Auto) 0.03 (0.00-0.20) K/uL Comprehensive Metabolic Panel 08/06/23 Range/Units 07:43 Sodium 138 (136-145) mmol/L Potassium 4.6 D (3.5-5.1) mmol/L Chloride 102 (98-107) mmol/L Carbon Dioxide 26 (21-32) mmol/L BUN 21 (6-23) mg/dl Creatinine 0.95 (0.6-1.4) mg/dl Glucose 312 H* (70-99(Fasting)) mg/dl Calcium 8.2 L (8.6-10.3) mg/dl AST 43 H (13-39) U/L ALT 60 H (7-52) U/L Alkaline Phosphatase 90 (34-104) U/L Total Protein 6.9 (6.0-8.3) gm/dl Albumin 3.3 L (3.4-5.0) gm/dl Intake and Output 08/05/23 08/06/23 08/06/23 22:59 06:59 14:59 Intake Total 1050.5 / 1350.5 100 / 1350.5 509.333 / 509.333 Output Total 470 / 630 160 / 630 Balance 580.5 / 720.5 -60 / 720.5 509.333 / 509.333 Intake: IV 150.5 / 450.5 100 / 450.5 509.333 / 509.333 Heparin Sodium/Dextrose 25,000 409.333 / 409.333 units In 500 ml @ 1,600 UNITS/ HR 32 mls/hr IV .[id number] [facility] Rx #:[id number] Piperacillin/Tazobactam 4.5 gm 100 / 300 100 / 300 100 / 100 In Dextrose 5% Mini-B 100 ml @ 25 mls/hr IV Q8H [facility] Rx#: [id number] Promethazine HCl 12.5 mg In 50.5 / 50.5 Sodium Chloride 0.9% 50 ml @ 202 mls/hr IV NOW [facility] Rx#: [id number] IV Perioperative 900 / 900 Output: Urine 250 / 400 150 / 400 Estimated Blood Loss 150 / 150 Drain Output 70 / 80 10 / 80 Right Lower Abdomen RAEANN 70 / 80 10 / 80 Other: Other Intake Source ice chips Weight 120.9 kg 120.9 kg Weight Measurement Method Built in [facility] Patient Weight 08/07/23 06:59 Weight 120.9 kg
[2023-08-06] MEDS ORDERED: PHARMACY GLYCEMIC MGMT CONSULT PRN (10:45)
[2023-08-06] MEDS: POLYETHYLENE (MIRALAX) 17 GM PACK PO SCH (12:08)
[2023-08-06] MEDS: DICLOFENAC SOD 1% GEL 100 GM TUBE EXT SCH (12:08)
[2023-08-06] MEDS: APIXABAN 5 MG TABLET PO SCH (12:08)
[2023-08-06] MEDS: MAGNESIUM HYDROXIDE SUSP 30 ML UDC PO ONE (12:08)
[2023-08-06] MEDS: ACETAMINOPHEN 325 MG TAB PO PRN (13:03)
--- NOTE | 2023-08-06 14:09 | Pharmacy Report ---
Pharmacy Glycemic Short Note 2 - Date of Service August 06, 2023 - Glycemic Short BSG Results (Last 24 hours): 08/05/23 08/05/23 08/05/23 14:23 17:36 18:40 Glucose POC Glucose 162 H 215 H 211 H 08/05/23 08/06/23 08/06/23 21:00 07:43 08:22 Glucose 312 H* POC Glucose 192 H 275 H 08/06/23 08/06/23 12:06 12:08 Glucose POC Glucose 336 H* 322 H* OUTPATIENT ANTIDIABETIC REGIMEN: * Novolin 70/30 - 75 units bidm, metformin, ozempic ASSESSMENT: 08/05 * Patient received total 43 units of insulin yesterday; 30 units basal and 13 units bolus. * BSGs yesterday were [phone] mg/dl. Fasting BSG today was 275 mg/dl. * Basal dose scale increased for tonight for better fasting bsg control. * Patient is now eating and carb intake has increased. This is most likely causing high BSGs now. Expect this trend down this evening with higher doses of Novolog given at breakfast and lunch. May need to tighten parameters if BSGs still elevated. 08/04 * Brijesh received 16 units of insulin yesterday with adequate glycemic control (10 units basal + 6 units bolus) * Patient is currently NPO for laparoscopic cholecystectomy today. * Fasting BSG is above goal. Will increase Lantus scale. Anticipate fasting to continue to trend up given significant reduction in basal doses thus far compared to home usage. 08/03 * 73 year old admitted with cholecystitis. Type 2 diabetic - pharmacy consulted for glycemic management. Patient on ~150 units of insulin/day outpatient. Patient is NPO - ordered Lantus 20 units x 1 this AM, however patient refused. Anticipate BSGs to rise with no basal insulin ordered. Will add scale for basal insulin at HS time. PLAN FOR INPATIENT GLYCEMIC CONTROL: * Hold outpatient oral diabetes medications * Basal insulin * Lantus 20-25-30 units scale BID based on BSG * Bolus insulin * NovoLog per scale ACHS or Q6hrs while NPO * Goal Range: Low 110 mg/dL - High 140 mg/dL * Correction Factor: 15 mg/dL/unit * Nutritional / Prandial insulin per carb ratio of 1 unit per 6 grams CHO consumed
--- NOTE | 2023-08-06 16:47 | Hospitalist Progress Note ---
Date of Service August 06, 2023 Assessment & Plan (1) New onset atrial fibrillation: Plan 73yo M with a PMH of DM II, CAD s/p CABG, history of ischemic cardiomyopathy, COPD, GABY on CPAP, history of restrictive lung disease, history of PE and DVT on Eliquis, dyslipidemia, hypertension, CESAR, mood disorder and other medical problems listed below who presents from home 08/02 with worsening abdominal pain x 3 days and was found to have cholecystitis. 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 Echo October 2022 with LV EF 55-59%, moderate sized apical, septal, and anteroseptal wall motion abnormality with mild hypokinesis to hypokinesis of the segments, grade 1 diastolic dysfunction, the aortic root and proximal ascending aorta are mildly enlarged (4.3/4.4 cm) but no significant change from previous Admitting GB US with cholelithiasis with findings of acute cholecystitis. HIDA scannonvisualization of gallbladder compatible with cystic duct obstruction. Admitting WBC 17.74K, LFT fairly WNL, lipase WNL, UA negative for UTI, Eliquis resumed after confirmation with surgery Bowel regimen Encourage ambulation PT OT evaluation New onset A-fib: EKG from 08/02 personally reviewed; atrial fibrillation with ventricular rate of 91 bpm Patient already on Eliquis due to history of PE. Other chronic medical conditions: Continue with/resume home meds as and when able. Deep vein thrombosis/Pulmonary embolism: Recurrent, indefinite anticoagulation recommended by heme/onc, per outpatient notes Eliquis resumed T2DM: A1c of 8.2 in July 2023, hold home medicines, glycemic pharmacy consult, sliding scale insulin while in hospital. CAD/HTN: CABG at [facility] approximately 5 years ago. Continue Toprol with hold parameters. c/w asa and imdur after Sx. HLD: Continue home Zetia and statin after Sx. Morbid obesity: Continue counseling on lifestyle modification during admission. Sleep apnea: Continue home CPAP at bedtime. DVT prophylaxis: Eliquis CODE STATUS: Full code PCP: Ean Please note the above document was generated using voice recognition software. It may contain grammatical, syntax or spelling errors. Any formal questions or concerns about the content, text or information contained within the body of this dictation should be directly addressed to the provider for clarification Admission and Anticipated Discharge Date Admission Date: August 03, 2023 Subjective Patient seen and examined at bedside. He is sitting up on the chair; not in distress. No bowel movements yet. No significant overnight events Review of Systems Review of Systems: All systems reviewed & are unremarkable except as noted in Subjective Physical Exam Physical Exam: Constitutional: WD/WN, vitals as above, NAD, sitting up in bed, pleasant, conversing easily Respiratory: normal respiratory effort, lungs clear to auscultation, no wheeze, rales, rhonchi. Normal insp/exp effort, no accessory muscle use Cardiovascular: RRR, no murmur, no edema Vessels: no JVD or carotid bruit Chest: normal inspection of chest Abdomen: Dressing in place; clean dry and intact. Musculoskeletal: no cyanosis or clubbing, extremities motor strength 5/5 Skin: no rashes, warm and dry normal turgor Neurologic: PERRL, EOMI, accommodation nl, no face palsy, no dysarthria CN's II- XI intact bilaterally and moves all extremities Psychiatric: A+Ox3, euthymic affect Results & Data Results & Data Vital Signs (Past 12 Hours) Vital Signs Temp Pulse Pulse Resp BP Pulse Ox O2 Del Method 08/06/23 16:24 36.4 C L 89 16 118/72 91 Room Air 08/06/23 14:58 96 H 08/06/23 11:52 95 H 16 123/72 91 Room Air 08/06/23 08:05 Nasal CPAP 08/06/23 08:02 36.3 C L 100 H 16 128/79 94 BiPAP 08/06/23 07:16 92 H O2 Flow Rate 08/06/23 16:24 08/06/23 14:58 08/06/23 11:52 08/06/23 08:05 08/06/23 08:02 8 08/06/23 07:16
[2023-08-06] MEDS: ANUSOL SUPP 1 EA PR SCH (20:36)
[2023-08-06] MEDS: MAGNESIUM HYDROXIDE SUSP 30 ML UDC PO SCH (20:37)
[2023-08-06] MEDS: bisacodyL 10 MG SUPP PR STA (20:49)
[2023-08-06] MEDS: LANTUS PER UNIT CHARGE SC SCH (20:49)
[2023-08-06] MEDS ORDERED: LANTUS PER UNIT CHARGE SC SCH ×2 (21:00)
[2023-08-07 04:35] LABS: Basophils # (auto) 0.05 K/uL (0.00-0.20); Basophils % (auto) 0.4 %; Eosinophils # (auto) 0.05 K/uL (0.00-0.50); Eosinophils % (auto) 0.4 %; Hematocrit (blood only) 40.9 % (42.0-52.0); Hemoglobin 13.3 g/dl (14.0-18.0); Immature Granulocytes # (auto) 0.14 K/uL (0.01-0.20); Immature Granulocytes % (auto) 1.1 %; Lymphocytes # (auto) 1.18 K/uL (1.20-3.40); Lymphocytes % (auto) 9.4 %; Mean Corpuscular Hemoglobin 28.7 pg (25.0-34.0); Mean Corpuscular Hgb Conc 32.5 g/dL (32.0-36.0); Mean Corpuscular Volume 88.1 fL (80.0-100.0); Mean Platelet Volume 10.5 fL (9.4-12.4); Monocytes # (auto) 1.46 K/uL (0.11-0.59); Monocytes % (auto) 11.7 %; Neutrophils # (auto) 9.61 K/uL (1.40-6.50); Platelet Count 326 K/uL (130-400); RDW Coefficient of Variation 13.9 % (11.5-14.5); Red Blood Count 4.64 M/uL (4.70-6.10); White Blood Count 12.49 K/ul (4.8-10.8)
[2023-08-07 04:48] LABS: Albumin Globulin Ratio 0.9 (0.9-2); Albumin Level 3.1 gm/dl (3.4-5.0); BUN Creatinine Ratio 24.1 (10-20); Bilirubin,Total 0.5 mg/dl (0.2-1.0); Calcium 8.5 mg/dl (8.6-10.3); Creatinine Clr Calc Pharmacy 80.6 ml/min; Est GFR (African American) 79.6 ml/min; Est GFR (Non-African American) 68.7 ml/min; Globulin 3.3 gm/dl (2.5-4.0); Potassium 3.8 mmol/L (3.5-5.1); Total Protein 6.4 gm/dl (6.0-8.3)
[2023-08-07] MEDS: FUROSEMIDE 40 MG TAB PO SCH (09:20)
[2023-08-07] MEDS: EZETIMIBE 10 MG TAB PO SCH (09:21)
[2023-08-07] MEDS: ATORVASTATIN 40 MG TAB PO SCH (09:21)
[2023-08-07] MEDS: ASPIRIN 81 MG ECTAB PO SCH (09:21)
--- NOTE | 2023-08-07 13:32 | Surgery Progress Note ---
Date of Service August 07, 2023 Assessment & Plan (1) Acute calculous cholecystitis: Plan: doing well pod 2 will advance diet Okay to discharge from surgical standpoint will need appointment with [facility] general surgery Wednesday or Wednesday for drain removal Admission and Anticipated Discharge Date Admission Date: August 03, 2023 Subjective doing well. Diet. No nausea or vomiting. No pain. Physical Exam Physical Exam: alert. nad abd: soft. incisions look good. RAEANN with serous output/no bile Results & Data Vital Signs (Past 12 Hours) Vital Signs Temp Pulse Pulse Resp BP Pulse Ox O2 Del Method 08/07/23 11:39 36.5 C 91 H 18 121/75 90 Room Air 08/07/23 09:00 90 08/07/23 07:36 36.5 C 100 H 18 104/60 91 CPAP 08/07/23 05:15 92 H 97 Nasal CPAP 08/07/23 04:13 36.7 C 102 H 20 136/68 92 CPAP 08/07/23 02:04 95 H O2 Flow Rate 08/07/23 11:39 08/07/23 09:00 08/07/23 07:36 08/07/23 05:15 3 08/07/23 04:13 2 08/07/23 02:04
[2023-08-07] MEDS: traMADol HCL 50 MG TABLET PO PRN (13:43)
--- NOTE | 2023-08-07 14:34 | Discharge Summary ---
Date of Service August 07, 2023 Admission HPI Per Admitting Provider This is a 73yo M with a PMH of DM II, CAD s/p CABG, history of ischemic cardiomyopathy, COPD, GABY on CPAP, history of restrictive lung disease, history of PE and DVT on Eliquis, dyslipidemia, hypertension, CESAR, mood disorder and other medical problems listed below who presents from home with worsening abdominal pain x 3 days. Developed pain in upper abdomen on Wednesday evening and continued in Wednesday, felt worse since eating some chicken. Describes as sharp and radiating from RUQ to right back. + Nausea but no vomiting. Decreased appetite since then as well as constipation when he typically goes 2-3x/day. Saw PCP this morning and they did a CT which showed findings consistent with acute cholecystitis with presence of gall stones. Also notes dilatation of CBD 1.8cm. No fever, chills, lightheadedness, CP, has chronic SOB, dysuria. Admission Exam Per Admitting Provider GENERAL APPEARANCE: AxOx4, generally well-appearing male, no acute distress. HEENT: NC, AT. MMM. EOMI, clear conjunctiva, oropharynx clear. NECK: Supple without lymphadenopathy. No stiffness or restricted ROM. HEART: tachycardic LUNGS: CTAB, difficult to appreciate 2/2 habitus ABDOMEN: Soft, nontender, nondistended with good bowel sounds heard. BACK: No CVAT, no obvious deformity. EXTREMITIES: Without cyanosis, clubbing or edema. NEUROLOGICAL: Grossly nonfocal. Alert and oriented, moving all 4 extremities. CN not formally tested but appear grossly intact. Skin: Warm and dry without any rash. Principal Diagnosis Acute cholecystitis status post laparoscopic cholecystectomy Discharge Exam Constitutional: WD/WN, vitals as above, NAD, sitting up in bed, pleasant, conversing easily Respiratory: normal respiratory effort, lungs clear to auscultation, no wheeze, rales, rhonchi. Normal insp/exp effort, no accessory muscle use Cardiovascular: RRR, no murmur, no edema Vessels: no JVD or carotid bruit Chest: normal inspection of chest Abdomen: Dressing in place; clean dry and intact. Drain is still in place with minimal output. Musculoskeletal: no cyanosis or clubbing, extremities motor strength 5/5 Skin: no rashes, warm and dry normal turgor Neurologic: PERRL, EOMI, accommodation nl, no face palsy, no dysarthria CN's II- XI intact bilaterally and moves all extremities Psychiatric: A+Ox3, euthymic affect Discharge Data Allergies Allergy/AdvReac Type Severity Reaction Status Date / Time rosuvastatin Allergy Mild Cramping Verified 08/03/23 18:23 of the Muscles simvastatin Allergy Mild Cramping Verified 08/03/23 18:23 of the Muscles Consultations 08/03/23 18:28 ED Decision to Admit Stat 08/03/23 18:42 Consult General Surgery Routine 08/03/23 18:50 Consult Cardiology Routine Procedures Performed Operation Date: 08/05/23 14:05 Actual Procedures p Laparoscopic Cholecystectomy - Joesph Richey, Ordered Studies 08/03/23 15:30 US gallbladder Stat Hospital Course (1) New onset atrial fibrillation: Plan 73yo M with a PMH of DM II, CAD s/p CABG, history of ischemic cardiomyopathy, COPD, GABY on CPAP, history of restrictive lung disease, history of PE and DVT on Eliquis, dyslipidemia, hypertension, CESAR, mood disorder and other medical problems listed below who presents from home 08/02 with worsening abdominal pain x 3 days and was found to have cholecystitis. 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 Echo October 2022 with LV EF 55-59%, moderate sized apical, septal, and anteroseptal wall motion abnormality with mild hypokinesis to hypokinesis of the segments, grade 1 diastolic dysfunction, the aortic root and proximal ascending aorta are mildly enlarged (4.3/4.4 cm) but no significant change from previous Admitting GB US with cholelithiasis with findings of acute cholecystitis. HIDA scannonvisualization of gallbladder compatible with cystic duct obstruction. Admitting WBC 17.74K, LFT fairly WNL, lipase WNL, UA negative for UTI, Patient was observed after undergoing laparoscopic cholecystectomy. Post-operative period Was uneventful Patient was tolerating diet, regular BM Patient was cleared for discharge by surgery. Patient needs to follow-up with surgery for drain removal. New onset A-fib: EKG from 08/02 personally reviewed; atrial fibrillation with ventricular rate of 91 bpm Patient already on Eliquis due to history of PE. Ventricular rate well controlled during the hospitalization. Cardiology recommended to continue metoprolol at discharge. Please note the above document was generated using voice recognition software. It may contain grammatical, syntax or spelling errors. Any formal questions or concerns about the content, text or information contained within the body of this dictation should be directly addressed to the provider for clarification Total Time Total Time Spent Total Time Spent (In Minutes): 45 Total Time Includes: Examination of the Patient, Discharge Planning, Medication Reconciliation, Communication With Other Providers and Other Discharge Plan Discharge Items Patient Disposition: Home - Self-Care Reason For Visit: ACUTE CHOLECYSTITIS Discharge Diagnosis: laparoscopic cholecystectomy Activity: Per Instructions section Lifting: No more than 10 pounds Bathing Comment: may shower; no soaking in tubs/pools x 2 weeks Exercise/Sports: Wait until after follow-up appointment Driving/Machine Use: no driving while taking narcotics for pain Non-emergency contact: Primary Care Provider and Surgeon Call non-emergency contact if: you have any medication questions, your symptoms worsen, your pain is not controlled, your pain is worsening, you have a fever, your temperature is above 101.5, your wound has increased redness, your wound has increased drainage and your wound pain has increased Follow-up/Referrals: Joesph Richey DO [Surgeon] - (please call to schedule follow up in the [facility] within 2 weeks) Kermit Nunez [Physician Software Licensing Specialist] - (The Cardiology office will contact you for a follow up appointment.) Jennie Mckoy DO [Primary Care Provider] - (Date & Time 08/10/2023 1:20 PM Provider [place] Pharmacist [address] [place] [address] [address] [place] [address] Date & Time 08/10/2023 1:40 PM Provider Jennie Mckoy DO [address] ) Diet: Regular Addtl Attending Provider Instructions: You were admitted to the hospital due to infection of the gallbladder and you underwent surgery on August [address] Joesph Richey. Please call [phone] to follow-up with surgery to remove the drain. The drain should be removed on Wednesday or Wednesday. You are prescribed Augmentin to be taken twice a day for 3 more days to complete antibiotic course. You were prescribed tramadol for pain control. You are prescribed milk of magnesia and MiraLAX to prevent constipation. You can take it as needed. You may remove your outer dressing on 08/08/23 . You have kalyan that will need to come out at your follow up appointment. Please keep surgical area clean and dry. You can apply gauze and tape for comfort, Change your dressing daily. You may cover the area where your surgical drain was daily with dry gauze and medical tape until the site has healed. Pending Studies at Discharge: Yes Studies:: surgical pathology Stand-Alone Forms: [facility] CV Ingenuity, Smoking Cessation Medications and DC Order Prescriptions: New amoxicillin-pot clavulanate 875-125 mg tablet 1 tab PO BID 3 Days Qty: 6 0RF diclofenac sodium [Aleve (diclofenac)] 1 % gel 2 g topical QID PRN (Reason: pain) Qty: 100 0RF Rx Instructions: apply to single elbow, wrist or hand; for hand includes palm/fingers/back of hand polyethylene glycol 3350 [Miralax] 17 gram powder in packet 17 g PO DAILY 4 Days Qty: 14 0RF magnesium hydroxide [Milk of Magnesia] 400 mg/5 mL suspension 10 ml PO DAILY PRN (Reason: constipation) Qty: 355 0RF Continued atorvastatin 80 mg Tablet 80 mg PO QAM acetaminophen 325 mg Tablet 650 mg PO Q6H PRN (Reason: Pain) docusate sodium 100 mg Capsule 100 mg PO BID PRN (Reason: Constipation) Novolin 70-30 FlexPen U-100 100 unit/mL (70-30) Insulin Pen 75 unit subcut BID Rita-Hunker Original 325-1,916-1,000 mg Tablet, Effervescent 1 tab PO DAILY PRN (Reason: Abdominal Discomfort) Eliquis 5 mg Tablet 5 mg PO BID aspirin 81 mg Tablet,Delayed Release (Dr/Ec) 81 mg PO QAM Rx Instructions: hasn't taken in 1 week since he ran out metformin 500 mg Tablet Extended Release 24 Hr 500 mg PO BID isosorbide mononitrate 30 mg Tablet Extended Release 24 Hr 30 mg PO QAM Rx Instructions: ran out 1 week ago ezetimibe 10 mg Tablet 10 mg PO QAM furosemide 40 mg Tablet 40 mg PO QAM metoprolol succinate 50 mg Tablet Extended Release 24 Hr 100 mg PO QAM metoprolol succinate 50 mg Tablet Extended Release 24 Hr 75 mg PO QPM nitroglycerin 0.4 mg Tablet, Sublingual 0.4 mg sublingual UD PRN (Reason: Chest Pain) Arnuity Ellipta 100 mcg/actuation Blister With Device 1 inh INHALATION QAM PRN (Reason: Wheezing) Ozempic 2 mg/dose (8 mg/3 mL) Pen Injector 2 mg SUBCUT WK Rx Instructions: Mondays tramadol 50 mg Tablet 50 mg PO Q8H PRN (Reason: Pain) Qty: 15 0RF Discharge Orders: Discharge Order (Routine); Ordered 08/07/23 Ordered By: Justus Rinaldi/Other Patient Handouts: Managing Type 2 Diabetes Admission Data Admit Date/Time: 08/03/23 19:21 Attending Provider: Justus Fuentes Admit Provider: Fidelina Roblero Primary Care Provider: Jennie Mckoy Other Providers: Fidelina Roblero; oJesph Richey; Barney Jovel
== END 2023-08-07 16:16 | disposition home or self-care (01) | DRG 418 ==
LOC: ED 15:18 → EDINP 19:21 → SUATTDRO 19:21 → 2W 20:47